=== PATIENT | female | born 1940 | race Caucasian/White ===

== ENCOUNTER → 2016-07-11 | Outpatient (CLI) | payer BC ==
[~2016-07-11] MED LIST: ALBUAER2 INH; ASPI81TA28 PO; CYCL0.052 OPB; EPIN0.3I14 INJ; IBUP-103 PO; MELO7.5T5 PO; METO-217 PO; PRAV20TA PO; PRAV40TA2 PO; RSTOPS OP; VLT50 PO; VNTHFA/IN INH; ZOLP10TA PO; ZPAK PO
--- NOTE | 2016-07-11 12:04 | DIAGNOSTIC IMAGING REPORT ---
BONE SCAN WHOLE BODY CLINICAL HISTORY: M54.12 Cervical ilhyrrqvmbgtmG42.5 Acute lumbar back painR76.8 COMPARISON STUDY: MRI the lumbar spine dated 04/29/2014, conventional radiographic views of the lumbar spine dated 02/23/2014 FINDINGS: Patient was injected with 24.9 mCi of technetium 99m MDP. Three-hour delayed whole body images were acquired. There is a photopenic defect within the right hip, consistent with a right hip arthroplasty. There are foci of increased activity within the wrists knees and feet, consistent with a degenerative/arthritic etiology. There is a subtle focus of increased activity at the level of the right sternoclavicular joint, likely arthritic. There is an unexplained focus of increased activity at the level of the left inferomedial SI joint. There are foci of increased activity involving the T11 vertebra, T12 vertebra, as well as at the L1-2 level, L3 level, and L4-5 level. Plain film correlation is recommended in follow-up. IMPRESSION: 1. Unexplained foci of increased activity within the lower thoracic spine and lumbar spine as well as at the level of the inferior left SI joint. Plain film correlation is advocated 2. Foci of increased activity within the wrist knees and feet, likely degenerative/arthritic Electronically signed by: Claude Parker M.D. 07/11/2016 12:02 PM
[2016-07-12 18:20] LABS: ALBUMIN 3.7 G/DL (3.8-4.8); GAMMA GLOBULIN 0.8 G/DL (0.8-1.7)
== END | disposition home or self-care (01) ==
LOC: C.NUCL 07:28
PROVIDERS: ATTEND Internal Medicine Rheumatology
DX: M54.12 Radiculopathy, cervical region (principal); M54.5 Low back pain; R76.8 Other specified abnormal immunological findings in serum

== ENCOUNTER → 2016-07-21 | Outpatient (CLI) | payer BC ==
[~2016-07-21] MED LIST changes: -EPIN0.3I14 INJ; +EPIN1INJ37 INJ
--- NOTE | 2016-07-21 09:32 | DIAGNOSTIC IMAGING REPORT ---
THORACIC SPINE 3 VIEWS HISTORY: R93.7 Abnormal bone scan of thoracic [id number] COMPARISON: Bone scan 07/11/2016. FINDINGS: There is no fracture. No subluxation. Mild dextroscoliosis of the lower thoracic spine. Moderate degenerative disease throughout the thoracic spine. There are severe degenerative disc disease at L1-L2. Some of this may account for the radiotracer uptake on the bone scan. No suspicious lytic or blastic osseous lesions identified within the thoracic spine. Paraspinal soft tissues are unremarkable. IMPRESSION: 1. Moderate degenerative disease throughout the thoracic spine and severe degenerative disc disease at L1-L2. Some of this may account for the radiotracer uptake on the bone scan. 2. No suspicious lytic or blastic osseous lesions within the thoracic spine by conventional radiographic technique. Electronically signed by: Cayetano Durham M.D. 07/21/2016 9:31 AM Dictated Date/Time: 07/21/2016 9:27 AM
--- NOTE | 2016-07-21 09:38 | DIAGNOSTIC IMAGING REPORT ---
PELVIS 1 OR 2 VIEW ROUTINE CLINICAL HISTORY: Abnormal bone scan. 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 No fractures are visualized. There are sclerotic changes involving the inferior margin left SI joint which may explain the focus of increased activity on the recent bone scan. No destructive lesions are identified. Degenerative changes are present within the visualized portions of the lower lumbar spine IMPRESSION: 1. No acute fractures 2. Degenerative changes with sclerosis involving the inferior margin of the left SI joint. This likely explains the corresponding focus of increased activity on the most recent bone scan Electronically signed by: Claude Parker M.D. 07/21/2016 9:36 AM Dictated Date/Time: 07/21/2016 9:34 AM
== END | disposition home or self-care (01) ==
LOC: C.RAD1850 08:54
PROVIDERS: ATTEND Internal Medicine Rheumatology
DX: R93.7 Abnormal findings on diagnostic imaging of other parts of musculoskeletal system (principal); M16.9 Osteoarthritis of hip, unspecified; M47.814 Spondylosis without myelopathy or radiculopathy, thoracic region; M51.36 Other intervertebral disc degeneration, lumbar region

== ENCOUNTER → 2016-08-15 | Outpatient (CLI) | payer BC ==
--- NOTE | 2016-08-15 11:47 | DIAGNOSTIC IMAGING REPORT ---
MRI LUMBAR SPINE W/O CONTRAST CLINICAL HISTORY: Low back pain with bilateral leg radiculopathy. Spinal stenosis. TECHNIQUE: Sagittal and axial T1, T2 and STIR images were obtained. COMPARISON STUDY: 04/29/2014 OBSERVATIONS: The vertebral bodies and posterior elements appear intact. There is no abnormal bony signal present to suggest a marrow replacement process. L1-2: There is marked degenerative change with degenerative endplate marrow edema. There is a circumferential disc bulge present. There is no significant spinal foraminal stenosis L2-3: There is a circumferential disc bulge present. There is no significant spinal foraminal stenosis L3-4: There is a circumferential disc bulge present with mild spinal stenosis. There is no significant foraminal narrowing. L4-5: There is a grade 1 spondylolisthesis of L4 and L5. There is advanced facet joint arthropathy. There is moderate to severe spinal stenosis. There is no significant foraminal narrowing. L5-S1: There is a grade 1 spondylolisthesis of L5 and S1. There is facet joint arthropathy. There is no significant spinal or foraminal stenosis. The conus medullaris and cauda equina appear normal. IMPRESSION: No significant change from the preceding study. Multilevel spondylitic changes. Mild spinal stenosis the L3-4 level, and moderate to severe spinal stenosis at the L4-5 level. Electronically signed by: Claude Parker M.D. 08/15/2016 11:46 AM Dictated Date/Time: 08/15/2016 11:40 AM
== END | disposition home or self-care (01) ==
LOC: C.MRIBC 10:32
PROVIDERS: ATTEND Orthopaedic Surgery Orthopaedic Surgery of the Spine
DX: M48.06 Spinal stenosis, lumbar region (principal)

== ENCOUNTER → 2016-09-18 | Outpatient (CLI) | payer BC ==
[~2016-09-18] MED LIST changes: -IBUP-103 PO
--- NOTE | 2016-09-18 14:00 | MAMMOGRAPHY REPORT ---
BILATERAL DIGITAL SCREENING MAMMOGRAM WITH CAD: 09/18/2016 CLINICAL HISTORY: Routine screening. Patient has no complaints. TECHNIQUE: Bilateral CC and MLO views were obtained. Current study was also evaluated with a Comput er Aided Detection (CAD) system. COMPARISON: Comparison is made to exams dated: 09/16/2015 mammogram, 08/19/2013 mammogram, 10/12/2015 u ltrasound, and 10/12/2015 mammogram - [facility]. BREAST COMPOSITION: The tissue of both breasts is heterogeneously dense, which may obscure small ma sses. FINDINGS: The parenchymal pattern is similar to prior exams. There are stable round microcalcificat ions in the right breast. No new suspicious mass, architectural distortion or cluster of microcalci fications is seen. IMPRESSION: ACR BI-RADS CATEGORY 1: NEGATIVE There is no mammographic evidence of malignancy. A 1 year screening mammogram is recommended. The p atient will receive written notification of the results. Approximately 10% of breast cancers are not detected with mammography. A negative mammographic repor t should not delay biopsy if a clinically suggestive mass is present. Marta Mcadams M.D. ay/:09/18/2016 12:20:06 Senior [employer] Under[employer]: Freda YAÑEZ(Syed)(M), [facility] letter sent: Normal 1/2 BI-RADS Code: ACR BI-RADS Category 1: Negative
== END ==
LOC: C.MAMM 09:17
PROVIDERS: ATTEND Obstetrics & Gynecology
DX: Z12.31 Encounter for screening mammogram for malignant neoplasm of breast (principal)

== ENCOUNTER → 2016-10-28 | Outpatient (CLI) | payer BC ==
[2016-10-28 12:56] LABS: BASO % 0.3 %; BASO ABS # 0.02 K/uL (0-0.2); COMPLETE YES; HEMATOCRIT 45.8 % (37-47); IG% 0.1 %; LYMPH % 28.8 %; LYMPH ABS # 2.07 K/uL (1.2-3.4); MEAN CELL VOLUME 93.7 fL (80-100); MEAN CORPUSCULAR HEMOGLOBIN 31.1 pg (25-34); MEAN CORPUSCULAR HGB CONC 33.2 g/dl (32-36); MEAN PLATELET VOLUME 9.6 fL (7.4-10.4); MONO % 8.2 %; NEUT % 61.6 %; PLATELET COUNT 266 K/uL (130-400); RED BLOOD COUNT 4.89 M/uL (4.2-5.4)
[2016-10-28 13:04] LABS: ALT/SGPT 32 U/L (12-78); AST/SGOT 23 U/L (15-37); BLOOD UREA NITROGEN 18 mg/dl (7-18); BUN/CREATININE RATIO 21.7 (10-20); CALCIUM 8.8 mg/dl (8.5-10.1); CARBON DIOXIDE 29 mmol/L (21-32); CHLORIDE 104 mmol/L (98-107); CREATININE 0.83 mg/dl (0.60-1.20); GLUCOSE 99 mg/dl (70-99); POTASSIUM 4.2 mmol/L (3.5-5.1); SODIUM 141 mmol/L (136-145)
[2016-10-28 13:15] LABS: ALB/GLOB RATIO 1.2 (0.9-2); ALKALINE PHOSPHATASE 48 U/L (45-117); CHOLESTEROL 187 mg/dl (0-200); CHOLESTEROL/HDL RATIO 2.1; HDL CHOLESTEROL 88 mg/dl; LDL CHOLESTEROL CALCULATED 80 mg/dl; TRIGLYCERIDES 96 mg/dl (0-150); VERY LOW DENSITY LIPOPROT CALC 19 mg/dl
[2016-10-28 13:22] LABS: ESTIMATED AVERAGE GLUCOSE 123 mg/dl; HA1C FLAG Normal (Normal)
== END | disposition home or self-care (01) ==
LOC: C.LABBC 10:36
PROVIDERS: ATTEND Internal Medicine Pulmonary Disease
DX: E78.5 Hyperlipidemia, unspecified (principal); M15.9 Polyosteoarthritis, unspecified; J30.9 Allergic rhinitis, unspecified; I47.1 Supraventricular tachycardia; E11.9 Type 2 diabetes mellitus without complications; G47.00 Insomnia, unspecified; M51.36 Other intervertebral disc degeneration, lumbar region

== ENCOUNTER 2017-01-04 20:19 | Emergency (ER) | payer BC ==
[~2017-01-04] VITALS: Ht 157.5 cm; Wt 62.6 kg
[~2017-01-04 20:19] MED LIST changes: -CYCL0.052 OPB; -EPIN1INJ37 INJ; -PRAV40TA2 PO; -VLT50 PO; -VNTHFA/IN INH; -ZPAK PO
[2017-01-04 20:24] VITALS: TEMP 36.4; Ht 157.5 cm; Wt 62.6 kg
[2017-01-04] MEDS ORDERED: PRAV40TA2 PO (20:41)
[2017-01-04] MEDS ORDERED: CYCL0.052 OPB (20:41)
[2017-01-04] MEDS ORDERED: VLT50 PO (20:41)
[2017-01-04] MEDS ORDERED: VNTHFA/IN INH (20:41)
[2017-01-04] MEDS ORDERED: ZPAK PO (20:41)
[2017-01-04] MEDS ORDERED: EPIN1INJ37 INJ (20:41)
[2017-01-04 21:18] LABS: BASO % 0.7 %; BASO ABS # 0.04 K/uL (0-0.2); COMPLETE YES; EOS % 3.5 %; HEMATOCRIT 43.3 % (37-47); IG% 0.2 %; LYMPH % 34.8 %; LYMPH ABS # 2.08 K/uL (1.2-3.4); MEAN CELL VOLUME 91.9 fL (80-100); MEAN CORPUSCULAR HEMOGLOBIN 31.4 pg (25-34); MEAN CORPUSCULAR HGB CONC 34.2 g/dl (32-36); MEAN PLATELET VOLUME 9.3 fL (7.4-10.4); MONO % 8.7 %; NEUT % 52.1 %; PLATELET COUNT 263 K/uL (130-400); RED BLOOD COUNT 4.71 M/uL (4.2-5.4); WHITE BLOOD COUNT 5.97 K/uL (4.8-10.8)
--- NOTE | 2017-01-04 21:38 | DIAGNOSTIC IMAGING REPORT ---
CHEST ONE VIEW PORTABLE CLINICAL HISTORY: Chest pain. Tachycardia. COMPARISON STUDY: Chest radiograph November 05, 2014. FINDINGS: There is no pneumothorax or pleural effusion. Linear bilateral opacities suggest atelectasis. There is no consolidation to suggest pneumonia. Cardiomediastinal silhouette is normal. The appearance of the chest is unchanged. IMPRESSION: No acute cardiopulmonary findings. Electronically signed by: Floyd Trejo M.D. 01/04/2017 9:37 PM Dictated Date/Time: 01/04/2017 9:34 PM
[2017-01-04 22:16] LABS: BLOOD UREA NITROGEN 18 mg/dl (7-18); BUN/CREATININE RATIO 19.4 (10-20); CALCIUM 9.3 mg/dl (8.5-10.1); CARBON DIOXIDE 30 mmol/L (21-32); CHLORIDE 105 mmol/L (98-107); GLUCOSE 168 mg/dl (70-99); POTASSIUM 3.8 mmol/L (3.5-5.1); SODIUM 139 mmol/L (136-145)
--- NOTE | 2017-01-05 00:05 | EMERGENCY ROOM VISIT NOTE ---
History Report prepared by Leonid: Emer[facility] Under the Supervision of: Dr. Ganesh Ford D.O. First contact with patient: 20:32 Chief Complaint: TACHYCARDIA Stated Complaint: RAPID HEARTRATE, STIFF NECK, THROAT ULCERS, DIZZY History of Present Illness The patient is a 76 year old female who presents to the Emergency Room with complaints of intermittent rapid heart rate/palpitations beginning 13 minutes ago. The patient states that last week she had a sore throat and mouth ulcer. She reports that she went to see her PCP and was told that it was viral. She notes that she was given Azithromycin and was told not to take it unless her symptoms persisted. She notes that she started it and has been on it for about 3 days. She reports that today she was feeling lightheaded with a stiff neck. She notes that she had a rapid heart rate this morning 13 hours ago and it resolved after about 5 minutes before coming back tonight 2 hours ago. The patient notes that her rapid heart rate lasted for about 20 minutes before she came in tonight. She notes her heart feels like it is beating regularly as opposed to a regular. She did not check her pulse. She complains of dizziness and 3 episodes of diarrhea. The patient denies any chest pain, shortness of breath, fever, leg swelling, coughing up blood, history of cancer, previous blood clots, recent trips, recent surgeries or smoking.. She reports that she has a history of high cholesterol and SVT 12 years ago and this feels slightly similar. Patient also denies a history of diabetes, hypertension, and CAD. She does take a statin. Source of History: patient Onset: 13 hours ago Position: other (global) Symptom Intensity: 2 episodes Quality: other (rapid heart rate) Timing: intermittent Associated Symptoms: + sorethroat, + neck pain, No fevers, No chest pain, No SOB Note: Pt complains of mouth sores. The patient denies any leg swelling, coughing up blood, swelling of the calves. Review of Systems See HPI for pertinent positives & negatives. A total of 10 systems reviewed and were otherwise negative. Past Medical & Surgical Medical Problems: (1) Hypertension Nos (2) Osteoarthros Nos-Unspec Family History No pertinent family history Social History Smoking Status: Never Smoker Smokeless Tobacco Use: No Marital Status: Occupation Status: retired Current/Historical Medications Scheduled Aspirin (Aspirin Ec), 81 MG PO QPM Azithromycin (Azithromycin), PO UD Cyclosporine (Ophth) (Restasis), 1 DROP OPB BID Epinephrine (Epinephrine), 1 DOSE INJ PRN Metoprolol Succinate (Toprol Xl), 50 MG PO QPM Pravastatin Sodium (Pravastatin Sodium), 40 MG PO DAILY Scheduled PRN Albuterol Hfa (Ventolin Hfa), 2 PUFFS INH Q4 PRN for SOB/Wheezing Diclofenac Sod (Diclofenac Sodium Dr), 50 MG PO BID PRN for Pain Zolpidem Tartrate (Ambien), 5-10 MG PO HS PRN for Insomnia Allergies Coded Allergies: Amoxicillin (Verified Allergy, Unknown, C. DIFF, 09/21/16) [place] Nut (Verified Allergy, Unknown, BREATHING ISSUES, 09/21/16) Solifenacin (Verified Allergy, Unknown, CONSTIPATION, 09/21/16) POLLEN (Verified Adverse Reaction, Unknown, SNEEZING;ITCHY EYES, 09/21/16) Ragweed (Verified Adverse Reaction, Unknown, SNEEZING, 09/21/16) Physical Exam Vital Signs Date Time Temp Pulse Resp B/P (MAP) Pulse Ox O2 Delivery O2 Flow Rate FiO2 01/04/17 23:49 63 18 172/89 96 Room Air 01/04/17 22:28 69 16 164/90 93 Room Air 01/04/17 21:07 77 16 171/88 96 Room Air 01/04/17 21:04 71 01/04/17 20:24 36.4 97 20 161/99 94 Room Air Physical Exam GENERAL: sitting up in bed, alert, well appearing, well nourished, no distress, non-toxic EYE EXAM: normal conjunctiva OROPHARYNX: no exudate, no erythema, lips, buccal mucosa, and tongue normal and mucous membranes are moist NECK: supple, no nuchal rigidity, no adenopathy, non-tender, no JVD LUNGS: Clear to auscultation. Normal chest wall mechanics HEART: no murmurs, S1 normal and S2 normal ABDOMEN: abdomen soft, non-tender, normo-active bowel sounds, no masses, no rebound or guarding. BACK: Back is symmetrical on inspection and there is no deformity, no midline tenderness, no CVA tenderness. SKIN: no rashes and no bruising UPPER EXTREMITIES: upper extremities are grossly normal. LOWER EXTREMITIES: No pitting edema. Calves are equal bilaterally NEURO EXAM: Normal sensorium, cranial nerves II-XII grossly intact, normal speech, no gross weakness of arms, no gross weakness of legs. Medical Decision & Procedures ER Provider Diagnostic Interpretation: Radiology results as stated below per my review and the radiologist's interpretation: CHEST ONE VIEW PORTABLE FINDINGS: There is no pneumothorax or pleural effusion. Linear bilateral opacities suggest atelectasis. There is no consolidation to suggest pneumonia. Cardiomediastinal silhouette is normal. The appearance of the chest is unchanged. IMPRESSION: No acute cardiopulmonary findings. Electronically signed by: Floyd Trejo M.D. 01/04/2017 9:37 PM Dictated Date/Time: 01/04/2017 9:34 PM Laboratory Results 01/04/17 21:05 Red Blood Count 4.71, Mean Corpuscular Volume 91.9, Mean Corpuscular Hemoglobin 31.4, Mean Corpuscular Hemoglobin Concent 34.2, Mean Platelet Volume 9.3, Neutrophils (%) (Auto) 52.1, Lymphocytes (%) (Auto) 34.8, Monocytes (%) (Auto) 8.7, Eosinophils (%) (Auto) 3.5, Basophils (%) (Auto) 0.7, Neutrophils # (Auto) 3.11, Lymphocytes # (Auto) 2.08, Monocytes # (Auto) 0.52, Eosinophils # (Auto) 0.21, Basophils # (Auto) 0.04 01/04/17 21:05 Test 01/04/17 21:05 01/04/17 23:19 White Blood Count 5.97 K/uL (4.8-10.8) Red Blood Count 4.71 M/uL (4.2-5.4) Hemoglobin 14.8 g/dL (12.0-16.0) Hematocrit 43.3 % (37-47) Mean Corpuscular Volume 91.9 fL (80-100) Mean Corpuscular Hemoglobin 31.4 pg (25-34) Mean Corpuscular Hemoglobin Concent 34.2 g/dl (32-36) Platelet Count 263 K/uL (130-400) Mean Platelet Volume 9.3 fL (7.4-10.4) Neutrophils (%) (Auto) 52.1 % Lymphocytes (%) (Auto) 34.8 % Monocytes (%) (Auto) 8.7 % Eosinophils (%) (Auto) 3.5 % Basophils (%) (Auto) 0.7 % Neutrophils # (Auto) 3.11 K/uL (1.4-6.5) Lymphocytes # (Auto) 2.08 K/uL (1.2-3.4) Monocytes # (Auto) 0.52 K/uL (0.11-0.59) Eosinophils # (Auto) 0.21 K/uL (0-0.5) Basophils # (Auto) 0.04 K/uL (0-0.2) RDW Standard Deviation 45.0 fL (36.4-46.3) RDW Coefficient of Variation 13.4 % (11.5-14.5) Immature Granulocyte % (Auto) 0.2 % Immature Granulocyte # (Auto) 0.01 K/uL (0.00-0.02) Anion Gap 4.0 mmol/L (3-11) Est Creatinine Clear Calc Drug Dose 45.5 ml/min Estimated GFR () 71.5 Estimated GFR (Non- 61.7 BUN/Creatinine Ratio 19.4 (10-20) Calcium Level 9.3 mg/dl (8.5-10.1) Laboratory results per my review. ECG Indication: tachycardia Rate (beats per minute): 69 Rhythm: sinus rhythm Findings: no ectopy, other (normal axis) ED Course ED COURSE: Vital signs were reviewed and showed hypertension The patients medical record was reviewed The above diagnostic studies were performed and reviewed. ED treatments and interventions as stated above. 2034: The patient was evaluated in room A2. A complete history and physical examination was performed. 2247: I reevaluated and updated the patient. The patient had palpitations when she was here that appeared to be PACs. 2324: I reevaluated and updated the patient. 0015: Upon reevaluation, the patient is doing well.I discussed my findings with the patient and she understands and agrees with the treatment plan. Based on the patients age, coexisting illnesses, exam and lab findings the decision to treat as an outpatient was made. The patient remained stable while under my care. The patient appeared well at the time of discharge. Medical Decision Differential diagnosis: Etiologies such as premature contractions, electrolyte abnormality, cardiac dysrhythmia, thyroid dysfunction, pulmonary embolism, infection, gastrointestinal, as well as others were entertained. Medication Reconciliation: I attest that I have personally reviewed the patient' s current medication list. Blood pressure screening: Patient was found to have an elevated blood pressure and was referred to their primary doctor for recheck and further treatment. Patient is a 76-year-old female who presents the ER for palpitations which occurred on 2 separate occasions today. She has a history of SVT. She notes that this does feel similar. Both events were short-lived. No risk factors for PEs. Denies any chest pain or shortness of breath. Chest x-ray unremarkable. EKG was nonischemic. Troponins were negative 2. She did complain of palpitations while here in the ER and the monitor showed that she was having PACs. I do believe this likely cause of her symptoms, consequently TSH was not obtained as she was symptomatic with monitor showing PACs. I do not believe that this is ischemic in nature. She may benefit from a Holter monitor. Patient believes that the symptoms are possibly related to azithromycin she was taking for a sore throat. Intervals are normal. I do not believe this is an allergic reaction. She is completely neurologically intact. No signs of meningitis or encephalitis on exam. Her neck stiffness is muscular in nature. Discussed with Pt concerning signs and symptoms to watch out for. Pt was instructed to follow up with their PCP and discussed with the patient their option to return to the ED at anytime for persistent or worsening symptoms. The appropriate anticipatory guidance and out-patient management, including indications for return to the emergency department, were explained at length to the patient and understood. Impression Primary Impression: Palpitations Scribe Attestation The scribe's documentation has been prepared under my direction and personally reviewed by me in its entirety. I confirm that the note above accurately reflects all work, treatment, procedures, and medical decision making performed by me. Departure Information Dispostion Home / Self-Care Referrals Pablo Dumont M.D. (PCP) Forms HOME CARE DOCUMENTATION FORM, IMPORTANT VISIT INFORMATION, WORK / SCHOOL INSTRUCTIONS Patient Instructions ED Palpitations, My [facility] Additional Instructions Please follow up with your primary care doctor with in the next 24 hours. Any worsening of your symptoms, please return to the ED immediately. This includes chest pain, shortness breath, passing out, weakness or numbness in arms or legs , swelling of her throat, difficult breathing, or any other concerning signs or symptoms from your standpoint.
[2017-01-05 00:14] VITALS: BP 162/92; PULSE 85; O2SAT 95
== END 2017-01-05 00:15 | disposition home or self-care (01) ==
LOC: C.EDB 20:21 → C.EDA 01-05 00:15
DX: R00.2 Palpitations (principal); R00.0 Tachycardia, unspecified; R42 Dizziness and giddiness; R19.7 Diarrhea, unspecified; M54.2 Cervicalgia; I10 Essential (primary) hypertension; M19.90 Unspecified osteoarthritis, unspecified site; Z79.82 Long term (current) use of aspirin; Z79.899 Other long term (current) drug therapy

== ENCOUNTER → 2017-02-20 | Outpatient (CLI) | payer BC ==
[~2017-02-20] MED LIST changes: -ALBUAER2 INH; +CYCL0.052 OPB; +EPIN1INJ37 INJ; -MELO7.5T5 PO; -PRAV20TA PO; +PRAV40TA2 PO; -RSTOPS OP; +VLT50 PO; +VNTHFA/IN INH; +ZPAK PO
[2017-02-20 14:36] LABS: BASO % 0.5 %; BASO ABS # 0.04 K/uL (0-0.2); COMPLETE YES; EOS % 2.3 %; HEMATOCRIT 42.8 % (37-47); IG% 0.1 %; LYMPH % 39.2 %; LYMPH ABS # 2.89 K/uL (1.2-3.4); MEAN CELL VOLUME 92.2 fL (80-100); MEAN CORPUSCULAR HEMOGLOBIN 31.5 pg (25-34); MEAN CORPUSCULAR HGB CONC 34.1 g/dl (32-36); MEAN PLATELET VOLUME 9.8 fL (7.4-10.4); MONO % 6.4 %; NEUT % 51.5 %; PLATELET COUNT 236 K/uL (130-400); RED BLOOD COUNT 4.64 M/uL (4.2-5.4); WHITE BLOOD COUNT 7.38 K/uL (4.8-10.8)
[2017-02-20 15:02] LABS: ALT/SGPT 26 U/L (12-78); AST/SGOT 17 U/L (15-37); CREATININE 0.84 mg/dl (0.60-1.20)
== END | disposition home or self-care (01) ==
LOC: C.LAB1850 14:03
PROVIDERS: ATTEND Internal Medicine Rheumatology
DX: M54.5 Low back pain (principal); Z79.1 Long term (current) use of non-steroidal anti-inflammatories (NSAID)

== ENCOUNTER → 2017-04-13 | Outpatient (CLI) | payer BC ==
[~2017-04-13] MED LIST changes: -ZPAK PO
== END | disposition home or self-care (01) ==
LOC: C.PAPS 11:31
PROVIDERS: ATTEND Obstetrics & Gynecology
DX: Z12.4 Encounter for screening for malignant neoplasm of cervix (principal); Z78.0 Asymptomatic menopausal state

== ENCOUNTER → 2017-04-20 | Outpatient (CLI) | payer BC ==
[2017-04-20 09:30] LABS: BASO % 0.1 %; BASO ABS # 0.01 K/uL (0-0.2); COMPLETE YES; EOS % 0.3 %; HEMATOCRIT 45.8 % (37-47); IG% 0.2 %; LYMPH ABS # 2.25 K/uL (1.2-3.4); MEAN CELL VOLUME 91.2 fL (80-100); MEAN CORPUSCULAR HEMOGLOBIN 31.5 pg (25-34); MEAN CORPUSCULAR HGB CONC 34.5 g/dl (32-36); MEAN PLATELET VOLUME 9.7 fL (7.4-10.4); MONO % 10.3 %; NEUT % 65.1 %; PLATELET COUNT 294 K/uL (130-400); RED BLOOD COUNT 5.02 M/uL (4.2-5.4); WHITE BLOOD COUNT 9.39 K/uL (4.8-10.8)
[2017-04-20 10:03] LABS: ALT/SGPT 29 U/L (12-78); AST/SGOT 13 U/L (15-37); BLOOD UREA NITROGEN 31 mg/dl (7-18); BUN/CREATININE RATIO 35.5 (10-20); CALCIUM 9.1 mg/dl (8.5-10.1); CARBON DIOXIDE 27 mmol/L (21-32); CHLORIDE 105 mmol/L (98-107); CREATININE 0.86 mg/dl (0.60-1.20); GLUCOSE 93 mg/dl (70-99); POTASSIUM 4.1 mmol/L (3.5-5.1); SODIUM 140 mmol/L (136-145)
[2017-04-20 10:06] LABS: ALB/GLOB RATIO 1.1 (0.9-2); ALKALINE PHOSPHATASE 59 U/L (45-117); CHOLESTEROL 211 mg/dl (0-200); CHOLESTEROL/HDL RATIO 2.5; HDL CHOLESTEROL 85 mg/dl; LDL CHOLESTEROL CALCULATED 108 mg/dl; TRIGLYCERIDES 90 mg/dl (0-150); VERY LOW DENSITY LIPOPROT CALC 18 mg/dl
[2017-04-20 10:32] LABS: ESTIMATED AVERAGE GLUCOSE 126 mg/dl; HA1C FLAG Normal (Normal)
== END | disposition home or self-care (01) ==
LOC: C.LAB1850 08:38
PROVIDERS: ATTEND Internal Medicine Pulmonary Disease
DX: M15.9 Polyosteoarthritis, unspecified (principal); J30.9 Allergic rhinitis, unspecified; I47.1 Supraventricular tachycardia; E78.5 Hyperlipidemia, unspecified; R73.9 Hyperglycemia, unspecified; M48.00 Spinal stenosis, site unspecified

== ENCOUNTER → 2017-05-28 | Outpatient (CLI) | payer BC ==
--- NOTE | 2017-05-28 13:01 | DIAGNOSTIC IMAGING REPORT ---
CHEST 2 VIEWS ROUTINE CLINICAL HISTORY: J45.909 [id number] Cough COMPARISON STUDY: 01/04/2017 FINDINGS: The heart is borderline enlarged. There is aortic tortuosity. There is no failure. There is no focal pulmonary consolidation. There are no pleural effusions. There is minor interstitial thickening/atelectatic change at the lung bases.[ IMPRESSION: No active disease in the chest. Electronically signed by: Claude Parker M.D. 05/28/2017 1:00 PM Dictated Date/Time: 05/28/2017 12:59 PM
== END | disposition home or self-care (01) ==
LOC: C.RAD1850 11:52
PROVIDERS: ATTEND Physician Assistant
DX: J45.909 Unspecified asthma, uncomplicated (principal)

== ENCOUNTER → 2017-08-13 | Outpatient (CLI) | payer BC ==
[~2017-08-13] MED LIST changes: +EPIN0.3I14 INJ; -EPIN1INJ37 INJ
== END | disposition home or self-care (01) ==
LOC: C.LAB1850 15:45
PROVIDERS: ATTEND Physician Assistant Medical
DX: R39.9 Unspecified symptoms and signs involving the genitourinary system (principal); J02.9 Acute pharyngitis, unspecified

== ENCOUNTER 2017-09-08 20:51 | Emergency (ER) | payer BC ==
[~2017-09-08] VITALS: Ht 157.5 cm; Wt 61.0 kg
[2017-09-08 20:53] VITALS: TEMP 36.5; Ht 157.5 cm; Wt 61.0 kg
--- NOTE | 2017-09-08 21:22 | EMERGENCY ROOM VISIT NOTE ---
History Report prepared by Leonid: Mat Lucas Under the Supervision of: Dr. Juan Prince M.D. First contact with patient: 21:01 Chief Complaint: FALL Stated Complaint: FELL, HIT HEAD, BRUISING ON FOREHEAD/LIP, NAUSEA History of Present Illness The patient is a 77 year old white female with a past medical history of SVT and HTN who presents to the ED with a cc of a constant headache beginning three days ago. The patient states that she had only eaten oatmeal three days ago until her dinner. She reports that she then had a five course meal that included five different glasses of wine. The patient states that she sat for three hours and did not feel different. She reports that she tried to get up and was not able to. The patient states that she was driven back home and her friend helped escort her to the bathroom. She is accompanied by her friend who states that the patient was sitting on the toilet. Her friend states that when she checked on the patient again, she found the patient with her back to the [facility]. The patient states that she fell but does not remember the episode well. She denies any LOC. The patient states that she developed a bruise to the left side of her face and anterior head pain the following day. The patient states that she developed nausea at breakfast this morning. She reports that throughout that day she developed a headache posteriorly. She reports that she used ice and Tylenol for her symptoms with some mild relief. Positive head pain , bruising, nausea. Negative LOC, jaw pain, face pain, chest pain, abdominal pain, pelvis pain, back pain, UE pain, and LE pain. Source of History: patient Onset: three days ago Position: head Quality: ache Timing: constant Modifying Factors (Relieving): tylenol Associated Symptoms: + nausea, No LOC, No chest pain, No abdominal pain, No back pain Review of Systems See HPI for pertinent positives and negatives. A total of ten systems were reviewed and were otherwise negative. Past Medical & Surgical Medical Problems: (1) Hypertension Nos (2) Osteoarthros Nos-Unspec Family History No pertinent family history Social History Smoking Status: Never Smoker Marital Status: Occupation Status: retired Current/Historical Medications Scheduled Aspirin (Aspirin Ec), 81 MG PO QPM Cyclosporine (Ophth) (Restasis), 1 DROP OPB BID Epinephrine (Epinephrine), 1 DOSE INJ PRN Metoprolol Succinate (Toprol Xl), 50 MG PO QPM Pravastatin Sodium (Pravastatin Sodium), 40 MG PO DAILY Scheduled PRN Albuterol Hfa (Ventolin Hfa), 2 PUFFS INH Q4 PRN for SOB/Wheezing Diclofenac Sod (Diclofenac Sodium Dr), 50 MG PO BID PRN for Pain Zolpidem Tartrate (Ambien), 5-10 MG PO HS PRN for Insomnia Allergies Coded Allergies: Amoxicillin (Verified Allergy, Unknown, C. DIFF, 04/27/17) [place] Nut (Verified Allergy, Unknown, BREATHING ISSUES, 04/27/17) Solifenacin (Verified Allergy, Unknown, CONSTIPATION, 04/27/17) POLLEN (Verified Adverse Reaction, Unknown, SNEEZING;ITCHY EYES, 04/27/17) Ragweed (Verified Adverse Reaction, Unknown, SNEEZING, 04/27/17) Physical Exam Vital Signs Date Time Temp Pulse Resp B/P (MAP) Pulse Ox O2 Delivery O2 Flow Rate FiO2 09/08/17 23:00 62 20 162/82 95 Room Air 09/08/17 20:53 36.5 66 16 186/100 95 Room Air Physical Exam GENERAL: Awake, alert, well-appearing, NAD, HENT: Mild pain to left frontal bahai area, ecchymosis present. EYES: Normal conjunctiva. Sclera non-icteric. NECK: Supple. No nuchal rigidity. FROM. RESPIRATORY: CTAB, no rhonchi, wheezing, crackles CARDIAC: RRR, no MRG ABDOMEN: Soft, NTND, BS+ MSK: No chest wall TTP, no LE edema, no tenderness to arms, legs, chest, abdomen , and pelvis. No midline C-spine TTP. NEURO: CN 2-12 intact, 5/5 upper and lower extremity strength, no dysmetria, no drift, good finger to nose, no sensory deficits. SKIN: No rash or jaundice noted. Medical Decision & Procedures ER Provider Diagnostic Interpretation: Radiology results as stated below per my review and radiologist interpretation: FACIAL BONES-MXILLOFAC WITHOUT CLINICAL HISTORY: 77 years-old Female presenting with s/p fall. TECHNIQUE: Multidetector CT of the face was performed without the use of intravenous contrast. IV contrast: None. A dose lowering technique was used consistent with the principles of ALARA (as low as reasonably achievable). COMPARISON: None. CT DOSE (mGy.cm): The estimated cumulative dose is 834.[address] scans. FINDINGS: Pump Service Supervisor topogram: Unremarkable. Trace mucosal thickening in the maxillary sinuses. Otherwise paranasal sinuses and mastoid air cells clear. Middle ears clear. Bony nasal septum and nasal bones intact. Skull base intact. No facial fracture. Temporal mandibular joints and mandible intact. Teeth intact. Degenerative changes of the cervical spine. IMPRESSION: No acute osseous injury of the face. Electronically signed by: Joe Buchanan M.D. 09/08/2017 10:38 PM Dictated Date/Time: 09/08/2017 10:35 PM HEAD WITHOUT CONTRAST (CT) CLINICAL HISTORY: 77 years-old Female presenting with Evaluate for hemorrhage or pathology, fall, headache. TECHNIQUE: Multidetector CT imaging of the head was performed without the use of intravenous contrast. IV contrast: None. A dose lowering technique was used consistent with the principles of ALARA (as low as reasonably achievable). COMPARISON: 02/21/2009 CT DOSE (mGy.cm): The estimated cumulative dose is 834.28 mGy.cm. FINDINGS: Pump Service Supervisor topogram: Unremarkable. Proportional ventricular and sulcal prominence, likely age-related parenchymal volume loss. Brain parenchyma normal in appearance with preserved andres-white differentiation. No mass effect or midline shift. No hemorrhage or acute territorial infarct. No extra-axial fluid collection. Paranasal sinuses and mastoid air cells clear. Calvarium intact. IMPRESSION: 1. No acute intracranial abnormality. Electronically signed by: Joe Buchanan M.D. 09/08/2017 10:31 PM Dictated Date/Time: 09/08/2017 10:28 PM CERVICAL SPINE W/O CLINICAL HISTORY: 77 years-old Female presenting with s/p fall. TECHNIQUE: Multidetector CT of the cervical spine was performed without the use of intravenous contrast. IV contrast: None. A dose lowering technique was used consistent with the principles of ALARA (as low as reasonably achievable). COMPARISON: Plain radiographs from 11/05/2014. CT DOSE (mGy.cm): The estimated cumulative dose is 834.[address] scans. FINDINGS: Pump Service Supervisor topogram: Unremarkable. Reversal of normal cervical lordosis with kyphotic deformity centered at C4-5. No acute fracture or subluxation. Multilevel degenerative changes. Mild vertebral body height loss of C5, likely degenerative in etiology. Intervertebral disc height loss at C5-6 and C6-7, where there is the greatest degree of degenerative change and disc osteophyte complexes. Smaller disc osteophyte complex noted at C4-5. Facet arthropathy results in osseous neural foraminal narrowing on the left at C3-4. Disc osteophyte complex/uncovertebral hypertrophy in combination with facet arthropathy results in osseous neural foraminal narrowing on the left at C4-5. Osseous neural foraminal narrowing secondary to disc osteophyte complex on the right at C5-6 and C6-7. No significant osseous spinal canal narrowing though posterior bony spurring is present at the levels affected by disc osteophyte complexes. IMPRESSION: 1. No acute osseous injury of the cervical spine. 2. Multilevel degenerative changes including kyphotic deformity. Osseous neural foraminal narrowing at several levels as detailed above. Electronically signed by: Joe Buchanan M.D. 09/08/2017 10:35 PM Dictated Date/Time: 09/08/2017 10:31 PM Laboratory Results 09/08/17 22:00 Red Blood Count 4.82, Mean Corpuscular Volume 90.7, Mean Corpuscular Hemoglobin 31.5, Mean Corpuscular Hemoglobin Concent 34.8, Mean Platelet Volume 10.0, Neutrophils (%) (Auto) 63.9, Lymphocytes (%) (Auto) 25.7, Monocytes (%) (Auto) 8.4, Eosinophils (%) (Auto) 1.4, Basophils (%) (Auto) 0.4, Neutrophils # (Auto) 6.02, Lymphocytes # (Auto) 2.42, Monocytes # (Auto) 0.79, Eosinophils # (Auto) 0.13, Basophils # (Auto) 0.04 09/08/17 22:00 Test 09/08/17 22:00 White Blood Count 9.42 K/uL (4.8-10.8) Red Blood Count 4.82 M/uL (4.2-5.4) Hemoglobin 15.2 g/dL (12.0-16.0) Hematocrit 43.7 % (37-47) Mean Corpuscular Volume 90.7 fL (80-100) Mean Corpuscular Hemoglobin 31.5 pg (25-34) Mean Corpuscular Hemoglobin Concent 34.8 g/dl (32-36) Platelet Count 227 K/uL (130-400) Mean Platelet Volume 10.0 fL (7.4-10.4) Neutrophils (%) (Auto) 63.9 % Lymphocytes (%) (Auto) 25.7 % Monocytes (%) (Auto) 8.4 % Eosinophils (%) (Auto) 1.4 % Basophils (%) (Auto) 0.4 % Neutrophils # (Auto) 6.02 K/uL (1.4-6.5) Lymphocytes # (Auto) 2.42 K/uL (1.2-3.4) Monocytes # (Auto) 0.79 K/uL (0.11-0.59) Eosinophils # (Auto) 0.13 K/uL (0-0.5) Basophils # (Auto) 0.04 K/uL (0-0.2) RDW Standard Deviation 45.0 fL (36.4-46.3) RDW Coefficient of Variation 13.6 % (11.5-14.5) Immature Granulocyte % (Auto) 0.2 % Immature Granulocyte # (Auto) 0.02 K/uL (0.00-0.02) Prothrombin Time 9.8 SECONDS (9.0-12.0) Prothromb Time International Ratio 0.9 (0.9-1.1) Activated Partial Thromboplast Time 23.6 SECONDS (21.0-31.0) Partial Thromboplastin Ratio 0.9 Anion Gap 7.0 mmol/L (3-11) Est Creatinine Clear Calc Drug Dose 39.9 ml/min Estimated GFR () 62.5 Estimated GFR (Non- 53.9 BUN/Creatinine Ratio 23.0 (10-20) Calcium Level 9.0 mg/dl (8.5-10.1) Laboratory results reviewed by me ECG Per My Interpretation Indication: weakness Rate (beats per minute): 76 Rhythm: normal sinus Findings: PVC (occasional), other (Normal intervals, Normal axis, ectopy noted) ED Course 2103: The patient was evaluated in room B03B. A complete history and physical exam was performed. 2242: I reevaluated the patient. Discussed results and discharge instructions: She verbalized understanding and agreement. The patient is ready for discharge. Medical Decision Triage Nursing notes reviewed. Prior records reviewed. The patient is a 77 year old white female with a past medical history of SVT and HTN who presents to the ED with a cc of constant headache beginning three days ago. The patient's presentation and history were concerning for etiologies such as migraine headache, meningitis, sinusitis, CO exposure, ICH, SAH, infection, tumor, headache, sinus thrombosis, arterial dissection, as well as others were entertained. Patient was seen and evaluated the bedside. Patient reportedly had a fall on Sunday. The patient had 5 glasses of wine and had been seated for fair amount of time during dinner. Patient did not have any LOC. Patient does take a baby aspirin but no other blood thinning medications. Patient has had some mild intermittent headache. Patient denies any numbness tingling or weakness. On exam the patient has a nonfocal neurologic exam. Patient does have ecchymosis over the left frontotemporal area. Patient does not have any vision changes and no midline C-spine tenderness. Patient denies any pain to palpation in any of her extremities, chest, back, or abdomen. Patient did have basic blood work completed along with coagulation studies, EKG and, CT of the head C-spine and face. Patient's blood work was fairly unremarkable. Patient' s EKG did show sinus with frequent PVCs. The patient denies any chest pains. Patient CTs were negative acute. Patient was told that she should follow-up with her primary care as she may have some concussion-like symptoms although she did not have any LOC. Less likely a bleed in the brain as the patient is several days out as a nonfocal neurologic exam only takes baby aspirin and has a negative CT. Patient was deemed suitable for outpatient follow-up treatment at this time. Patient was given strict follow-up, discharge, and return precautions. All questions were answered. Patient was deemed suitable for outpatient follow-up at this time. Patient agreed with the plan of care and was safely discharged home. Medication Reconcilliation Current Medication List: was personally reviewed by me Blood Pressure Screening Patient's blood pressure: Elevated blood pressure Blood pressure disposition: Referred to PCP Impression Primary Impression: Fall Additional Impression: Contusion of multiple sites Scribe Attestation The scribe's documentation has been prepared under my direction and personally reviewed by me in its entirety. I confirm that the note above accurately reflects all work, treatment, procedures, and medical decision making performed by me. Departure Information Dispostion Home / Self-Care Referrals Pablo Dumont M.D. (PCP) Patient Instructions ED Mechanical Fall, ED Prevention Fall, My [facility] Additional Instructions Please return to the emergency department if you have worsening or recurrent symptoms not amenable to at-home treatment. Please call for a follow-up appointment with her primary care physician. Please take your medications as prescribed. If you have other concerns and/or complaints please feel free to also call your primary care physician's office or return the ED for further evaluation, management, and treatment. You may take 400 mg Ibuprofen every 6 hours as needed for pain with food for no more than 2 consecutive days. You may take tylenol 650 mg every 6 hours as needed for pain. You may take motrin and tylenol separately or at the same time. Take your medications as prescribed. You have been examined and treated today on an emergency basis only. This is not a substitute for, or an effort to provide, complete comprehensive medical care. It is impossible to recognize and treat all injuries or illnesses in a single emergency department visit. It is therefore important that you follow up closely with [facility], your PCP, and/or your specialist(s). Call as soon as possible for an appointment. Thank you for your time and consideration. I look forward to speaking with you again soon. Please don't hesitate to call us if you have any questions. Problem Qualifiers Primary Impression: Fall Encounter type: initial encounter Qualified Codes: W19.XXXA - Unspecified fall, initial encounter
[2017-09-08 22:19] LABS: BASO % 0.4 %; BASO ABS # 0.04 K/uL (0-0.2); EOS % 1.4 %; EOS ABS # 0.13 K/uL (0-0.5); HEMATOCRIT 43.7 % (37-47); HEMOGLOBIN 15.2 g/dL (12.0-16.0); IG# 0.02 K/uL (0.00-0.02); LYMPH % 25.7 %; LYMPH ABS # 2.42 K/uL (1.2-3.4); MEAN CELL VOLUME 90.7 fL (80-100); MEAN CORPUSCULAR HEMOGLOBIN 31.5 pg (25-34); MEAN CORPUSCULAR HGB CONC 34.8 g/dl (32-36); MONO % 8.4 %; MONO ABS # 0.79 K/uL (0.11-0.59); NEUT % 63.9 %; NEUT ABS # 6.02 K/uL (1.4-6.5); PLATELET COUNT 227 K/uL (130-400); RED CELL DISTRIBUTION WIDTH CV 13.6 % (11.5-14.5); WHITE BLOOD COUNT 9.42 K/uL (4.8-10.8)
[2017-09-08 22:23] LABS: INR 0.9 (0.9-1.1); PTT PATIENT 23.6 SECONDS (21.0-31.0)
[2017-09-08 22:32] LABS: POTASSIUM 3.6 mmol/L (3.5-5.1)
--- NOTE | 2017-09-08 22:32 | DIAGNOSTIC IMAGING REPORT ---
HEAD WITHOUT CONTRAST (CT) CLINICAL HISTORY: 77 years-old Female presenting with Evaluate for hemorrhage or pathology, fall, headache. TECHNIQUE: Multidetector CT imaging of the head was performed without the use of intravenous contrast. IV contrast: None. A dose lowering technique was used consistent with the principles of ALARA (as low as reasonably achievable). COMPARISON: 02/21/2009 CT DOSE (mGy.cm): The estimated cumulative dose is 834.28 mGy.cm. FINDINGS: Application Support Consultant topogram: Unremarkable. Proportional ventricular and sulcal prominence, likely age-related parenchymal volume loss. Brain parenchyma normal in appearance with preserved andres-white differentiation. No mass effect or midline shift. No hemorrhage or acute territorial infarct. No extra-axial fluid collection. Paranasal sinuses and mastoid air cells clear. Calvarium intact. IMPRESSION: 1. No acute intracranial abnormality. Electronically signed by: Joe Buchanan M.D. 09/08/2017 10:31 PM Dictated Date/Time: 09/08/2017 10:28 PM
--- NOTE | 2017-09-08 22:36 | DIAGNOSTIC IMAGING REPORT ---
CERVICAL SPINE W/O CLINICAL HISTORY: 77 years-old Female presenting with s/p fall. TECHNIQUE: Multidetector CT of the cervical spine was performed without the use of intravenous contrast. IV contrast: None. A dose lowering technique was used consistent with the principles of ALARA (as low as reasonably achievable). COMPARISON: Plain radiographs from 11/05/2014. CT DOSE (mGy.cm): The estimated cumulative dose is 834.[address] scans. FINDINGS: Transmission Design Engineer topogram: Unremarkable. Reversal of normal cervical lordosis with kyphotic deformity centered at C4-5. No acute fracture or subluxation. Multilevel degenerative changes. Mild vertebral body height loss of C5, likely degenerative in etiology. Intervertebral disc height loss at C5-6 and C6-7, where there is the greatest degree of degenerative change and disc osteophyte complexes. Smaller disc osteophyte complex noted at C4-5. Facet arthropathy results in osseous neural foraminal narrowing on the left at C3-4. Disc osteophyte complex/uncovertebral hypertrophy in combination with facet arthropathy results in osseous neural foraminal narrowing on the left at C4-5. Osseous neural foraminal narrowing secondary to disc osteophyte complex on the right at C5-6 and C6-7. No significant osseous spinal canal narrowing though posterior bony spurring is present at the levels affected by disc osteophyte complexes. IMPRESSION: 1. No acute osseous injury of the cervical spine. 2. Multilevel degenerative changes including kyphotic deformity. Osseous neural foraminal narrowing at several levels as detailed above. Electronically signed by: Joe Buchanan M.D. 09/08/2017 10:35 PM Dictated Date/Time: 09/08/2017 10:31 PM
--- NOTE | 2017-09-08 22:39 | DIAGNOSTIC IMAGING REPORT ---
FACIAL BONES-MXILLOFAC WITHOUT CLINICAL HISTORY: 77 years-old Female presenting with s/p fall. TECHNIQUE: Multidetector CT of the face was performed without the use of intravenous contrast. IV contrast: None. A dose lowering technique was used consistent with the principles of ALARA (as low as reasonably achievable). COMPARISON: None. CT DOSE (mGy.cm): The estimated cumulative dose is 834.[address] scans. FINDINGS: Deputy Harbormaster topogram: Unremarkable. Trace mucosal thickening in the maxillary sinuses. Otherwise paranasal sinuses and mastoid air cells clear. Middle ears clear. Bony nasal septum and nasal bones intact. Skull base intact. No facial fracture. Temporal mandibular joints and mandible intact. Teeth intact. Degenerative changes of the cervical spine. IMPRESSION: No acute osseous injury of the face. Electronically signed by: Joe Buchanan M.D. 09/08/2017 10:38 PM Dictated Date/Time: 09/08/2017 10:35 PM
[2017-09-08 23:00] VITALS: BP 162/82; PULSE 62; O2SAT 95
== END 2017-09-08 23:08 | disposition home or self-care (01) ==
LOC: C.EDB 20:52
DX: T14.8XXA Other injury of unspecified body region, initial encounter (principal); S00.83XA Contusion of other part of head, initial encounter; W19.XXXA Unspecified fall, initial encounter; Y92.002 Bathroom of unspecified non-institutional (private) residence as the place of occurrence of the external cause; Y99.8 Other external cause status; I10 Essential (primary) hypertension; Z79.82 Long term (current) use of aspirin; Z88.1 Allergy status to other antibiotic agents; Z91.018 Allergy to other foods; Z88.8 Allergy status to other drugs, medicaments and biological substances; Z91.048 Other nonmedicinal substance allergy status

== ENCOUNTER → 2017-09-21 | Outpatient (CLI) | payer BC ==
--- NOTE | 2017-09-21 13:54 | MAMMOGRAPHY REPORT ---
BILATERAL DIGITAL SCREENING MAMMOGRAM TOMOSYNTHESIS WITH CAD: 09/21/2017 CLINICAL HISTORY: Routine screening. The patient reports occasional tenderness in the right upper ou ter quadrant. TECHNIQUE: Breast tomosynthesis in addition to standard 2D mammography was performed. Current study was also evaluated with a Computer Aided Detection (CAD) system. COMPARISON: Comparison is made to exams dated: 09/18/2016 mammogram, 10/12/2015 mammogram, 09/16/2015 ma mmogram, 09/15/2014 mammogram, 07/30/2012 mammogram, and 08/19/2013 mammogram - [facility]. BREAST COMPOSITION: The tissue of both breasts is heterogeneously dense, which may obscure small mas ses. FINDINGS: No suspicious masses, calcifications, or areas of architectural distortion are noted in ei ther breast. There has been no significant interval change compared to prior exams. IMPRESSION: ACR BI-RADS CATEGORY 1: NEGATIVE There is no mammographic evidence of malignancy. A 1 year screening mammogram is recommended. Also r ecommend clinical follow-up for occasional tenderness in the right upper outer quadrant. The patient will receive written notification of the results. Approximately 10% of breast cancers are not detected with mammography. A negative mammographic report should not delay biopsy if a clinically suggestive mass is present. Daja Weinberg M.D. /:09/21/2017 11:23:16 Line Maintenance Technician: Christian Prince RT(R)(M), [facility] letter sent: Normal 1/2 BI-RADS Code: ACR BI-RADS Category 1: Negative
== END | disposition home or self-care (01) ==
LOC: C.MAMM 09:42
PROVIDERS: ATTEND Obstetrics & Gynecology
DX: Z12.31 Encounter for screening mammogram for malignant neoplasm of breast (principal)

== ENCOUNTER → 2018-01-29 | Outpatient (CLI) | payer BC ==
[~2018-01-29] MED LIST changes: +SNG10 PO
--- NOTE | 2018-01-29 16:19 | MAMMOGRAPHY REPORT ---
UNILATERAL RIGHT DIGITAL DIAGNOSTIC MAMMOGRAM TOMOSYNTHESIS WITH CAD AND RIGHT ULTRASOUND: 01/29/2018 CLINICAL HISTORY: 77-year-old woman presents with a daily painful area of thickening in the superior right breast and occasional small pea-sized lump associated with the pain. The patient had a hard ted e discovering the small lump while position for the ultrasound today but was able to point out the ar ea of pain. Patient denies any skin changes or nipple discharge. No family history of breast cancer. TECHNIQUE: Right breast CC and MLO 2D and tomosynthesis images were obtained. Current study was also evaluated with a Computer Aided Detection (CAD) system. COMPARISON: Comparison is made to exams dated: 09/21/2017 mammogram, 09/18/2016 mammogram, 10/12/2015 ma mmogram, 09/16/2015 mammogram, 09/15/2014 mammogram, and 08/19/2013 mammogram - [facility] nter. BREAST COMPOSITION: The tissue of right breast is heterogeneously dense, which may obscure small mass es. FINDINGS: A triangular palpable marker overlies the upper outer middle one third of the right breast, denoting the area of pain and lump pointed out by the patient. The glandular tissue pattern is stab le comparing to prior mammograms. No obvious new masses, asymmetries, areas of architectural distort ion or suspicious calcifications are seen. There are a few scattered benign round calcifications in the right breast. No skin thickening or nipple retraction appreciated. Targeted ultrasound was performed in the area of concern pointed out by the patient, approximately 9: 00 axis, 3-4 cm from the nipple. I also scanned in the 10:00 and 11:00 axes in the area of pain desc ribed by the patient. Sonographically normal tissue is identified throughout the right upper outer q uadrant on ultrasound, without evidence of a suspicious solid or cystic mass. No focal skin thickeni ng or drainable fluid collection. IMPRESSION: ACR BI-RADS CATEGORY 1: NEGATIVE, ULTRASOUND ACR BI-RADS CATEGORY 1: NEGATIVE Stable mammographic appearance of the right breast. There is no mammographic or targeted sonographic evidence of malignancy or other suspicious abnormality to explain the focal pain and intermittent pe a-sized lump described by the patient. Therefore, continued clinical follow-up and clinical monitori ng is recommended, as biopsy of a clinically suspicious mass should not be precluded by negative imag ing. Otherwise return to annual screening mammography schedule, due in September 2018. These results and recommendations were discussed with the patient at the time of the exam. Some breast cancers are not detected with mammography. A negative mammographic report should not tiffany y biopsy if a clinically suggestive mass is present. Marta Mcadams M.D. ay/:01/29/2018 13:42:54 Electronics Processing Supervisor: RT Delbert(R)(M), [facility] letter sent: Normal 1/2 OVERALL STUDY BIRADS: 1 Negative
== END | disposition home or self-care (01) ==
LOC: C.MAMM 11:33
PROVIDERS: ATTEND Obstetrics & Gynecology
DX: N64.9 Disorder of breast, unspecified (principal)

== ENCOUNTER 2018-10-03 17:45 | Inpatient (IN) ==
[2018-10-03] MEDS ORDERED: ONDANSETRON INJ 2 MG/ML 2 ML VIAL IV STA (19:20)
[2018-10-03] MEDS ORDERED: SODIUM CHLORIDE 0.9% 1000ML 1,000 ML IV STA (19:20)
[2018-10-03] MEDS: HYDROmorphone INJ 0.5 MG/0.5 ML SYR IV PRN ×2 (19:47→21:45)
[2018-10-03 19:56] LABS: Basophils # (auto) 0.01 K/uL (0-0.2); Basophils % (auto) 0.1 %; Eosinophils # (auto) 0.07 K/uL (0-0.5); Eosinophils % (auto) 0.6 %; Hematocrit (blood only) 42.6 % (37-47); Hemoglobin 14.7 g/dL (12.0-16.0); Immature Granulocytes # (auto) 0.03 K/uL (0.00-0.02); Immature Granulocytes % (auto) 0.2 %; Lymphocytes % (auto) 7.3 %; Mean Corpuscular Hgb Conc 34.5 g/dL (32-36); Mean Corpuscular Volume 91.8 fL (80-100); Mean Platelet Volume 9.8 fL (7.4-10.4); Monocytes # (auto) 0.96 K/uL (0.11-0.59); Monocytes % (auto) 7.8 %; Neutrophils # (auto) 10.38 K/uL (1.4-6.5); Platelet Count 252 K/uL (130-400); RDW Standard Deviation 46.7 fL (36.4-46.3); Red Blood Count 4.64 M/uL (4.2-5.4); White Blood Count 12.35 K/uL (4.8-10.8)
[2018-10-03 20:01] LABS: Albumin Level 3.2 gm/dl (3.4-5.0); BUN Creatinine Ratio 14.6 (10-20); Creatinine Clr Calc Pharmacy 23.7 ml/min; Est GFR (African American) 37.4; Est GFR (Non-African American) 32.3; Potassium 3.8 mmol/L (3.5-5.1)
[2018-10-03 20:09] LABS: Albumin Globulin Ratio 0.9 (0.9-2); Bilirubin,Total 3.1 mg/dl (0.2-1); Globulin 3.4 gm/dl (2.5-4.0); Total Protein 6.6 gm/dl (6.4-8.2)
--- NOTE | 2018-10-03 20:18 | CT Scan Report ---
CT OF THE ABDOMEN AND PELVIS WITHOUT CONTRAST CLINICAL HISTORY: RLQ abd pain, recent bladder surgery COMPARISON STUDY: CT of the abdomen and pelvis June 13, 2010. Renal ultrasound September 09, 2018. TECHNIQUE: Axial images of the abdomen and pelvis were obtained without IV contrast. Images were revi ewed in the axial, sagittal, and coronal planes. Automated exposure control was utilized for the davon dy. A dose lowering technique was utilized adhering to the principles of ALARA. FINDINGS: A small hiatal hernia is noted. There is moderate biliary ductal dilatation. There is no pe ripancreatic infiltration. The gallbladder is surgically absent. Evaluation of the abdomen and pelvis is suboptimal on this unenhanced exam. The liver, spleen, adrenal glands and kidneys are unremarkabl e. There is no hydronephrosis. No renal, ureteral or bladder calculi are present. Images of the pelvi s are degraded by streak artifact from right hip arthroplasty. There is moderate fluid within the pel vis which is low attenuation and extraperitoneal in location. Fluid extends into the anterior abdomin al wall/subcutaneous tissues. A small amount of perihepatic fluid is also present. A few calcified fi broids are noted. There are no enlarged abdominal or pelvic lymph nodes. There are no suspicious osse ous lesions. Moderate plaque within the abdominal aorta is normal. There is no evidence for a bowel o bstruction. The appendix is normal. Bladder is partially contracted. There is bladder wall thickening . IMPRESSION: 1. Moderate amount of low-attenuation pelvic extraperitoneal fluid extending into the anterior abdomi nal wall and small amount of intraperitoneal fluid. This fluid is nonspecific in the postoperative se tting and correlation with procedural history is recommended however the findings raise the possibili ty of a bladder injury/perforation. Mild bladder wall thickening. 2. No bowel obstruction. Normal appendix. 3. No hydronephrosis. 4. Biliary ductal dilatation which is likely related to previous cholecystectomy however could be cor related with liver function tests. Electronically signed by: Floyd Trejo M.D. 10/03/2018 8:16 PM
[2018-10-03 21:07] LABS: Appearance Urine Clear (Clear); Color Urine Orange
[2018-10-03 21:08] LABS: Protein Urine Negative (Negative); Specific Gravity Urine 1.019 (1.000-1.060)
[2018-10-03 21:10] LABS: Bacteria Urine Negative (Negative); Epithelial Cell Urine 0-5 /lpf (0-5); RBC Urine 0-4 /hpf (0-4); WBC Urine 0-5 /hpf (0-5)
[2018-10-03 21:11] LABS: Calcium Oxalate Crystals Urine Present (None Prsent)
[2018-10-03] MEDS ORDERED: cefOXitin 2,000 MG/60 ML BAG IV STA (21:19)
--- NOTE | 2018-10-03 23:35 | History & Physical Report ---
Date of Service October 03, 2018 Assessment & Plan (1) Bladder cancer: 78yoF with hx of bladder cancer, SVT, HTN, HLD, seasonal allergies, arthritis, and asthma presented with RLQ abdominal pain to the ED. Pt is post-op day 2 s/p TURBT concerning for superficial bladder cancer. RLQ/Suprapublic Abdominal pain s/p TURBT day 2 -WBC 12.3, afebrile -CT abdomen/pelvis: Moderate amount of pelvic extraperitoneal fluid extending into the anterior abdominal wall and small amount of intraperitoneal fluid concerning for possibility of a bladder injury/perforation. Mild bladder wall thickening. Normal appendex -UA orange limiting study, no bacteria, 0-5 WBC, 0-4 RBC -Urology consulted: Dr. Mcadams - possible simple inflammation vs. true extraperitoneal perforation; no large urinary ascites to imply intraperitoneal bladder perforation - recommended hernandez placement and gram-neg antibiotic coverage -Started on cefoxitin in the ED - continued -Tramadol 50mg Q4H PRN for pain RUQ/epigastric abdominal pain with abnormal LFT -Concerning for acute hepatitis vs. shock liver in the setting of recent anesthesia during TURBT (however per anesthesia record 110-160/60-70s) vs. medication induced (pt taking appropriate dose of percocet) -TB: 3.1, AST 559, ALT 1063, Alk Phos 217; lipase wnl -CT abdomen: Biliary ductal dilatation likely related to cholecystectomy, small amount of lorin-hepatic fluid, unremarkable spleen, liver, kidney -MR abdomen w/ot contrast with special attention to liver ordered -Acute hepatitis panel ordered -Tylenol level - could not be completed due to icteric blood -IVF NS at 125mls/hr -Zofran PRN for nausea -Repeat LFT in 6 hrs Mild SHANNA -BUN/Cr 22/1.5 -NS IVFs 125mls/hr -Continue to monitor BMP Hyponatremia, NA 129 -Pt hypovolemic -On IVFs -Continue to monitor Cardiac: SVT/HLD -Continue home cardizem, pravastatin and aspirin Asthma/allergies -Albuterol PRN -Epi prn Constipation -Colace BID and miralax daily DVT prop: Lovenox 40mg SQ Code: Full Dispo: Med/Surg with tele (2) Abdominal pain: (3) SHANNA (acute kidney injury): (4) LFTs abnormal: (5) SVT (supraventricular tachycardia): (6) Asthma: (7) GERD (gastroesophageal reflux disease): (8) Dry eye: (9) Osteoarthritis: (10) HTN (hypertension): (11) HLD (hyperlipidemia): History of Present Illness Primary Care Provider: Pablo Dumont MD 78yoF with hx of bladder cancer, SVT, HTN, HLD, seasonal allergies, arthritis, and asthma presented with RLQ abdominal pain to the ED. Pt had TURBT on sunday as is post op day 2. She reports 8/10 pain. Per pt, she called Dr. Dong on sunday night when her pain started post op and she was instructed to take her prescribed percocet (7.5/325mg Q8H PRN). She took 0.5 pill which helped her pain and she was able to sleep. Yesterday her pain was across her lower abdomen and she took percocet only twice and her pain improved. 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 However this AM before breakfast she vomited twice and continued to have abdominal pain. She was concerned and was instructed to come to the ED. She vomited again upon arrival to the ED. A/w nausea and vomiting x 3 today, constipation (pt on percocet), chills, headache, mild burning sensation when she urinates. She has been taking AZO which has turned urine orange. Denies any fever, cp, sob, hematuria, melena. hematochezia. Drinks 2-3 glasses of wine per week. Does not smoke. Hx of cholecystectomy Allergies Allergy/AdvReac Type Severity Reaction Status Date / Time pine nut Allergy Intermediate ITCHING,THROAT Verified 10/01/18 09:58 CLOSES amoxicillin Allergy U C. DIFF Verified 10/01/18 09:58 solifenacin Allergy U CONSTIPATIO Verified 10/01/18 09:58 N pollen extracts AdvReac U SNEEZING;ITCHY Verified 10/01/18 09:58 EYES ragweed pollen AdvReac U SNEEZING Verified 10/01/18 09:58 Home Medications Home Medications Medication Instructions Recorded Confirmed Type diclofenac sodium 50 mg PO BID PRN 03/15/18 10/03/18 History pravastatin 40 mg PO HS 03/15/18 10/03/18 History zolpidem 5 - 10 mg PO HS PRN 03/15/18 10/03/18 History Restasis 1 drp OPB BID PRN 07/20/18 10/03/18 History albuterol sulfate 2 puff INHALATION QID PRN 07/20/18 10/03/18 History aspirin [Aspir-81] 81 mg PO QPM 07/20/18 10/03/18 History diltiazem HCl 120 mg PO QPM 09/13/18 10/03/18 History ciprofloxacin HCl [Cipro] 500 mg PO Q12H #7 tab 10/01/18 10/03/18 Rx oxycodone-acetaminophen [Percocet] 1 tab PO Q8H PRN #10 tab 10/01/18 10/03/18 Rx epinephrine 0.3 mg IM DIRECTED PRN 10/03/18 10/03/18 History Past Med/Surg History Medical History GERD (gastroesophageal reflux disease) (Chronic) Asthma (Chronic) Osteoporosis (Chronic) Lumbar radiculopathy (Chronic) Dry eye HTN (hypertension) HLD (hyperlipidemia) Osteoarthritis Asthma STABLE Bladder mass REASON FOR PROCEDURE Chronic back pain GERD (gastroesophageal reflux disease) CONTROLLED Neck pain Prediabetes "DIET CONTROLLED" SVT (supraventricular tachycardia) PAROXYSMAL Spinal stenosis Surgical History History of cataract surgery B/L History of cholecystectomy History of dilatation and curettage 05/25/16= LMA#4 at [facility] History of sinus surgery History of total hip arthroplasty RIGHT Previous back surgery LUMBAR Family History Other No significant family history Social History Preferred Language: [place] Communication Ability: Effective Estimate Clerk Required: No Beliefs That Will Affect Care: Shinto Current Living Situation: Alone Other Information That Helps Us Care for You: No Feels Safe at Home: Yes Safety Concerns: Feels Safe At This Time Smoking Status: Never smoker Hx Alcohol Use: Yes Hx Substance Use: No Review of Systems As per HPI Physical Exam Vital Signs (Past 24 Hours): Last Vital Signs Temp 37 C 10/03/18 18:12 Pulse 99 H 10/03/18 21:48 Resp 18 10/03/18 21:48 BP 151/87 H 10/03/18 21:48 Pulse Ox 92 10/03/18 21:48 Physical Exam: General: In NAD, cooperative and pleasant Neuro: A&O x 4 HEENT: dry mucous membranes CV: RRR, no m/r/g Pulm: CTAB, equal breath sounds bilaterally, on RA GI: +BS, non-distended, severe TTP in RLQ region, moderate TTP over suprapubic, epigastric and RUQ region, no rebound tenderness, no hepatosplenomegaly appreciated Back: Mild R sided CVA tenderness Extremities: no calf tenderness, no LE edema Results & Data Laboratory Results Abnormal lab results 10/03/18 10/03/18 10/03/18 Range/Units 18:50 18:50 18:50 WBC 12.35 H (4.8-10.8) K/uL RDW Std Deviation 46.7 H (36.4-46.3) fL Immature Gran # (Auto) 0.03 H (0.00-0.02) K/uL Neut # (Auto) 10.38 H (1.4-6.5) K/uL Lymph # (Auto) 0.90 L (1.2-3.4) K/uL Wright # (Auto) 0.96 H (0.11-0.59) K/uL Sodium 129 L (136-145) mmol/L Chloride 93 L (98-107) mmol/L BUN 22 H (7-18) mg/dl Creatinine 1.52 H (0.6-1.2) mg/dl Glucose 127 H (70-99) mg/dl Total Bilirubin 3.1 H (0.2-1) mg/dl AST 559 H (15-37) U/L ALT 1063 H (12-78) U/L Alkaline Phosphatase 217 H (45-117) U/L Albumin 3.2 L (3.4-5.0) gm/dl Calcium Oxalate Crystal Present H (None Prsent) Diagnostic Findings CT OF THE ABDOMEN AND PELVIS WITHOUT CONTRAST CLINICAL HISTORY: RLQ abd pain, recent bladder surgery COMPARISON STUDY: CT of the abdomen and pelvis June 13, 2010. Renal ultrasound September 09, 2018. TECHNIQUE: Axial images of the abdomen and pelvis were obtained without IV contrast. Images were reviewed in the axial, sagittal, and coronal planes. Automated exposure control was utilized for the study. A dose lowering technique was utilized adhering to the principles of ALARA. FINDINGS: A small hiatal hernia is noted. There is moderate biliary ductal dilatation. There is no peripancreatic infiltration. The gallbladder is surgically absent. Evaluation of the abdomen and pelvis is suboptimal on this unenhanced exam. The liver, spleen, adrenal glands and kidneys are unremarkable. There is no hydronephrosis. No renal, ureteral or bladder calculi are present. Images of the pelvis are degraded by streak artifact from right hip arthroplasty. There is moderate fluid within the pelvis which is low attenuation and extraperitoneal in location. Fluid extends into the anterior abdominal wall/subcutaneous tissues. A small amount of perihepatic fluid is also present. A few calcified fibroids are noted. There are no enlarged abdominal or pelvic lymph nodes. There are no suspicious osseous lesions. Moderate plaque within the abdominal aorta is normal. There is no evidence for a bowel obstruction. The appendix is normal. Bladder is partially contracted. There is bladder wall th ickening. IMPRESSION: 1. Moderate amount of low-attenuation pelvic extraperitoneal fluid extending into the anterior abdominal wall and small amount of intraperitoneal fluid. This fluid is nonspecific in the postoperative setting and correlation with procedural history is recommended however the findings raise the possibility of a bladder injury/perforation. Mild bladder wall thickening. 2. No bowel obstruction. Normal appendix. 3. No hydronephrosis. 4. Biliary ductal dilatation which is likely related to previous cholecystectomy however could be correlated with liver function tests. Code Status & VTE Plan Code Status Full VTE Prophylaxis Plan VTE Prophylaxis will be ordered: Yes Supervising Physician Co-Signing Physician Notes 78 y/o F Hx bladder CA in situ, SVT, HTN, HLD, presenting with RLQ abdominal pain. She had a TURBT 2 days prior and has c/o excessive post-op pain across her lower abdomen and also reports 2 episodes of vomiting earlier in the day. She vomited again on arrival to the ER. Initial labs are notable for marked LFT derangement. She denies a history of liver disease or excessive tylenol use. A CT showed ductal dilitation consistent with a prior cholecystectomy. OE AAO x 3 mildly icteric S1,2 R CTAB Did not palpate lower abdomen due to pain related to recent surgery No CCE P: 78 y/o F with acute liver injury post TURBT. No clear evidence of obstruction - she is scheduled for a dedicated MR, GI consult, hep panel, NPO, IVF I would say that if a diagnosis is not established and LFTs continue to climb, she should proceed to a tertiary center Regarding her recent surgery - there is expected bladder injury on the CT, however, there is also the possibility of perforation. This was addressed with urology. A urology consult/evaluation is pending. Cont Diltiazem for HTN as tolerated - or we can provide PRN Hydralazine IV Resident Activity Tracking Resident Involvement: Resident Care Provided Care Provided: Adult Hospital Medicine (1) Osteoarthritis Osteoarthritis location: unspecified site
[2018-10-04] MEDS ORDERED: EPINEPHRINE ADULT AUTO-INJECT 0.3 MG SYR IM PRN (00:29)
[2018-10-04] MEDS ORDERED: ALBUTEROL HFA 8 GM INHALER INH PRN (00:29)
[2018-10-04 00:43] LABS: Hepatitis B Surface Antigen Neg (Neg)
[2018-10-04 01:11] LABS: Hepatitis C IgG 13Yrs+Old_Rflx Neg (Neg)
[2018-10-04] MEDS: SODIUM CHLORIDE 0.9% 1000ML 1,000 ML IV SCH ×3 (01:15→18:32)
--- NOTE | 2018-10-04 01:23 | Emergency Department Note ---
Entered by Gema Son acting as a scribe for ED Provider Note CHIEF COMPLAINT: Abdominal pain HISTORY OF PRESENT ILLNESS: The patient is a 78 year old female who presents to the Emergency Room with com plaints of a worsening abdominal pain that began 2 days ago. The patient reports that she had a mass removed from her bladder 2 days ago at this hospital by Dr. Tapia. She states that it was an outpatient procedure and that later that day, she began to have severe abdominal pain which she rates a 10/10. She notes that the pain medication she was given was not alleviating her symptoms and neither was Tyleol. She reports that the pain persisted yesterday and today and that she has been vomiting as well. The patient denies hematuria, chest pain, hematochezia, melena, shortness of breath, headaches, vision issues, neck pain, fevers or other complaints. REVIEW OF SYSTEMS: See HPI for pertinent positives and negatives. A total of ten systems were reviewed and were otherwise negative. PMHx/PSHx: GERD Asthma Osteoporosis HTN HLD History of bladder surgery. SOCIAL HISTORY: Patient lives at home alone. Never smoker. PHYSICAL EXAM: GENERAL: Awake, alert, well-appearing, in no distress HENT: Normocephalic, atraumatic. Oropharynx unremarkable. EYES: Normal conjunctiva. Sclera non-icteric. NECK: Inspection normal. Non-tender. Supple. No nuchal rigidity. FROM. No masses. RESPIRATORY: Clear to auscultation. No wheezes. No rales. Normal respiratory effort. CARDIAC: Normal rate. Normal rhythm. No murmurs. No rubs. Extremities warm and well perfused. Pulses equal. No JVD. GI: Soft, non-distended. Minimal left lower quadrant tenderness and guarding and moderate right lower quadrant tenderness and rebound. No masses. RECTAL: Deferred. MUSCULOSKELETAL: Atraumatic. Chest examination reveals no tenderness. The back is symmetrical on inspection without obvious abnormality. There is no CVA tenderness to palpation. No joint edema. LOWER EXTREMITIES: Calves are equal size bilaterally and non-tender. No edema. No discoloration. NEURO: Normal sensorium. No sensory or motor deficits noted. SKIN: No rash or jaundice noted. EMERGENCY DEPARTMENT COURSE: 1904: Past medical records reviewed. The patient was evaluated in room C11B, and a complete history and physical examination were performed. 2130: I reviewed the patient's case with Dr. Mcadams - General Surgery. He requests we place a hernandez catheter and recommends admission. 2143: I reviewed the patient's case with Dr. Grayson - [facility] Hospitalist. He will evaluate the patient for further management. MEDICAL DECISION MAKING: Triage Nursing notes reviewed and agree them. Additional history obtained from family. The patient's history was concerning for abdominal pain. Differential diagnosis: Etiologies such as completion of recent surgery, appendicitis, diverticulitis, PUD, biliary pathology, UTI, pancreatitis, obstruction, mesenteric ischemia, aortic pathology, infections, inflammatory bowel disease, renal colic, as well as others were entertained. Physical examination findings: As above. Right lower quadrant tenderness. ER treatment provided: IV Dilaudid IV Zofran Normal saline hydration IV Mefoxin On reassessment the patient felt better. Diagnostics interpreted by me: The labs revealed a mild leukocytosis on CBC. Chemistry panel revealed hyponatremia. The patient also had mild acute kidney injury with a creatinine that bumped from less than 1 up to 1.5. Urinalysis unremarkable. LFTs markedly elevated. Imaging studies: CT scan performed. See below. Concerning for bladder perforation. Consultation: A consultation was placed with the urologist can call, Dr. Mcadams. The case was discussed. He recommended Hernandez catheter placement. He will follow the patient in consultation. A consultation was placed with hospitalist service. The case was discussed and diagnostics were reviewed. GI was contacted for the hospitalist service and they spoke to them directly. The patient was evaluated in the ER for further treatment. IMPRESSION: RLQ abdominal pain, perforated bladder, acute liver failure, SHANNA, hyponatremia PLAN: Being evaluated by hospitalist. The scribe's documentation has been prepared under my direction and personally reviewed by me in its entirety. I confirm that the note above accurately reflects all work, treatment, procedures, and medical decision making performed by me. Impression & Plan Abdominal pain, RLQ, Perforation of bladder, Acute liver failure, SHANNA (acute kidney injury), Acute hyponatremia Past Med/Surg History Medical History GERD (gastroesophageal reflux disease) (Chronic) Asthma (Chronic) Osteoporosis (Chronic) Lumbar radiculopathy (Chronic) Dry eye HTN (hypertension) HLD (hyperlipidemia) Osteoarthritis Asthma STABLE Bladder mass REASON FOR PROCEDURE Chronic back pain GERD (gastroesophageal reflux disease) CONTROLLED Neck pain Prediabetes "DIET CONTROLLED" SVT (supraventricular tachycardia) PAROXYSMAL Spinal stenosis Surgical History History of cataract surgery B/L History of cholecystectomy History of dilatation and curettage 05/25/16= LMA#4 at [facility] History of sinus surgery History of total hip arthroplasty RIGHT Previous back surgery LUMBAR Family History Other No significant family history Social History Preferred Language: [place] Communication Ability: Effective Visual And Stock Associate Required: No Beliefs That Will Affect Care: Sikh Current Living Situation: Alone Other Information That Helps Us Care for You: No Feels Safe at Home: Yes Safety Concerns: Feels Safe At This Time Smoking Status: Never smoker Hx Alcohol Use: Yes Hx Substance Use: No Results & Data Vital Signs Vital Signs - 24 hr 10/03/18 18:12 10/03/18 21:48 10/03/18 22:21 Temperature 37 C Temperature Source Oral Sepsis Recent Fever Within 48 Hours No Sepsis New/Unexplained Change in Mental Status No Sepsis Action Taken by Nursing No Action Required Pulse Rate 88 99 H Pulse Rate [Apical] 99 H Respiratory Rate 18 18 Blood Pressure 170/97 H Blood Pressure [Right Arm] 151/87 H Blood Pressure Mean 121 Blood Pressure Mean [Right Arm] 108 Pulse Oximetry 95 91 Oxygen Delivery Method Room Air Room Air Room Air 10/03/18 23:32 Temperature Temperature Source Sepsis Recent Fever Within 48 Hours Sepsis New/Unexplained Change in Mental Status Sepsis Action Taken by Nursing Pulse Rate Pulse Rate [Apical] 85 Respiratory Rate 18 Blood Pressure Blood Pressure [Right Arm] 151/87 H Blood Pressure Mean Blood Pressure Mean [Right Arm] 108 Pulse Oximetry 92 Oxygen Delivery Method Room Air Home Medications Current Medication List: was personally reviewed by me Laboratory Data Attestation: I reviewed the patient's lab results. Result diagrams: 10/03/18 18:50 10/03/18 18:50 Lab Results 10/03/18 10/03/18 10/03/18 Range/Units 18:50 18:50 18:50 WBC 12.35 H (4.8-10.8) K/uL RBC 4.64 (4.2-5.4) M/uL Hgb 14.7 (12.0-16.0) g/dL Hct 42.6 (37-47) % MCV 91.8 (80-100) fL MCH 31.7 (25-34) pg MCHC 34.5 (32-36) g/dL RDW Std Deviation 46.7 H (36.4-46.3) fL RDW Coeff of Monik 14.0 (11.5-14.5) % Plt Count 252 (130-400) K/uL MPV 9.8 (7.4-10.4) fL Immature Gran % (Auto) 0.2 % Neut % (Auto) 84.0 % Lymph % (Auto) 7.3 % [place] % (Auto) 7.8 % Eos % (Auto) 0.6 % Baso % (Auto) 0.1 % Immature Gran # (Auto) 0.03 H (0.00-0.02) K/uL Neut # (Auto) 10.38 H (1.4-6.5) K/uL Lymph # (Auto) 0.90 L (1.2-3.4) K/uL [place] # (Auto) 0.96 H (0.11-0.59) K/uL Eos # (Auto) 0.07 (0-0.5) K/uL Baso # (Auto) 0.01 (0-0.2) K/uL Sodium 129 L (136-145) mmol/L Potassium 3.8 (3.5-5.1) mmol/L Chloride 93 L (98-107) mmol/L Carbon Dioxide 31 (21-32) mmol/L Anion Gap 5.0 (3-11) BUN 22 H (7-18) mg/dl Creatinine 1.52 H (0.6-1.2) mg/dl Est Cr Clr Drug Dosing 23.7 ml/min Est GFR ( Amer) 37.4 Est GFR (Non-Af Amer) 32.3 BUN/Creatinine Ratio 14.6 (10-20) Glucose 127 H (70-99) mg/dl Calcium 9.0 (8.5-10.1) mg/dl Total Bilirubin 3.1 H (0.2-1) mg/dl AST 559 H (15-37) U/L ALT 1063 H (12-78) U/L Alkaline Phosphatase 217 H (45-117) U/L Total Protein 6.6 (6.4-8.2) gm/dl Albumin 3.2 L (3.4-5.0) gm/dl Globulin 3.4 (2.5-4.0) gm/dl Albumin/Globulin Ratio 0.9 (0.9-2) Lipase 229 (73-393) U/L Urine Color [place] Urine Appearance Clear (Clear) Urine pH (4.5-7.5) Ur Specific [place] 1.019 (1.000-1.060) Urine Protein Negative (Negative) Urine Glucose (UA) (Negative) Urine Ketones (Negative) Urine Blood (Negative) Urine Nitrite (Negative) Urine Bilirubin (Negative) Urine Urobilinogen (Negative) Ur Leukocyte Esterase (Negative) Urine RBC 0-4 (0-4) /hpf Urine WBC 0-5 (0-5) /hpf Ur Epithelial Cells 0-5 (0-5) /lpf Calcium Oxalate Crystal Present H (None Prsent) Urine Bacteria Negative (Negative) Acetaminophen (10-30) ug/ml Hep Bs Antigen (Neg) Hepatitis C Antibody (Neg) 10/03/18 10/03/18 Range/Units 18:50 21:24 WBC (4.8-10.8) K/uL RBC (4.2-5.4) M/uL Hgb (12.0-16.0) g/dL Hct (37-47) % MCV (80-100) fL MCH (25-34) pg MCHC (32-36) g/dL RDW Std Deviation (36.4-46.3) fL RDW Coeff of Monik (11.5-14.5) % Plt Count (130-400) K/uL MPV (7.4-10.4) fL Immature Gran % (Auto) % Neut % (Auto) % Lymph % (Auto) % [place] % (Auto) % Eos % (Auto) % Baso % (Auto) % Immature Gran # (Auto) (0.00-0.02) K/uL Neut # (Auto) (1.4-6.5) K/uL Lymph # (Auto) (1.2-3.4) K/uL [place] # (Auto) (0.11-0.59) K/uL Eos # (Auto) (0-0.5) K/uL Baso # (Auto) (0-0.2) K/uL Sodium (136-145) mmol/L Potassium (3.5-5.1) mmol/L Chloride (98-107) mmol/L Carbon Dioxide (21-32) mmol/L Anion Gap (3-11) BUN (7-18) mg/dl Creatinine (0.6-1.2) mg/dl Est Cr Clr Drug Dosing ml/min Est GFR ( Amer) Est GFR (Non-Af Amer) BUN/Creatinine Ratio (10-20) Glucose (70-99) mg/dl Calcium (8.5-10.1) mg/dl Total Bilirubin (0.2-1) mg/dl AST (15-37) U/L ALT (12-78) U/L Alkaline Phosphatase (45-117) U/L Total Protein (6.4-8.2) gm/dl Albumin (3.4-5.0) gm/dl Globulin (2.5-4.0) gm/dl Albumin/Globulin Ratio (0.9-2) Lipase (73-393) U/L Urine Color Urine Appearance (Clear) Urine pH (4.5-7.5) Ur Specific [place] (1.000-1.060) Urine Protein (Negative) Urine Glucose (UA) (Negative) Urine Ketones (Negative) Urine Blood (Negative) Urine Nitrite (Negative) Urine Bilirubin (Negative) Urine Urobilinogen (Negative) Ur Leukocyte Esterase (Negative) Urine RBC (0-4) /hpf Urine WBC (0-5) /hpf Ur Epithelial Cells (0-5) /lpf Calcium Oxalate Crystal (None Prsent) Urine Bacteria (Negative) Acetaminophen (10-30) ug/ml Hep Bs Antigen Neg (Neg) Hepatitis C Antibody Neg (Neg) Administered Medications Sodium Chloride (Nss 1000ml) 1,000 mls @ 125 mls/hr IV .Q8H LEN Stop: 11/03/18 00:28 Last Admin: 10/04/18 01:15 Dose: 125 mls/hr Documented by: [id number] Discontinued Medications Hydromorphone HCl (Dilaudid) 0.5 mg IV Q15M PRN PRN Reason: Pain Stop: 10/17/18 19:19 Last Admin: 10/03/18 21:45 Dose: 0.5 mg Documented by: [id number] Admin: 10/03/18 19:47 Dose: 0.5 mg Documented by: [id number] Sodium Chloride (Nss 1000ml) 1,000 mls @ 125 mls/hr IV .Q8H STA Stop: 10/04/18 03:19 Last Admin: 10/03/18 19:47 Dose: 125 mls/hr Documented by: [id number] Cefoxitin Sodium (Mefoxin) 2,000 mg in 60 mls @ 100 mls/hr IV NOW STA Stop: 10/03/18 21:54 Last Infusion: 10/03/18 23:22 Dose: 0 mls/hr Documented by: [id number] Admin: 10/03/18 21:45 Dose: 100 mls/hr Documented by: [id number] Ondansetron HCl (Zofran) 4 mg IV NOW STA Stop: 10/03/18 19:21 Last Admin: 10/03/18 19:47 Dose: 4 mg Documented by: [id number] Imaging Data Radiologist's Impression: Radiology results as stated below per my review and the radiologist's interpretation: CT OF THE ABDOMEN AND PELVIS WITHOUT CONTRAST CLINICAL HISTORY: RLQ abd pain, recent bladder surgery COMPARISON STUDY: CT of the abdomen and pelvis June 13, 2010. Renal ultrasound September 09, 2018. TECHNIQUE: Axial images of the abdomen and pelvis were obtained without IV contrast. Images were reviewed in the axial, sagittal, and coronal planes. Automated exposure control was utilized for the study. A dose lowering techn ique was utilized adhering to the principles of ALARA. FINDINGS: A small hiatal hernia is noted. There is moderate biliary ductal dilatation. There is no peripancreatic infiltration. The gallbladder is surgically absent. Evaluation of the abdomen and pelvis is suboptimal on this unenhanced exam. The liver, spleen, adrenal glands and kidneys are unremarkable. There is no hydronephrosis. No renal, ureteral or bladder calculi are present. Images of the pelvis are degraded by streak artifact from right hip arthroplasty. There is moderate fluid within the pelvis which is low attenuation and extraperitoneal in location. Fluid extends into the anterior abdominal wall/subcutaneous tissues. A small amount of perihepatic fluid is also present. A few calcified fibroids are noted. There are no enlarged abdominal or pelvic lymph nodes. There are no suspicious osseous lesions. Moderate plaque within the abdominal aorta is normal. There is no evidence for a bowel obstruction. The appendix is normal. Bladder is partially contracted. There is bladder wall thickening. IMPRESSION: 1. Moderate amount of low-attenuation pelvic extraperitoneal fluid extending into the anterior abdominal wall and small amount of intraperitoneal fluid. This fluid is nonspecific in the postoperative setting and correlation with procedural history is recommended however the findings raise the possibility of a bladder injury/perforation. Mild bladder wall thickening. 2. No bowel obstruction. Normal appendix. 3. No hydronephrosis. 4. Biliary ductal dilatation which is likely related to previous cholecystectomy however could be correlated with liver function tests. Electronically signed by: Floyd Trejo M.D. 10/03/2018 8:16 PM Blood Pressure Blood Pressure Findings: Elevated blood pressure Blood Pressure Disposition: further management by hospitalist Discharge Plan Visit Data *Final* Discharge Date/Time: 10/03/18 23:56 Chief Complaint: Vomiting Stated Complaint: TERRIBLE ABDOMINAL PAIN, VOMITING ED Provider: Pablo Marrero Discharge Problem: Abdominal pain, RLQ, Perforation of bladder, Acute liver failure, SHANNA (acute kidney injury), Acute hyponatremia Patient Disposition: Admitted As Inpatient Discharge Instructions Interventions: ED Discharge Assessment Last Done: 10/03/18 23:56 Discharge Problem: Acute liver failure Qualifiers: Hepatic coma status: without hepatic coma Qualified Code(s): K72.00 - Acute and subacute hepatic failure without coma The scribe's documentation has been prepared under my direction and personally reviewed by me in its entirety. I confirm that the note above accurately reflects all work, treatment, procedures, and medical decision making performed by me.
[2018-10-04] MEDS: dilTIAZem ER 120 MG CAPCR PO SCH ×2 (01:24→20:16)
[2018-10-04 01:25] LABS: Albumin Level 2.8 gm/dl (3.4-5.0); Bilirubin Direct 2.2 mg/dl (0-0.2); Bilirubin,Total 3.9 mg/dl (0.2-1)
[2018-10-04] MEDS: TRAMADOL HCL 50 MG TABLET PO PRN ×2 (02:24→15:22)
[2018-10-04] MEDS: DOCUSATE SODIUM 100 MG CAP PO SCH ×3 (06:22→20:17)
[2018-10-04] MEDS: POLYETHYLENE (MIRALAX) 17 GM PACK PO SCH ×2 (06:22→10:51)
[2018-10-04 07:11] LABS: Basophils # (auto) 0.01 K/uL (0-0.2); Basophils % (auto) 0.1 %; Eosinophils # (auto) 0.11 K/uL (0-0.5); Eosinophils % (auto) 1.2 %; Hematocrit (blood only) 38.7 % (37-47); Hemoglobin 13.1 g/dL (12.0-16.0); Immature Granulocytes # (auto) 0.02 K/uL (0.00-0.02); Immature Granulocytes % (auto) 0.2 %; Lymphocytes # (auto) 0.85 K/uL (1.2-3.4); Lymphocytes % (auto) 9.6 %; Mean Corpuscular Hgb Conc 33.9 g/dL (32-36); Mean Corpuscular Volume 92.1 fL (80-100); Mean Platelet Volume 9.1 fL (7.4-10.4); Monocytes # (auto) 0.85 K/uL (0.11-0.59); Monocytes % (auto) 9.6 %; Neutrophils # (auto) 7.03 K/uL (1.4-6.5); Neutrophils % (auto) 79.3 %; Platelet Count 200 K/uL (130-400); RDW Coefficient of Variation 14.1 % (11.5-14.5); RDW Standard Deviation 47.3 fL (36.4-46.3); White Blood Count 8.87 K/uL (4.8-10.8)
--- NOTE | 2018-10-04 07:24 | Magnetic Resonance Report ---
MR abdomen wo con CLINICAL HISTORY: Abnormal LFTs BLADDER CARCINOMA TECHNIQUE: Imaging was performed without IV contrast enhancement. COMPARISON STUDY: CT scan dated 10/03/2018 FINDINGS: There is trace perihepatic fluid. Common bile duct is dilated measuring 9 mm. No ductal filling defects are visualized. There is mild i ntrahepatic biliary ductal dilatation. No hepatic masses are visualized on this study which is performed without intravenous contrast. No splenic masses are visualized. No pancreatic masses are visualized in this noncontrast study. There is mild dilatation of the proxim al pancreatic duct with a transition zone at the level of the pancreatic head neck junction No adrenal masses are visualized. There is no evidence for abdominal aortic dilatation. No adrenal masses are visualized on this noncontrast study. IMPRESSION: 1. No hepatic, splenic, pancreatic, or adrenal masses identified on this study performed without the benefit of contrast 2. Intra and extrahepatic biliary ductal dilatation. No calculi identified. 3. Surgically absent gallbladder 4. Mild nonspecific dilatation of the proximal pancreatic duct 5. Minimal perihepatic fluid Electronically signed by: Claude Parker M.D. 10/04/2018 7:23 AM
[2018-10-04 07:51] LABS: Albumin Level 2.6 gm/dl (3.4-5.0); BUN Creatinine Ratio 14.5 (10-20); Bilirubin Direct 0.8 mg/dl (0-0.2); Creatinine Clr Calc Pharmacy 39.2 ml/min; Est GFR (African American) 68.6; Est GFR (Non-African American) 59.2; Potassium 3.8 mmol/L (3.5-5.1); Total Protein 5.6 gm/dl (6.4-8.2)
[2018-10-04] MEDS ORDERED: BISACODYL 10 MG SUPP PR STA (09:37)
[2018-10-04 12:34] LABS: Albumin Level 3.1 gm/dl (3.4-5.0); Bilirubin Direct 0.6 mg/dl (0-0.2); Total Protein 6.5 gm/dl (6.4-8.2)
--- NOTE | 2018-10-04 14:36 | Consultation Report ---
DATE OF CONSULTATION: 10/04/2018 GI CONSULT NOTE REASON FOR EVALUATION: Abnormal liver tests. HISTORY OF PRESENT ILLNESS: The patient is a 78-year-old who underwent a transurethral resection of a bladder tumor on 10/02/2018. This was an outpatient procedure, but after going home, the patient developed severe 10/10 lower abdominal pain and returned to the hospital. CT scan showed moderate amount of pelvic extraperitoneal fluid extending into the anterior abdominal wall and some intraperitoneal fluid as well suggesting possible bladder perforation or injury. The tumor returned as a grade 2 tumor. There was no hypotension during the operation. Her liver tests were noted to be bilirubin of 3.1, AST 559, ALT 1063, alkaline phosphatase 217, lipase was normal. CT and MRI of the abdomen showed some post-cholecystectomy biliary dilatation. Her gallbladder was removed in 2011 for diseased gallbladder without stones. There were no stones seen on any of her imaging studies and her liver appeared normal. There was some perihepatic fluid, however. The patient has had no previous intrinsic liver disease. PAST MEDICAL HISTORY: Bladder tumor. She has a history of SVT, hyperlipidemia, asthma, acute kidney injury, esophageal reflux, osteoarthritis, hypertension, hyperlipidemia. MEDICATIONS: As an outpatient, diclofenac, pravastatin, zolpidem, Restasis, albuterol, aspirin, diltiazem, ciprofloxacin, oxycodone with acetaminophen and epinephrine. ALLERGIES: PINE NUTS, AMOXICILLIN, SOLIFENACIN, POLLEN, RAGWEED. FAMILY HISTORY: Noncontributory. SOCIAL HISTORY: The patient lives alone, does not smoke, consume some alcohol. REVIEW OF SYSTEMS: Positive only for lower abdominal pain at this time. The remainder is negative. PHYSICAL EXAMINATION: GENERAL: The patient appears in no acute distress. VITAL SIGNS: Blood pressure is 150/85, pulse 90. She is afebrile. ABDOMEN: Tender in the lower abdomen. There is a little bit of crepitation in the right lower quadrant abdominal wall. There is no tenderness over the liver. IMPRESSION: The patient has mild liver test abnormalities. I think this is probably the result of a generalized peritonitis following her bladder surgery. Her hepatitis B and C serologies are negative and her imaging studies of her liver are normal. She has had a cholecystectomy in the past without stones. I suspect that this will all resolve as her peritoneal inflammation improves. I plan on checking ROSALIO and alpha-1 antitrypsin level to check for other potential causes of liver disease, but I think this is probably a generalized peritonitis, it is affecting the liver. Dr. William will be covering over the weekend.
[2018-10-04] MEDS: ENOXAPARIN INJ 30 MG/0.3 ML SYR SQ SCH (15:20)
--- NOTE | 2018-10-04 17:25 | Urology Progress Note ---
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 Findings reviewed with patient and family. She is clinically improved and feeling better. WBC and Cr wnl. She does not show signs of significant peritonitis on exam. While microscopic bladder perforations at the time of TURBT are not uncommon, her findings and imaging do not suggest a clinically significant intraperitoneal bladder perforation at this time. She is pending outpatient follow-up with Dr. Tapia in less than a week - would leave her hernandez in place on discharge and until her follow-up appointment. Ongoing coverage with antibiotics per hospitalist service, I suspect diet will be advanced soon seen her symptomatic improvement. The origin of her elevated LFTs are unclear, would monitor and manage conservatively. No acute surgical intervention at this time. Thank you for allowing us to participate in this patient's acute care. Will follow while admitted. 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 Consult yesterday evening by Dr. Mcadams and records reviewed, imaging personally reviewed. Patient currently with low grade temp, labs as noted below - improved Cr, normal WBC. Patient in good spirits, family in room. Care d/w patient and nursing - has been kept on sips due to concern over GI function, abdominal pain further improved after moving her bowels on current bowel regimen. Hernandez in place, well tolerated without complaints. Constitutional: no fever and no chills Ear, Nose, Mouth, Throat: no ear trauma Respiratory: no hemoptysis Cardiovascular: no chest pain Gastrointestinal: + abdominal pain (much improved); no nausea and no vomiting Genitourinary (Female): + pelvic pain Integumentary: no acne and no boil Neurologic: no paralysis and no numbness Psychiatric: no hopelessness Hematologic / Lymphatic: no easy bleeding Physical Exam Vital Signs (Past 24 Hours): Last Vital Signs Temp 37.8 C H 10/04/18 14:24 Pulse 73 10/04/18 14:24 Resp 16 10/04/18 14:24 BP 121/62 10/04/18 14:24 Pulse Ox 93 10/04/18 14:24 Constitutional: well developed and well nourished; no acute distress ENMT: Ears: no external ear abnormality Neck: trachea midline; no anterior neck swelling Respiratory: no respiratory distress and does not use accessory muscles Cardiovascular: Vessels: radial pulses present Gastrointestinal (Abdomen): Percussion/Palpation: + abdomen tender (minimal tenderness jaqui RLQ) and abdomen soft; no guarding, abdomen not rigid (no peritoneal signs), no hernia, no abdominal mass, no pulsatile mass and no ascites Skin: normal turgor Neurologic: CN's II-XI intact bilaterally and awake; not obtunded Psychiatric: Orientation: oriented x 3 Genitourinary: hernandez draining clear urine Lymphatic: no lymphadenopathy Results & Data Laboratory Results Laboratory Results - last 48 hr 10/03/18 10/03/18 10/03/18 18:50 18:50 18:50 WBC 12.35 H RBC 4.64 Hgb 14.7 Hct 42.6 MCV 91.8 MCH 31.7 MCHC 34.5 RDW Std Deviation 46.7 H RDW Coeff of Monik 14.0 Plt Count 252 MPV 9.8 Immature Gran % (Auto) 0.2 Neut % (Auto) 84.0 Lymph % (Auto) 7.3 [place] % (Auto) 7.8 Eos % (Auto) 0.6 Baso % (Auto) 0.1 Immature Gran # (Auto) 0.03 H Neut # (Auto) 10.38 H Lymph # (Auto) 0.90 L [place] # (Auto) 0.96 H Eos # (Auto) 0.07 Baso # (Auto) 0.01 PT INR Sodium 129 L Potassium 3.8 Chloride 93 L Carbon Dioxide 31 Anion Gap 5.0 BUN 22 H Creatinine 1.52 H Est Cr Clr Drug Dosing 23.7 Est GFR ( Amer) 37.4 Est GFR (Non-Af Amer) 32.3 BUN/Creatinine Ratio 14.6 Glucose 127 H Calcium 9.0 Total Bilirubin 3.1 H Direct Bilirubin AST 559 H ALT 1063 H Alkaline Phosphatase 217 H Total Protein 6.6 Albumin 3.2 L Globulin 3.4 Albumin/Globulin Ratio 0.9 Lipase 229 Urine Color [place] Urine Appearance Clear Urine pH Ur Specific [place] 1.019 Urine Protein Negative Urine Glucose (UA) Urine Ketones Urine Blood Urine Nitrite Urine Bilirubin Urine Urobilinogen Ur Leukocyte Esterase Urine RBC 0-4 Urine WBC 0-5 Ur Epithelial Cells 0-5 Calcium Oxalate Crystal Present H Urine Bacteria Negative Acetaminophen Hep Bs Antigen Hepatitis C Antibody 10/03/18 10/03/18 10/04/18 18:50 21:24 00:48 WBC RBC Hgb Hct MCV MCH MCHC RDW Std Deviation RDW Coeff of Monik Plt Count MPV Immature Gran % (Auto) Neut % (Auto) Lymph % (Auto) [place] % (Auto) Eos % (Auto) Baso % (Auto) Immature Gran # (Auto) Neut # (Auto) Lymph # (Auto) [place] # (Auto) Eos # (Auto) Baso # (Auto) PT INR Sodium Potassium Chloride Carbon Dioxide Anion Gap BUN Creatinine Est Cr Clr Drug Dosing Est GFR ( Amer) Est GFR (Non-Af Amer) BUN/Creatinine Ratio Glucose Calcium Total Bilirubin 3.9 H Direct Bilirubin 2.2 H AST 518 H ALT 965 H Alkaline Phosphatase 225 H Total Protein 6.0 L Albumin 2.8 L Globulin Albumin/Globulin Ratio Lipase Urine Color Urine Appearance Urine pH Ur Specific [place] Urine Protein Urine Glucose (UA) Urine Ketones Urine Blood Urine Nitrite Urine Bilirubin Urine Urobilinogen Ur Leukocyte Esterase Urine RBC Urine WBC Ur Epithelial Cells Calcium Oxalate Crystal Urine Bacteria Acetaminophen Hep Bs Antigen Neg Hepatitis C Antibody Neg 10/04/18 10/04/18 10/04/18 06:57 06:57 06:57 WBC 8.87 RBC 4.20 Hgb 13.1 Hct 38.7 MCV 92.1 MCH 31.2 MCHC 33.9 RDW Std Deviation 47.3 H RDW Coeff of Monik 14.1 Plt Count 200 MPV 9.1 Immature Gran % (Auto) 0.2 Neut % (Auto) 79.3 Lymph % (Auto) 9.6 [place] % (Auto) 9.6 Eos % (Auto) 1.2 Baso % (Auto) 0.1 Immature Gran # (Auto) 0.02 Neut # (Auto) 7.03 H Lymph # (Auto) 0.85 L [place] # (Auto) 0.85 H Eos # (Auto) 0.11 Baso # (Auto) 0.01 PT 10.0 INR 1.0 Sodium 136 D Potassium 3.8 Chloride 103 Carbon Dioxide 29 Anion Gap 4.0 BUN 13 Creatinine 0.92 D Est Cr Clr Drug Dosing 39.2 Est GFR ( Amer) 68.6 Est GFR (Non-Af Amer) 59.2 BUN/Creatinine Ratio 14.5 Glucose 99 Calcium 8.0 L Total Bilirubin 2.0 H Direct Bilirubin 0.8 H D AST 337 H ALT 797 H Alkaline Phosphatase 202 H Total Protein 5.6 L Albumin 2.6 L Globulin Albumin/Globulin Ratio Lipase Urine Color Urine Appearance Urine pH Ur Specific [place] Urine Protein Urine Glucose (UA) Urine Ketones Urine Blood Urine Nitrite Urine Bilirubin Urine Urobilinogen Ur Leukocyte Esterase Urine RBC Urine WBC Ur Epithelial Cells Calcium Oxalate Crystal Urine Bacteria Acetaminophen Hep Bs Antigen Hepatitis C Antibody 10/04/18 11:58 WBC RBC Hgb Hct MCV MCH MCHC RDW Std Deviation RDW Coeff of Monik Plt Count MPV Immature Gran % (Auto) Neut % (Auto) Lymph % (Auto) [place] % (Auto) Eos % (Auto) Baso % (Auto) Immature Gran # (Auto) Neut # (Auto) Lymph # (Auto) [place] # (Auto) Eos # (Auto) Baso # (Auto) PT INR Sodium Potassium Chloride Carbon Dioxide Anion Gap BUN Creatinine Est Cr Clr Drug Dosing Est GFR ( Amer) Est GFR (Non-Af Amer) BUN/Creatinine Ratio Glucose Calcium Total Bilirubin 2.0 H Direct Bilirubin 0.6 H AST 305 H ALT 829 H Alkaline Phosphatase 222 H Total Protein 6.5 Albumin 3.1 L Globulin Albumin/Globulin Ratio Lipase Urine Color Urine Appearance Urine pH Ur Specific [place] Urine Protein Urine Glucose (UA) Urine Ketones Urine Blood Urine Nitrite Urine Bilirubin Urine Urobilinogen Ur Leukocyte Esterase Urine RBC Urine WBC Ur Epithelial Cells Calcium Oxalate Crystal Urine Bacteria Acetaminophen Hep Bs Antigen Hepatitis C Antibody
--- NOTE | 2018-10-04 18:41 | Family Medicine Progress Note ---
Date of Service October 04, 2018 Assessment & Plan (1) Bladder cancer: 78 y/o F with PMG of bladder cancer s/p TURBT, SVT, HTN, HLD, arthritis, and asthma presents with RLQ/RUQ abdominal pain found to have elevated LFT's. 1) RLQ/Suprapubic Abdominal pain s/p TURBT day 2 -CT abdomen/pelvis: Moderate amount of pelvic extraperitoneal fluid extending into the anterior abdominal wall and small amount of intraperitoneal fluid concerning for possibility of a bladder injury/perforation. Mild bladder wall thickening. Normal appendix -UA orange limiting study, no bacteria, 0-5 WBC, 0-4 RBC -Urology: Findings and imaging do not suggest a clinically significant intraperitoneal bladder perforation. Pt pending outpatient follow-up with Dr. Tapia in less than a week - would leave her hernandez in place on d/c and until f/u appt -Cont on cefoxitin for gram neg coverage -Tramadol 50mg Q4H PRN for pain -GI: Elevated LFT's probably 2/2 generalized peritonitis following bladder surgery. Suspect will resolve as peritoneal inflammation improves. -ROSALIO and alpha-1 antitrypsin level pending -advanced diet to full liquids, advance as tolerated to solids 2) RUQ/epigastric abdominal pain with abnormal LFT -Concerning for acute hepatitis vs. shock liver in the setting of recent anesthesia during TURBT (however per anesthesia record 110-160/60-70s) vs. medication induced (pt taking appropriate dose of percocet) -T Bili: 2.0, AST 337, ALT 559, Alk Phos 217; lipase wnl. Downtrending labs. Cont trend. -CT abdomen: Biliary ductal dilatation likely related to cholecystectomy, small amount of lorin-hepatic fluid, unremarkable spleen, liver, kidney -MR abdomen: No hepatic, splenic, pancreatic, or adrenal masses. Intra and extrahepatic biliary ductal dilatation. No calculi identified. Minimal perihepatic fluid -Acute hepatitis panel Hep B antigen neg, C antibody neg. B core IgM pending, A IgM pending. -Tylenol level - could not be completed due to icteric blood -Cont IVF NS at 125mls/hr -Zofran PRN for nausea 3) SVT/HLD -Cont home cardizem, pravastatin and aspirin 4) Asthma -Albuterol PRN 5) Constipation -Pt had 3-4 BM after rectal suppository this AM. Cont Colace BID and miralax daily as needed FULL DVT prop: Lovenox 40mg SQ Dispo: Med/Surg with tele Supervising Physician Co-Signing Physician Notes ATTENDING NOTE I saw the patient with the resident and confirmed torres portions of the history and exam. I agree with the impression and plan as noted above. Patient notes that she feels better this AM, but still with some epigastric pain with water this morning. She also describes a separate, lower abdominal - almost suprapubic - camping sensation. She has not had a bowel movement since Sunday; she doesn't really recall flatus either. In revieing the history, she tells me about a rather forceful emesis in the ED waiting room. EXAM Afebrile. A/O. Very pleasant. ABD: no tenderness in the epigastric area. The RUQ is rather benign. She is mildly tender in the lower quadrants and suprapubic area - but no rebound or guarding. IMPRESSION Urothelial CA S/P resection Postop abdominal pain Constipation Elevated LFTs Hyponatremia, mild PLAN Clinically, she could have had a illeus or even mild post operative SBO that resolved itself (with forceful emesis). The LFTs are at the level that could be secondary to mild peritonitis. Continue IV ABX Continue IVF Diet will depend on how she is feeling later today and GI input Check Hep A studies Urology saw patient in ED and will review consult from today Subjective 78 y/o F found in bed this AM in NAD. Pt reports no acute overnight events. Notes some ongoing mild abd tenderness. Has not had a BM in 5 days. Pt NPO. No other issues voiding. Pt able to ambulate. Pt has no other acute concerns or complaints. Review of Systems All systems reviewed & are unremarkable except as noted in HPI & below Physical Exam Vital Signs (Past 24 Hours): Last Vital Signs Temp 37.8 C H 10/04/18 14:24 Pulse 73 10/04/18 14:24 Resp 16 10/04/18 14:24 BP 121/62 10/04/18 14:24 Pulse Ox 93 10/04/18 14:24 Constitutional: WD/WN, vitals as above Eyes: PERRL, conjunctivae normal, anicteric sclerae ENMT: external ear and nose normal, oropharynx normal Respiratory: normal respiratory effort, lungs clear to auscultation Cardiovascular: RRR, no murmur, no edema Gastrointestinal (Abdomen): RLQ tender. Mild tenderness RUQ. Skin: no rashes, warm and dry Psychiatric: A+Ox3, euthymic affect Results & Data Laboratory Results Laboratory Results - last 24 hr 10/03/18 10/03/18 10/03/18 18:50 18:50 18:50 WBC 12.35 H RBC 4.64 Hgb 14.7 Hct 42.6 MCV 91.8 MCH 31.7 MCHC 34.5 RDW Std Deviation 46.7 H RDW Coeff of Monik 14.0 Plt Count 252 MPV 9.8 Immature Gran % (Auto) 0.2 Neut % (Auto) 84.0 Lymph % (Auto) 7.3 [place] % (Auto) 7.8 Eos % (Auto) 0.6 Baso % (Auto) 0.1 Immature Gran # (Auto) 0.03 H Neut # (Auto) 10.38 H Lymph # (Auto) 0.90 L [place] # (Auto) 0.96 H Eos # (Auto) 0.07 Baso # (Auto) 0.01 PT INR Sodium 129 L Potassium 3.8 Chloride 93 L Carbon Dioxide 31 Anion Gap 5.0 BUN 22 H Creatinine 1.52 H Est Cr Clr Drug Dosing 23.7 Est GFR ( Amer) 37.4 Est GFR (Non-Af Amer) 32.3 BUN/Creatinine Ratio 14.6 Glucose 127 H Calcium 9.0 Total Bilirubin 3.1 H Direct Bilirubin AST 559 H ALT 1063 H Alkaline Phosphatase 217 H Total Protein 6.6 Albumin 3.2 L Globulin 3.4 Albumin/Globulin Ratio 0.9 Lipase 229 Urine Color [place] Urine Appearance Clear Urine pH Ur Specific [place] 1.019 Urine Protein Negative Urine Glucose (UA) Urine Ketones Urine Blood Urine Nitrite Urine Bilirubin Urine Urobilinogen Ur Leukocyte Esterase Urine RBC 0-4 Urine WBC 0-5 Ur Epithelial Cells 0-5 Calcium Oxalate Crystal Present H Urine Bacteria Negative Acetaminophen Hep Bs Antigen Hepatitis C Antibody 10/03/18 10/03/18 10/04/18 18:50 21:24 00:48 WBC RBC Hgb Hct MCV MCH MCHC RDW Std Deviation RDW Coeff of Monik Plt Count MPV Immature Gran % (Auto) Neut % (Auto) Lymph % (Auto) [place] % (Auto) Eos % (Auto) Baso % (Auto) Immature Gran # (Auto) Neut # (Auto) Lymph # (Auto) [place] # (Auto) Eos # (Auto) Baso # (Auto) PT INR Sodium Potassium Chloride Carbon Dioxide Anion Gap BUN Creatinine Est Cr Clr Drug Dosing Est GFR ( Amer) Est GFR (Non-Af Amer) BUN/Creatinine Ratio Glucose Calcium Total Bilirubin 3.9 H Direct Bilirubin 2.2 H AST 518 H ALT 965 H Alkaline Phosphatase 225 H Total Protein 6.0 L Albumin 2.8 L Globulin Albumin/Globulin Ratio Lipase Urine Color Urine Appearance Urine pH Ur Specific [place] Urine Protein Urine Glucose (UA) Urine Ketones Urine Blood Urine Nitrite Urine Bilirubin Urine Urobilinogen Ur Leukocyte Esterase Urine RBC Urine WBC Ur Epithelial Cells Calcium Oxalate Crystal Urine Bacteria Acetaminophen Hep Bs Antigen Neg Hepatitis C Antibody Neg 10/04/18 10/04/18 10/04/18 06:57 06:57 06:57 WBC 8.87 RBC 4.20 Hgb 13.1 Hct 38.7 MCV 92.1 MCH 31.2 MCHC 33.9 RDW Std Deviation 47.3 H RDW Coeff of Monik 14.1 Plt Count 200 MPV 9.1 Immature Gran % (Auto) 0.2 Neut % (Auto) 79.3 Lymph % (Auto) 9.6 [place] % (Auto) 9.6 Eos % (Auto) 1.2 Baso % (Auto) 0.1 Immature Gran # (Auto) 0.02 Neut # (Auto) 7.03 H Lymph # (Auto) 0.85 L [place] # (Auto) 0.85 H Eos # (Auto) 0.11 Baso # (Auto) 0.01 PT 10.0 INR 1.0 Sodium 136 D Potassium 3.8 Chloride 103 Carbon Dioxide 29 Anion Gap 4.0 BUN 13 Creatinine 0.92 D Est Cr Clr Drug Dosing 39.2 Est GFR ( Amer) 68.6 Est GFR (Non-Af Amer) 59.2 BUN/Creatinine Ratio 14.5 Glucose 99 Calcium 8.0 L Total Bilirubin 2.0 H Direct Bilirubin 0.8 H D AST 337 H ALT 797 H Alkaline Phosphatase 202 H Total Protein 5.6 L Albumin 2.6 L Globulin Albumin/Globulin Ratio Lipase Urine Color Urine Appearance Urine pH Ur Specific [place] Urine Protein Urine Glucose (UA) Urine Ketones Urine Blood Urine Nitrite Urine Bilirubin Urine Urobilinogen Ur Leukocyte Esterase Urine RBC Urine WBC Ur Epithelial Cells Calcium Oxalate Crystal Urine Bacteria Acetaminophen Hep Bs Antigen Hepatitis C Antibody 10/04/18 11:58 WBC RBC Hgb Hct MCV MCH MCHC RDW Std Deviation RDW Coeff of Monik Plt Count MPV Immature Gran % (Auto) Neut % (Auto) Lymph % (Auto) [place] % (Auto) Eos % (Auto) Baso % (Auto) Immature Gran # (Auto) Neut # (Auto) Lymph # (Auto) [place] # (Auto) Eos # (Auto) Baso # (Auto) PT INR Sodium Potassium Chloride Carbon Dioxide Anion Gap BUN Creatinine Est Cr Clr Drug Dosing Est GFR ( Amer) Est GFR (Non-Af Amer) BUN/Creatinine Ratio Glucose Calcium Total Bilirubin 2.0 H Direct Bilirubin 0.6 H AST 305 H ALT 829 H Alkaline Phosphatase 222 H Total Protein 6.5 Albumin 3.1 L Globulin Albumin/Globulin Ratio Lipase Urine Color Urine Appearance Urine pH Ur Specific [place] Urine Protein Urine Glucose (UA) Urine Ketones Urine Blood Urine Nitrite Urine Bilirubin Urine Urobilinogen Ur Leukocyte Esterase Urine RBC Urine WBC Ur Epithelial Cells Calcium Oxalate Crystal Urine Bacteria Acetaminophen Hep Bs Antigen Hepatitis C Antibody Medications Administered Current Inpatient Medications Albuterol (Ventolin Hfa) 2 puffs INH QID PRN PRN Reason: Shortness Of Breath Or Wheezin Stop: 11/03/18 00:28 Aspirin (Ecotrin Ectab) 81 mg PO QPM [facility] Stop: 11/03/18 20:59 Diltiazem HCl (Tiazac) 120 mg PO QPM [facility] Stop: 11/03/18 00:28 Last Admin: 10/04/18 01:24 Dose: 120 mg Documented by: Docusate Sodium (Colace) 100 mg PO BID [facility] Stop: 11/03/18 00:28 Last Admin: 10/04/18 10:51 Dose: Not Given Documented by: Enoxaparin Sodium (Lovenox) 30 mg SQ Q24H [facility] Stop: 11/03/18 08:59 Last Admin: 10/04/18 15:20 Dose: 30 mg Documented by: Epinephrine HCl (Epipen) 0.3 mg IM UD PRN PRN Reason: Allergic Reaction Stop: 11/03/18 00:28 Sodium Chloride (Nss 1000ml) 1,000 mls @ 125 mls/hr IV .Q8H LEN Stop: 11/03/18 00:28 Last Admin: 10/04/18 18:32 Dose: 125 mls/hr Documented by: Cefoxitin Sodium 1,000 mg/ (Dextrose) 60 mls @ 100 mls/hr IV Q6H LEN Stop: 10/14/18 03:59 Last Infusion: 10/04/18 15:53 Dose: Infused Documented by: Miscellaneous (Order Awaiting Action) 1 ea N/A DAILY LEN Stop: 11/03/18 08:59 Last Admin: 10/04/18 09:27 Dose: Not Given Documented by: Polyethylene Glycol (Miralax Powder Packet) 17 gm PO DAILY LEN Stop: 11/03/18 00:28 Last Admin: 10/04/18 10:51 Dose: Not Given Documented by: Pravastatin Sodium (Pravachol) 40 mg PO HS LEN Stop: 11/03/18 20:59 Tramadol HCl (Ultram) 50 mg PO Q4H PRN PRN Reason: Pain Stop: 11/03/18 00:28 Last Admin: 10/04/18 15:22 Dose: 50 mg Documented by: Resident Activity Tracking Resident Involvement: Resident Care Provided Care Provided: Adult Hospital Medicine
[2018-10-04] MEDS: PRAVASTATIN SOD 40 MG TAB PO SCH (20:16)
[2018-10-04] MEDS: ASPIRIN 81 MG ECTAB PO SCH (20:16)
[2018-10-05] MEDS: SODIUM CHLORIDE 0.9% 1000ML 1,000 ML IV SCH ×3 (02:24→19:31)
[2018-10-05 06:08] LABS: Basophils # (auto) 0.02 K/uL (0-0.2); Basophils % (auto) 0.3 %; Eosinophils % (auto) 2.8 %; Hematocrit (blood only) 37.1 % (37-47); Hemoglobin 12.4 g/dL (12.0-16.0); Immature Granulocytes # (auto) 0.01 K/uL (0.00-0.02); Immature Granulocytes % (auto) 0.1 %; Lymphocytes # (auto) 1.37 K/uL (1.2-3.4); Lymphocytes % (auto) 19.1 %; Mean Corpuscular Hgb Conc 33.4 g/dL (32-36); Mean Platelet Volume 9.2 fL (7.4-10.4); Monocytes % (auto) 11.1 %; Neutrophils # (auto) 4.79 K/uL (1.4-6.5); Neutrophils % (auto) 66.6 %; Platelet Count 203 K/uL (130-400); RDW Coefficient of Variation 14.1 % (11.5-14.5); RDW Standard Deviation 48.2 fL (36.4-46.3); Red Blood Count 3.99 M/uL (4.2-5.4); White Blood Count 7.19 K/uL (4.8-10.8)
[2018-10-05 06:47] LABS: Albumin Globulin Ratio 0.8 (0.9-2); Albumin Level 2.3 gm/dl (3.4-5.0); BUN Creatinine Ratio 5.1 (10-20); Bilirubin Direct 0.4 mg/dl (0-0.2); Bilirubin,Total 1.2 mg/dl (0.2-1); Calcium 8.1 mg/dl (8.5-10.1); Globulin 2.9 gm/dl (2.5-4.0); Potassium 3.4 mmol/L (3.5-5.1); Total Protein 5.2 gm/dl (6.4-8.2)
--- NOTE | 2018-10-05 07:09 | Family Medicine Progress Note ---
Date of Service October 05, 2018 Assessment & Plan (1) Bladder cancer: 78 y/o F with PMG of bladder cancer s/p TURBT, SVT, HTN, HLD, arthritis, and asthma presents with RLQ/RUQ abdominal pain found to have elevated LFT's. 1) RLQ/Suprapubic Abdominal pain s/p TURBT day day 2 now POD day 4 Pt continues to improve clinically and is no longer experiencing abd pain -CT abdomen/pelvis: Moderate amount of pelvic extraperitoneal fluid extending into the anterior abdominal wall and small amount of intraperitoneal fluid concerning for possibility of a bladder injury/perforation. Mild bladder wall thickening. Normal appendix -UA orange limiting study, no bacteria, 0-5 WBC, 0-4 RBC -Urology: leave hernandez in place until outpatient f/u as planned. DC on a short course of Keflex 250 mg TID x 5 days. -Tramadol 50mg Q4H PRN for pain -GI: Elevated LFT's probably 2/2 generalized peritonitis following bladder surgery. Suspect will resolve as peritoneal inflammation improves. -ROSALIO and alpha-1 antitrypsin level pending -advanced diet to full liquids, advance as tolerated to solids -Started on keflex 250 mg tid, first dose this evening 2) RUQ/epigastric abdominal pain with abnormal LFT -Concerning for acute hepatitis vs. shock liver in the setting of recent anesthesia during TURBT (however per anesthesia record 110-160/60-70s) vs. medication induced (pt taking appropriate dose of percocet) -T Bili: 1.2, AST 117, ALT 500, Alk Phos 154; lipase wnl. Labs continue to improve. Trend daily -CT abdomen: Biliary ductal dilatation likely related to cholecystectomy, small amount of lorin-hepatic fluid, unremarkable spleen, liver, kidney -MR abdomen: No hepatic, splenic, pancreatic, or adrenal masses. Intra and extrahepatic biliary ductal dilatation. No calculi identified. Minimal perihepatic fluid -Acute hepatitis panel Hep B antigen neg, C antibody neg. B core IgM pending, A IgM Negative. -Tylenol level - could not be completed due to icteric blood -Cont IVF NS at 125mls/hr -Zofran PRN for nausea -f/u am labs if they are continuing to downtrend likely for dc tomorrow 3) SVT/HLD -Cont home cardizem, pravastatin and aspirin 4) Asthma -Albuterol PRN 5) Constipation -Pt had 3-4 BM after rectal suppository this AM. Cont Colace BID and miralax daily as needed FULL Diet: Heart Healthy DVT prop: Lovenox 40mg SQ Dispo: Home tomorrow pending am labs Supervising Physician Co-Signing Physician Notes ATTENDING NOTE I saw the patient with the resident and confirmed torres portions of the history and exam. I agree with the impression and plan as noted above. I also dis cussed the case with urology. Patient notes that she does not feel quite back to her baseline although her abdominal pain, nausea, and vomiting are generally improved compared to previous. She had several bowel movements yesterday. EXAM Afebrile. A/O. Very pleasant. She is afebrile. Her blood pressures have been variable but reasonable. ABD: no tenderness in the epigastric area. The RUQ is rather benign. She is tender in the lower quadrants and suprapubic area - but no rebound or guarding. DATA White blood cell count is normal. Potassium 3.4. Renal function is normal. Transaminases, bilirubin, and alkaline phosphatase are all trending down IMPRESSION Urothelial CA S/P resection Postop abdominal pain Constipation, resolved Elevated LFTs, improving. Hyponatremia, corrected. PLAN Clinically, she could have had a illeus or even mild post operative SBO that resolved itself (with forceful emesis). The LFTs are at the level that could be secondary to mild peritonitis. In any event, she is in improving both clinically and in terms of her lab values. Continue IV ABX; transition to PO. Keflex tomorrow Continue IVF If she is tolerating p.o. discharge tomorrow as a possibility. As discussed with urology, will discharge with Hernandez catheter in place with outpatient neurology scheduled. Subjective PT laying in bed this morning. In no acute distress and no events overnight. Pt reports she is feeling significantly better although not quite ready for discharge. Pt is tolerating her diet, stooling and sleeping, hernandez is in place. Abd pain aand back pain has resolved no further concerns at this time. Physical Exam Vital Signs (Past 24 Hours): Last Vital Signs Temp 37.7 C H 10/04/18 23:13 Pulse 74 10/05/18 03:18 Resp 17 10/05/18 03:18 BP 111/67 10/05/18 03:18 Pulse Ox 96 10/05/18 03:18 Constitutional: WD/WN, vitals as above Eyes: PERRL, conjunctivae normal, anicteric sclerae normal visual arellano by confrontation Neck: trachea midline, no thyromegaly normal visual inspection Respiratory: normal respiratory effort, lungs clear to auscultation Cardiovascular: RRR, no murmur, no edema (maybe very soft murmur ) Gastrointestinal (Abdomen): normal bowel sounds, soft, nontender, no hepatosplenomegaly Skin: no rashes, warm and dry Results & Data Laboratory Results 10/05/18 10/05/18 10/04/18 Range/Units 05:34 05:34 14:59 WBC 7.19 (4.8-10.8) K/uL RBC 3.99 L (4.2-5.4) M/uL Hgb 12.4 (12.0-16.0) g/dL Hct 37.1 (37-47) % MCV 93.0 (80-100) fL MCH 31.1 (25-34) pg MCHC 33.4 (32-36) g/dL RDW Std Deviation 48.2 H (36.4-46.3) fL RDW Coeff of Monik 14.1 (11.5-14.5) % Plt Count 203 (130-400) K/uL MPV 9.2 (7.4-10.4) fL Immature Gran % (Auto) 0.1 % Neut % (Auto) 66.6 % Lymph % (Auto) 19.1 % [place] % (Auto) 11.1 % Eos % (Auto) 2.8 % Baso % (Auto) 0.3 % Immature Gran # (Auto) 0.01 (0.00-0.02) K/uL Neut # (Auto) 4.79 (1.4-6.5) K/uL Lymph # (Auto) 1.37 (1.2-3.4) K/uL [place] # (Auto) 0.80 H (0.11-0.59) K/uL Eos # (Auto) 0.20 (0-0.5) K/uL Baso # (Auto) 0.02 (0-0.2) K/uL Sodium 139 (136-145) mmol/L Potassium 3.4 L (3.5-5.1) mmol/L Chloride 108 H (98-107) mmol/L Carbon Dioxide 26 (21-32) mmol/L Anion Gap 6.0 (3-11) BUN 5 L D (7-18) mg/dl Creatinine 0.95 (0.6-1.2) mg/dl Est Cr Clr Drug Dosing 38.0 ml/min Est GFR ( Amer) 66.0 Est GFR (Non-Af Amer) 57.0 BUN/Creatinine Ratio 5.1 L (10-20) Glucose 90 (70-99) mg/dl Calcium 8.1 L (8.5-10.1) mg/dl Total Bilirubin 1.2 H (0.2-1) mg/dl Direct Bilirubin 0.4 H (0-0.2) mg/dl AST 117 H (15-37) U/L ALT 500 H (12-78) U/L Alkaline Phosphatase 154 H (45-117) U/L Total Protein 5.2 L (6.4-8.2) gm/dl Albumin 2.3 L (3.4-5.0) gm/dl Globulin 2.9 (2.5-4.0) gm/dl Albumin/Globulin Ratio 0.8 L (0.9-2) [id number] Pending ROSALIO Screen Pending Hepatitis A IgM Ab (NON-REACTIVE) Hep B Core IgM Ab (NON-REACTIVE) Miscellaneous Test 10/03/18 10/03/18 Range/Units 21:24 18:50 WBC (4.8-10.8) K/uL RBC (4.2-5.4) M/uL Hgb (12.0-16.0) g/dL Hct (37-47) % MCV (80-100) fL MCH (25-34) pg MCHC (32-36) g/dL RDW Std Deviation (36.4-46.3) fL RDW Coeff of Monik (11.5-14.5) % Plt Count (130-400) K/uL MPV (7.4-10.4) fL Immature Gran % (Auto) % Neut % (Auto) % Lymph % (Auto) % [place] % (Auto) % Eos % (Auto) % Baso % (Auto) % Immature Gran # (Auto) (0.00-0.02) K/uL Neut # (Auto) (1.4-6.5) K/uL Lymph # (Auto) (1.2-3.4) K/uL [place] # (Auto) (0.11-0.59) K/uL Eos # (Auto) (0-0.5) K/uL Baso # (Auto) (0-0.2) K/uL Sodium (136-145) mmol/L Potassium (3.5-5.1) mmol/L Chloride (98-107) mmol/L Carbon Dioxide (21-32) mmol/L Anion Gap (3-11) BUN (7-18) mg/dl Creatinine (0.6-1.2) mg/dl Est Cr Clr Drug Dosing ml/min Est GFR ( Amer) Est GFR (Non-Af Amer) BUN/Creatinine Ratio (10-20) Glucose (70-99) mg/dl Calcium (8.5-10.1) mg/dl Total Bilirubin (0.2-1) mg/dl Direct Bilirubin (0-0.2) mg/dl AST (15-37) U/L ALT (12-78) U/L Alkaline Phosphatase (45-117) U/L Total Protein (6.4-8.2) gm/dl Albumin (3.4-5.0) gm/dl Globulin (2.5-4.0) gm/dl Albumin/Globulin Ratio (0.9-2) [id number] ROSALIO Screen Hepatitis A IgM Ab NON-REACTIVE (NON-REACTIVE) Hep B Core IgM Ab NON-REACTIVE (NON-REACTIVE) Miscellaneous Test REPORT Medications Administered Current Inpatient Medications Albuterol (Ventolin Hfa) 2 puffs INH QID PRN PRN Reason: Shortness Of Breath Or Wheezin Stop: 11/03/18 00:28 Aspirin (Ecotrin Ectab) 81 mg PO QPM [facility] Stop: 11/03/18 20:59 Last Admin: 10/04/18 20:16 Dose: 81 mg Documented by: Cephalexin HCl (Keflex) 250 mg PO TID [facility] Stop: 10/15/18 20:59 Diltiazem HCl (Tiazac) 120 mg PO QPM [facility] Stop: 11/03/18 00:28 Last Admin: 10/04/18 20:16 Dose: 120 mg Documented by: Docusate Sodium (Colace) 100 mg PO BID LEN Stop: 11/03/18 00:28 Last Admin: 10/05/18 08:55 Dose: 100 mg Documented by: Enoxaparin Sodium (Lovenox) 30 mg SQ Q24H LEN Stop: 11/03/18 08:59 Last Admin: 10/05/18 08:55 Dose: 30 mg Documented by: Epinephrine HCl (Epipen) 0.3 mg IM UD PRN PRN Reason: Allergic Reaction Stop: 11/03/18 00:28 Sodium Chloride (Nss 1000ml) 1,000 mls @ 125 mls/hr IV .Q8H LEN Stop: 11/03/18 00:28 Last Admin: 10/05/18 12:41 Dose: 125 mls/hr Documented by: Miscellaneous (Order Awaiting Action) 1 ea N/A DAILY LEN Stop: 11/03/18 08:59 Last Admin: 10/04/18 09:27 Dose: Not Given Documented by: Polyethylene Glycol (Miralax Powder Packet) 17 gm PO DAILY LEN Stop: 11/03/18 00:28 Last Admin: 10/05/18 08:56 Dose: Not Given Documented by: Pravastatin Sodium (Pravachol) 40 mg PO HS LEN Stop: 11/03/18 20:59 Last Admin: 10/04/18 20:16 Dose: 40 mg Documented by: Tramadol HCl (Ultram) 50 mg PO Q4H PRN PRN Reason: Pain Stop: 11/03/18 00:28 Last Admin: 10/04/18 15:22 Dose: 50 mg Documented by: Resident Activity Tracking Resident Involvement: Resident Care Provided Care Provided: Adult Hospital Medicine
[2018-10-05] MEDS: DOCUSATE SODIUM 100 MG CAP PO SCH ×2 (08:55→19:27)
[2018-10-05] MEDS: ENOXAPARIN INJ 30 MG/0.3 ML SYR SQ SCH (08:55)
[2018-10-05] MEDS: POLYETHYLENE (MIRALAX) 17 GM PACK PO SCH (08:56)
--- NOTE | 2018-10-05 09:44 | Urology Progress Note ---
Date of Service October 05, 2018 Assessment & Plan (1) Bladder cancer: A/P 78 yo female POD#4 s/p TURBT readmitted with abdominal pain and abnormal LFTs. Patient improving clinically. Taking regular diet, bowels normalized, pain improved. Her LFTs seem to be normalizing as well. The exact etiology of her acute issues is unclear, but clinically she is doing better. Will leave hernandez in place until outpatient f/u as planned. Patient complains she did not tolerate Cipro on DC due to GI distress, would avoid nitrofurantoin or Bactrim due to abnormal LFTs - consider DC on a short course of Keflex 250 mg TID x 5 days. Seen her improvement, if she continues to tolerate regular PO intake I would anticipate DC home tomorrow. Stable for DC from a perspective. Thank you for allowing us to participate in this patient's inpatient care. Will continue to follow. 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 She is in good spirits, reports her current complaints are headache and sweating overnight with poor rest. She is taking a regular diet without issues, multiple BMs yesterday with improvement of her abdominal pain. Her ambulation has been limited by arthritic pain. She is tolerating the hernandez well, urine remains clear, low grade temp. No other complaints, feels improved over admission. Constitutional: + sweats Ear, Nose, Mouth, Throat: no nasal discharge Respiratory: no hemoptysis Cardiovascular: no chest pain Gastrointestinal: no abdominal pain (much improved), no nausea and no vomiting Genitourinary (Female): + pelvic pain; no hematuria Integumentary: no acne and no boil Neurologic: no paralysis and no numbness Psychiatric: no hopelessness Physical Exam Vital Signs (Past 24 Hours): Last Vital Signs Temp 37.1 C 10/05/18 07:41 Pulse 75 10/05/18 07:41 Resp 16 10/05/18 07:41 BP 134/62 10/05/18 07:41 Pulse Ox 95 10/05/18 07:41 Constitutional: well developed and well nourished; no acute distress ENMT: Ears: no external ear abnormality Neck: trachea midline; no anterior neck swelling Respiratory: no respiratory distress and does not use accessory muscles Cardiovascular: Vessels: radial pulses present Gastrointestinal (Abdomen): Inspection/Auscultation: abdomen not distended Percussion/Palpation: abdomen soft; abdomen nontender, no guarding, abdomen not rigid (no peritoneal signs), no hernia, no abdominal mass and no ascites Skin: normal turgor Neurologic: CN's II-XI intact bilaterally and awake; not obtunded Psychiatric: Orientation: oriented x 3 Lymphatic: no lymphadenopathy Results & Data Laboratory Results Laboratory Results - last 48 hr 10/03/18 10/03/18 10/03/18 18:50 18:50 18:50 WBC 12.35 H RBC 4.64 Hgb 14.7 Hct 42.6 MCV 91.8 MCH 31.7 MCHC 34.5 RDW Std Deviation 46.7 H RDW Coeff of Monik 14.0 Plt Count 252 MPV 9.8 Immature Gran % (Auto) 0.2 Neut % (Auto) 84.0 Lymph % (Auto) 7.3 [place] % (Auto) 7.8 Eos % (Auto) 0.6 Baso % (Auto) 0.1 Immature Gran # (Auto) 0.03 H Neut # (Auto) 10.38 H Lymph # (Auto) 0.90 L [place] # (Auto) 0.96 H Eos # (Auto) 0.07 Baso # (Auto) 0.01 PT INR Sodium 129 L Potassium 3.8 Chloride 93 L Carbon Dioxide 31 Anion Gap 5.0 BUN 22 H Creatinine 1.52 H Est Cr Clr Drug Dosing 23.7 Est GFR ( Amer) 37.4 Est GFR (Non-Af Amer) 32.3 BUN/Creatinine Ratio 14.6 Glucose 127 H Calcium 9.0 Total Bilirubin 3.1 H Direct Bilirubin AST 559 H ALT 1063 H Alkaline Phosphatase 217 H Total Protein 6.6 Albumin 3.2 L Globulin 3.4 Albumin/Globulin Ratio 0.9 Lipase 229 Urine Color [place] Urine Appearance Clear Urine pH Ur Specific [place] 1.019 Urine Protein Negative Urine Glucose (UA) Urine Ketones Urine Blood Urine Nitrite Urine Bilirubin Urine Urobilinogen Ur Leukocyte Esterase Urine RBC 0-4 Urine WBC 0-5 Ur Epithelial Cells 0-5 Calcium Oxalate Crystal Present H Urine Bacteria Negative Acetaminophen Hepatitis A IgM Ab Hep Bs Antigen Hep B Core IgM Ab Hepatitis C Antibody 10/03/18 10/03/18 10/03/18 18:50 18:50 21:24 WBC RBC Hgb Hct MCV MCH MCHC RDW Std Deviation RDW Coeff of Monik Plt Count MPV Immature Gran % (Auto) Neut % (Auto) Lymph % (Auto) [place] % (Auto) Eos % (Auto) Baso % (Auto) Immature Gran # (Auto) Neut # (Auto) Lymph # (Auto) [place] # (Auto) Eos # (Auto) Baso # (Auto) PT INR Sodium Potassium Chloride Carbon Dioxide Anion Gap BUN Creatinine Est Cr Clr Drug Dosing Est GFR ( Amer) Est GFR (Non-Af Amer) BUN/Creatinine Ratio Glucose Calcium Total Bilirubin Direct Bilirubin AST ALT Alkaline Phosphatase Total Protein Albumin Globulin Albumin/Globulin Ratio Lipase Urine Color Urine Appearance Urine pH Ur Specific [place] Urine Protein Urine Glucose (UA) Urine Ketones Urine Blood Urine Nitrite Urine Bilirubin Urine Urobilinogen Ur Leukocyte Esterase Urine RBC Urine WBC Ur Epithelial Cells Calcium Oxalate Crystal Urine Bacteria Acetaminophen Hepatitis A IgM Ab NON-REACTIVE Hep Bs Antigen Neg Hep B Core IgM Ab NON-REACTIVE Hepatitis C Antibody Neg 10/04/18 10/04/18 10/04/18 00:48 06:57 06:57 WBC 8.87 RBC 4.20 Hgb 13.1 Hct 38.7 MCV 92.1 MCH 31.2 MCHC 33.9 RDW Std Deviation 47.3 H RDW Coeff of Monik 14.1 Plt Count 200 MPV 9.1 Immature Gran % (Auto) 0.2 Neut % (Auto) 79.3 Lymph % (Auto) 9.6 [place] % (Auto) 9.6 Eos % (Auto) 1.2 Baso % (Auto) 0.1 Immature Gran # (Auto) 0.02 Neut # (Auto) 7.03 H Lymph # (Auto) 0.85 L [place] # (Auto) 0.85 H Eos # (Auto) 0.11 Baso # (Auto) 0.01 PT INR Sodium 136 D Potassium 3.8 Chloride 103 Carbon Dioxide 29 Anion Gap 4.0 BUN 13 Creatinine 0.92 D Est Cr Clr Drug Dosing 39.2 Est GFR ( Amer) 68.6 Est GFR (Non-Af Amer) 59.2 BUN/Creatinine Ratio 14.5 Glucose 99 Calcium 8.0 L Total Bilirubin 3.9 H 2.0 H Direct Bilirubin 2.2 H 0.8 H D AST 518 H 337 H ALT 965 H 797 H Alkaline Phosphatase 225 H 202 H Total Protein 6.0 L 5.6 L Albumin 2.8 L 2.6 L Globulin Albumin/Globulin Ratio Lipase Urine Color Urine Appearance Urine pH Ur Specific [place] Urine Protein Urine Glucose (UA) Urine Ketones Urine Blood Urine Nitrite Urine Bilirubin Urine Urobilinogen Ur Leukocyte Esterase Urine RBC Urine WBC Ur Epithelial Cells Calcium Oxalate Crystal Urine Bacteria Acetaminophen Hepatitis A IgM Ab Hep Bs Antigen Hep B Core IgM Ab Hepatitis C Antibody 10/04/18 10/04/18 10/05/18 06:57 11:58 05:34 WBC 7.19 RBC 3.99 L Hgb 12.4 Hct 37.1 MCV 93.0 MCH 31.1 MCHC 33.4 RDW Std Deviation 48.2 H RDW Coeff of Monik 14.1 Plt Count 203 MPV 9.2 Immature Gran % (Auto) 0.1 Neut % (Auto) 66.6 Lymph % (Auto) 19.1 [place] % (Auto) 11.1 Eos % (Auto) 2.8 Baso % (Auto) 0.3 Immature Gran # (Auto) 0.01 Neut # (Auto) 4.79 Lymph # (Auto) 1.37 [place] # (Auto) 0.80 H Eos # (Auto) 0.20 Baso # (Auto) 0.02 PT 10.0 INR 1.0 Sodium Potassium Chloride Carbon Dioxide Anion Gap BUN Creatinine Est Cr Clr Drug Dosing Est GFR ( Amer) Est GFR (Non-Af Amer) BUN/Creatinine Ratio Glucose Calcium Total Bilirubin 2.0 H Direct Bilirubin 0.6 H AST 305 H ALT 829 H Alkaline Phosphatase 222 H Total Protein 6.5 Albumin 3.1 L Globulin Albumin/Globulin Ratio Lipase Urine Color Urine Appearance Urine pH Ur Specific [place] Urine Protein Urine Glucose (UA) Urine Ketones Urine Blood Urine Nitrite Urine Bilirubin Urine Urobilinogen Ur Leukocyte Esterase Urine RBC Urine WBC Ur Epithelial Cells Calcium Oxalate Crystal Urine Bacteria Acetaminophen Hepatitis A IgM Ab Hep Bs Antigen Hep B Core IgM Ab Hepatitis C Antibody 10/05/18 05:34 WBC RBC Hgb Hct MCV MCH MCHC RDW Std Deviation RDW Coeff of Monik Plt Count MPV Immature Gran % (Auto) Neut % (Auto) Lymph % (Auto) [place] % (Auto) Eos % (Auto) Baso % (Auto) Immature Gran # (Auto) Neut # (Auto) Lymph # (Auto) [place] # (Auto) Eos # (Auto) Baso # (Auto) PT INR Sodium 139 Potassium 3.4 L Chloride 108 H Carbon Dioxide 26 Anion Gap 6.0 BUN 5 L D Creatinine 0.95 Est Cr Clr Drug Dosing 38.0 Est GFR ( Amer) 66.0 Est GFR (Non-Af Amer) 57.0 BUN/Creatinine Ratio 5.1 L Glucose 90 Calcium 8.1 L Total Bilirubin 1.2 H Direct Bilirubin 0.4 H AST 117 H ALT 500 H Alkaline Phosphatase 154 H Total Protein 5.2 L Albumin 2.3 L Globulin 2.9 Albumin/Globulin Ratio 0.8 L Lipase Urine Color Urine Appearance Urine pH Ur Specific [place] Urine Protein Urine Glucose (UA) Urine Ketones Urine Blood Urine Nitrite Urine Bilirubin Urine Urobilinogen Ur Leukocyte Esterase Urine RBC Urine WBC Ur Epithelial Cells Calcium Oxalate Crystal Urine Bacteria Acetaminophen Hepatitis A IgM Ab Hep Bs Antigen Hep B Core IgM Ab Hepatitis C Antibody
--- NOTE | 2018-10-05 15:43 | Gastroenterology Progress Note ---
Date of Service October 05, 2018 Assessment & Plan (1) LFTs abnormal: Improved. Acute hep neg. Likely from peritonitis which has improved. Acute hep neg. ROSALIO, alpha 1 AT pending. If stable to improved tomorrow can be DCed from GI standpoint with outpt f/u with DR Montesinos dilated PD on MRI--no mass noted but recommend outpt EUS-- Discussed all above with patient. Subjective cc f/u elev lfts HPI. Abd pain improved. tolerating diet. Respiratory: no dyspnea Cardiovascular: no chest pain Physical Exam Vital Signs (Past 24 Hours): Last Vital Signs Temp 36.9 C 10/05/18 15:01 Pulse 79 10/05/18 15:01 Resp 19 10/05/18 15:01 BP 161/80 H 10/05/18 15:01 Pulse Ox 93 10/05/18 15:01 Constitutional: WD/WN, vitals as above Respiratory: normal respiratory effort, lungs clear to auscultation Cardiovascular: RRR, no murmur, no edema Gastrointestinal (Abdomen): normal bowel sounds, soft, nontender, no hepatosplenomegaly Psychiatric: A+Ox3, euthymic affect
[2018-10-05] MEDS: TRAMADOL HCL 50 MG TABLET PO PRN (18:11)
[2018-10-05] MEDS: dilTIAZem ER 120 MG CAPCR PO SCH (19:27)
[2018-10-05] MEDS: ASPIRIN 81 MG ECTAB PO SCH (19:28)
[2018-10-05] MEDS: PRAVASTATIN SOD 40 MG TAB PO SCH (19:28)
[2018-10-05] MEDS ORDERED: IBUPROFEN 600 MG TAB PO STA (19:47)
[2018-10-05] MEDS ORDERED: IBUPROFEN 600 MG TAB PO ONE (19:50)
[2018-10-05] MEDS: cephALEXin 250 MG CAP PO SCH (20:21)
[2018-10-06] MEDS: SODIUM CHLORIDE 0.9% 1000ML 1,000 ML IV SCH ×4 (02:59→23:08)
[2018-10-06 06:44] LABS: Basophils # (auto) 0.02 K/uL (0-0.2); Basophils % (auto) 0.2 %; Eosinophils # (auto) 0.19 K/uL (0-0.5); Eosinophils % (auto) 2.2 %; Hematocrit (blood only) 39.3 % (37-47); Hemoglobin 13.4 g/dL (12.0-16.0); Immature Granulocytes # (auto) 0.03 K/uL (0.00-0.02); Immature Granulocytes % (auto) 0.3 %; Lymphocytes % (auto) 18.3 %; Mean Corpuscular Hgb Conc 34.1 g/dL (32-36); Mean Corpuscular Volume 92.5 fL (80-100); Mean Platelet Volume 9.3 fL (7.4-10.4); Monocytes # (auto) 1.19 K/uL (0.11-0.59); Monocytes % (auto) 13.6 %; Neutrophils # (auto) 5.73 K/uL (1.4-6.5); Neutrophils % (auto) 65.4 %; Platelet Count 207 K/uL (130-400); RDW Standard Deviation 47.5 fL (36.4-46.3); Red Blood Count 4.25 M/uL (4.2-5.4); White Blood Count 8.76 K/uL (4.8-10.8)
[2018-10-06 07:15] LABS: Albumin Level 2.3 gm/dl (3.4-5.0); BUN Creatinine Ratio 10.4 (10-20); Calcium 8.2 mg/dl (8.5-10.1); Creatinine Clr Calc Pharmacy 61.2 ml/min; Est GFR (Non-African American) 87.2; Potassium 3.6 mmol/L (3.5-5.1)
[2018-10-06 07:17] LABS: Albumin Globulin Ratio 0.7 (0.9-2); Bilirubin,Total 0.9 mg/dl (0.2-1); Globulin 3.4 gm/dl (2.5-4.0); Total Protein 5.7 gm/dl (6.4-8.2)
[2018-10-06] MEDS: TRAMADOL HCL 50 MG TABLET PO PRN ×3 (07:46→23:08)
[2018-10-06] MEDS: ENOXAPARIN INJ 30 MG/0.3 ML SYR SQ SCH (09:09)
[2018-10-06] MEDS: DOCUSATE SODIUM 100 MG CAP PO SCH ×2 (09:09→19:57)
[2018-10-06] MEDS: POLYETHYLENE (MIRALAX) 17 GM PACK PO SCH (09:09)
[2018-10-06] MEDS: cephALEXin 250 MG CAP PO SCH ×3 (09:10→19:56)
--- NOTE | 2018-10-06 11:37 | Family Medicine Progress Note ---
Date of Service October 06, 2018 Assessment & Plan (1) Bladder cancer: 78 y/o F with PMG of bladder cancer s/p TURBT, SVT, HTN, HLD, arthritis, and asthma presents with RLQ/RUQ abdominal pain found to have elevated LFT's. #)Constipation with associated ABD Pain Pt reports she has not had a bm for 2 days. Given she made significant improvement s/p her most recent BM, and has become worse after 2 days without a bm, I am suspicious this is the source of her initial presentation and symptoms. Given her recent surgery, current symptoms of dry mouth, frequent belching, not passing gas, abdominal fullness, pain, and constipation, I am concerned that she has redevloped hypo motility or obstruction -Advised the pt to only eat jello and similar foods for lunch -obtain abd flat plat, consider CT with contrast or small bowel series pending results #) RLQ/Suprapubic Abdominal pain s/p TURBT day day 2 now P[address] day [address] CT abdomen/pelvis: Moderate amount of pelvic extraperitoneal fluid extending into the anterior abdominal wall and small amount of intraperitoneal fluid concerning for possibility of a bladder injury/perforation. Mild bladder wall thickening. Normal appendix;UA orange limiting study, no bacteria, 0-5 WBC, 0-4 RBC -Urology: leave hernandez in place until outpatient f/u as planned. DC on a short course of Keflex 250 mg TID x 5 days. -GI: Elevated LFT's probably 2/2 generalized peritonitis following bladder surgery. Suspect will resolve as peritoneal inflammation improves. dilated PD on MRI--no mass noted but recommend outpt EUS -Tramadol 50mg Q4H PRN for pain -ROSALIO and alpha-1 antitrypsin level pending -advanced diet to full liquids, advance as tolerated to solids -Started on keflex 250 mg tid, first dose this evening #) RUQ/epigastric abdominal pain with abnormal LFT -Concerning for acute hepatitis vs. shock liver in the setting of recent anesthesia during TURBT (however per anesthesia record 110-160/60-70s) vs. medication induced (pt taking appropriate dose of percocet);CT abdomen: Biliary ductal dilatation likely related to cholecystectomy, small amount of lorin- hepatic fluid, unremarkable spleen, liver, kidney; MR abdomen: No hepatic, splenic, pancreatic, or adrenal masses. Intra and extrahepatic biliary ductal dilatation. No calculi identified. Minimal perihepatic fluid; Acute hepatitis panel Hep B antigen neg, C antibody neg. B core IgM pending, A IgM Negative. -T Bili: 0.9, AST 57, ALT 362, Alk Phos 137; lipase wnl. Significant decrease in transaminases demonstrating improvemet -Cont IVF NS at 125mls/hr -Zofran PRN for nausea #) Low Back Pain -Voltaran prn -Kpad #) SVT/HLD -Cont home cardizem, pravastatin and aspirin #) Asthma -Albuterol PRN #) Constipation -Pt had 3-4 BM after rectal suppository this AM. Cont Colace BID and miralax daily as needed FULL Diet: Heart Healthy DVT prop: Lovenox 40mg SQ Dispo: Home tomorrow pending am labs Supervising Physician Co-Signing Physician Notes ATTENDING NOTE I saw the patient with the resident and confirmed torres portions of the history and exam. I agree with the impression and plan as noted above. I also discussed the case with urology and gastroenterology. Patient had a fever overnight of 38.2 C. The patient also tells me that she had significant chills and rigors last night at the time of the fever and again this morning (although no fever noted this morning). She denies abdominal pain but occasionally notes some "rumbling" -she does complain of low back pain - actually her biggest complaint this morning. EXAM Afebrile. A/O. Very pleasant. Blood pressure 157/73, pulse 82, respiratory rate 19. She is afebrile at the time of our exam this morning. Abdomen: Soft and nontender in all arellano; no rebound or guarding. ABD: no tenderness in the epigastric area. The RUQ is rather benign. She is tender in the lower quadrants and suprapubic area - but no rebound or guarding. No CVA tenderness is appreciated. When I try to localize her back pain it seems to be bilaterally at the level of the PSIS. DATA White blood cell count is normal. Renal function is normal. Transaminases, bilirubin, and alkaline phosphatase continues to trend downward. IMPRESSION Urothelial CA S/P resection Postop abdominal pain Fever Constipation, resolved Elevated LFTs, improving. PLAN Clinically, the patient does not appear acutely ill. Her abdomen is soft nontender and she lacks any peritoneal signs. She does have low back pain, although this does not seem to represent CVA tenderness/retroperitoneal involvement. Her fever is concerning however given her recent surgical history and initial clinical presentation a couple of days ago. Check UA and culture today Check flat plate of the abdomen Chest x-ray Consider CT scan of the abdomen and pelvis with contrast Subjective Pt laying in bed this morning in no acute distress. Report having a rough night. She spiked a fever overnight with shaking chills. Fever resolved s/p ibuprofen. Pt also reports she has not had a bowel movement in 2 days. she states pain is starting to develop in her abdomen again and she feels thirsty. She also endorses low back pain. Positive: Fever, Chills, Constipation, Belching Negative: N/V/D muscular pain, chest pain, palpitations, congestion, other constitutional syx Physical Exam Vital Signs (Past 24 Hours): Last Vital Signs Temp 36.8 C 10/06/18 03:11 Pulse 59 L 10/06/18 03:11 Resp 17 10/06/18 03:11 BP 123/62 10/06/18 03:11 Pulse Ox 96 10/06/18 03:11 Constitutional: WD/WN, vitals as above Eyes: PERRL, conjunctivae normal, anicteric sclerae normal visual arellano by confrontation Neck: trachea midline, no thyromegaly normal visual inspection Respiratory: normal respiratory effort, lungs clear to auscultation Cardiovascular: RRR, no murmur, no edema (maybe very soft murmur ) Gastrointestinal (Abdomen): Hyper active bowel sounds with some distention. Negative for CVA tenderness, although she describes flank/LBP Skin: no rashes, warm and dry Results & Data Laboratory Results 10/06/18 10/06/18 Range/Units 05:46 05:46 WBC 8.76 (4.8-10.8) K/uL RBC 4.25 (4.2-5.4) M/uL Hgb 13.4 (12.0-16.0) g/dL Hct 39.3 (37-47) % MCV 92.5 (80-100) fL MCH 31.5 (25-34) pg MCHC 34.1 (32-36) g/dL RDW Std Deviation 47.5 H (36.4-46.3) fL RDW Coeff of Monik 14.0 (11.5-14.5) % Plt Count 207 (130-400) K/uL MPV 9.3 (7.4-10.4) fL Immature Gran % (Auto) 0.3 % Neut % (Auto) 65.4 % Lymph % (Auto) 18.3 % [place] % (Auto) 13.6 % Eos % (Auto) 2.2 % Baso % (Auto) 0.2 % Immature Gran # (Auto) 0.03 H (0.00-0.02) K/uL Neut # (Auto) 5.73 (1.4-6.5) K/uL Lymph # (Auto) 1.60 (1.2-3.4) K/uL [place] # (Auto) 1.19 H (0.11-0.59) K/uL Eos # (Auto) 0.19 (0-0.5) K/uL Baso # (Auto) 0.02 (0-0.2) K/uL Sodium 143 (136-145) mmol/L Potassium 3.6 (3.5-5.1) mmol/L Chloride 110 H (98-107) mmol/L Carbon Dioxide 29 (21-32) mmol/L Anion Gap 4.0 (3-11) BUN 6 L (7-18) mg/dl Creatinine 0.59 L D (0.6-1.2) mg/dl Est Cr Clr Drug Dosing 61.2 ml/min Est GFR ( Amer) 101.0 Est GFR (Non-Af Amer) 87.2 BUN/Creatinine Ratio 10.4 (10-20) Glucose 108 H (70-99) mg/dl Calcium 8.2 L (8.5-10.1) mg/dl Total Bilirubin 0.9 (0.2-1) mg/dl AST 57 H (15-37) U/L ALT 362 H (12-78) U/L Alkaline Phosphatase 137 H (45-117) U/L Total Protein 5.7 L (6.4-8.2) gm/dl Albumin 2.3 L (3.4-5.0) gm/dl Globulin 3.4 (2.5-4.0) gm/dl Albumin/Globulin Ratio 0.7 L (0.9-2) Medications Administered Current Inpatient Medications Albuterol (Ventolin Hfa) 2 puffs INH QID PRN PRN Reason: Shortness Of Breath Or Wheezin Stop: 11/03/18 00:28 Aspirin (Ecotrin Ectab) 81 mg PO QPM LEN Stop: 11/03/18 20:59 Last Admin: 10/05/18 19:28 Dose: 81 mg Documented by: Cephalexin HCl (Keflex) 250 mg PO TID LEN; Protocol Stop: 10/15/18 20:59 Last Admin: 10/06/18 09:10 Dose: 250 mg Documented by: Diclofenac Sodium (Voltaren 1% Top) 1 appln EXT QID PRN PRN Reason: Pain Stop: 11/05/18 12:59 Diltiazem HCl (Tiazac) 120 mg PO QPM LEN Stop: 11/03/18 00:28 Last Admin: 10/05/18 19:27 Dose: 120 mg Documented by: Docusate Sodium (Colace) 100 mg PO BID LEN Stop: 11/03/18 00:28 Last Admin: 10/06/18 09:09 Dose: 100 mg Documented by: Enoxaparin Sodium (Lovenox) 30 mg SQ Q24H LEN Stop: 11/03/18 08:59 Last Admin: 10/06/18 09:09 Dose: 30 mg Documented by: Epinephrine HCl (Epipen) 0.3 mg IM UD PRN PRN Reason: Allergic Reaction Stop: 11/03/18 00:28 Sodium Chloride (Nss 1000ml) 1,000 mls @ 125 mls/hr IV .Q8H [facility] Stop: 11/03/18 00:28 Last Admin: 10/06/18 02:59 Dose: 125 mls/hr Documented by: Miscellaneous (Order Awaiting Action) 1 ea N/A DAILY LEN Stop: 11/03/18 08:59 Last Admin: 10/05/18 19:24 Dose: Not Given Documented by: Polyethylene Glycol (Miralax Powder Packet) 17 gm PO DAILY LEN Stop: 11/03/18 00:28 Last Admin: 10/06/18 09:09 Dose: 17 gm Documented by: Pravastatin Sodium (Pravachol) 40 mg PO HS LEN Stop: 11/03/18 20:59 Last Admin: 10/05/18 19:28 Dose: 40 mg Documented by: Tramadol HCl (Ultram) 50 mg PO Q4H PRN PRN Reason: Pain Stop: 11/03/18 00:28 Last Admin: 10/06/18 07:46 Dose: 50 mg Documented by: Resident Activity Tracking Resident Involvement: Resident Care Provided Care Provided: Adult Hospital Medicine
--- NOTE | 2018-10-06 12:35 | Urology Progress Note ---
Date of Service October 06, 2018 Assessment & Plan (1) Bladder cancer: A/P 78 yo female POD#5 s/p TURBT readmitted with abdominal pain and abnormal LFTs. LFTs continue to improve, normal WBC and Cr. Low grade temp persists, etiology unclear. Possibility of repeat CT for flank pain noted by hospitalists service, consider CXR as well if undergoing imaging. Severe infection seems relatively unlikely. Has been switched to PO Keflex. Patient wishes to consider repeat suppository - was helpful previously, not unreasonable. Hernandez until seen in our office as planned. No acute intervention at this time. 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 She is in good spirits, reports her current complaints are bilateral flank pain worse with movement and nausea, no emesis with overnight chills and a temp of 37.8. She is back on low volume clears, no BM since Sunday with some recurrence of her abdominal pain. She reports several rounds of ambulation yesterday. She is tolerating the hernandez well, urine remains clear, low grade temp. Constitutional: + fever, + chills and + malaise Eyes: no discharge Ear, Nose, Mouth, Throat: no ear trauma Respiratory: no hemoptysis Cardiovascular: no chest pain and no radiating jaw, neck or arm pain Gastrointestinal: + nausea; no vomiting Genitourinary (Female): no hematuria Musculoskeletal: + back pain Integumentary: no acne and no boil Neurologic: no paralysis and no numbness Psychiatric: no hopelessness Physical Exam Vital Signs (Past 24 Hours): Last Vital Signs Temp 37.8 C H 10/06/18 12:08 Pulse 82 10/06/18 12:08 Resp 18 10/06/18 12:08 BP 167/81 H 10/06/18 12:08 Pulse Ox 96 10/06/18 12:08 Constitutional: well developed and well nourished; no acute distress ENMT: Ears: no external ear abnormality Neck: trachea midline; no anterior neck swelling Respiratory: no respiratory distress and does not use accessory muscles Cardiovascular: Vessels: radial pulses present Gastrointestinal (Abdomen): Inspection/Auscultation: abdomen not distended Percussion/Palpation: + abdomen tender (minimal lower abdominal tenderness and CVAT) and abdomen soft; no guarding, abdomen not rigid (no peritoneal signs), no hernia, no abdominal mass and no ascites Musculoskeletal: Head/Neck/Chest: normocephalic Skin: normal turgor Neurologic: CN's II-XI intact bilaterally and awake; not obtunded Psychiatric: Orientation: oriented x 3 Lymphatic: no lymphadenopathy Results & Data Laboratory Results Laboratory Results - last 48 hr 10/03/18 10/03/18 10/04/18 18:50 21:24 11:58 WBC RBC Hgb Hct MCV MCH MCHC RDW Std Deviation RDW Coeff of Monik Plt Count MPV Immature Gran % (Auto) Neut % (Auto) Lymph % (Auto) [place] % (Auto) Eos % (Auto) Baso % (Auto) Immature Gran # (Auto) Neut # (Auto) Lymph # (Auto) [place] # (Auto) Eos # (Auto) Baso # (Auto) Sodium Potassium Chloride Carbon Dioxide Anion Gap BUN Creatinine Est Cr Clr Drug Dosing Est GFR ( Amer) Est GFR (Non-Af Amer) BUN/Creatinine Ratio Glucose Calcium Total Bilirubin 2.0 H Direct Bilirubin 0.6 H AST 305 H ALT 829 H Alkaline Phosphatase 222 H Total Protein 6.5 Albumin 3.1 L Globulin Albumin/Globulin Ratio Hepatitis A IgM Ab NON-REACTIVE Hep B Core IgM Ab NON-REACTIVE Miscellaneous Test REPORT 10/05/18 10/05/18 10/06/18 05:34 05:34 05:46 WBC 7.19 8.76 RBC 3.99 L 4.25 Hgb 12.4 13.4 Hct 37.1 39.3 MCV 93.0 92.5 MCH 31.1 31.5 MCHC 33.4 34.1 RDW Std Deviation 48.2 H 47.5 H RDW Coeff of Monik 14.1 14.0 Plt Count 203 207 MPV 9.2 9.3 Immature Gran % (Auto) 0.1 0.3 Neut % (Auto) 66.6 65.4 Lymph % (Auto) 19.1 18.3 [place] % (Auto) 11.1 13.6 Eos % (Auto) 2.8 2.2 Baso % (Auto) 0.3 0.2 Immature Gran # (Auto) 0.01 0.03 H Neut # (Auto) 4.79 5.73 Lymph # (Auto) 1.37 1.60 [place] # (Auto) 0.80 H 1.19 H Eos # (Auto) 0.20 0.19 Baso # (Auto) 0.02 0.02 Sodium 139 Potassium 3.4 L Chloride 108 H Carbon Dioxide 26 Anion Gap 6.0 BUN 5 L D Creatinine 0.95 Est Cr Clr Drug Dosing 38.0 Est GFR ( Amer) 66.0 Est GFR (Non-Af Amer) 57.0 BUN/Creatinine Ratio 5.1 L Glucose 90 Calcium 8.1 L Total Bilirubin 1.2 H Direct Bilirubin 0.4 H AST 117 H ALT 500 H Alkaline Phosphatase 154 H Total Protein 5.2 L Albumin 2.3 L Globulin 2.9 Albumin/Globulin Ratio 0.8 L Hepatitis A IgM Ab Hep B Core IgM Ab Miscellaneous Test 10/06/18 05:46 WBC RBC Hgb Hct MCV MCH MCHC RDW Std Deviation RDW Coeff of Monik Plt Count MPV Immature Gran % (Auto) Neut % (Auto) Lymph % (Auto) [place] % (Auto) Eos % (Auto) Baso % (Auto) Immature Gran # (Auto) Neut # (Auto) Lymph # (Auto) [place] # (Auto) Eos # (Auto) Baso # (Auto) Sodium 143 Potassium 3.6 Chloride 110 H Carbon Dioxide 29 Anion Gap 4.0 BUN 6 L Creatinine 0.59 L D Est Cr Clr Drug Dosing 61.2 Est GFR ( Amer) 101.0 Est GFR (Non-Af Amer) 87.2 BUN/Creatinine Ratio 10.4 Glucose 108 H Calcium 8.2 L Total Bilirubin 0.9 Direct Bilirubin AST 57 H ALT 362 H Alkaline Phosphatase 137 H Total Protein 5.7 L Albumin 2.3 L Globulin 3.4 Albumin/Globulin Ratio 0.7 L Hepatitis A IgM Ab Hep B Core IgM Ab Miscellaneous Test
--- NOTE | 2018-10-06 14:51 | XRay Report ---
XR abdomen 2V w PA chest HISTORY: 78 years-old Female Abd pain acute generalized abdominal pain COMPARISON: MRI of the abdomen 10/04/2018, CT abdomen and pelvis 10/03/2018, chest radiograph 8 TECHNIQUE: PA view of the chest with erect and supine views of the abdomen FINDINGS: Cardiomediastinal and hilar silhouettes appears unchanged. Calcification about the thoracic aortic ar ch. Chronic blunting of the left costophrenic angle with left basilar atelectasis/scarring. No pneumo thorax, large pleural effusion or overt pulmonary edema. Degenerative changes of the shoulders and sp ine. Prior cholecystectomy. Bowel gas pattern is nonobstructive. No definite urolith. Region changes of th e spine and left hip. Right hip total joint arthroplasty. IMPRESSION: 1. Nonobstructive bowel gas pattern. 2. No acute process of the chest. 3. Cholecystectomy. The above report was generated using voice recognition software. It may contain grammatical, syntax o r spelling errors. Electronically signed by: Joe Amado M.D. 10/06/2018 2:49 PM
[2018-10-06] MEDS: DICLOFENAC SOD 1% GEL 100 GM TUBE EXT PRN ×2 (15:11→19:58)
--- NOTE | 2018-10-06 15:57 | Gastroenterology Progress Note ---
Date of Service October 06, 2018 Assessment & Plan (1) LFTs abnormal: COntinues to improve.. Acute hep neg. Likely from peritonitis which has improved. Acute hep neg. ROSALIO, alpha 1 AT pending. dilated PD on MRI--no mass noted but recommend outpt EUS-- back pain--? retroperitoneal process--Discussed with DR Veronica---FP team has ordered ct a/p to inverstigate--do not feel GI related as would expect worsening abd pain fever--? urologic--further per FP team, WBC nl, ? drug fever Subjective cc f/u elev lfts HPI. Pt yesterday had some back pain she thought from bed but today pain worse and spiked temp overnight. Minor epi pain. Less appetite today. Physical Exam Vital Signs (Past 24 Hours): Last Vital Signs Temp 37.8 C H 10/06/18 15:20 Pulse 82 10/06/18 15:20 Resp 19 10/06/18 15:20 BP 157/73 H 10/06/18 15:20 Pulse Ox 96 10/06/18 15:20 Constitutional: WD/WN, vitals as above Respiratory: normal respiratory effort, lungs clear to auscultation Cardiovascular: RRR, no murmur, no edema Gastrointestinal (Abdomen): normal bowel sounds, soft, nontender, no hepatosplenomegaly Psychiatric: A+Ox3, euthymic affect
[2018-10-06] MEDS ORDERED: MoRPHine SULFATE 2 MG/ML CARP IV PRN (16:32)
[2018-10-06 17:39] LABS: Appearance Urine Clear (Clear); Bilirubin Urine Negative (Negative); Blood Urine 2+ (Negative); Color Urine Colorless; Glucose Urine UA Negative (Negative); Ketones Urine Negative (Negative); Leukocyte Esterase Urine Negative (Negative); Nitrite Urine Negative (Negative); Protein Urine Negative (Negative); Specific Gravity Urine <= 1.005 (1.000-1.030); Urobilinogen Urine Negative (Negative); pH Urine 6.5 (4.5-7.5)
[2018-10-06 17:50] LABS: Epithelial Cell Urine 0-5 /lpf (0-5)
[2018-10-06 17:51] LABS: Bacteria Urine Negative (Negative); RBC Urine 0-4 /hpf (0-4); WBC Urine 0-5 /hpf (0-5)
[2018-10-06] MEDS ORDERED: ONDANSETRON INJ 2 MG/ML 2 ML VIAL ONE (17:55)
[2018-10-06] MEDS ORDERED: IOVERSOL 100ml IV PRN (18:16)
--- NOTE | 2018-10-06 18:42 | CT Scan Report ---
CT OF THE ABDOMEN AND PELVIS WITH CONTRAST CLINICAL HISTORY: Abdominal pain. Concern for peritonitis/bladder leak. COMPARISON STUDY: CT of the abdomen and pelvis October 03, 2018. MRI of the abdomen October 04, 2018. TECHNIQUE: Following IV administration of 94 mL of Optiray-320, axial images of the abdomen and pelvi s were obtained from the lung bases to the proximal femurs. Images were reviewed in the axial, sagitt al, and coronal planes. IV contrast was administered without complication. Automated exposure contro l was utilized for the study. A dose lowering technique was utilized adhering to the principles of A DORYS. CT DOSE: 334.28 mGy.cm FINDINGS: Imaged portions of the lower chest demonstrate trace bilateral pleural effusions with bibas ilar opacities favor atelectasis. No pneumatosis, free air or portal venous gas is present. Mild bili dayne ductal dilatation is unchanged status post cholecystectomy. There is no peripancreatic infiltrati on. No hepatic lesions are identified. The spleen, adrenal glands and kidneys are normal. There is no hydronephrosis. There is no evidence for a bowel obstruction. The appendix is normal. Images of the pelvis are compromised by streak artifact from right hip arthroplasty. Ibarra balloon is present withi n the bladder which is partially collapsed. Bladder wall thickening is accentuated by underdistention . Extraperitoneal fluid shown on CT of October 03, 2018 has resolved. There are calcified fibroids with in the uterus. There is no lymphadenopathy. There are no suspicious osseous lesions. IMPRESSION: 1. Interval resolution of the extraperitoneal pelvic fluid shown on CT of October 03, 2018. 2. Ibarra balloon within the bladder. Bladder wall thickening which is nonspecific and accentuated by underdistention. 3. No bowel obstruction. Normal appendix. 4. Stable biliary ductal dilatation status post cholecystectomy. 5. Trace bilateral pleural effusions with associated airspace opacities favor atelectasis. 6. Moderate amount of stool within the colon. Electronically signed by: Floyd Trejo M.D. 10/06/2018 6:41 PM
[2018-10-06] MEDS ORDERED: BISACODYL 10 MG SUPP PR STA (19:06)
[2018-10-06] MEDS: MoRPHine SULFATE 2 MG/ML CARP IV PRN ×2 (19:56→23:07)
[2018-10-06] MEDS: dilTIAZem ER 120 MG CAPCR PO SCH (19:57)
[2018-10-06] MEDS: ASPIRIN 81 MG ECTAB PO SCH (19:57)
[2018-10-06] MEDS: PRAVASTATIN SOD 40 MG TAB PO SCH (19:57)
[2018-10-07] MEDS ORDERED: KETOROLAC 30 MG/ML VIAL IV ONE (00:46)
[2018-10-07] MEDS ORDERED: KETOROLAC 30 MG/ML VIAL ONE (00:49)
[2018-10-07 05:45] LABS: Basophils # (auto) 0.01 K/uL (0-0.2); Basophils % (auto) 0.1 %; Eosinophils # (auto) 0.11 K/uL (0-0.5); Eosinophils % (auto) 1.3 %; Hematocrit (blood only) 33.6 % (37-47); Hemoglobin 11.4 g/dL (12.0-16.0); Immature Granulocytes # (auto) 0.02 K/uL (0.00-0.02); Immature Granulocytes % (auto) 0.2 %; Lymphocytes % (auto) 17.8 %; Mean Corpuscular Hgb Conc 33.9 g/dL (32-36); Mean Corpuscular Volume 90.6 fL (80-100); Mean Platelet Volume 9.2 fL (7.4-10.4); Monocytes # (auto) 1.17 K/uL (0.11-0.59); Monocytes % (auto) 13.9 %; Neutrophils # (auto) 5.61 K/uL (1.4-6.5); Neutrophils % (auto) 66.7 %; Platelet Count 187 K/uL (130-400); RDW Coefficient of Variation 13.5 % (11.5-14.5); RDW Standard Deviation 44.8 fL (36.4-46.3); Red Blood Count 3.71 M/uL (4.2-5.4); White Blood Count 8.42 K/uL (4.8-10.8)
[2018-10-07 06:10] LABS: Potassium 3.1 mmol/L (3.5-5.1)
[2018-10-07 06:11] LABS: Calcium 7.9 mg/dl (8.5-10.1); Creatinine Clr Calc Pharmacy 70.7 ml/min; Est GFR (Non-African American) 91.5
[2018-10-07 06:13] LABS: Albumin Globulin Ratio 0.6 (0.9-2); Bilirubin,Total 1.4 mg/dl (0.2-1); Globulin 3.1 gm/dl (2.5-4.0); Total Protein 5.1 gm/dl (6.4-8.2)
[2018-10-07] MEDS ORDERED: POTASSIUM CHLORIDE 20 MEQ TABCR PO STA (07:37)
[2018-10-07] MEDS: POLYETHYLENE (MIRALAX) 17 GM PACK PO SCH (07:48)
[2018-10-07] MEDS: ENOXAPARIN INJ 30 MG/0.3 ML SYR SQ SCH (07:49)
[2018-10-07] MEDS: DOCUSATE SODIUM 100 MG CAP PO SCH ×2 (07:49→21:13)
[2018-10-07] MEDS: cephALEXin 250 MG CAP PO SCH ×3 (07:49→21:14)
--- NOTE | 2018-10-07 08:46 | Urology Progress Note ---
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 Clinically improving. Continue hernandez catheter and keflex TID. Encourage ambulation and bowel regimen per GI. Ct imaging reviewed - no source for continued backpain. WBC and Cr remain stable. Dr. Hawkins aware of patient progress. Will continue to monitor with primary service ie inpatient. Outpatient f/u with Dr. Tapia this . 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 Fever overnight at 38.2T No wbc, Cr stable. Has not had BM today, still working on bowel regimen with miralax. Pt taking sponge bath independently at time of evaluation. Feeling better today, denies suprapubic pain or discomfort with hernandez catheter. Denies hematuria or dysuria. Tolerating clears without nausea/emesis. Does acknowledge generalized backpain, improved with toradol and heating pad. Pain is provoked by position changes. Physical Exam Vital Signs (Past 24 Hours): Last Vital Signs Temp 36.5 C 10/07/18 07:45 Pulse 64 10/07/18 07:45 Resp 16 10/07/18 07:45 BP 117/53 L 10/07/18 07:45 Pulse Ox 96 10/07/18 07:45 Constitutional: no acute distress Eyes: no eyelid abnormality ENMT: Ears: no hearing impairment Neck: trachea midline Respiratory: no respiratory distress, no labored breathing, does not use a ccessory muscles and no cough Cardiovascular: Vessels: no JVD Extremities: no calf tenderness Chest (Breasts): normal inspection/palpation of breasts Gastrointestinal (Abdomen): Inspection/Auscultation: abdomen not distended and no abdominal edema Percussion/Palpation: abdomen soft Musculoskeletal: Head/Neck/Chest: normocephalic and head atraumatic Skin: no rashes, warm and dry no rashes and no ulcers Neurologic: awake; not confused and not obtunded Psychiatric: Orientation: alert and oriented x 3 Apperance: appropriately dressed Eye Contact: good eye contact Genitourinary: hernandez catheter intact draining hazy yellow, no hematuria. no clots. Results & Data Laboratory Results Laboratory Results - last 48 hr 10/06/18 10/06/18 10/06/18 05:46 05:46 17:30 WBC 8.76 RBC 4.25 Hgb 13.4 Hct 39.3 MCV 92.5 MCH 31.5 MCHC 34.1 RDW Std Deviation 47.5 H RDW Coeff of Monik 14.0 Plt Count 207 MPV 9.3 Immature Gran % (Auto) 0.3 Neut % (Auto) 65.4 Lymph % (Auto) 18.3 [place] % (Auto) 13.6 Eos % (Auto) 2.2 Baso % (Auto) 0.2 Immature Gran # (Auto) 0.03 H Neut # (Auto) 5.73 Lymph # (Auto) 1.60 [place] # (Auto) 1.19 H Eos # (Auto) 0.19 Baso # (Auto) 0.02 Sodium 143 Potassium 3.6 Chloride 110 H Carbon Dioxide 29 Anion Gap 4.0 BUN 6 L Creatinine 0.59 L D Est Cr Clr Drug Dosing 61.2 Est GFR ( Amer) 101.0 Est GFR (Non-Af Amer) 87.2 BUN/Creatinine Ratio 10.4 Glucose 108 H Calcium 8.2 L Total Bilirubin 0.9 AST 57 H ALT 362 H Alkaline Phosphatase 137 H Total Protein 5.7 L Albumin 2.3 L Globulin 3.4 Albumin/Globulin Ratio 0.7 L Urine Color Colorless Urine Appearance Clear Urine pH 6.5 Ur Specific Hollis <= 1.005 Urine Protein Negative Urine Glucose (UA) Negative Urine Ketones Negative Urine Blood 2+ H Urine Nitrite Negative Urine Bilirubin Negative Urine Urobilinogen Negative Ur Leukocyte Esterase Negative Urine RBC 0-4 Urine WBC 0-5 Ur Epithelial Cells 0-5 Urine Bacteria Negative 10/07/18 10/07/18 05:18 05:18 WBC 8.42 RBC 3.71 L Hgb 11.4 L Hct 33.6 L MCV 90.6 MCH 30.7 MCHC 33.9 RDW Std Deviation 44.8 RDW Coeff of Monik 13.5 Plt Count 187 MPV 9.2 Immature Gran % (Auto) 0.2 Neut % (Auto) 66.7 Lymph % (Auto) 17.8 [place] % (Auto) 13.9 Eos % (Auto) 1.3 Baso % (Auto) 0.1 Immature Gran # (Auto) 0.02 Neut # (Auto) 5.61 Lymph # (Auto) 1.50 [place] # (Auto) 1.17 H Eos # (Auto) 0.11 Baso # (Auto) 0.01 Sodium 139 Potassium 3.1 L Chloride 105 Carbon Dioxide 28 Anion Gap 6.0 BUN 4 L Creatinine 0.51 L Est Cr Clr Drug Dosing 70.7 Est GFR ( Amer) 106.0 Est GFR (Non-Af Amer) 91.5 BUN/Creatinine Ratio 8.0 L Glucose 93 Calcium 7.9 L Total Bilirubin 1.4 H D AST 54 H ALT 236 H Alkaline Phosphatase 139 H Total Protein 5.1 L Albumin 2.0 L Globulin 3.1 Albumin/Globulin Ratio 0.6 L Urine Color Urine Appearance Urine pH Ur Specific [place] Urine Protein Urine Glucose (UA) Urine Ketones Urine Blood Urine Nitrite Urine Bilirubin Urine Urobilinogen Ur Leukocyte Esterase Urine RBC Urine WBC Ur Epithelial Cells Urine Bacteria
[2018-10-07] MEDS: TRAMADOL HCL 50 MG TABLET PO PRN ×3 (11:19→21:41)
[2018-10-07] MEDS ORDERED: diazePAM 5 MG TABLET PO PRN (16:50)
[2018-10-07] MEDS ORDERED: KETOROLAC TROMETHAMINE 15 MG/ML VIAL IV PRN (16:52)
--- NOTE | 2018-10-07 17:36 | Family Medicine Progress Note ---
Date of Service October 07, 2018 Assessment & Plan (1) SVT (supraventricular tachycardia): 1) Abdominal Pain Much improved Patient now complaining of no abdominal pain, nausea and vomiting have also resolved. She feels she has some appetite today. Patient had a bowel motion late this afternoon 2) Back Pain Acute episode of MSK back pain coupled with likely chronic OA with history of lumbar spinal surgery many years ago. Will treat with valium 5 mg BID for muscle relaxation and toradol 30 mg for pain Continuing to encourage activity and ambulation 3) Elevated LFT's Unknown cause for marked LFT jump, Hepatitis, acetaminophen toxicity, and shocked liver all ruled out. GI offers possibly due to mild peritonitis post op. IMproving 4) SHANNA Likely ATN, resolving will continue to monitor Making appropriate urine volume, hernandez catheter in place 5) Fever Afebrile today but spiked a fever overnight and had one episode of chills this afternoon. Will recheck urine culture Possibly due to atelectasis from being bed bound for last week. On Keflex 250 mg BID (2) LFTs abnormal: (3) Abdominal pain: (4) Bladder cancer: (5) Abdominal pain, RLQ: (6) SHANNA (acute kidney injury): (7) HTN (hypertension): (8) HLD (hyperlipidemia): Supervising Physician Co-Signing Physician Notes I personally examined the patient and verified all torres points of history and exam, discussed case, and agree with decision making with Dr Navarro. Ongoing back pain, she notes that it feels a little bit better she wonders if muscle spasm. Still quite intense and does not go away. It seems to be entirely localized to her lower back bilaterally. No radiation. She did have a fever last night some sweats, no chills. She has a Hernandez in, therefore has no urinary symptoms. She had a bowel movement today with no change in her pain. Vitals noted, in general she is awake and alert pleasant, but appears to be moving around quite a bit and appears to be a bit uncomfortable. Her speech is a little bit pressured fitting with a degree of anxiety brought on by the pain. Breathing is unlabored no accessory muscle use good effort. Skin shows no rashes no pallor or icterus. Osteopathic/musculoskeletal shows right greater than left lumbar musculature in the region of quadratus lumborum to be high in tone, tender, decreased range of motion. Direct myofascial as well as post isometric relaxation were done with a degree of improvement. Patient tolerated well. Back painappears to be muscular, she notes having chronic back issues for which she receives injections, it is quite likely that her time on the operating table led to a degree of spasm worsened by her current immobility being in a hospital bed. OMT as above, Voltaren gel, trial of muscle relaxants, ongoing Toradol, moist heat, encouraged mobility and being out of bed. After discharge likely will need ongoing OMT. Feverbiggest concern would be urinary tract infection. She is currently on Keflex, culture is pending. Continue surveillance and current care Somatic dysfunction lumbar regionOMT as above DVT prophylaxisLovenox Subjective Minnie Pike is doing much better today, she is complaining of lumbar back/flank pain bilaterally. Febrile overnight, but did not complain of any symptoms. She is wondering what she can get for her back pain. She has been able to ambulate around the unit without too much difficulty, back pain seems to be worsened Constitutional: + chills; no fever, no sweats, no body aches, no fatigue and no weakness Respiratory: no cough and no dyspnea Gastrointestinal: no abdominal pain, no nausea and no vomiting Physical Exam Vital Signs (Past 24 Hours): Last Vital Signs Temp 37.3 C 10/07/18 15:38 Pulse 67 10/07/18 16:00 Resp 24 10/07/18 15:38 BP 167/64 H 10/07/18 15:38 Pulse Ox 96 10/07/18 15:38 Constitutional: WD/WN, vitals as above healthy appearing, cooperative and comfortable Respiratory: normal respiratory effort, lungs clear to auscultation Cardiovascular: RRR, no murmur, no edema Gastrointestinal (Abdomen): Inspection/Auscultation: abdomen normal to inspection and normal bowel sounds; abdomen not distended Percussion/Palpation: abdomen soft; abdomen nontender, no guarding and no hepatosplenomegaly Musculoskeletal: Reproducible back pain to palpation over quadratus lumborum muscles bilaterally. Resident Activity Tracking Resident Involvement: Resident Care Provided Care Provided: Adult Hospital Medicine
[2018-10-07] MEDS ORDERED: IBUPROFEN 600 MG TAB PO STA (19:32)
[2018-10-07] MEDS: ASPIRIN 81 MG ECTAB PO SCH (21:14)
[2018-10-07] MEDS: dilTIAZem ER 120 MG CAPCR PO SCH (21:15)
[2018-10-07] MEDS: PRAVASTATIN SOD 40 MG TAB PO SCH (21:15)
[2018-10-08] MEDS: TRAMADOL HCL 50 MG TABLET PO PRN ×2 (03:33→09:17)
[2018-10-08 06:27] LABS: Basophils # (auto) 0.03 K/uL (0-0.2); Basophils % (auto) 0.4 %; Eosinophils # (auto) 0.16 K/uL (0-0.5); Eosinophils % (auto) 2.1 %; Hemoglobin 12.1 g/dL (12.0-16.0); Immature Granulocytes # (auto) 0.02 K/uL (0.00-0.02); Immature Granulocytes % (auto) 0.3 %; Lymphocytes # (auto) 1.45 K/uL (1.2-3.4); Lymphocytes % (auto) 18.6 %; Mean Corpuscular Hgb Conc 34.6 g/dL (32-36); Mean Corpuscular Volume 90.7 fL (80-100); Mean Platelet Volume 8.9 fL (7.4-10.4); Monocytes # (auto) 0.92 K/uL (0.11-0.59); Monocytes % (auto) 11.8 %; Neutrophils # (auto) 5.22 K/uL (1.4-6.5); Neutrophils % (auto) 66.8 %; Platelet Count 210 K/uL (130-400); RDW Coefficient of Variation 13.6 % (11.5-14.5); RDW Standard Deviation 44.9 fL (36.4-46.3); Red Blood Count 3.86 M/uL (4.2-5.4)
[2018-10-08 07:04] LABS: Albumin Globulin Ratio 0.6 (0.9-2); Albumin Level 2.1 gm/dl (3.4-5.0); BUN Creatinine Ratio 12.4 (10-20); Bilirubin,Total 0.6 mg/dl (0.2-1); Calcium 8.5 mg/dl (8.5-10.1); Creatinine Clr Calc Pharmacy 75.2 ml/min; Est GFR (African American) 108.1; Est GFR (Non-African American) 93.3; Globulin 3.5 gm/dl (2.5-4.0); Potassium 3.6 mmol/L (3.5-5.1); Total Protein 5.6 gm/dl (6.4-8.2)
[2018-10-08] MEDS: DOCUSATE SODIUM 100 MG CAP PO SCH (09:09)
[2018-10-08] MEDS: cephALEXin 250 MG CAP PO SCH (09:19)
[2018-10-08] MEDS: ENOXAPARIN INJ 30 MG/0.3 ML SYR SQ SCH (09:20)
[2018-10-08] MEDS: POLYETHYLENE (MIRALAX) 17 GM PACK PO SCH (09:20)
[2018-10-08 15:57] LABS: Alpha 1 Antitrypsin 166 MG/DL (83-199); Anti Nuclear Antibody Screen POSITIVE (NEGATIVE)
--- NOTE | 2018-10-08 22:06 | Discharge Summary ---
Date of Service October 08, 2018 Admission HPI Per Admitting Provider 78yoF with hx of bladder cancer, SVT, HTN, HLD, seasonal allergies, arthritis, and asthma presented with RLQ abdominal pain to the ED. Pt had TURBT on sunday as is post op day 2. She reports 8/10 pain. Per pt, she called Dr. Dong on sunday night when her pain started post op and she was instructed to take her prescribed percocet (7.5/325mg Q8H PRN). She took 0.5 pill which helped her pain and she was able to sleep. Yesterday her pain was across her lower abdomen and she took percocet only twice and her pain improved. 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 However this AM before breakfast she vomited twice and continued to have abdominal pain. She was concerned and was instructed to come to the ED. She vomited again upon arrival to the ED. A/w nausea and vomiting x 3 today, constipation (pt on percocet), chills, headache, mild burning sensation when she urinates. She has been taking AZO which has turned urine orange. Denies any fever, cp, sob, hematuria, melena. hematochezia. Drinks 2-3 glasses of wine per week. Does not smoke. Hx of cholecystectomy Admission Exam Per Admitting Provider Temp 37 C 10/03/18 18:12 Pulse 99 H 10/03/18 21:48 Resp 18 10/03/18 21:48 BP 151/87 H 10/03/18 21:48 Pulse Ox 92 10/03/18 21:48 Physical Exam: General: In NAD, cooperative and pleasant Neuro: A&O x 4 HEENT: dry mucous membranes CV: RRR, no m/r/g Pulm: CTAB, equal breath sounds bilaterally, on RA GI: +BS, non-distended, severe TTP in RLQ region, moderate TTP over suprapubic, epigastric and RUQ region, no rebound tenderness, no hepatosplenomegaly appreciated Back: Mild R sided CVA tenderness Extremities: no calf tenderness, no LE edema Principal Diagnosis Abdominal Infection, quadratus lumborum Muscle spasm Discharge Exam Constitutional WD/WN, vitals as above healthy appearing, cooperative and comfortable Respiratory normal respiratory effort, lungs clear to auscultation Cardiovascular RRR, no murmur, no edema Gastrointestinal (Abdomen) Inspection/Auscultation: abdomen normal to inspection and normal bowel sounds; abdomen not distended Percussion/Palpation: abdomen soft; abdomen nontender, no guarding and no hepatosplenomegaly Musculoskeletal quadratus lumborum spasm much improved from yesterday. Discharge Data Allergies Allergy/AdvReac Type Severity Reaction Status Date / Time pine nut Allergy Intermediate ITCHING,THROAT Verified 10/01/18 09:58 CLOSES amoxicillin Allergy U C. DIFF Verified 10/01/18 09:58 solifenacin Allergy U CONSTIPATIO Verified 10/01/18 09:58 N pollen extracts AdvReac U SNEEZING;ITCHY Verified 10/01/18 09:58 EYES ragweed pollen AdvReac U SNEEZING Verified 10/01/18 09:58 Consultations 10/03/18 21:22 ED Decision to Admit Stat 10/04/18 00:29 Consult Gastroenterology Routine 10/04/18 10:38 Consult Urology Routine Ordered Studies 10/03/18 19:20 CT abd pelvis wo con Stat 10/04/18 00:29 MR abdomen wo con Urgent 10/06/18 15:06 CT abd pelvis oral and IV con Routine Hospital Course (1) SVT (supraventricular tachycardia): 1) Abdominal Pain Initially presented with lower anterior abdominal pain RLQ/Suprapubic Abdominal pain s/p TURBT day 2 CT abdomen/pelvis: Moderate amount of pelvic extraperitoneal fluid extending into the anterior abdominal wall and small amount of intraperitoneal fluid concerning for possibility of a bladder injury/perforation. Mild bladder wall thickening. Normal appendix;UA orange limiting study, no bacteria, 0-5 WBC, 0-4 RBC -Urology: leave hernandez in place until outpatient f/u as planned. DC on a short course of Keflex 250 mg TID x 5 days. -GI: Elevated LFT's probably 2/2 generalized peritonitis following bladder surgery. Suspect will resolve as peritoneal inflammation improves. dilated PD on MRI--no mass noted but recommend outpt EUS -Tramadol 50mg Q4H PRN for pain -ROSALIO and alpha-1 antitrypsin level pending Patient now complaining of no abdominal pain, nausea and vomiting have also resolved. She feels she has some appetite today. Was concern for constipation being cause of her abdominal pain but Patient had a bowel motion late in the afternoon on 10/07 which did not seem to improve her pain. Patient also with fevers, initially on keflex per ID, broadened gram negative coverage and switched her to cipro and metronidazole on discharge 2) Back Pain Acute episode of MSK back pain coupled with likely chronic OA with history of lumbar spinal surgery many years ago. Pain improved with OMT to quadratus lumborum muscle, patient interested in further OMT with Dr. Hawkins if pain does not resolve 3) Elevated LFT's Unknown cause for marked LFT jump AST 559 on admission ALT 1063, Hepatitis, acetaminophen toxicity, and shocked liver all ruled out. GI offers possibly due to mild peritonitis post op. Improving AST 50 ALT 193 on d/c - follow LFTs periodically until normalized. (2) LFTs abnormal: (3) Abdominal pain: (4) Bladder cancer: Total Time Total Time Spent Total Time Spent (In Minutes): >30 Discharge Plan Discharge Items Patient Disposition: Home - Self-Care Reason For Visit: ABDOMINAL PAIN Discharge Diagnosis: Abdominal infection 2/2 bladder surgery Condition: Good Discharge Goals: Decrease discomfort and Improve function Activity: Resume your previous activity Non-emergency contact: Primary Care Provider and Urologist Call non-emergency contact if: you have any medication questions, your symptoms worsen, your pain is worsening and your temperature is above 100.5 Follow-up/Referrals: Pablo Dumont MD [Primary Care Provider] - 10/11/18 11:00 am (You have a followup appointment with Dr. Julia Cordero's PA, on Wednesday 10/11 at 11:00am. If you have any questions or need to reschedule, call the office at [phone]. ) Diet: Regular Addtl Provider Instructions: Mrs. Pike, it was our absolute pleasure to meet you and treat you for your abdominal pain following bladder surgery. We believe you have turned a corner and are safe to return home at this point in your treatment. We are going to leave your hernandez catheter in place until your appointment with urology on . We will be sending you home with two antibiotics, ciprofloxacin and flagyl. If you continue to experience fevers (>100.5) or chills, or other symptoms of feeling ill please call your primary care doctor. For back pain that does not improve over the next week or so with ambulation and stretching at home. Please contact Dr. Ross Morales office at for an appointment. Please go to your already scheduled appointment with urology on and make an appointment with your primary care doctor within the next week. Prescriptions: New ciprofloxacin HCl 500 mg tablet 500 mg PO BID 5 Days Qty: 10 RF: 0 metronidazole [Flagyl] 500 mg tablet 500 mg PO Q8H 5 Days Qty: 15 RF: 0 diazepam 5 mg Tablet 5 mg PO DIRECTED PRN (Reason: muscle spasm) 3 Days Qty: 3 RF: 0 Continued pravastatin 40 mg tablet 40 mg PO HS RF: 0 diclofenac sodium 50 mg tablet,delayed release (DR/EC) 50 mg PO BID PRN (Reason: Arthritis - Pain) RF: 0 zolpidem 10 mg tablet 5 - 10 mg PO HS PRN (Reason: Sleep) RF: 0 diltiazem HCl 120 mg capsule,extended release 12 hr 120 mg PO QPM RF: 0 oxycodone-acetaminophen [Percocet] 7.5-325 mg tablet 1 tab PO Q8H PRN (Reason: pain) Qty: 10 RF: 0 epinephrine 0.3 mg/0.3 mL auto-injector 0.3 mg IM DIRECTED PRN (Reason: Allergic Reaction) RF: 0 Restasis 0.05 % Dropperette 1 drp OPB BID PRN (Reason: Dry Eye(S)) RF: 0 aspirin [Aspir-81] 81 mg Tablet,Delayed Release (Dr/Ec) 81 mg PO QPM RF: 0 albuterol sulfate 90 mcg/actuation HFA aerosol inhaler 2 puff Inhalation QID PRN (Reason: Shortness Of Breath Or Wheezing) RF: 0 Discontinued ciprofloxacin HCl [Cipro] 500 mg tablet 500 mg PO Q12H Qty: 7 RF: 0 Stand-Alone Forms: [facility] Discharge Orders: Discharge Order (Routine); Ordered 10/08/18 Ordered By: Pk Navarro Admission Data Admit Date/Time: 10/03/18 23:10 Attending Provider: Ganesh Bowens Admit Provider: Sherman Grayson Primary Care Provider: Pablo Dumont Other Providers: Darrin Veronica ; Sherman Grayson ; Roc William ; Leonard Mcadams Service: Medical Other Interventions: Discharge Summary Assessment (RN) Last Done: 10/08/18 11:27 Pending Studies at Discharge: No DC Date/Time DO NOT enter until pt leaves facility: 10/08/18 12:15 Supervising Physician Co-Signing Physician Notes I personally examined the patient and verified all torres points of history and exam, discussed case, and agree with decision making with Dr Navarro. Generally feeling better and very much would like to go home. She understands that still having low-grade temperatures could require ongoing titration of treatment, but given that she is feeling good and is otherwise entirely stable she trouble with going home and then returning should she have any worsening abdominal pain/symptoms or if she has ongoing or worsening fever pattern. Her back pain is improving but still present. Vitals noted, in general she is awake and alert pleasant, more comfortable than yesterday. Breathing is unlabored no accessory muscle use good effort. Skin shows no rashes no pallor or icterus. Osteopathic/musculoskeletal shows right greater than left lumbar musculature in the region of quadratus lumborum to be high in tone, tender, decreased range of motion. Better than yesterday but still present. Direct myofascial as well as post isometric relaxation were done with a degree of improvement. Patient tolerated well. Back painappears to be muscular, she notes having chronic back issues for which she receives injections, it is quite likely that her time on the operating table led to a degree of spasm worsened by her current immobility being in a hospital bed. OMT as above, Voltaren gel, Valium at bedtime only for a few more days total, ongoing symptomatic care, moist heat, encouraged mobility and being out of bed. After discharge likely will need ongoing OMT. Feverseems to fit with a mild degree of peritonitis that is now resolving, urology has her with a Hernandez in still likely to allow for bladder healing, she will be on Cipro and Flagyl, she is instructed to return with any worsening abdominal pain or a worsening fever pattern. She already has neurology follow- up in a couple of days. Transaminitisafter an extensive workup GI seemed to have the most possible explanation which was related to her degree of peritonitis which is resolving. Certainly we would ask that she have repeat LFTs approximately weekly until they have normalized. Somatic dysfunction lumbar regionOMT as above, if outpatient OMT is needed, would recommend she follow-up with Dr. Chris Hawkins DO DVT prophylaxisLovenox utilized during her stay Resident Activity Tracking Resident Involvement: Resident Care Provided Care Provided: Adult Hospital Medicine
[2018-10-10 15:56] LABS: ANA Pattern SPECKLED
== END 2018-10-08 12:15 | disposition home health service (06) | DRG 668 ==
LOC: ED 17:45 → SUATTDRO 23:10 → 2E 23:10 → 4E 10-07 16:52

== ENCOUNTER 2019-03-19 10:52 | Inpatient (IN) ==
[2019-03-19] MEDS ORDERED: MECLIZINE HCL 25 MG TAB PO STA (11:12)
[2019-03-19] MEDS ORDERED: PROCHLORPERAZINE 5 MG/ML 2 ML VIAL IV STA (11:12)
[2019-03-19] MEDS ORDERED: SODIUM CHLORIDE 0.9% 1000ML 1,000 ML IV SCH (11:15)
[2019-03-19 11:40] LABS: Basophils # (auto) 0.05 K/uL (0-0.2); Basophils % (auto) 0.5 %; Eosinophils # (auto) 0.19 K/uL (0-0.5); Eosinophils % (auto) 1.8 %; Hematocrit (blood only) 43.5 % (37-47); Hemoglobin 15.2 g/dL (12.0-16.0); Immature Granulocytes # (auto) 0.04 K/uL (0.00-0.02); Immature Granulocytes % (auto) 0.4 %; Lymphocytes # (auto) 2.35 K/uL (1.2-3.4); Lymphocytes % (auto) 22.7 %; Mean Corpuscular Hemoglobin 31.5 pg (25-34); Mean Corpuscular Hgb Conc 34.9 g/dL (32-36); Mean Corpuscular Volume 90.1 fL (80-100); Mean Platelet Volume 9.6 fL (7.4-10.4); Monocytes # (auto) 0.71 K/uL (0.11-0.59); Monocytes % (auto) 6.9 %; Neutrophils # (auto) 6.99 K/uL (1.4-6.5); Neutrophils % (auto) 67.7 %; Platelet Count 226 K/uL (130-400); RDW Coefficient of Variation 14.4 % (11.5-14.5); RDW Standard Deviation 47.5 fL (36.4-46.3); Red Blood Count 4.83 M/uL (4.2-5.4); White Blood Count 10.33 K/uL (4.8-10.8)
[2019-03-19] MEDS ORDERED: ACETAMINOPHEN 500 MG TAB PO STA (11:42)
[2019-03-19 11:51] LABS: Partial Thromboplastin Ratio 0.8; Partial Thromboplastin Time 22.2 Seconds (21.0-31.0); Prothrombin Time 10.1 Seconds (9.0-12.0)
[2019-03-19 11:56] LABS: Albumin Level 3.6 gm/dl (3.4-5.0); BUN Creatinine Ratio 32.2 (10-20); Calcium 9.3 mg/dl (8.5-10.1); Creatinine Clr Calc Pharmacy 43.7 ml/min; Est GFR (African American) 77.2; Est GFR (Non-African American) 66.6; Potassium 3.3 mmol/L (3.5-5.1)
[2019-03-19 11:59] LABS: Albumin Globulin Ratio 1.1 (0.9-2); Bilirubin,Total 1.3 mg/dl (0.2-1); Globulin 3.4 gm/dl (2.5-4.0)
[2019-03-19] MEDS ORDERED: OPTIRAY 320 125ml IV PRN (12:40)
--- NOTE | 2019-03-19 13:13 | CT Scan Report ---
CT angio neck with con HISTORY: Mental status change headache, dizziness, rt neck pain TECHNIQUE: Multiaxial CT angiography of the neck was performed IV contrast: Lung bases All measureme nts were calculated based on NASCET criteria. Maximum intensity projection images were also obtained . A dose lowering technique was utilized adhering to the principles of ALARA. COMPARISON STUDY: None. FINDINGS: The aortic arch and proximal great vessels are widely patent. There is no significant sten osis, occlusion, or dissection identified within the bilateral common carotid, internal carotid, or v ertebral arteries. Minimal scattered plaque formation IMPRESSION: No significant stenosis, occlusion, or dissection identified within the carotid or vertebral arteries . Minimal scattered plaque formation The above report was generated using voice recognition software. It may contain grammatical, syntax or spelling errors. Electronically signed by: Duran Jones M.D. 03/19/2019 1:12 PM
--- NOTE | 2019-03-19 13:17 | CT Scan Report ---
CT OF THE HEAD WITHOUT CONTRAST AND CT ANGIOGRAPHY OF THE HEAD CLINICAL HISTORY: Headache. Dizziness. COMPARISON STUDY: MRI of the brain March 16, 2018. Head CT March 16, 2018. TECHNIQUE: Unenhanced and arterial phase imaging of the head was performed. Intravenous injection of 119 cc Optiray 320 IV was uneventful. Sagittal and coronal reconstructions were viewed as well as max imal intensity projections on an independent 3-D workstation. Automated exposure control was utilized for the study. A dose lowering technique was utilized adhering to the principles of ALARA. FINDINGS: No acute intracranial hemorrhage, midline shift or mass affect is present. Brain findings n ormal. Ventricular system is normal. The basilar cisterns are patent. There are no extra-axial collec tions. Jimenez-white differentiation is maintained. There are no findings to suggest acute dural sinus t hrombosis or acute territorial infarct. Visualized portions of the sinuses and mastoid air cells are clear. The bilateral M1, M2, A1 and A2 segments are patent. There is moderate plaque within the bilat eral cavernous carotids without stenosis. There is no abrupt vessel cut off or dissection within the intracranial vessels. No aneurysm is identified. Posterior circulation is intact. IMPRESSION: 1. No acute intracranial findings. 2. Unremarkable CTA of the head for age. Electronically signed by: Floyd Trejo M.D. 03/19/2019 1:16 PM
--- NOTE | 2019-03-19 14:09 | History & Physical Report ---
Date of Service March 19, 2019 Assessment & Plan (1) Dizziness: (2) Vertigo: (3) Vomiting: (4) Ambulatory dysfunction: - Admit to tele - Stroke order set completed - Likely vertigo, but will rule out concern for possible infarct not seen on CT or CTA, checking MRI of the brain now with acute onset of dizziness, nausea, vomiting, diaphoresis and persistent dizziness after administration of meclizine and compazine in the ER. - Continue supportive care with meclizine, IV compazine - Continue pravastatin, start on asa 81 mg - PT/OT consults - Neuro consults - BP well controlled (5) SVT (supraventricular tachycardia): - Well controlled on diltiazem - Follows with Dr. Marshall as outpatient, no current cardiac complaints. 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 -Finished round of BCG 2 weeks ago, this was the third treatment since Spring 2018. Follows with Dr. Tapia as outpatient (7) GERD (gastroesophageal reflux disease): - Continue pantoprazole (8) HLD (hyperlipidemia): - Continue pravastatin 40 mg HS (9) Vitamin D deficiency: (10) Osteoporosis: - Do not see Vit D supplementation on home med rec, discuss prior to dc (11) Insomnia: - Holding sleep agents unless the pt requests these. Melatonin not available in the house. (12) Asthma: - recently completed course of doxycycline and prednisone for acute bronchitis and URI about a week ago. No residual sx. - O2 sats = 95% on RA, no supplemental O2 used at baseline (13) DVT prophylaxis: -teds, scds Dispo: From home, lives alone, PT/OT consults, CM to assist with dc planning. History of Present Illness Primary Care Provider: Pablo Dumont MD This is an 79 yo F with PMHx of SVT, HTN, HLD, Bladder cancer, prediabetes, GERD, asthma, insomnia, Vit D deficiency, osteopenia, degenerative arthritis of the spine, who presents with the acute onset of dizziness, nausea, vomiting, and diaphoresis which started around 10am. Pt was in her normal state of health this morning where she went to the gym for about 1.5 hrs like she typically does, and then proceeded to run errands. She felt slightly ill upon getting pictures developed at [facility] and then decided it would be best for her to go home. She became severely nauseous and vomited several times, while also became dizzy. Since being in the ER she was given IV zofran and compazine and dizziness is slightly better. She had significant difficulty getting up to walk to the bathroom with nursing assistance because of how unsteady her gait is due to dizziness. Of note, the pt completed a course of doxycycline and prednisone for acute bronchitis last week. Here in the ER her lab findings are essentially normal. CT of the head and CTA are negative for acute findings. She took her normally scheduled medications last evening. Pt denies any other complaints. Her son is with her at bedside during the exam. Allergies Allergy/AdvReac Type Severity Reaction Status Date / Time pine nut Allergy Intermediate ITCHING,THROAT Verified 03/19/19 11:42 CLOSES amoxicillin Allergy U C. DIFF Verified 03/19/19 11:42 pollen extracts AdvReac U SNEEZING;ITCHY Verified 03/19/19 11:42 EYES ragweed pollen AdvReac U SNEEZING Verified 03/19/19 11:42 solifenacin AdvReac U CONSTIPATIO Verified 03/19/19 11:42 N Home Medications Home Medications Medication Instructions Recorded Confirmed Type diclofenac sodium 50 mg PO BID PRN 03/15/18 03/19/19 History pravastatin 40 mg PO HS 03/15/18 03/19/19 History zolpidem 5 mg PO HS PRN 03/15/18 03/19/19 History Restasis 1 drp OPB BID PRN 07/20/18 03/19/19 History albuterol sulfate 2 puff INHALATION QID PRN 07/20/18 03/19/19 History diltiazem HCl 120 mg PO QPM 09/13/18 03/19/19 History epinephrine 0.3 mg IM DIRECTED PRN 10/03/18 03/19/19 History melatonin 10 mg PO HS PRN 03/19/19 03/19/19 History Past Med/Surg History Medical History Prediabetes (Chronic) "DIET CONTROLLED" SHANNA (acute kidney injury) (Resolved) Acute liver failure (Resolved) Bladder perforation, intraoperative (Resolved) Dry eye (Resolved) Surgical History History of cataract surgery (Resolved) B/L History of cholecystectomy (Resolved) History of dilatation and curettage (Resolved) 05/25/16= LMA#4 at [facility] History of sinus surgery (Resolved) History of total hip arthroplasty (Resolved) RIGHT Previous back surgery (Resolved) LUMBAR Family History Other No significant family history Social History Preferred Language: Occitan Communication Ability: Effective Aircraft Communicator Required: No Beliefs That Will Affect Care: None Current Living Situation: Alone Other Information That Helps Us Care for You: No Feels Safe at Home: Yes Safety Concerns: Feels Safe At This Time Smoking Status: Never smoker Second Hand Exposure: No ; Hx Alcohol Use: Yes Alcohol type: wine Hx Substance Use: No Review of Systems Review of Systems: Constitutional: No fever, sweats or chills Eyes: No diplopia, + blurred vision and spinning room whenever she sits up from lying position ENT: normal hearing, no trouble swallowing Respiratory: No cough, sputum, dyspnea at rest or on exertion Cardiovascular: No chest pain, tightness or palpitations Abdomen: As per HPI. No pain diarrhea or constipation Musculoskeletal: No joint pain, calf pain, swelling Neurologic: No weakness, numbness/tingling, or balance problems Psychiatric: No anxiety or depression Skin: No rash or itch Physical Exam Physical Exam: General: awake, alert, no apparent distress Head: Normocephalic, atraumatic ENT: PERRL, EOMI, no pharyngeal exudate, mucous membranes moist Chest: Clear to auscultation, on room air, no adventitious breath sounds Cardiac: Regular rate and rhythm, no murmur, no JVD, normal peripheral pulses, good capillary refill Abdominal: NABS x 4 quadrants, soft, nontender to palpation, no rebound, guarding or tenderness Extremities: Normal inspection, no peripheral edema or erythema, calfs nontender to palpation Psych: Normal mood and affect Neuro: AAO x 3, strength intact bilaterally and related 5/5, no pronator drift, CN II- XII intact, + nystagmus horizontally to the right in bilateral eyes, no motor deficits, speech is clear, no peripheral sensory deficits Results & Data Vital Signs (Past 12 Hours) Vital Signs Temp Pulse Pulse Resp BP BP Pulse Ox 03/19/19 13:00 78 17 149/77 H 95 03/19/19 10:52 36.5 C 78 78 18 167/73 H 167/73 H [address] angio neck with con HISTORY: Mental status change headache, dizziness, rt neck pain TECHNIQUE: Multiaxial CT angiography of the neck was performed IV contrast: Lung bases All measurements were calculated based on NASCET criteria. Maximum intensity projection images were also obtained. A dose lowering technique was utilized adhering to the principles of ALARA. COMPARISON STUDY: None. FINDINGS: The aortic arch and proximal great vessels are widely patent. There is no significant stenosis, occlusion, or dissection identified within the bilateral common carotid, internal carotid, or vertebral arteries. Minimal scattered plaque formation IMPRESSION: No significant stenosis, occlusion, or dissection identified within the carotid or vertebral arteries. Minimal scattered plaque formation CT OF THE HEAD WITHOUT CONTRAST AND CT ANGIOGRAPHY OF THE HEAD CLINICAL HISTORY: Headache. Dizziness. COMPARISON STUDY: MRI of the brain March 16, 2018. Head CT March 16, 2018. TECHNIQUE: Unenhanced and arterial phase imaging of the head was performed. Intravenous injection of 119 cc Optiray 320 IV was uneventful. Sagittal and coronal reconstructions were viewed as well as maximal intensity projections on an independent 3-D workstation. Automated exposure control was utilized for the study. A dose lowering technique was utilized adhering to the principles of ALARA. FINDINGS: No acute intracranial hemorrhage, midline shift or mass affect is present. Brain findings normal. Ventricular system is normal. The basilar ci sterns are patent. There are no extra-axial collections. Jimenez-white differentiation is maintained. There are no findings to suggest acute dural sinus thrombosis or acute territorial infarct. Visualized portions of the sinuses and mastoid air cells are clear. The bilateral M1, M2, A1 and A2 segments are patent. There is moderate plaque within the bilateral cavernous carotids without stenosis. There is no abrupt vessel cut off or dissection within the intracranial vessels. No aneurysm is identified. Posterior circulation is intact. IMPRESSION: 1. No acute intracranial findings. 2. Unremarkable CTA of the head for age. ECG Additional Comments: 19-MAR-2019 11:00:08 [facility]-EDSTAT ROUTINE RETRIEVAL Sinus rhythm with Premature supraventricular complexes Otherwise normal ECG When compared with ECG of 15-MAR-2018 20:18, Premature ventricular complexes are no longer Present Premature supraventricular complexes are now Present Non-specific change in ST segment in Inferior leads QT has lengthened 25mm/s 10mm/mV 150Hz 9.0.9 12SL 241 MCIHELLE: 3 Referred by: REFERRED SELF Unconfirmed Vent. rate 89 BPM MI interval 182 ms QRS duration 72 ms QT/QTc 402/489 ms P-R-T axes 61 5 37 Code Status & VTE Plan Code Status DNR- discussed with the pt and son at bedside Supervising Physician Co-Signing Physician Notes Patient seen and examined, chart reviewed, case discussed with IRVING Stone and I agree with her assessment and plan as documented above. Briefly, patient is a spry 79yo C female presenting with dizziness, ambulatory dysfunction, nausea/vomiting and diaphoresis. On exam she is afebrile, hypertensive otherwise stable. NAD Skin - no rash HEENT - NC/AT, PERRL, EOMI, MMM, neck supple Heart - +S1/S2, regular with ectopy Lungs - CTA Abd - +BS, soft, NT/ND Ext - No edema Neuro - +lateral nystagmus, +vertigo with head turning, +ambulatory dysfunction/imbalance Labs and images reviewed. Assessment/Plan: Suspect BPPV, concern for cerebellar CVA given ambulatory dysfunction MRI brain Meclizine Remainder of plan as above PG Care Time/CCT Total # of Minutes Spent Total Time Spent with Patient: Total time spent is greater than 50% in coordination of care (as documented) at patient's floor/unit and/or counseling patient: (1) Vomiting Nausea presence: with nausea Vomiting Intractability: non-intractable Vomiting type: unspecified Qualified Code(s): R11.2 - Nausea with vomiting, unspecified
--- NOTE | 2019-03-19 14:17 | Emergency Department Note ---
Entered by Chhaya Pinto acting as a scribe for Terence Pillai DO History of Present Illness General Chief complaint: Dizziness Source: patient and RN notes reviewed History of Present Illness Onset (ago): hour(s) 1 Location: head Pain Consistency: + other (episode) Quality: + other (dizziness ) Associated symptoms: + diaphoresis, + headaches and + nausea/vomiting Treatments prior to arrival: other (4 mg Zofran via EMS) The patient is an 79 year old female who presents to the Emergency Room with complaints of an episode of dizziness that occurred approximately one hour ago. The patient reports she was at the gym this morning exercising. The patient reports she stopped at [facility] on her way home following the gym, and the patient reports symptoms began suddenly when she arrived home. The patient notes, along with being dizzy, she felt nauseous, diaphoretic, and started experiencing a headache to the left side of her head. The patient is vomiting in the ED. The RN notes the patient was given 4 mg of Zofran en route via EMS. Home Medications Home Medications Medication Instructions Recorded Confirmed Type diclofenac sodium 50 mg PO BID PRN 03/15/18 03/19/19 History pravastatin 40 mg PO HS 03/15/18 03/19/19 History zolpidem 5 mg PO HS PRN 03/15/18 03/19/19 History Restasis 1 drp OPB BID PRN 07/20/18 03/19/19 History albuterol sulfate 2 puff INHALATION QID PRN 07/20/18 03/19/19 History diltiazem HCl 120 mg PO QPM 09/13/18 03/19/19 History epinephrine 0.3 mg IM DIRECTED PRN 10/03/18 03/19/19 History melatonin 10 mg PO HS PRN 03/19/19 03/19/19 History Allergies Allergy/AdvReac Type Severity Reaction Status Date / Time pine nut Allergy Intermediate ITCHING,THROAT Verified 03/19/19 11:42 CLOSES amoxicillin Allergy U C. DIFF Verified 03/19/19 11:42 pollen extracts AdvReac U SNEEZING;ITCHY Verified 03/19/19 11:42 EYES ragweed pollen AdvReac U SNEEZING Verified 03/19/19 11:42 solifenacin AdvReac U CONSTIPATIO Verified 03/19/19 11:42 N Past Med/Surg History Medical History Prediabetes (Chronic) "DIET CONTROLLED" SHANNA (acute kidney injury) (Resolved) Acute liver failure (Resolved) Bladder perforation, intraoperative (Resolved) Dry eye (Resolved) Surgical History History of cataract surgery (Resolved) B/L History of cholecystectomy (Resolved) History of dilatation and curettage (Resolved) 05/25/16= LMA#4 at [facility] History of sinus surgery (Resolved) History of total hip arthroplasty (Resolved) RIGHT Previous back surgery (Resolved) LUMBAR Family History Other No significant family history Social History Preferred Language: Beninese Communication Ability: Effective Rug Frame Mounter Required: No Beliefs That Will Affect Care: Church Church Beliefs: Buddhism Current Living Situation: Alone Feels Safe at Home: Yes Smoking Status: Never smoker Second Hand Exposure: No ; Hx Alcohol Use: Yes Alcohol type: wine Hx Substance Use: No Review of Systems See HPI for pertinent positives & negatives. and A total of 10 systems reviewed and were otherwise negative Physical Exam Vital Signs Vital Signs - 24 hr 03/19/19 10:52 03/19/19 13:00 Temperature 36.5 C Temperature Source Oral Sepsis Recent Fever Within 48 Hours No Sepsis New/Unexplained Change in Mental Status No Sepsis Action Taken by Nursing No Action Required Pulse Rate 78 Pulse Rate [Apical] 78 78 Respiratory Rate 18 17 Respiratory Effort / Characteristics Non-Labored Spontaneous Non-Labored Spontaneous Respiratory Depth Normal Normal Respiratory Pattern Regular Regular Blood Pressure 167/73 H Blood Pressure [Right Arm] 167/73 H 149/77 H Blood Pressure Mean 104 Blood Pressure Mean [Right Arm] 104 101 Blood Pressure Position Lying Blood Pressure Position [Right Arm] Lying Lying Pulse Oximetry 98 95 Oxygen Delivery Method Room Air Room Air VITAL SIGNS: were reviewed as above. GENERAL:Non-toxic in appearance. SKIN: Warm dry and pink. HEAD: Normocephalic and atraumatic. EYES: Horizontal nystagmus of both eyes when looking to right. OROPHARYNX: Is clear and moist NECK: Supple without lymphadenopathy or meningismus. LUNGS: clear. HEART: Regular rate and rhythm. ABDOMEN: Soft and nontender. EXTREMITIES: Warm and well perfused. NEUROLOGICALLY: Awake alert and oriented without focal deficit. Cranial nerves 2-12 are intact. There is no pronator drift. Cerebellar testing is within normal limits. There is no nystagmus. There is no facial droop. Speech is clear. Vision is grossly normal. MUSCULOSKELETAL: Good muscle tone. No evidence of trauma. Course 1057: Past medical records reviewed. The patient was evaluated in room C5. A complete history and physical exam was performed. 1350: I reevaluated the patient. The patient was still symptomatic and was not able to walk to the bathroom. 1355: I reviewed the patient's case with Nini Colon. Dr. Huizar-Souleymane Meeks will evaluate the patient for further management. Consultations Consultation #1: I reviewed the patient's case with Nini Colon. Dr. Johnna Meeks will evaluate the patient for further management. Time: 13:55 Administered Medications Ioversol (Optiray 320 125ml) 119 ml IV ONCE PRN PRN Reason: Interaction Checking Stop: 03/23/19 12:39 Last Admin: 03/19/19 12:40 Dose: 119 ml Documented by: [id number] Discontinued Medications Acetaminophen (Tylenol) 500 mg PO NOW STA Stop: 03/19/19 11:43 Last Admin: 03/19/19 12:07 Dose: 500 mg Documented by: [id number] Sodium Chloride (Nss 1000ml) 1,000 mls @ 999 mls/hr IV .Q1H1M LEN Stop: 03/19/19 12:15 Last Infusion: 03/19/19 13:04 Dose: 0 mls/hr Documented by: [id number] Admin: 03/19/19 11:37 Dose: 999 mls/hr Documented by: [id number] Meclizine HCl (Antivert) 25 mg PO NOW STA Stop: 03/19/19 11:13 Last Admin: 03/19/19 11:38 Dose: 25 mg Documented by: [id number] Prochlorperazine (Compazine) 5 mg IV NOW STA Stop: 03/19/19 11:13 Last Admin: 03/19/19 11:38 Dose: 5 mg Documented by: [id number] Medical Decision Making Differential Diagnosis Differential diagnosis: Etiologies such as migraine headache, meningitis, sinusitis, CO exposure, ICH, SAH, infection, tumor, headache, sinus thrombosis, arterial dissection, as well as others were entertained. Medical Records Attestation: I reviewed the patient's medical records. Home Medications Current Medication List: was personally reviewed by me Laboratory Data Attestation: I reviewed the patient's lab results. Result diagrams: 03/19/19 11:25 03/19/19 11:25 Lab Results 03/19/19 03/19/19 03/19/19 Range/Units 11:25 11:25 11:25 WBC 10.33 (4.8-10.8) K/uL RBC 4.83 (4.2-5.4) M/uL Hgb 15.2 (12.0-16.0) g/dL Hct 43.5 (37-47) % MCV 90.1 (80-100) fL MCH 31.5 (25-34) pg MCHC 34.9 (32-36) g/dL RDW Std Deviation 47.5 H (36.4-46.3) fL RDW Coeff of Monik 14.4 (11.5-14.5) % Plt Count 226 (130-400) K/uL MPV 9.6 (7.4-10.4) fL Immature Gran % (Auto) 0.4 % Neut % (Auto) 67.7 % Lymph % (Auto) 22.7 % [place] % (Auto) 6.9 % Eos % (Auto) 1.8 % Baso % (Auto) 0.5 % Immature Gran # (Auto) 0.04 H (0.00-0.02) K/uL Neut # (Auto) 6.99 H (1.4-6.5) K/uL Lymph # (Auto) 2.35 (1.2-3.4) K/uL [place] # (Auto) 0.71 H (0.11-0.59) K/uL Eos # (Auto) 0.19 (0-0.5) K/uL Baso # (Auto) 0.05 (0-0.2) K/uL PT 10.1 (9.0-12.0) Seconds INR 1.0 (0.9-1.1) APTT 22.2 (21.0-31.0) Seconds PTT Ratio 0.8 Sodium 141 (136-145) mmol/L Potassium 3.3 L (3.5-5.1) mmol/L Chloride 107 (98-107) mmol/L Carbon Dioxide 24 (21-32) mmol/L Anion Gap 10.0 (3-11) BUN 27 H (7-18) mg/dl Creatinine 0.83 (0.6-1.2) mg/dl Est Cr Clr Drug Dosing 43.7 ml/min Est GFR ( Amer) 77.2 Est GFR (Non-Af Amer) 66.6 BUN/Creatinine Ratio 32.2 H (10-20) Glucose 129 H (70-99) mg/dl Calcium 9.3 (8.5-10.1) mg/dl Total Bilirubin 1.3 H (0.2-1) mg/dl AST 22 (15-37) U/L ALT 26 (12-78) U/L Alkaline Phosphatase 68 (45-117) U/L Total Protein 7.0 (6.4-8.2) gm/dl Albumin 3.6 (3.4-5.0) gm/dl Globulin 3.4 (2.5-4.0) gm/dl Albumin/Globulin Ratio 1.1 (0.9-2) Imaging Data Radiologist's Impression: Radiology results as stated below per my review and the radiologist's interpretation: CT OF THE HEAD WITHOUT CONTRAST AND CT ANGIOGRAPHY OF THE HEAD CLINICAL HISTORY: Headache. Dizziness. COMPARISON STUDY: MRI of the brain March 16, 2018. Head CT March 16, 2018. TECHNIQUE: Unenhanced and arterial phase imaging of the head was performed. Intravenous injection of 119 cc Optiray 320 IV was uneventful. Sagittal and coronal reconstructions were viewed as well as maximal intensity projections on an independent 3-D workstation. Automated exposure control was utilized for the study. A dose lowering technique was utilized adhering to the principles of ALARA. FINDINGS: No acute intracranial hemorrhage, midline shift or mass affect is present. Brain findings normal. Ventricular system is normal. The basilar ci sterns are patent. There are no extra-axial collections. Jimenez-white differentiation is maintained. There are no findings to suggest acute dural sinus thrombosis or acute territorial infarct. Visualized portions of the sinuses and mastoid air cells are clear. The bilateral M1, M2, A1 and A2 segments are patent. There is moderate plaque within the bilateral cavernous carotids without stenosis. There is no abrupt vessel cut off or dissection within the intracranial vessels. No aneurysm is identified. Posterior circulation is intact. IMPRESSION: 1. No acute intracranial findings. 2. Unremarkable CTA of the head for age. Electronically signed by: Floyd Trejo M.D. 03/19/2019 1:[address] angio neck with con HISTORY: Mental status change headache, dizziness, rt neck pain TECHNIQUE: Multiaxial CT angiography of the neck was performed IV contrast: Lung bases All measurements were calculated based on NASCET criteria. Maximum intensity projection images were also obtained. A dose lowering technique was utilized adhering to the principles of ALARA. COMPARISON STUDY: None. FINDINGS: The aortic arch and proximal great vessels are widely patent. There is no significant stenosis, occlusion, or dissection identified within the bilateral common carotid, internal carotid, or vertebral arteries. Minimal scattered plaque formation IMPRESSION: No significant stenosis, occlusion, or dissection identified within the carotid or vertebral arteries. Minimal scattered plaque formation The above report was generated using voice recognition software. It may contain grammatical, syntax or spelling errors. Electronically signed by: Duran Jones M.D. 03/19/2019 1:12 PM ECG Data Attestation: I personally reviewed and interpreted this ECG as follows: Indication: vomiting Rate (beats per minute): 89 Rhythm: sinus rhythm Findings: no PAC, no PVC, no ST elevation and no ectopy Blood Pressure Blood Pressure Findings: Elevated blood pressure Blood Pressure Disposition: further management by hospitalist REY Griffin This is an 79-year-old female who presents to the ED with a chief complaint of dizziness. The patient states that she worked up this morning and was feeling fine. She went to [facility] and got some pictures develop. When she went home, she had a sudden onset of dizziness, nausea, headache and diaphoresis. The patient states that her head was hurting on the left side of the head. She also reported some right posterior neck pain. Her symptoms started around 10 AM. She denies any trauma or recent illness. Her physical neurologic exam was unremarkable to exception that she was vomiting when she first arrived and horizontal nystagmus when looking to the right. She came in by EMS and was given Zofran for this. This did not seem to help much. She denies any previous history of dizziness. Her symptoms do not seem to be significantly changed with movement. The patient's blood work including a CBC and chemistry panel was relatively unremarkable. The BUN is 27, potassium was 3.3. A CT scan of the brain without contrast did not show acute process. A CT scan angiogram of the head and neck did not show any acute stenosis, dissection or aneurysm. The patient was treated with IV Compazine, IV fluids as well as p.o. meclizine. On reassessment, the patient continues feeling quite dizzy and is unable to stand. She was assisted to the bathroom but he really did not make it. The patient lives alone. She will be further evaluated by the hospitalist for observation as an inpatient. I did do the Cathy-Hallpike maneuver on her this did not seem to aggravate her symptoms. She was noted to have horizontal nystagmus in both eyes when looking to the right. Impression & Plan Dizziness, Vertigo, Vomiting, Ambulatory dysfunction Discharge Plan Visit Data Chief Complaint: Dizziness ED Provider: Terence Pillai Discharge Problem: Dizziness, Vertigo, Vomiting, Ambulatory dysfunction Patient Disposition: Being Evaluated by Hospitalist Forms Stand Alone Forms: My [facility] Prescriptions Prescriptions: No Action pravastatin 40 mg tablet 40 mg PO HS RF: 0 diclofenac sodium 50 mg tablet,delayed release (DR/EC) 50 mg PO BID PRN (Reason: Arthritis - Pain) RF: 0 zolpidem 10 mg tablet 5 mg PO HS PRN (Reason: Sleep) RF: 0 diltiazem HCl 120 mg capsule,extended release 12 hr 120 mg PO QPM RF: 0 epinephrine 0.3 mg/0.3 mL auto-injector 0.3 mg IM DIRECTED PRN (Reason: Allergic Reaction) RF: 0 melatonin 10 mg Tablet 10 mg PO HS PRN (Reason: Sleep) RF: 0 Restasis 0.05 % Dropperette 1 drp OPB BID PRN (Reason: Dry Eye(S)) RF: 0 albuterol sulfate 90 mcg/actuation HFA aerosol inhaler 2 puff Inhalation QID PRN (Reason: Shortness Of Breath Or Wheezing) RF: 0 Referrals Referrals: Pablo Dumont MD [Primary Care Provider] - The scribe's documentation has been prepared under my direction and personally reviewed by me in its entirety. I confirm that the note above accurately reflects all work, treatment, procedures, and medical decision making performed by me.
[2019-03-19] MEDS ORDERED: PHARMACIST DISCHARGE MED REC CONSULT PRN (16:17)
[2019-03-19] MEDS ORDERED: PROCHLORPERAZINE 10 MG in SYRINGE 8 ML IV PRN (16:17)
[2019-03-19] MEDS: PRAVASTATIN SOD 40 MG TAB PO SCH (20:11)
[2019-03-19] MEDS: dilTIAZem ER 120 MG CAPCR PO SCH (20:11)
[2019-03-19] MEDS: MECLIZINE HCL 25 MG TAB PO PRN (20:12)
[2019-03-19] MEDS ORDERED: GADOBUTROL 30ML VIAL IV PRN (23:54)
[2019-03-20 06:02] LABS: Estimated Average Glucose 128 mg/dl; Hemoglobin A1C 6.1 % (4.5-5.6)
[2019-03-20 07:44] LABS: Basophils # (auto) 0.03 K/uL (0-0.2); Basophils % (auto) 0.5 %; Eosinophils # (auto) 0.12 K/uL (0-0.5); Eosinophils % (auto) 2.2 %; Hematocrit (blood only) 44.3 % (37-47); Immature Granulocytes # (auto) 0.01 K/uL (0.00-0.02); Immature Granulocytes % (auto) 0.2 %; Lymphocytes # (auto) 1.24 K/uL (1.2-3.4); Lymphocytes % (auto) 22.3 %; Mean Corpuscular Hemoglobin 30.5 pg (25-34); Mean Corpuscular Hgb Conc 33.9 g/dL (32-36); Mean Corpuscular Volume 90.2 fL (80-100); Mean Platelet Volume 9.3 fL (7.4-10.4); Monocytes # (auto) 0.56 K/uL (0.11-0.59); Monocytes % (auto) 10.1 %; Neutrophils # (auto) 3.61 K/uL (1.4-6.5); Neutrophils % (auto) 64.7 %; Platelet Count 228 K/uL (130-400); RDW Coefficient of Variation 14.3 % (11.5-14.5); RDW Standard Deviation 47.3 fL (36.4-46.3); Red Blood Count 4.91 M/uL (4.2-5.4); White Blood Count 5.57 K/uL (4.8-10.8)
[2019-03-20 08:22] LABS: Calcium 8.9 mg/dl (8.5-10.1); Creatinine Clr Calc Pharmacy 52.6 ml/min; Est GFR (African American) 95.3; Est GFR (Non-African American) 82.2; Potassium 3.9 mmol/L (3.5-5.1)
[2019-03-20] MEDS: ASPIRIN 81 MG ECTAB PO SCH (08:22)
--- NOTE | 2019-03-20 08:34 | Magnetic Resonance Report ---
MRI OF THE BRAIN WITHOUT AND WITH IV CONTRAST CLINICAL HISTORY: R/o stroke, dizziness, n/v, bilateral R nystagmus COMPARISON STUDY: MRI of the brain March 16, 2018. Head CT and CTA of the head March 19, 2018 TECHNIQUE: Utilizing a 1.5 Cayla magnet and dedicated coil, multiplanar, multiecho imaging of the br ain was performed pre and postcontrast administration. IV administration of 5.5 mL of Gadavist contr ast was uneventful. FINDINGS: There are no foci of predicted diffusion to suggest acute infarct. No acute intracranial he morrhage, midline shift or mass affect is present. Ventricular system is stable. Basilar cisterns are patent. There are no extra-axial collections. Flow-voids for the major intracranial vessels are pres ent. There is no intracranial mass or pathologic enhancement. Mild white matter T2 hyperintense foci are similar to MRI of March 16, 2018. The appearance of the brain is unchanged. Calvarial signal i s normal. Flow-voids for the major intracranial vessels are present. IMPRESSION: 1. No acute intracranial findings. 2. No intracranial mass or pathologic enhancement. 3. No change since MRI of March 16, 2018. Mild small vessel disease and atrophy. Electronically signed by: Floyd Trejo M.D. 03/20/2019 8:32 AM
--- NOTE | 2019-03-20 11:00 | Neurology Consultation ---
Date of Consultation March 20, 2019 Assessment & Plan (1) BPPV (benign paroxysmal positional vertigo): I suspect this patient has benign positional paroxysmal vertigo, potentially localizing to the right ear. She does not have any other symptoms or exam findings suggestive of stroke and has an unremarkable appearing brain MRI as well as normal-appearing CT angiography of the head and neck. Would continue with meclizine as needed to address her vertigo. If her symptoms persist she may be referred to physical therapy for habituation exercises and/or Eri maneuvers. There does not appear to be a clear role for antiplatelet therapy at this time. No further immediate recommendations. Please contact me if I may be of further assistance. History of Present Illness Reason for Consultation: Stroke? Requesting Physician: Mariela Stone Attending Physician: Damion Knight History of Present Illness The patient is an 79-year-old female with a chief complaint of dizziness which he describes as a spinning sensation that began about 1 hour prior to arrival in the emergency department yesterday afternoon. She had previously been exercising at the gym and running some errands. Her symptoms began abruptly when she returned home. She recalls a profound sense of dizziness/spinning that was worse with movement. The dizziness is associated with nausea and diaphoresis. She also complains of a persistent low-grade head and neck discomfort which has been present for the past 3 to 4 weeks. No ear pain, hearing loss, or tinnitus. No recent infection or illness reported. Past medical history notable for a presyncopal episode that occurred last March with an unremarkable brain MRI at that time. The patient reports that her symptoms are modestly improved this morning although she continues to perceive a vague sense of dizziness that is triggered by sitting up as well as lying back and turning her head to either side. She also complains of some subtle difficulty focusing her vision for more than a few minutes. She denies diplopia, changes in speech or swallowing, or focal numbness or sensory loss of the limbs. Allergies Allergy/AdvReac Type Severity Reaction Status Date / Time pine nut Allergy Intermediate ITCHING,THROAT Verified 03/19/19 11:42 CLOSES amoxicillin Allergy U C. DIFF Verified 03/19/19 11:42 pollen extracts AdvReac U SNEEZING;ITCHY Verified 03/19/19 11:42 EYES ragweed pollen AdvReac U SNEEZING Verified 03/19/19 11:42 solifenacin AdvReac U CONSTIPATIO Verified 03/19/19 11:42 N Home Medications Home Medications Medication Instructions Recorded Confirmed Type diclofenac sodium 50 mg PO BID PRN 03/15/18 03/19/19 History pravastatin 40 mg PO HS 03/15/18 03/19/19 History zolpidem 5 mg PO HS PRN 03/15/18 03/19/19 History Restasis 1 drp OPB BID PRN 07/20/18 03/19/19 History albuterol sulfate 2 puff INHALATION QID PRN 07/20/18 03/19/19 History diltiazem HCl 120 mg PO QPM 09/13/18 03/19/19 History epinephrine 0.3 mg IM DIRECTED PRN 10/03/18 03/19/19 History melatonin 10 mg PO HS PRN 03/19/19 03/19/19 History Patient History Medical History Prediabetes (Chronic) "DIET CONTROLLED" SHANNA (acute kidney injury) (Resolved) Acute liver failure (Resolved) Bladder perforation, intraoperative (Resolved) Dry eye (Resolved) Surgical History History of cataract surgery (Resolved) B/L History of cholecystectomy (Resolved) History of dilatation and curettage (Resolved) 05/25/16= LMA#4 at [facility] History of sinus surgery (Resolved) History of total hip arthroplasty (Resolved) RIGHT Previous back surgery (Resolved) LUMBAR Family History Other No significant family history Social History Preferred Language: Citizen Of [place] Communication Ability: Effective 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 Respiratory: no cough and no dyspnea Cardiovascular: no chest pain and no palpitations Gastrointestinal: as per Subjective / HPI and + nausea Genitourinary: no dysuria and no urinary incontinence Musculoskeletal: as per Subjective / HPI and + neck pain; no myalgia Integumentary: no rash and no lesions Neurologic: as per Subjective / HPI and + dizziness; no localized weakness, no loss of sensation and no abnormal speech Psychiatric: no depression and no anxiety Hematologic / Lymphatic: no easy bleeding and no easy bruising Physical Exam Physical Exam: The patient is a well-developed, well-nourished elderly female. She is pleasant and cooperative and in no acute distress. She is alert and fully oriented. Recent and remote memory intact. Attention and concentration normal. Patient exhibits a normal spontaneous speech pattern as well as an age- appropriate fund of knowledge and normal comprehension of vocabulary. Visual arellano full to confrontation. Visual acuity normal. Pupils equal round reactive to light and accommodation. Eye movements normal. There is gaze evoked nystagmus with rightward gaze. Facial sensation intact. There is no facial droop or weakness. Hearing intact bilaterally. Palate elevates to midline. Shoulder shrug intact. Tongue protrudes to midline. Sensation intact to all modalities in all 4 limbs. Deep tendon reflexes intact and symmetrical for the arms and legs bilaterally. Plantar responses downgoing bilaterally. There is no dysdiadochokinesia or dysmetria [id number] or [id number] bilaterally. Ophthalmoscopic examination reveals normal-appearing optic disks and posterior segments. No papilledema or hemorrhages. Carotid pulses normal bilaterally, no bruits to auscultation. Gait and station not tested due to safety concerns. Patient exhibits normal muscle strength and tone for all 4 limbs. No atrophy. No abnormal movements observed. Cathy-Hallpike positive with head turn to the right. Results & Data Vital Signs (Past 12 Hours) Vital Signs Temp Pulse Resp BP Pulse Ox 03/20/19 07:07 36.7 C 56 L 19 120/57 L 96 03/20/19 04:21 37.2 C 57 L 17 105/55 L 94 03/19/19 23:04 36.4 C L 101 H 18 136/73 95 Laboratory Results WBC 5.57, hemoglobin 15.0, hematocrit 44.3, platelet count 228, sodium 142, potassium 3.9, BUN 15, creatinine 0.69, glucose 86, hemoglobin A1c 6.1, calcium 8.9, transaminases normal, triglycerides 78, cholesterol 181, LDL 89, VLDL 16, HDL [address] of the head negative for hemorrhage or acute process. I reviewed the images as well as the radiologist interpretation of this test. CT angiogram of the head unremarkable. I reviewed the images as well as the radiologist interpretation of this test. CT angiogram of the neck negative for significant stenosis, occlusion, or dissection of either the carotid or vertebral arteries. Brain MRI completed last night negative for acute or subacute stroke. There is minimal increased T2/flair foci within the brain parenchyma consistent with chronic small vessel ischemic change. No significant change compared with the previous MRI done in March 2018. Electrocardiogram reveals a sinus rhythm with PVCs, 89 bpm.
--- NOTE | 2019-03-20 12:37 | Medical Student Progress Note ---
Date of Service March 20, 2019 Assessment & Plan (1) Dizziness: (2) Vertigo: (3) Vomiting: Nausea presence: with nausea Vomiting Intractability: non- intractable Vomiting type: unspecified Qualified Code(s): R11.2 - Nausea with vomiting, unspecified (4) SVT (supraventricular tachycardia): continue diltiazem (5) DVT prophylaxis: compression devices or stockings (6) BPPV (benign paroxysmal positional vertigo): self-treatment at home have been developed: the Gore-Daroff exercises, a modified Eri maneuver, and the modified Semont maneuver betahistine (24 mg twice daily for one week) along with the Eri maneuver Present on Admission?: Yes Subjective Pt is a 79y/o female with a history of HTN, HLD, SVT who presented yesterday with dizziness, sweating, nausea, vomiting. Pt states she had gone to the gym, running errands, and came home when she didn't feel well. Pt states she felt like the room was spinning, she felt unsteady, and dizziness was made worse with bright lights, particular head positions. Pt states she did not have any chest pain, dyspnea, numbness or tingling in her extremities, changes in hearing or vision with this episode of dizziness. Pt states she had felt slightly dizzy a few weeks ago, and she noticed that it had been uncomfortable to sleep on her left side, and she had been experiencing a dull pain on the left side of her head. Pt states she had been continuing to take her medications according to regimen without issue, with no other health issues leading up to this episode. Today pt continues to have some discomfort on the left side of head, but does not endorse any dizziness, nausea, vomiting. Review of Systems Constitutional: no sweats Eyes: no diplopia and no loss of peripheral vision Ear, Nose, Mouth, Throat: no hearing loss Respiratory: no dyspnea Cardiovascular: no chest pain, no dyspnea and no palpitations Musculoskeletal: no muscle weakness Neurologic: no localized weakness and no headache(s) Physical Exam Constitutional: comfortable; no acute distress Eyes: PERRL, conjunctivae normal, anicteric sclerae Respiratory: normal respiratory effort, lungs clear to auscultation Neurologic: Speech / Cognition: normal speech and normal cognition horizontal nystagmus on right gaze Results & Data Vital Signs (Past 12 Hours) Vital Signs Temp Pulse Resp BP Pulse Ox 03/20/19 11:52 37.3 C 70 18 168/82 H 94 03/20/19 07:07 36.7 C 56 L 19 120/57 L 96 03/20/19 04:21 37.2 C 57 L 17 105/55 L 94 No acute intracranial findings on head CT and brain MRI
[2019-03-20] MEDS ORDERED: predniSONE 20 MG TAB PO STA (16:23)
[2019-03-20] MEDS ORDERED: ENOXAPARIN INJ 40 MG/0.4 ML SYR SQ STA (16:23)
[2019-03-20] MEDS: PRAVASTATIN SOD 40 MG TAB PO SCH (20:28)
[2019-03-20] MEDS: dilTIAZem ER 120 MG CAPCR PO SCH (20:28)
--- NOTE | 2019-03-20 22:22 | Hospitalist Progress Note ---
Date of Service March 20, 2019 Assessment & Plan (1) BPPV (benign paroxysmal positional vertigo): as NOTED BELOW. (2) Dizziness: (3) Vertigo: (4) Vomiting: (5) Ambulatory dysfunction: Patient appears to have BPPV; doubt complex migraine. Patient was seen by PT, her symptoms did mildly improve with maneuvers. Will continue to monitor for now. imaging for stroke workup is negative. will continue supportive care with meclizine, IV compazine Also placed on prednisone steroids in case there is a migraine component. - Continue pravastatin, start on asa 81 mg - PT/OT consults - Neuro consults - BP well controlled (6) SVT (supraventricular tachycardia): - Well controlled on diltiazem - Follows with Dr. Marshall as outpatient, no current cardiac complaints. 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 -Finished round of BCG 2 weeks ago, this was the third treatment since Spring 2018. Follows with Dr. Tapia as outpatient (8) GERD (gastroesophageal reflux disease): - Continue pantoprazole (9) HLD (hyperlipidemia): - Continue pravastatin 40 mg HS (10) Vitamin D deficiency: (11) Osteoporosis: - Do not see Vit D supplementation on home med rec, discuss prior to dc (12) Insomnia: - Holding sleep agents unless the pt requests these. Melatonin not available in the house. (13) Asthma: - recently completed course of doxycycline and prednisone for acute bronchitis and URI about a week ago. No residual sx. - O2 sats = 95% on RA, no supplemental O2 used at baseline (14) DVT prophylaxis: -teds, scds, LOVENOX Dispo: From home, lives alone, PT/OT consults, CM to assist with dc planning. Subjective Pt is a 79y/o female with a history of HTN, HLD, SVT who presented yesterday with dizziness, sweating, nausea, vomiting. Pt states she had gone to the gym, running errands, and came home when she didn't feel well. Pt states she felt like the room was spinning, she felt unsteady, and dizziness was made worse with bright lights, particular head positions. Pt states she did not have any chest pain, dyspnea, numbness or tingling in her extremities, changes in hearing or vision with this episode of dizziness. Pt states she had felt slightly dizzy a few weeks ago, and she noticed that it had been uncomfortable to sleep on her left side, and she had been experiencing a dull pain on the left side of her head. Pt states she had been continuing to take her medications according to regimen without issue, with no other health issues leading up to this episode. Today pt continues to have some discomfort on the left side of head, but does not endorse any dizziness, nausea, vomiting. Sh reports her headache only began once she was in the hospital. Her dizziness was much earlier and does not appear to be correleated. She does complain of some photophobia. Review of Systems Review of Systems: Constitutional: No fever, sweats or chills Eyes: No diplopia, + blurred vision and spinning room whenever she sits up from lying position ENT: normal hearing, no trouble swallowing Respiratory: No cough, sputum, dyspnea at rest or on exertion Cardiovascular: No chest pain, tightness or palpitations Abdomen: As per HPI. No pain diarrhea or constipation Musculoskeletal: No joint pain, calf pain, swelling Neurologic: No weakness, numbness/tingling, or balance problems Psychiatric: No anxiety or depression Skin: No rash or itch Physical Exam Physical Exam: General: awake, alert, no apparent distress Head: Normocephalic, atraumatic ENT: PERRL, EOMI, no pharyngeal exudate, mucous membranes moist Chest: Clear to auscultation, on room air, no adventitious breath sounds Cardiac: Regular rate and rhythm, no murmur, no JVD, normal peripheral pulses, good capillary refill Abdominal: NABS x 4 quadrants, soft, nontender to palpation, no rebound, guarding or tenderness Extremities: Normal inspection, no peripheral edema or erythema, calfs nontender to palpation Psych: Normal mood and affect Neuro: AAO x 3, strength intact bilaterally and related 5/5, no pronator drift, CN II- XII intact, + nystagmus horizontally to the right in bilateral eyes, no motor deficits, speech is clear, no peripheral sensory deficits Results & Data Vital Signs (Past 12 Hours) Vital Signs Temp Pulse Pulse Resp BP Pulse Ox 03/20/19 19:15 36.6 C 82 18 147/78 H 92 03/20/19 15:53 37.2 C 84 18 163/77 H 92 03/20/19 11:52 37.3 C 70 18 168/82 H 94 PG Care Time/CCT Total # of Minutes Spent Total Time Spent with Patient: Total time spent is greater than 50% in coordination of care (as documented) at patient's floor/unit and/or counseling patient: (1) Vomiting Nausea presence: with nausea Vomiting Intractability: non-intractable Vomiting type: unspecified Qualified Code(s): R11.2 - Nausea with vomiting, unspecified
[2019-03-20] MEDS: ACETAMINOPHEN 325 MG TAB PO PRN (23:32)
[2019-03-20] MEDS: MECLIZINE HCL 25 MG TAB PO PRN (23:33)
[2019-03-21] MEDS: MECLIZINE HCL 25 MG TAB PO PRN (07:06)
[2019-03-21 07:18] LABS: Basophils # (auto) 0.01 K/uL (0-0.2); Basophils % (auto) 0.1 %; Hematocrit (blood only) 47.4 % (37-47); Hemoglobin 16.2 g/dL (12.0-16.0); Immature Granulocytes # (auto) 0.03 K/uL (0.00-0.02); Immature Granulocytes % (auto) 0.3 %; Lymphocytes % (auto) 13.6 %; Mean Corpuscular Hemoglobin 30.7 pg (25-34); Mean Corpuscular Hgb Conc 34.2 g/dL (32-36); Mean Corpuscular Volume 89.8 fL (80-100); Mean Platelet Volume 9.5 fL (7.4-10.4); Monocytes % (auto) 3.9 %; Neutrophils # (auto) 8.49 K/uL (1.4-6.5); Neutrophils % (auto) 82.1 %; Platelet Count 243 K/uL (130-400); RDW Coefficient of Variation 14.1 % (11.5-14.5); RDW Standard Deviation 46.5 fL (36.4-46.3); Red Blood Count 5.28 M/uL (4.2-5.4); White Blood Count 10.33 K/uL (4.8-10.8)
[2019-03-21 07:48] LABS: BUN Creatinine Ratio 26.8 (10-20); Calcium 9.4 mg/dl (8.5-10.1); Creatinine Clr Calc Pharmacy 47.8 ml/min; Est GFR (African American) 85.9; Est GFR (Non-African American) 74.1
[2019-03-21] MEDS: ASPIRIN 81 MG ECTAB PO SCH (08:01)
[2019-03-21] MEDS: ACETAMINOPHEN 325 MG TAB PO PRN ×2 (10:26→16:28)
[2019-03-21] MEDS ORDERED: predniSONE 20 MG TAB PO STA (14:15)
[2019-03-21] MEDS ORDERED: GADOBUTROL 65ML VIAL IV PRN (18:41)
--- NOTE | 2019-03-21 19:04 | Magnetic Resonance Report ---
MRI OF THE BRAIN INTERNAL AUDITORY CANAL PROTOCOL CLINICAL HISTORY: Refractory vertigo, right beating nystagmus, possible vascular loop at the right in ternal auditory canal. COMPARISON STUDY: MRI of the brain March 19, 2019. Head CT and CTA of the head March 19 9.. TECHNIQUE: Utilizing a 1.5 Cayla magnet and dedicated coil, multiplanar, multiecho imaging of the br ain was performed pre and postcontrast administration with thin cut imaging through the internal antonio tory canals. IV administration of 5.5 mL of Gadavist contrast was uneventful. FINDINGS: There are no foci of restricted diffusion to suggest acute infarct. No acute intracranial h emorrhage, midline shift or mass effect is present. Ventricular system is stable. Basilar cisterns ar e patent. No extra-axial collections are present. Flow-voids for the major intracranial vessels are p resent. A few vessels adjacent to the right 7th and 8th cranial nerves are noted without significant nerve displacement. There is no intracranial mass or pathologic enhancement. There is no mass or abno rmal enhancement within the internal auditory canals. No mastoid fluid is present. White matter T2 hy perintense foci are similar to MRI March 16, 2018. These suggest small vessel disease. IMPRESSION: 1. No acute intracranial finding. 2. No abnormalities within the internal auditory canals. 3. No intracranial mass or pathologic enhancement. Electronically signed by: Floyd Trejo M.D. 03/21/2019 7:02 PM
[2019-03-21] MEDS: PRAVASTATIN SOD 40 MG TAB PO SCH (20:38)
[2019-03-21] MEDS: MECLIZINE HCL 25 MG TAB PO SCH (20:38)
[2019-03-21] MEDS: dilTIAZem ER 120 MG CAPCR PO SCH (20:38)
--- NOTE | 2019-03-21 22:52 | Hospitalist Progress Note ---
Date of Service March 21, 2019 Assessment & Plan (1) BPPV (benign paroxysmal positional vertigo): as NOTED BELOW. (2) Dizziness: (3) Vertigo: (4) Vomiting: (5) Ambulatory dysfunction: Patient appears to have BPPV; doubt complex migraine. Patient was seen by PT, her symptoms did mildly improve with maneuvers. Will continue to monitor for now. imaging for stroke workup is negative. will continue supportive care with meclizine, IV compazine MRI will be repeated focusing on the inner canal. Also placed on prednisone steroids in case there is a migraine component, this will also help if patient has labrythitits.. - Continue pravastatin, start on asa 81 mg - PT/OT consults - Neuro consults - BP well controlled (6) SVT (supraventricular tachycardia): - Well controlled on diltiazem - Follows with Dr. Marshall as outpatient, no current cardiac complaints. 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 -Finished round of BCG 2 weeks ago, this was the third treatment since Spring 2018. Follows with Dr. Tapia as outpatient (8) GERD (gastroesophageal reflux disease): - Continue pantoprazole (9) HLD (hyperlipidemia): - Continue pravastatin 40 mg HS (10) Vitamin D deficiency: (11) Osteoporosis: - Do not see Vit D supplementation on home med rec, discuss prior to dc (12) Insomnia: - Holding sleep agents unless the pt requests these. Melatonin not available in the house. (13) Asthma: - recently completed course of doxycycline and prednisone for acute bronchitis and URI about a week ago. No residual sx. - O2 sats = 95% on RA, no supplemental O2 used at baseline (14) DVT prophylaxis: -teds, scds, LOVENOX Dispo: From home, lives alone, PT/OT consults, CM to assist with dc planning. Subjective Patient still having dizziness. Patient also continues to be having a headache as well. Patient also continues to have photophobia. Review of Systems Review of Systems: Constitutional: No fever, sweats or chills Eyes: No diplopia, + blurred vision and spinning room whenever she sits up from lying position ENT: normal hearing, no trouble swallowing Respiratory: No cough, sputum, dyspnea at rest or on exertion Cardiovascular: No chest pain, tightness or palpitations Abdomen: As per HPI. No pain diarrhea or constipation Musculoskeletal: No joint pain, calf pain, swelling Neurologic: No weakness, numbness/tingling, or balance problems Psychiatric: No anxiety or depression Skin: No rash or itch Physical Exam Physical Exam: General: awake, alert, no apparent distress Head: Normocephalic, atraumatic ENT: PERRL, EOMI, no pharyngeal exudate, mucous membranes moist Chest: Clear to auscultation, on room air, no adventitious breath sounds Cardiac: Regular rate and rhythm, no murmur, no JVD, normal peripheral pulses, good capillary refill Abdominal: NABS x 4 quadrants, soft, nontender to palpation, no rebound, guarding or tenderness Extremities: Normal inspection, no peripheral edema or erythema, calfs nontender to palpation Psych: Normal mood and affect Neuro: AAO x 3, strength intact bilaterally and related 5/5, no pronator drift, CN II- XII intact, + nystagmus horizontally to the right in bilateral eyes, no motor deficits, speech is clear, no peripheral sensory deficits Results & Data Vital Signs (Past 12 Hours) Vital Signs Temp Pulse Pulse Resp BP BP Pulse Ox 03/21/19 20:35 81 144/76 H 93 03/21/19 19:20 36.7 C 84 18 149/74 H 93 03/21/19 16:00 72 03/21/19 15:51 36.6 C 87 20 157/73 H 163/73 H 90 PG Care Time/CCT Total # of Minutes Spent Total Time Spent with Patient: Total time spent is greater than 50% in coordination of care (as documented) at patient's floor/unit and/or counseling patient: (1) Vomiting Nausea presence: with nausea Vomiting Intractability: non-intractable Vomiting type: unspecified Qualified Code(s): R11.2 - Nausea with vomiting, un specified
[2019-03-22] MEDS: MECLIZINE HCL 25 MG TAB PO SCH ×3 (02:29→18:50)
[2019-03-22] MEDS ORDERED: SODIUM CHLORIDE 0.65% NA SOLN 45 ML (OCEAN) PRN (03:39)
[2019-03-22] MEDS ORDERED: SODIUM CHLORIDE 0.65% NA SOLN 45 ML (OCEAN) ONE (03:42)
[2019-03-22 07:23] LABS: Basophils # (auto) 0.01 K/uL (0-0.2); Basophils % (auto) 0.1 %; Eosinophils # (auto) 0.01 K/uL (0-0.5); Eosinophils % (auto) 0.1 %; Immature Granulocytes # (auto) 0.01 K/uL (0.00-0.02); Immature Granulocytes % (auto) 0.1 %; Lymphocytes # (auto) 1.68 K/uL (1.2-3.4); Lymphocytes % (auto) 19.5 %; Mean Corpuscular Hemoglobin 30.6 pg (25-34); Mean Corpuscular Hgb Conc 34.1 g/dL (32-36); Mean Corpuscular Volume 89.8 fL (80-100); Mean Platelet Volume 9.9 fL (7.4-10.4); Monocytes # (auto) 0.67 K/uL (0.11-0.59); Monocytes % (auto) 7.8 %; Neutrophils # (auto) 6.23 K/uL (1.4-6.5); Neutrophils % (auto) 72.4 %; Platelet Count 252 K/uL (130-400); RDW Coefficient of Variation 14.1 % (11.5-14.5); RDW Standard Deviation 46.4 fL (36.4-46.3); White Blood Count 8.61 K/uL (4.8-10.8)
[2019-03-22 07:31] LABS: BUN Creatinine Ratio 26.1 (10-20); Calcium 8.8 mg/dl (8.5-10.1); Creatinine Clr Calc Pharmacy 52.6 ml/min; Est GFR (African American) 95.3; Est GFR (Non-African American) 82.2; Potassium 3.7 mmol/L (3.5-5.1)
[2019-03-22] MEDS: ASPIRIN 81 MG ECTAB PO SCH (08:27)
[2019-03-22] MEDS: ACETAMINOPHEN 325 MG TAB PO PRN (08:37)
--- NOTE | 2019-03-22 13:11 | Neurology Progress Note ---
Date of Service March 22, 2019 Assessment & Plan (1) Vertigo: Fairly persistent vertigo which tends to be triggered by turning her head or changing body position. She has had a few episodes of very brief associated vertical diplopia. She continues to have some gaze evoked nystagmus to the right although I also detect some subtle upbeat/rotary nystagmus as well. She does not have obvious focal ataxia on examination although there may be subtle impairment of fine finger movements for the right hand. Nonetheless, however, her repeat brain MRI continues to be fairly unremarkable and without evidence of acute or subacute stroke. Specifically no evidence of a cerebellar, brainstem, or internal auditory canal abnormality with additional thin sections. I continue to suspect a peripheral cause of her vertigo. The subtle impairment of fine finger movements for the right hand is of uncertain chronicity and is probably not related to her acute vertigo. She may have either viral labyrinthitis or benign positional paroxysmal vertigo. Mnire's disease is probably unlikely given her acute presentation, lack of tinnitus, and apparent lack of hearing loss. A very small, posterior circulation stroke is possible although I think unlikely given her to unremarkable brain MRIs, both of which included diffusion-weighted imaging sequences. There was also no evidence of vertebrobasilar disease on CT angiography of the head and neck. Most cases of vertigo do resolve on their own, whether if they are caused by viral labyrinthitis, BPPV, and even small posterior infarcts. This patient does indicate that she feels modestly improved since symptom onset this past Sunday. I would recommend that she continue with meclizine, and daily low- dose aspirin. She should continue with physical therapy as well. An outpatient referral to a vestibular center could be considered if she remains symptomatic. Please contact me if I may be of further assistance. Subjective Follow-up for vertigo The patient is an 79-year-old female who complains of persistent vertigo that began acutely on March 19, 3 days ago. Her symptoms are triggered by turning her head to either side as well as with sitting up and sometimes lying back in bed. As symptom onset she had intense nausea as well but this issue has not recurred. She complains of a spinning sensation as well as a tendency to list to the right hand side with attempts at standing and walking. Her gait remains unsteady. She also reports experiencing a few brief episodes of associated vertical diplopia lasting a few seconds only. She continues to deny any associated dysarthria, dysphagia, focal weakness or sensory loss. Yet, she reports that occupational therapy recently has identified some very subtle coordination difficulty with her right hand. The patient is not really aware of any specific weakness or issue. Overall, the patient feels as if her symptoms are modestly improved since onset. However, her easy symptom recurrence with associated gait instability has precluded her discharge. I discussed her case further with Dr. Wilburn yesterday afternoon and had recommended a follow-up MRI of the brain with attention to the internal auditory canals. I reviewed the images and radiologist interpretation of this test. No significant abnormalities were identified, however. Her brain MRI completed on the day of admission was unremarkable as well and without evidence of stroke or other obvious process that would otherwise explain her symptomatology. In addition to position provoked vertigo, the patient also complains of a vague sense of ear fullness on the left. She denies tinnitus or hearing loss. Review of Systems Constitutional: no fever and no chills Eyes: as per Subjective / HPI; no blind spots and no eye pain Ear, Nose, Mouth, Throat: as per Subjective / HPI and + sinus pain/pressure; no tinnitus and no hearing loss Neurologic: as per Subjective / HPI and + lack of coordination; no localized weakness, no loss of sensation and no abnormal speech Physical Exam Physical Exam: The patient is a well-developed, well-nourished elderly female. She is alert and fully oriented. Recent and remote memory intact. Attention and concentration normal. Patient exhibits a normal spontaneous speech pattern. Speech non-dysarthric. She is able to name objects and repeat phrases. Patient exhibits an age-appropriate fund of knowledge and normal comprehension of vocabulary. Visual arellano full to confrontation. Visual acuity normal. Pupils equal round react to light and accommodation. Eye movements normal. There are a few beats of gaze evoked nystagmus to the right. There appears to be an element of mild rotary nystagmus with upgaze as well. Facial sensation intact. There is no facial droop or weakness. Hearing intact bilaterally. Palate elevates to midline. Shoulder shrug intact. Tongue protrudes to m idline. Sensation intact to all modalities in all 4 limbs. Deep tendon reflexes are intact and symmetrical for the arms and legs bilaterally. There is no dysdiadochokinesia or dysmetria [id number] or [id number] bilaterally. There is perhaps very slight reduced finger facility for the right hand only. However, no associated dysdiadochokinesia or other obvious focal ataxic signs. Patient exhibits normal muscle strength and tone for all 4 limbs. No atrophy. No abnormal movements observed. Results & Data Vital Signs (Past 12 Hours) Vital Signs Temp Pulse Pulse Resp BP Pulse Ox 03/22/19 12:19 156/61 H 03/22/19 12:00 36.3 C L 65 16 165/86 H 94 03/22/19 11:40 58 L 03/22/19 07:00 36.3 C L 60 16 135/69 96 03/22/19 04:13 36.7 C 70 20 144/68 H 94 03/22/19 01:34 70 Laboratory Results WBC 8.61, hemoglobin 15.0, hematocrit 44.0, platelet count 252, sodium 141, potassium 3.7, BUN 18, creatinine 0.69, glucose 112, calcium 8.8 Diagnostic Findings Follow-up brain MRI with attention to the internal auditory canals completed yesterday. Again, no evidence for acute or subacute stroke. No abnormalities within the internal auditory canals. No intracranial mass or pathologic enhancement. I reviewed the images as well as the radiologist interpretation of this test. CT angiography completed on March 19, 2019 was unremarkable. No evidence for vascular occlusion, dissection, or other vascular lesion.
[2019-03-22] MEDS ORDERED: predniSONE 20 MG TAB PO STA (16:07)
[2019-03-22] MEDS: dilTIAZem ER 120 MG CAPCR PO SCH (21:36)
[2019-03-22] MEDS: PRAVASTATIN SOD 40 MG TAB PO SCH (21:36)
--- NOTE | 2019-03-22 22:52 | Hospitalist Progress Note ---
Date of Service March 22, 2019 Assessment & Plan (1) BPPV (benign paroxysmal positional vertigo): The differential includes the above diagnosis versus vestibular neuritis or labrynthitis. Patient does not appear to have hearing loss. Given her right sided nystagmus, her h/o nausea, vomiting, and vertigo. 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 Patient has been receiving steroids, and meclizine. She does appear to be feeling better today as compared to earlier in her h ospital stay. She does not feel safe to go home as she lives by herself. May consider benzo in AM. as NOTED BELOW. (2) Dizziness: as noted above. (3) Vertigo: as noted above. (4) Vomiting: As noted above. (5) Ambulatory dysfunction: doubt complex migraine. Patient was seen by PT, her symptoms did mildly improve with maneuvers. Will continue to monitor for now. imaging for stroke workup is negative. will continue supportive care with meclizine, IV compazine MRI will be repeated focusing on the inner canal. Also placed on prednisone steroids in case there is a migraine component, this will also help if patient has labrythitits.. - Continue pravastatin, start on asa 81 mg - PT/OT consults - Neuro consults - BP well controlled (6) SVT (supraventricular tachycardia): - Well controlled on diltiazem - Follows with Dr. Marshall as outpatient, no current cardiac complaints. 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 -Finished round of BCG 2 weeks ago, this was the third treatment since Spring 2018. Follows with Dr. Tapia as outpatient (8) GERD (gastroesophageal reflux disease): - Continue pantoprazole (9) HLD (hyperlipidemia): - Continue pravastatin 40 mg HS (10) Vitamin D deficiency: (11) Osteoporosis: - Do not see Vit D supplementation on home med rec, discuss prior to dc (12) Insomnia: - Holding sleep agents unless the pt requests these. Melatonin not available in the house. (13) Asthma: - recently completed course of doxycycline and prednisone for acute bronchitis and URI about a week ago. No residual sx. - O2 sats = 95% on RA, no supplemental O2 used at baseline (14) DVT prophylaxis: -teds, scds, LOVENOX Dispo: From home, lives alone, PT/OT consults, CM to assist with dc planning. Subjective This patient continues to have headaches, accompanied by vertigo, seeing double, room swaying. She does feel that the intensity though has decreased as compared to earlier. She no longer requires a bedside commode and is able to ambulate to the bathroom (with help). She denies any nausea and vomiting today. Review of Systems Review of Systems: All systems reviewed & are unremarkable except as noted in HPI & below Physical Exam Physical Exam: General: awake, alert, no apparent distress Head: Normocephalic, atraumatic ENT: PERRL, EOMI, no pharyngeal exudate, mucous membranes moist Chest: Clear to auscultation, on room air, no adventitious breath sounds Cardiac: Regular rate and rhythm, no murmur, no JVD, normal peripheral pulses, good capillary refill Abdominal: NABS x 4 quadrants, soft, nontender to palpation, no rebound, guarding or tenderness Extremities: Normal inspection, no peripheral edema or erythema, calfs nontender to palpation Psych: Normal mood and affect Neuro: AAO x 3, strength intact bilaterally and related 5/5, no pronator drift, CN II- XII intact, + nystagmus horizontally to the right in bilateral eyes, no motor deficits, speech is clear, no peripheral sensory deficits Results & Data Vital Signs (Past 12 Hours) Vital Signs Temp Pulse Pulse Resp BP Pulse Ox 03/22/19 19:48 36.7 C 73 20 144/90 H 92 03/22/19 15:15 36.6 C 74 18 128/69 95 03/22/19 15:11 87 03/22/19 12:19 156/61 H 03/22/19 12:00 36.3 C L 65 16 165/86 H 94 03/22/19 11:40 58 L PG Care Time/CCT Total # of Minutes Spent Total Time Spent with Patient: Total time spent is greater than 50% in coordination of care (as documented) at patient's floor/unit and/or counseling patient: (1) Vomiting Nausea presence: with nausea Vomiting Intractability: non-intractable Vomiting type: unspecified Qualified Code(s): R11.2 - Nausea with vomiting, unspecified
[2019-03-23] MEDS: MECLIZINE HCL 25 MG TAB PO SCH ×3 (03:23→18:27)
[2019-03-23] MEDS: ASPIRIN 81 MG ECTAB PO SCH (07:59)
[2019-03-23] MEDS: ACETAMINOPHEN 325 MG TAB PO PRN (08:18)
[2019-03-23] MEDS ORDERED: LORazepam 0.5 MG TAB PO STA (08:21)
[2019-03-23] MEDS ORDERED: PSEUDOEPHEDRINE HCL 30 MG TAB PO STA (08:27)
[2019-03-23] MEDS ORDERED: predniSONE 20 MG TAB PO STA (08:33)
--- NOTE | 2019-03-23 09:41 | Hospitalist Progress Note ---
Date of Service March 23, 2019 Assessment & Plan (1) BPPV (benign paroxysmal positional vertigo): Likely vestibular neuritis. Given her ear pain, and lack of improvement. Could she have a component of acute otitis media. Will start her on doxycycline today as patient has been in the hospital for 5 days. The differential includes the above diagnosis versus vestibular neuritis or labrynthitis. Patient does not appear to have hearing loss. Given her right sided nystagmus, her h/o nausea, vomiting, and vertigo. 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 Patient has been receiving steroids, and meclizine. She does appear to be feeling better today as compared to earlier in her hospital stay. She does not feel safe to go home as she lives by herself. started benzo and antibiotic on 03.23 as NOTED BELOW. (2) Dizziness: as noted above. (3) Vertigo: as noted above. (4) Vomiting: As noted above. (5) Ambulatory dysfunction: doubt complex migraine. Patient was seen by PT, her symptoms did mildly improve with maneuvers. Will continue to monitor for now. imaging for stroke workup is negative. will continue supportive care with meclizine, IV compazine MRI will be repeated focusing on the inner canal. Also placed on prednisone steroids in case there is a migraine component, this will also help if patient has labrythitits.. - Continue pravastatin, start on asa 81 mg - PT/OT consults - Neuro consults - BP well controlled (6) SVT (supraventricular tachycardia): - Well controlled on diltiazem - Follows with Dr. Marshall as outpatient, no current cardiac complaints. 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 -Finished round of BCG 2 weeks ago, this was the third treatment since Spring 2018. Follows with Dr. Tapia as outpatient (8) GERD (gastroesophageal reflux disease): - Continue pantoprazole (9) HLD (hyperlipidemia): - Continue pravastatin 40 mg HS (10) Vitamin D deficiency: (11) Osteoporosis: - Do not see Vit D supplementation on home med rec, discuss prior to dc (12) Insomnia: - Holding sleep agents unless the pt requests these. Melatonin not available in the house. (13) Asthma: - recently completed course of doxycycline and prednisone for acute bronchitis and URI about a week ago. No residual sx. - O2 sats = 95% on RA, no supplemental O2 used at baseline (14) DVT prophylaxis: -teds, scds, LOVENOX Dispo: From home, lives alone, PT/OT consults, CM to assist with dc planning. Subjective Patient is having more left ear pain, and left eye pain. Patient continues to have dizziness. Review of Systems Review of Systems: All systems reviewed & are unremarkable except as noted in HPI & below Physical Exam Physical Exam: General: awake, alert, no apparent distress Head: Normocephalic, atraumatic ENT: PERRL, EOMI, no pharyngeal exudate, mucous membranes moist Chest: Clear to auscultation, on room air, no adventitious breath sounds Cardiac: Regular rate and rhythm, no murmur, no JVD, normal peripheral pulses, good capillary refill Abdominal: NABS x 4 quadrants, soft, nontender to palpation, no rebound, guarding or tenderness Extremities: Normal inspection, no peripheral edema or erythema, calfs nontender to palpation Psych: Normal mood and affect Neuro: AAO x 3, strength intact bilaterally and related 5/5, no pronator drift, CN II- XII intact, + nystagmus horizontally to the right in bilateral eyes, no motor deficits, speech is clear, no peripheral sensory deficits Results & Data Vital Signs (Past 12 Hours) Vital Signs Temp Pulse Pulse Resp BP Pulse Ox 03/23/19 08:49 58 L 03/23/19 08:00 36.3 C L 60 18 149/80 H 92 03/23/19 03:50 36.3 C L 71 16 129/83 93 03/23/19 00:00 67 03/22/19 23:45 36.9 C 75 20 136/77 93 PG Care Time/CCT Total # of Minutes Spent Total Time Spent with Patient: Total time spent is greater than 50% in coordination of care (as documented) at patient's floor/unit and/or counseling patient: (1) Vomiting Nausea presence: with nausea Vomiting Intractability: non-intractable Vomiting type: unspecified Qualified Code(s): R11.2 - Nausea with vomiting, unspecified
[2019-03-23] MEDS: DOXYCYCLINE HYCLATE 100 MG CAP PO SCH ×2 (10:23→21:00)
[2019-03-23] MEDS: PRAVASTATIN SOD 40 MG TAB PO SCH (21:00)
[2019-03-23] MEDS: dilTIAZem ER 120 MG CAPCR PO SCH (21:00)
[2019-03-24] MEDS: MECLIZINE HCL 25 MG TAB PO SCH ×3 (04:07→18:36)
[2019-03-24] MEDS: DOXYCYCLINE HYCLATE 100 MG CAP PO SCH ×2 (08:08→20:40)
[2019-03-24] MEDS: ASPIRIN 81 MG ECTAB PO SCH (08:08)
--- NOTE | 2019-03-24 17:22 | Hospitalist Progress Note ---
Date of Service March 24, 2019 Assessment & Plan (1) BPPV (benign paroxysmal positional vertigo): Likely vestibular neuritis, not BPPV Given her ear pain, and lack of improvement. some improvement with Doxycycline, will continue The differential includes the above diagnosis versus vestibular neuritis or labrynthitis. no hearing loss on exam Given her right sided nystagmus, her h/o nausea, vomiting, and vertigo. 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 continue steroids, and meclizine. use Benzodiazepines PRN continue therapy (2) Dizziness: as noted above. less likely BPPV, more likely labrynthitis (3) Vertigo: as noted above. (4) Vomiting: As noted above. (5) Ambulatory dysfunction: doubt complex migraine. Patient was seen by PT, her symptoms did mildly improve with maneuvers. Will continue to monitor for now. imaging for stroke workup is negative. will continue supportive care with meclizine, IV compazine MRI will be repeated focusing on the inner canal -- NO ABNORMALITIES Also placed on prednisone steroids in case there is a migraine component, this will also help if patient has labrythitits.. - Continue pravastatin, start on asa 81 mg - PT/OT consults - Neuro consults - BP well controlled (6) SVT (supraventricular tachycardia): - Well controlled on diltiazem - Follows with Dr. Marshall as outpatient, no current cardiac complaints. 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 -Finished round of BCG 2 weeks ago, this was the third treatment since Spring 2018. Follows with Dr. Tapia as outpatient (8) GERD (gastroesophageal reflux disease): - Continue pantoprazole (9) HLD (hyperlipidemia): - Continue pravastatin 40 mg HS (10) Vitamin D deficiency: (11) Osteoporosis: - Do not see Vit D supplementation on home med rec, discuss prior to dc (12) Insomnia: - Holding sleep agents unless the pt requests these. Melatonin not available in the house. (13) Asthma: - recently completed course of doxycycline and prednisone for acute br onchitis and URI about a week ago. No residual sx. - O2 sats = 95% on RA, no supplemental O2 used at baseline (14) DVT prophylaxis: -teds, scds, LOVENOX Dispo: From home, lives alone, PT/OT consults, CM to assist with dc planning. Subjective patient admits that she is better but still dealing will vertigo double vision intermittently, vertical and horizontal, but mostly in morning and then resolves ambulating with rolling walker but unsteady she was able to walk all the way around RN station she does not feel ready to go yet no labs today Review of Systems Review of Systems: All systems reviewed & are unremarkable except as noted in HPI & below Neurologic: + unsteadiness and + dizziness Physical Exam Constitutional: WD/WN, vitals as above Eyes: PERRL, conjunctivae normal, anicteric sclerae (mild horizontal nystagmus) ENMT: external ear and nose normal, oropharynx normal Neck: trachea midline, no thyromegaly Respiratory: normal respiratory effort, lungs clear to auscultation Cardiovascular: RRR, no murmur, no edema Gastrointestinal (Abdomen): normal bowel sounds, soft, nontender, no hepatosplenomegaly Musculoskeletal: no cyanosis or clubbing, extremities motor strength 5/5 Skin: no rashes, warm and dry Neurologic: patellar DTR's 2+ bilat, sensation intact and PERRL, EOMI, accommodation nl, no face palsy, no dysarthria Psychiatric: A+Ox3, euthymic affect Lymphatic: no cervical or axillary lymphadenopathy Results & Data Vital Signs (Past 12 Hours) Vital Signs Temp Pulse Pulse Resp BP BP Pulse Ox 03/24/19 16:12 72 03/24/19 15:30 36.8 C 78 18 130/81 95 03/24/19 11:22 36.5 C 67 18 129/72 96 03/24/19 07:22 58 L 03/24/19 07:16 36.7 C 59 L 18 169/72 H 97 Medications Administered Current Inpatient Medications Acetaminophen (Tylenol) 650 mg PO Q4H PRN PRN Reason: Pain or Fever Stop: 04/19/19 21:33 Last Admin: 03/24/19 18:22 Dose: 650 mg Documented by: Aspirin (Ecotrin Ectab) 81 mg PO QAM [facility] Stop: 04/19/19 08:59 Last Admin: 03/24/19 08:08 Dose: 81 mg Documented by: Diltiazem HCl (Tiazac) 120 mg PO QPM [facility] Stop: 04/18/19 20:59 Last Admin: 03/24/19 20:40 Dose: 120 mg Documented by: Doxycycline Hyclate (Vibramycin) 100 mg PO BID LEN Stop: 04/02/19 09:59 Last Admin: 03/24/19 20:40 Dose: 100 mg Documented by: Gadobutrol (Gadavist 65ml) 5.5 ml IV ONCE PRN PRN Reason: Interaction Checking Stop: 03/25/19 18:40 Prochlorperazine 10 mg/ (Syringe) 10 mls @ 5 mls/min IV Q8H PRN PRN Reason: Nausea And Vomiting Stop: 04/18/19 16:16 Meclizine HCl (Antivert) 25 mg PO Q8H LEN Stop: 04/20/19 18:59 Last Admin: 03/24/19 18:36 Dose: 25 mg Documented by: Pravastatin Sodium (Pravachol) 40 mg PO HS LEN Stop: 04/18/19 20:59 Last Admin: 03/24/19 20:40 Dose: 40 mg Documented by: Sodium Chloride ([place] Nasal) 1 sprays NA PRN PRN PRN Reason: Congestion Stop: 04/21/19 03:38 Last Admin: 03/22/19 06:18 Dose: 1 sprays Documented by: PG Care Time/CCT Total # of Minutes Spent Total Time Spent with Patient: Total time spent is greater than 50% in coordination of care (as documented) at patient's floor/unit and/or counseling patient: (1) Vomiting Nausea presence: with nausea Vomiting Intractability: non-intractable Vomiting type: unspecified Qualified Code(s): R11.2 - Nausea with vomiting, unspecified
[2019-03-24] MEDS: ACETAMINOPHEN 325 MG TAB PO PRN (18:22)
[2019-03-24] MEDS: dilTIAZem ER 120 MG CAPCR PO SCH (20:40)
[2019-03-24] MEDS: PRAVASTATIN SOD 40 MG TAB PO SCH (20:40)
[2019-03-25] MEDS: MECLIZINE HCL 25 MG TAB PO SCH ×3 (03:17→18:41)
[2019-03-25] MEDS: ASPIRIN 81 MG ECTAB PO SCH (07:39)
[2019-03-25] MEDS: DOXYCYCLINE HYCLATE 100 MG CAP PO SCH ×2 (07:39→20:33)
[2019-03-25] MEDS: ACETAMINOPHEN 325 MG TAB PO PRN ×2 (08:16→16:04)
[2019-03-25] MEDS ORDERED: LORazepam 0.5 MG TAB PO PRN (08:49)
--- NOTE | 2019-03-25 15:59 | Hospitalist Progress Note ---
Date of Service March 25, 2019 Assessment & Plan (1) BPPV (benign paroxysmal positional vertigo): Likely vestibular neuritis, not BPPV some improvement with Doxycycline, will continue for 7 days total no hearing loss on exam continue scheduled Meclizine q 8m Ativan 0.5mg PO q8 PRN, helping more no further steroids provided gentle OMT to neck and shoulders, alleviated some symptoms continue therapy not safe to return home, she agrees to [facility] (2) Dizziness: as noted above. less likely BPPV, more likely labrynthitis (3) Vertigo: as noted above. (4) Vomiting: completely resolved (5) Ambulatory dysfunction: doubt complex migraine. imaging for stroke workup is negative. will continue supportive care with meclizine, IV compazine MRI will be repeated focusing on the inner canal -- NO ABNORMALITIES - Continue pravastatin, start on asa 81 mg - PT/OT consults - Neuro consults - BP well controlled (6) SVT (supraventricular tachycardia): - Well controlled on diltiazem - Follows with Dr. Marshall as outpatient, no current cardiac complaints. 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 -Finished round of BCG 2 weeks ago, this was the third treatment since Spring 2018. Follows with Dr. Tapia as outpatient (8) GERD (gastroesophageal reflux disease): - Continue pantoprazole (9) HLD (hyperlipidemia): - Continue pravastatin 40 mg HS (10) Vitamin D deficiency: (11) Osteoporosis: - Do not see Vit D supplementation on home med rec, discuss prior to dc (12) Insomnia: - Holding sleep agents unless the pt requests these. Melatonin not available in the house. (13) Asthma: - recently completed course of doxycycline and prednisone for acute bronchitis and URI about a week ago. No residual sx. - O2 sats = 95% on RA, no supplemental O2 used at baseline (14) DVT prophylaxis: -teds, scds, LOVENOX Dispo: From home, lives alone, PT/OT consults, plan for [facility] for short term rehab while she recovers Subjective patient still with dizziness today but getting better no double vision which is an improvement, no nausea, eating well walking to the bathroom with her walker, able to stand at the sink still with intermittent dizziness, able to steady herself with walker she agrees to going to [facility] for rehab, likely tomorrow admits that her neck is sore, no pain in inner ear like before Review of Systems Review of Systems: All systems reviewed & are unremarkable except as noted in HPI & below Ear, Nose, Mouth, Throat: + dizziness; no ear pain, no hearing loss and no hyperacusis Neurologic: + unsteadiness and + dizziness Physical Exam Constitutional: WD/WN, vitals as above Eyes: PERRL, conjunctivae normal, anicteric sclerae (mild horizontal nystagm us) ENMT: external ear and nose normal, oropharynx normal Neck: trachea midline, no thyromegaly Respiratory: normal respiratory effort, lungs clear to auscultation Cardiovascular: RRR, no murmur, no edema Gastrointestinal (Abdomen): normal bowel sounds, soft, nontender, no hepatosplenomegaly Musculoskeletal: no cyanosis or clubbing, extremities motor strength 5/5 Skin: no rashes, warm and dry Neurologic: patellar DTR's 2+ bilat, sensation intact and PERRL, EOMI, accommodation nl, no face palsy, no dysarthria Psychiatric: A+Ox3, euthymic affect Lymphatic: no cervical or axillary lymphadenopathy Results & Data Vital Signs (Past 12 Hours) Vital Signs Temp Pulse Resp BP Pulse Ox 03/25/19 15:45 36.6 C 68 20 146/84 H 95 03/25/19 11:25 36.9 C 57 L 20 138/75 96 03/25/19 07:26 36.7 C 53 L 20 126/72 95 Laboratory Results Laboratory Results - last 24 hr 03/25/19 07:41 POC Glucose 81 Medications Administered Current Inpatient Medications Acetaminophen (Tylenol) 650 mg PO Q4H PRN PRN Reason: Pain or Fever Stop: 04/19/19 21:33 Last Admin: 03/25/19 08:16 Dose: 650 mg Documented by: Aspirin (Ecotrin Ectab) 81 mg PO QAM [facility] Stop: 04/19/19 08:59 Last Admin: 03/25/19 07:39 Dose: 81 mg Documented by: Diltiazem HCl (Tiazac) 120 mg PO QPM [facility] Stop: 04/18/19 20:59 Last Admin: 03/24/19 20:40 Dose: 120 mg Documented by: Doxycycline Hyclate (Vibramycin) 100 mg PO BID [facility] Stop: 04/02/19 09:59 Last Admin: 03/25/19 07:39 Dose: 100 mg Documented by: Gadobutrol (Gadavist 65ml) 5.5 ml IV ONCE PRN PRN Reason: Interaction Checking Stop: 03/25/19 18:40 Prochlorperazine 10 mg/ (Syringe) 10 mls @ 5 mls/min IV Q8H PRN PRN Reason: Nausea And Vomiting Stop: 04/18/19 16:16 Lorazepam (Ativan) 0.5 mg PO Q8H PRN PRN Reason: Dizziness or Vertigo Stop: 04/24/19 08:48 Last Admin: 03/25/19 09:43 Dose: 0.5 mg Documented by: Meclizine HCl (Antivert) 25 mg PO Q8H [facility] Stop: 04/20/19 18:59 Last Admin: 03/25/19 11:12 Dose: 25 mg Documented by: Pravastatin Sodium (Pravachol) 40 mg PO HS [facility] Stop: 04/18/19 20:59 Last Admin: 03/24/19 20:40 Dose: 40 mg Documented by: Sodium Chloride (Bertie Nasal) 1 sprays NA PRN PRN PRN Reason: Congestion Stop: 04/21/19 03:38 Last Admin: 03/22/19 06:18 Dose: 1 sprays Documented by: PG Care Time/CCT Total # of Minutes Spent Total Time Spent with Patient: Total time spent is greater than 50% in coordination of care (as documented) at patient's floor/unit and/or counseling patient: (1) Vomiting Nausea presence: with nausea Vomiting Intractability: non-intractable Vomiting type: unspecified Qualified Code(s): R11.2 - Nausea with vomiting, unspecified
[2019-03-25] MEDS: PRAVASTATIN SOD 40 MG TAB PO SCH (20:33)
[2019-03-25] MEDS: dilTIAZem ER 120 MG CAPCR PO SCH (20:35)
[2019-03-26] MEDS: MECLIZINE HCL 25 MG TAB PO SCH ×3 (02:45→18:14)
[2019-03-26] MEDS: DOXYCYCLINE HYCLATE 100 MG CAP PO SCH ×2 (07:43→20:23)
[2019-03-26] MEDS: ASPIRIN 81 MG ECTAB PO SCH (07:43)
[2019-03-26] MEDS: ACETAMINOPHEN 325 MG TAB PO PRN ×2 (09:49→18:14)
--- NOTE | 2019-03-26 16:54 | Hospitalist Progress Note ---
Date of Service March 26, 2019 Assessment & Plan (1) BPPV (benign paroxysmal positional vertigo): Likely vestibular neuritis, not BPPV some improvement with Doxycycline, will continue for 7 days total no hearing loss on exam continue scheduled Meclizine q 8m Ativan 0.5mg PO q8 PRN, helping more no further steroids provided gentle OMT to neck and shoulders on 03/25, will repeat tomorrow, alleviated some symptoms continue therapy not safe to return home, she agrees to [facility] try for discharge tomorrow (2) Dizziness: as noted above. less likely BPPV, more likely labrynthitis or vestibular neuritis (3) Vertigo: as noted above. (4) Vomiting: completely resolved (5) Ambulatory dysfunction: doubt complex migraine. imaging for stroke workup is negative. will continue supportive care with meclizine, Ativan MRI repeated focusing on the inner canal -- NO ABNORMALITIES - Continue pravastatin, start on asa 81 mg - PT/OT consults - Neuro consults - BP well controlled unsafe to return home according to PT and OT, too unsteady will try for [facility] tomorrow (6) SVT (supraventricular tachycardia): - Well controlled on diltiazem - Follows with Dr. Marshall as outpatient, no current cardiac complaints. 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 -Finished round of BCG 3 weeks ago, this was the third treatment since Spring 2018. Follows with Dr. Tapia as outpatient (8) GERD (gastroesophageal reflux disease): - Continue pantoprazole (9) HLD (hyperlipidemia): - Continue pravastatin 40 mg HS (10) Vitamin D deficiency: (11) Osteoporosis: - Do not see Vit D supplementation on home med rec, discuss prior to dc (12) Insomnia: - Holding sleep agents unless the pt requests these. Melatonin not available in the house. (13) Asthma: - recently completed course of doxycycline and prednisone for acute bronchitis and URI about a week ago. No residual sx. - O2 sats = 95% on RA, no supplemental O2 used at baseline (14) DVT prophylaxis: -teds, scds, LOVENOX Dispo: From home, lives alone, PT/OT consults, plan for [facility] for short term rehab while she recovers Subjective patient slowly improving says her neck hurts again today after feeling better with some OMT yesterday no double vision but she gets some blurred vision intermittently no sinus pain, no ear pain, no loss of hearing she would like to follow up with Dr. Mora with ENT, told her we could try to get her in earlier answered her questions about the diagnosis, about prognosis and how to treat after discharge denied rehab at [facility], called insurance and did not receive a call back, will call them in the morning Review of Systems Review of Systems: All systems reviewed & are unremarkable except as noted in HPI & below Ear, Nose, Mouth, Throat: + dizziness; no ear pain, no hearing loss and no hyperacusis Neurologic: + unsteadiness and + dizziness Physical Exam Constitutional: WD/WN, vitals as above Eyes: PERRL, conjunctivae normal, anicteric sclerae (mild horizontal nystagmus) ENMT: external ear and nose normal, oropharynx normal Neck: trachea midline, no thyromegaly Respiratory: normal respiratory effort, lungs clear to auscultation Cardiovascular: RRR, no murmur, no edema Gastrointestinal (Abdomen): normal bowel sounds, soft, nontender, no hepatosplenomegaly Musculoskeletal: no cyanosis or clubbing, extremities motor strength 5/5 Skin: no rashes, warm and dry Neurologic: patellar DTR's 2+ bilat, sensation intact and PERRL, EOMI, ac commodation nl, no face palsy, no dysarthria Psychiatric: A+Ox3, euthymic affect Lymphatic: no cervical or axillary lymphadenopathy Results & Data Vital Signs (Past 12 Hours) Vital Signs Temp Pulse Pulse Resp BP Pulse Ox 03/26/19 14:58 36.7 C 69 18 135/78 95 03/26/19 11:37 36.6 C 67 18 125/70 98 03/26/19 07:18 36.9 C 61 20 118/62 92 03/26/19 07:15 69 Laboratory Results Laboratory Results - last 24 hr 03/26/19 16:10 POC Glucose 124 H Medications Administered Current Inpatient Medications Acetaminophen (Tylenol) 650 mg PO Q4H PRN PRN Reason: Pain or Fever Stop: 04/19/19 21:33 Last Admin: 03/26/19 09:49 Dose: 650 mg Documented by: Aspirin (Ecotrin Ectab) 81 mg PO QAM [facility] Stop: 04/19/19 08:59 Last Admin: 03/26/19 07:43 Dose: 81 mg Documented by: Diltiazem HCl (Tiazac) 120 mg PO QPM [facility] Stop: 04/18/19 20:59 Last Admin: 03/25/19 20:35 Dose: 120 mg Documented by: Doxycycline Hyclate (Vibramycin) 100 mg PO BID [facility] Stop: 04/02/19 09:59 Last Admin: 03/26/19 07:43 Dose: 100 mg Documented by: Prochlorperazine 10 mg/ (Syringe) 10 mls @ 5 mls/min IV Q8H PRN PRN Reason: Nausea And Vomiting Stop: 04/18/19 16:16 Lorazepam (Ativan) 0.5 mg PO Q8H PRN PRN Reason: Dizziness or Vertigo Stop: 04/24/19 08:48 Last Admin: 03/25/19 09:43 Dose: 0.5 mg Documented by: Meclizine HCl (Antivert) 25 mg PO Q8H [facility] Stop: 04/20/19 18:59 Last Admin: 03/26/19 10:57 Dose: 25 mg Documented by: Pravastatin Sodium (Pravachol) 40 mg PO HS [facility] Stop: 04/18/19 20:59 Last Admin: 03/25/19 20:33 Dose: 40 mg Documented by: Sodium Chloride ([place] Nasal) 1 sprays NA PRN PRN PRN Reason: Congestion Stop: 04/21/19 03:38 Last Admin: 03/22/19 06:18 Dose: 1 sprays Documented by: PG Care Time/CCT Total # of Minutes Spent Total Time Spent with Patient: Total time spent is greater than 50% in coordination of care (as documented) at patient's floor/unit and/or counseling patient: (1) Vomiting Nausea presence: with nausea Vomiting Intractability: non-intractable Vomiting type: unspecified Qualified Code(s): R11.2 - Nausea with vomiting, unspecified
[2019-03-26] MEDS: PRAVASTATIN SOD 40 MG TAB PO SCH (20:23)
[2019-03-26] MEDS: dilTIAZem ER 120 MG CAPCR PO SCH (20:24)
[2019-03-27] MEDS: MECLIZINE HCL 25 MG TAB PO SCH ×2 (05:05→10:46)
[2019-03-27] MEDS: DOXYCYCLINE HYCLATE 100 MG CAP PO SCH (07:58)
[2019-03-27] MEDS: ASPIRIN 81 MG ECTAB PO SCH (07:58)
--- NOTE | 2019-03-27 14:28 | Discharge Summary ---
Date of Service March 27, 2019 Admission HPI Per Admitting Provider This is an 79 yo F with PMHx of SVT, HTN, HLD, Bladder cancer, prediabetes, GERD, asthma, insomnia, Vit D deficiency, osteopenia, degenerative arthritis of the spine, who presents with the acute onset of dizziness, nausea, vomiting, and diaphoresis which started around 10am. Pt was in her normal state of health this morning where she went to the gym for about 1.5 hrs like she typically does, and then proceeded to run errands. She felt slightly ill upon getting pictures developed at [facility] and then decided it would be best for her to go home. She became severely nauseous and vomited several times, while also became dizzy. Since being in the ER she was given IV zofran and compazine and dizziness is slightly better. She had significant difficulty getting up to walk to the bathroom with nursing assistance because of how unsteady her gait is due to dizziness. Of note, the pt completed a course of doxycycline and prednisone for acute bronchitis last week. Here in the ER her lab findings are essentially normal. CT of the head and CTA are negative for acute findings. She took her normally scheduled medications last evening. Pt denies any other complaints. Her son is with her at bedside during the exam. Principal Diagnosis Acute vertigo due to vestibular neuritis Discharge Exam Constitutional WD/WN, vitals as above Eyes PERRL, conjunctivae normal, anicteric sclerae ENMT external ear and nose normal, oropharynx normal Neck trachea midline, no thyromegaly Respiratory normal respiratory effort, lungs clear to auscultation Cardiovascular RRR, no murmur, no edema Gastrointestinal (Abdomen) normal bowel sounds, soft, nontender, no hepatosplenomegaly Musculoskeletal no cyanosis or clubbing, extremities motor strength 5/5 Skin no rashes, warm and dry Neurologic patellar DTR's 2+ bilat, sensation intact and PERRL, EOMI, accommodation nl, no face palsy, no dysarthria Psychiatric A+Ox3, euthymic affect Lymphatic no cervical or axillary lymphadenopathy Discharge Data Allergies Allergy/AdvReac Type Severity Reaction Status Date / Time pine nut Allergy Intermediate ITCHING,THROAT Verified 03/19/19 11:42 CLOSES amoxicillin Allergy U C. DIFF Verified 03/19/19 11:42 pollen extracts AdvReac U SNEEZING;ITCHY Verified 03/19/19 11:42 EYES ragweed pollen AdvReac U SNEEZING Verified 03/19/19 11:42 solifenacin AdvReac U CONSTIPATIO Verified 03/19/19 11:42 N Consultations 03/19/19 14:02 ED Decision to Admit Stat 03/19/19 14:15 Consult Case Management - Discharge Planning Routine 03/19/19 16:17 Consult Case Management - Discharge Planning Routine Consult Neurology Routine Ordered Studies 03/19/19 11:12 CT angio head wo/w Stat CT angio neck with con Stat 03/19/19 16:17 MR brain wo/w con Routine 03/21/19 14:13 MR brain IAC wo/w con Routine Hospital Course (1) Vestibular neuritis: Likely vestibular neuritis, not BPPV some improvement with Doxycycline, will continue for 7 days total no hearing loss on exam continue scheduled Meclizine q 8H Ativan 0.5mg PO q8 PRN, helping more no further steroids provided gentle OMT to neck and shoulders on 03/25, alleviated some symptoms continue therapy she will go home with home health and home therapy her son will live with her for several days to make sure she is safe follow up with Dr. Dumont next week her symptoms have improved a little each day feel that she will completely recover in a week to 10 days (2) Dizziness: as noted above. less likely BPPV, more likely vestibular neuritis differential - symptoms did not improve with vestibular therapy making BPPV unlikely - MRI brain negative for stroke, tumor, acoustic neuroma - no tinnitus or hearing loss making Meniere's less likely - doubt migraine with vertigo as symptoms have persisted for over a week thus most likely diagnosis is vestibular neuritis, will resolve slowly, treat symptoms (3) Vertigo: as noted above. (4) Vomiting: completely resolved (5) Ambulatory dysfunction: see above under vertigo ambulation has improved dramatically using rolling walker to steady herself if needed will go home with home therapy, family will be with her for several days (6) SVT (supraventricular tachycardia): - Well controlled on diltiazem - Follows with Dr. Marshall as outpatient, no current cardiac complaints. 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 -Finished round of BCG 3 weeks ago, this was the third treatment since Spring 2018. Follows with Dr. Tapia as outpatient (8) GERD (gastroesophageal reflux disease): - Continue pantoprazole (9) HLD (hyperlipidemia): - Continue pravastatin 40 mg HS (10) Vitamin D deficiency: (11) Osteoporosis: - Do not see Vit D supplementation on home med rec, discuss prior to dc (12) Insomnia: - Holding sleep agents unless the pt requests these. Melatonin not available in the house. (13) Asthma: - recently completed course of doxycycline and prednisone for acute bronchitis and URI about a week ago. No residual sx. - O2 sats = 95% on RA, no supplemental O2 used at baseline (14) DVT prophylaxis: -teds, scds, LOVENOX Total Time Total Time Spent Total Time Spent (In Minutes): 40 minutes Total Time Includes: Examination of the Patient, Discharge Planning, Medication Reconciliation and Other (discussion with family) Discharge Plan Discharge Items Patient Disposition: Home - Home Health Services Reason For Visit: ACUTE ONSET DIZZINESS, NAUSEA, VOMITING, ATAXIA Discharge Diagnosis: Acute vertigo due to vestibular neuritis Mild sinusitis Condition on Discharge: Good Health Concerns: continue to treat mild sinusitis please be safe at home, go slowly, use rolling walker Goals: improve symptoms with therapy, Meclizine and Ativan as needed follow up with Dr. Dumont on 04/01 Activity: Per Instructions section Lifting: Gradually increase as tolerated Bathing: No limitations Exercise/Sports: Gradually increase as tolerated Driving/Machine Use: no driving until after follow up with Dr. Dumont Non-emergency contact: Primary Care Provider Call non-emergency contact if: you have any medication questions, your symptoms worsen and you have a fever Follow-up/Referrals: Pablo Dumont MD [Primary Care Provider] - 04/01/19 8:50 am (Please, follow up at Dr. Dumont's office with Jeanne Brary PA-C on SundayApril 01 at 8:50 am. *If you need to change this appointment, call the office at [phone].) Tevin Main MD, [facility] [Physician] - (Please, follow up at [facility] ENT Office with Dr. Main. *A nurse will call you with the appointment details. The office is located at [address] [place] [address] in [place]. If you have any questions, call the office at [phone].) Diet: Regular Addtl Attending Provider Instructions: Medications: - MECLIZINE: take one tablet every [address] see [address] Dumont, see below - ATIVAN: 0.5mg, take one tablet every 8 hours only as needed for dizziness that is not controlled by Meclizine - DOXYCYCLINE: 100mg twice a day for 5 more days to complete 10 days total Acute vertigo: due to vestibular neuritis thorough work up while hospitalized, no evidence of stroke, no evidence of acoustic neuroma your symptoms did not markedly improve with vestibular therapy techniques which makes benign positional vertigo unlikely no ringing in the ears or hearing loss so Meneire's disease unlikely thus the most logical diagnosis is vestibular neuritis this is self limiting, treat the symptoms until they resolve use the meclizine every 8 hours you can also use Ativan only as needed if you still have dizziness despite t he meclizine use walker, no driving, have family stay with you you will have home PT/OT if you are still having symptoms when you follow up with Dr. Dumont then he can prescribe outpatient therapy Mild sinusitis: complete course of Doxycycline my nurse navigator will be in contact if she is able to get you appointment with ENT Blurred vision: recommend that you make an appt with Dr. Pearson in next 2-4 weeks for evaluation Pending Studies at Discharge: No Stand-Alone Forms: My [facility] Medications and DC Order Prescriptions: New doxycycline hyclate 100 mg Capsule 100 mg PO BID 5 Days Qty: 10 RF: 0 lorazepam 0.5 mg Tablet 0.5 mg PO Q8H PRN (Reason: dizziness or vertigo) 7 Days Qty: 20 RF: 0 meclizine 25 mg Tablet 25 mg PO Q8H 14 Days Qty: 42 RF: 1 Continued pravastatin 40 mg tablet 40 mg PO HS RF: 0 diclofenac sodium 50 mg tablet,delayed release (DR/EC) 50 mg PO BID PRN (Reason: Arthritis - Pain) RF: 0 zolpidem 10 mg tablet 5 mg PO HS PRN (Reason: Sleep) RF: 0 diltiazem HCl 120 mg capsule,extended release 12 hr 120 mg PO QPM RF: 0 epinephrine 0.3 mg/0.3 mL auto-injector 0.3 mg IM DIRECTED PRN (Reason: Allergic Reaction) RF: 0 melatonin 10 mg Tablet 10 mg PO HS PRN (Reason: Sleep) RF: 0 Restasis 0.05 % Dropperette 1 drp OPB BID PRN (Reason: Dry Eye(S)) RF: 0 albuterol sulfate 90 mcg/actuation HFA aerosol inhaler 2 puff Inhalation QID PRN (Reason: Shortness Of Breath Or Wheezing) RF: 0 Discharge Orders: Discharge Order (Routine); Ordered 03/27/19 Ordered By: Steven Gonzalez Admission Data Admit Date/Time: 03/20/19 16:20 Attending Provider: Steven Gonzalez Admit Provider: Flores Huizar Primary Care Provider: Pablo Dumont Other Providers: Flores Huizar ; Roc Rosenberg Other Interventions: Discharge Summary Assessment (RN) Last Done: 03/27/19 15:38 DC Date/Time DO NOT enter until pt leaves facility: 03/27/19 18:30
== END 2019-03-27 18:30 | disposition home health service (06) | DRG 149 ==
LOC: 2S 10:52 → ED 10:52 → SUATTDRO 14:12 → 2S 15:45 → SUATTDRO 03-20 16:20 → 2N 03-20 17:56

== ENCOUNTER 2020-12-13 16:03 | Observation (INO) ==
[2020-12-13] MEDS ORDERED: SODIUM CHLORIDE 0.9% 500 ML IV SCH (16:30)
--- NOTE | 2020-12-13 16:47 | Emergency Department Note ---
History of Present Illness General Chief complaint: Cardiac Assessment Stated complaint: HIGH HEART RATE, DIZZY Time Seen by Provider: 12/13/20 16:17 Source: patient Mode of arrival: ambulatory Limitations: no limitations History of Present Illness Maximum Pain Intensity: 0 This patient is a 80-year-old female comes in after feeling lightheaded and dizzy today. She said that she has had this in the past. 2 weeks ago she was seen after having vertigo. She has a follow-up appoint with Dr. Moreno later this week. When she was seen here on the or she said her heart rate was elevated and her blood pressure was elevated thought she was dehydrated. She also fell about a week or so ago and had a CAT scan of her head which was negative. She was started on prednisone last week. She has had a mild headache off and on. She saw Dr. Montesinos today in his office she felt like she might pass out and her heart was irregular and fast according to her. They sent her over here. She said no chest pain or shortness of breath. She has a history of SVT but no history of A. fib she is on any blood thinners. No blood or melena stool. No focal numbness or weakness no chest pain or shortness of breath no h istory of Covid. Home Medications Medication Instructions Recorded Confirmed Type meclizine 25 mg tablet 12.5 mg PO DAILY PRN 05/23/19 12/13/20 History fluticasone furoate 27.5 2 sprays INTNAS DAILY PRN ml 07/30/19 12/13/20 History mcg/actuation nasal spray,suspension cyclosporine 0.05 % eye drops in a 1 drp OPB BID 01/15/20 12/13/20 History dropperette epinephrine 0.3 mg/0.3 mL 0.3 mg IM DIRECTED PRN #2 ea 07/16/20 12/13/20 Rx injection, auto-injector diltiazem HCl 60 mg 60 mg PO DAILY@1700 #30 cap 07/22/20 12/13/20 Rx capsule,extended release 12 hr albuterol sulfate 90 mcg/actuation 2 puff INHALATION QID PRN #18 g 08/18/20 12/13/20 Rx aerosol inhaler diclofenac sodium 50 mg 50 mg PO DAILY PRN 09/16/20 12/13/20 History tablet,delayed release famotidine [Pepcid] 20 mg PO DAILY PRN 10/05/20 12/13/20 History pravastatin 40 mg tablet 40 mg PO HS #90 tab 10/27/20 12/13/20 Rx zolpidem 10 mg tablet 5 mg PO HS PRN #30 tab 10/27/20 12/13/20 Rx azelastine 2 spray INTRANASAL DAILY 12/02/20 12/13/20 History methylprednisolone 4 mg tablets in 4 mg PO .COMPLEX #21 ea 12/09/20 12/13/20 Rx a dose pack Allergies Allergy/AdvReac Type Severity Reaction Status Date / Time pine nut Allergy Intermediate ITCHING,THROAT Verified 12/13/20 17:18 CLOSES amoxicillin [From Augmentin] AdvReac Unknown c.diff Verified 12/13/20 17:18 clavulanic acid AdvReac Unknown c.diff Verified 12/13/20 17:18 [From Augmentin] pollen extracts AdvReac Unknown SNEEZING;ITCHY Verified 12/13/20 17:18 EYES ragweed pollen AdvReac Unknown SNEEZING Verified 12/13/20 17:18 solifenacin AdvReac Unknown CONSTIPATIO Verified 12/13/20 17:18 N trospium AdvReac Unknown increased Verified 12/13/20 17:18 urination baclofen AdvReac FOGGY Uncoded 12/13/20 17:18 SENSATION Past Med/Surg History Medical History Angioma Asthma Bladder cancer Cervical radiculopathy Right Cervical spondylosis GERD (gastroesophageal reflux disease) HLD (hyperlipidemia) HTN (hypertension) Insomnia Osteopenia after menopause Paroxysmal supraventricular tachycardia F/U DR KRISTI MORENO- WELL CONTROLLED WITH DILTIAZEM Prediabetes "DIET CONTROLLED" Pseudogout Right ear pain 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, lumbar region with neurogenic claudication Thoracic back pain Surgical History H/O eye surgery (~2012) repair of ptosis H/O lumbosacral spine surgery 1994 History of anesthesia reaction SLOW TO WAKE UP History of cataract surgery (~2014) B/L History of cholecystectomy (~2011) History of dilatation and curettage (~2015) 05/25/16= LMA#4 at [facility] History of esophagogastroduodenoscopy (EGD) History of foot surgery History of laparoscopy History of oral surgery History of sinus surgery History of tonsillectomy and adenoidectomy History of total hip arthroplasty (~12/2014) RIGHT History of transurethral destruction of bladder lesion (~09/2018) Hx of colonoscopy Family History Father Colorectal cancer Lung cancer Son Environmental allergies Sinusitis Mother Hypertension Heart disease Stroke Aunt Breast cancer maternal aunt Denies family history of Ovarian cancer Bleeding disorder Social History Smoking Status: Never smoker Second Hand Exposure: Yes (SPOUSE SMOKED/PARENTS SMOKED); Hx Alcohol Use: Yes Alcohol type: wine Hx Substance Use: No Preferred Language: Zimbabwean Communication Ability: Effective Visual Impairment: No Limitations Hearing Ability: Normal [employer]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 Beliefs That Will Affect Care: None marital status: / Current Living Situation: Alone current occupational status: retired Feels Safe at Home: Yes Assistive Devices: Glasses Review of Systems A total of 10 systems reviewed and were otherwise negative Physical Exam Vital Signs Vital Signs - 24 hr 12/13/20 16:06 12/13/20 16:30 12/13/20 16:33 Temperature 36.6 C Temperature Source Temporal Artery Scan Pulse Rate 99 H 79 71 Pulse Rate from SpO2 Sensor 77 73 Respiratory Rate 17 19 15 Respiratory Effort / Characteristics Non-Labored Spontaneous Respiratory Depth Normal Respiratory Pattern Regular Blood Pressure 186/101 H 154/93 H Blood Pressure Mean 129 113 Pulse Oximetry 96 98 98 Oxygen Delivery Method Room Air Sepsis Recent Fever Within 48 Hours No Sepsis New/Unexplained Change in Mental Status No Sepsis Action Taken by Nursing No Action Required 12/13/20 16:40 12/13/20 16:50 12/13/20 17:05 Temperature Temperature Source Pulse Rate 85 71 Pulse Rate from SpO2 Sensor 81 Respiratory Rate 19 18 Respiratory Effort / Characteristics Respiratory Depth Respiratory Pattern Blood Pressure Blood Pressure Mean Pulse Oximetry 97 Oxygen Delivery Method Sepsis Recent Fever Within 48 Hours Sepsis New/Unexplained Change in Mental Status Sepsis Action Taken by Nursing 12/13/20 17:10 12/13/20 17:20 12/13/20 17:26 Temperature Temperature Source Pulse Rate 71 73 66 Pulse Rate from SpO2 Sensor 61 Respiratory Rate 16 21 17 Respiratory Effort / Characteristics Respiratory Depth Respiratory Pattern Blood Pressure 186/90 H Blood Pressure Mean 122 Pulse Oximetry 97 Oxygen Delivery Method Sepsis Recent Fever Within 48 Hours Sepsis New/Unexplained Change in Mental Status Sepsis Action Taken by Nursing 12/13/20 17:30 12/13/20 17:31 12/13/20 17:40 Temperature Temperature Source Pulse Rate 72 66 67 Pulse Rate from SpO2 Sensor 64 66 66 Respiratory Rate 18 16 19 Respiratory Effort / Characteristics Respiratory Depth Respiratory Pattern Blood Pressure 171/88 H Blood Pressure Mean 115 Pulse Oximetry 95 95 95 Oxygen Delivery Method Sepsis Recent Fever Within 48 Hours Sepsis New/Unexplained Change in Mental Status Sepsis Action Taken by Nursing 12/13/20 17:50 12/13/20 18:00 12/13/20 18:01 Temperature Temperature Source Pulse Rate 63 65 66 Pulse Rate from SpO2 Sensor 64 65 66 Respiratory Rate 15 17 16 Respiratory Effort / Characteristics Respiratory Depth Respiratory Pattern Blood Pressure 168/85 H Blood Pressure Mean 112 Pulse Oximetry 95 95 94 Oxygen Delivery Method Sepsis Recent Fever Within 48 Hours Sepsis New/Unexplained Change in Mental Status Sepsis Action Taken by Nursing 12/13/20 18:10 12/13/20 18:20 12/13/20 18:30 Temperature Temperature Source Pulse Rate 72 63 72 Pulse Rate from SpO2 Sensor 71 61 70 Respiratory Rate 23 22 20 Respiratory Effort / Characteristics Respiratory Depth Respiratory Pattern Blood Pressure 179/94 H Blood Pressure Mean 122 Pulse Oximetry 96 96 96 Oxygen Delivery Method Sepsis Recent Fever Within 48 Hours Sepsis New/Unexplained Change in Mental Status Sepsis Action Taken by Nursing 12/13/20 18:31 12/13/20 18:40 12/13/20 18:50 Temperature Temperature Source Pulse Rate 66 65 68 Pulse Rate from SpO2 Sensor 66 65 66 Respiratory Rate 17 18 24 Respiratory Effort / Characteristics Respiratory Depth Respiratory Pattern Blood Pressure Blood Pressure Mean Pulse Oximetry 96 95 97 Oxygen Delivery Method Sepsis Recent Fever Within 48 Hours Sepsis New/Unexplained Change in Mental Status Sepsis Action Taken by Nursing 12/13/20 18:59 12/13/20 19:00 12/13/20 19:01 Temperature Temperature Source Pulse Rate 63 69 67 Pulse Rate from SpO2 Sensor 63 66 67 Respiratory Rate 19 19 27 H Respiratory Effort / Characteristics Respiratory Depth Respiratory Pattern Blood Pressure 179/89 H 185/93 H Blood Pressure Mean 119 123 Pulse Oximetry 96 95 97 Oxygen Delivery Method Sepsis Recent Fever Within 48 Hours Sepsis New/Unexplained Change in Mental Status Sepsis Action Taken by Nursing General: Well developed well nourished older female who appears in no acute distress, breathing comfortably on room air. Normal speech HEENT: Normal cephalic atraumatic. Pupils are equal round and reactive to light. Extraocular movements are intact. Oropharynx is pink with moist mucous membranes. No swelling of the mouth lips or tongue. Neck: Supple with a midline trachea. No meningeal signs or stiffness, no JVD or bruits. No Stridor. Chest: Clear to auscultation bilaterally. No wheezes or rhonchi. No increased work of breathing. Heart: Regular rate and rhythm without murmurs or gallops. Abdomen: Soft nontender, nondistended without rebound guarding or rigidity. Extremities: No cyanosis clubbing or edema. No calf tenderness or assymetry Spine/Back. Non tender to palpation. No CVA tenderness Skin: Good turgor without rashes. Neurologic exam: Cranial nerves two through 12 are intact. Motor and sensation are intact and symmetrical throughout. Finger-nose intact no tremor. Course Administered Medications Discontinued Medications Hydralazine HCl (Hydralazine Hcl 20 Mg/Ml Vial) 5 mg IV NOW ONE Stop: 12/13/20 19:13 Last Admin: 12/13/20 19:20 Dose: 5 mg Documented by: [id number] Sodium Chloride (Nss) 500 mls @ 999 mls/hr IV .Q31M LEN Stop: 12/13/20 17:00 Last Infusion: 12/13/20 17:27 Dose: 99 mls/hr Documented by: [id number] Admin: 12/13/20 16:41 Dose: 999 mls/hr Documented by: [id number] Medical Decision Making Differential Diagnosis Vertigo, arrhythmia, acute coronary syndrome, electrolyte or metabolic abnormality, anemia Medical Records Attestation: I reviewed the patient's medical records. Home Medications Current Medication List: was personally reviewed by me Laboratory Data Attestation: I reviewed the patient's lab results. Result diagrams: 12/13/20 16:29 12/13/20 16:29 Lab Results 12/13/20 12/13/20 12/13/20 Range/Units 16:29 16:29 16:29 WBC 10.20 (4.8-10.8) K/uL RBC 5.29 (4.2-5.4) M/uL Hgb 16.7 H (12.0-16.0) g/dL Hct 48.3 H (37-47) % MCV 91.3 (80-100) fL MCH 31.6 (25-34) pg MCHC 34.6 (32-36) g/dL RDW Std Deviation 46.1 (36.4-46.3) fL RDW Coeff of Monik 13.8 (11.5-14.5) % Plt Count 324 (130-400) K/uL MPV 9.4 (7.4-10.4) fL Immature Gran % (Auto) 0.3 % Neut % (Auto) 69.6 % Lymph % (Auto) 19.2 % [place] % (Auto) 10.9 % Eos % (Auto) 0.0 % Baso % (Auto) 0.0 % Neut # (Auto) 7.10 H (1.4-6.5) K/uL Lymph # (Auto) 1.96 (1.2-3.4) K/uL [place] # (Auto) 1.11 H (0.11-0.59) K/uL Eos # (Auto) 0.00 (0-0.5) K/uL Baso # (Auto) 0.00 (0-0.2) K/uL Immature Gran # (Auto) 0.03 H (0.00-0.02) K/uL PT Cancelled INR Cancelled APTT Cancelled PTT Ratio Cancelled Sodium 140 (136-145) mmol/L Potassium 4.0 (3.5-5.1) mmol/L Chloride 107 (98-107) mmol/L Carbon Dioxide 24 (21-32) mmol/L Anion Gap 9.0 (3-11) BUN 22 H (7-18) mg/dl Creatinine 0.86 (0.6-1.2) mg/dl Est Cr Clr Drug Dosing Not Reportable Est GFR ( Amer) 73.4 ml/min Est GFR (Non-Af Amer) 63.4 ml/min BUN/Creatinine Ratio 26.0 H (10-20) Glucose 121 H (70-99) mg/dl Calcium 9.5 (8.5-10.1) mg/dl Magnesium 2.5 H (1.8-2.4) mg/dl Total Bilirubin 0.6 (0.2-1) mg/dl AST 23 (15-37) U/L ALT 60 (12-78) U/L Alkaline Phosphatase 75 (45-117) U/L Troponin I < 0.015 (0-0.045) ng/ml Total Protein 6.9 (6.4-8.2) gm/dl Albumin 3.8 (3.4-5.0) gm/dl Globulin 3.1 (2.5-4.0) gm/dl Albumin/Globulin Ratio 1.2 (0.9-2) TSH 1.830 (0.300-4.500) uIu/ml COVID-19 Eval Order SARS-CoV-2 (PCR) (Negative) 12/13/20 12/13/20 Range/Units 19:28 19:28 WBC (4.8-10.8) K/uL RBC (4.2-5.4) M/uL Hgb (12.0-16.0) g/dL Hct (37-47) % MCV (80-100) fL MCH (25-34) pg MCHC (32-36) g/dL RDW Std Deviation (36.4-46.3) fL RDW Coeff of Monik (11.5-14.5) % Plt Count (130-400) K/uL MPV (7.4-10.4) fL Immature Gran % (Auto) % Neut % (Auto) % Lymph % (Auto) % [place] % (Auto) % Eos % (Auto) % Baso % (Auto) % Neut # (Auto) (1.4-6.5) K/uL Lymph # (Auto) (1.2-3.4) K/uL [place] # (Auto) (0.11-0.59) K/uL Eos # (Auto) (0-0.5) K/uL Baso # (Auto) (0-0.2) K/uL Immature Gran # (Auto) (0.00-0.02) K/uL PT INR APTT PTT Ratio Sodium (136-145) mmol/L Potassium (3.5-5.1) mmol/L Chloride (98-107) mmol/L Carbon Dioxide (21-32) mmol/L Anion Gap (3-11) BUN (7-18) mg/dl Creatinine (0.6-1.2) mg/dl Est Cr Clr Drug Dosing Est GFR ( Amer) ml/min Est GFR (Non-Af Amer) ml/min BUN/Creatinine Ratio (10-20) Glucose (70-99) mg/dl Calcium (8.5-10.1) mg/dl Magnesium (1.8-2.4) mg/dl Total Bilirubin (0.2-1) mg/dl AST (15-37) U/L ALT (12-78) U/L Alkaline Phosphatase (45-117) U/L Troponin I (0-0.045) ng/ml Total Protein (6.4-8.2) gm/dl Albumin (3.4-5.0) gm/dl Globulin (2.5-4.0) gm/dl Albumin/Globulin Ratio (0.9-2) TSH (0.300-4.500) uIu/ml COVID-19 Eval Order Covid19 at [facility] SARS-CoV-2 (PCR) NEGATIVE (Negative) Imaging Data Radiologist's Impression: Chest X-Ray 12/13/20 16:10 XR chest 1V portable CLINICAL HISTORY: Chest Pain COMPARISON STUDY: Chest radiograph December 02, 2020. FINDINGS: Lung volumes are normal. Lungs are clear. There is no pneumothorax or pleural effusion. Cardiac size is normal. Mediastinal contours are normal. There is no evidence for pulmonary edema. IMPRESSION: No acute cardiopulmonary findings. ACT 112: Negative or not required by law. Electronically signed by: Floyd Trejo M.D. 12/13/2020 4:[address] 12/13/20 16:28 CT OF THE HEAD WITHOUT CONTRAST CLINICAL HISTORY: syncope COMPARISON STUDY: Head CT and CTA of the head December 02, 2020. CT DOSE: 537.48 mGy.cm TECHNIQUE: Helical axial images of the head were obtained without IV contrast. Automated exposure control was utilized for the study. A dose lowering technique was utilized adhering to the principles of ALARA. FINDINGS: No acute intracranial hemorrhage, midline shift or mass effect is present. The ventricular system is stable. The basal cisterns are patent. White matter hypodensity suggests small vessel disease. No extra-axial collections are present. There are no findings to suggest acute dural sinus thrombosis or acute territorial infarct. No significant calvarial abnormalities are present. Visualized portions of the sinuses and mastoid air cells are clear. IMPRESSION: No acute intracranial findings. No change in appearance of the brain. ACT 112: Negative or not required by law. Electronically signed by: Floyd Trejo M.D. 12/13/2020 5:11 PM ECG Data Attestation: I personally reviewed and interpreted this ECG as follows: Indication: + syncope (Near syncope), + tachycardia and + weakness Rate (beats per minute): 69 Rhythm: + normal sinus ECG Intervals/blocks: + Normal QRS, + Normal QT and + Normal [place] ECG [place]: + Normal ECG ST segments: + Normal ST segments Comparison ECG Date: from (12/02/20) Change: the following changes noted (Normal sinus rhythm has replaced accelerated junctional rhythm) MDM Narrative This patient comes in after having episode of dizziness. She has history of vertigo and said this felt different. She looks well at present has stable vital signs. IV asked established and she was hydrated with IV normal saline. EKG was obtained and multiple blood testing was obtained I did order CAT scan of her head as well. She was reassessed frequently. She remained stable. EKG does not suggest acute coronary syndrome or arrhythmia. Troponin is negative. CAT scan of her head is unremarkable. She has no acute electrolyte or metabolic abnormalities. She is not anemic. Does not suggest infection. Talking to the patient and her son at length, I am concerned that she is had some episodes recently where she has rapid heart rate and near syncope she also fell and hit her head. There has been concern in the past that she could have A. fib however they have yet to be able to prove it and have never caught anything on her monitor. Apparently, she had a regular fast heart rate in the GI doctors office today. We did keep on a monitor in the ED and she remained in normal sinus rhythm with some PVCs which she says is normal. I do think she needs to be admitted as she had near syncopal episode to rule out a significant arrhythmia or acute cardiac event. I have consulted the hospitalist to see her in the ER f or these measures. Seems cardiac monitoring. Due to the patient's chief complaint she was placed o n a continuous conveyor monitor. She was noted to be in normal sinus rhythm with a pulse of 65. Impression & Plan Near syncope, Heart palpitations, Frequent unifocal PVCs, Hx of supraventricular tachycardia, Lab test negative for COVID-19 virus Discharge Plan Visit Data Chief Complaint: Cardiac Assessment Stated Complaint: HIGH HEART RATE, DIZZY ED Provider: Roc Aguirre Discharge Problem: Near syncope, Heart palpitations, Frequent unifocal PVCs, Hx of supraventricular tachycardia, Lab test negative for COVID-19 virus Forms Stand Alone Forms: [facility] Prescriptions Prescriptions: No Action meclizine 25 mg tablet 12.5 mg PO DAILY PRN (Reason: Dizziness) RF: 0 epinephrine 0.3 mg/0.3 mL auto-injector 0.3 mg IM DIRECTED PRN (Reason: Allergic Reaction) Qty: 2 RF: 3 albuterol sulfate 90 mcg/actuation HFA aerosol inhaler 2 puff Inhalation QID PRN (Reason: Shortness Of Breath Or Wheezing) Qty: 18 RF: 5 diltiazem HCl 60 mg capsule,extended release 12 hr 60 mg PO DAILY@1700 Qty: 30 RF: 6 pravastatin 40 mg tablet 40 mg PO HS Qty: 90 RF: 3 zolpidem 10 mg tablet 5 mg PO HS PRN (Reason: Sleep) Qty: 30 RF: 5 diclofenac sodium 50 mg tablet,delayed release (DR/EC) 50 mg PO DAILY PRN (Reason: Pain) RF: 0 methylprednisolone [Medrol ([place])] 4 mg tablets,dose pack 4 mg PO .COMPLEX Qty: 21 RF: 0 fluticasone furoate 27.5 mcg/actuation spray,suspension 2 sprays INTNAS DAILY PRN (Reason: Congestion) RF: 0 Restasis 0.05 % dropperette 1 drp OPB BID RF: 0 famotidine [Pepcid] 20 mg Tablet 20 mg PO DAILY PRN (Reason: Acid Reflux) RF: 0 azelastine 137 mcg (0.1 %) aerosol,spray 2 spray INTRANASAL DAILY RF: 0
[2020-12-13 16:49] LABS: Hematocrit (blood only) 48.3 % (37-47); Hemoglobin 16.7 g/dL (12.0-16.0); Immature Granulocytes # (auto) 0.03 K/uL (0.00-0.02); Immature Granulocytes % (auto) 0.3 %; Lymphocytes # (auto) 1.96 K/uL (1.2-3.4); Lymphocytes % (auto) 19.2 %; Mean Corpuscular Hemoglobin 31.6 pg (25-34); Mean Corpuscular Hgb Conc 34.6 g/dL (32-36); Mean Corpuscular Volume 91.3 fL (80-100); Mean Platelet Volume 9.4 fL (7.4-10.4); Monocytes # (auto) 1.11 K/uL (0.11-0.59); Monocytes % (auto) 10.9 %; Neutrophils % (auto) 69.6 %; Platelet Count 324 K/uL (130-400); RDW Coefficient of Variation 13.8 % (11.5-14.5); RDW Standard Deviation 46.1 fL (36.4-46.3); Red Blood Count 5.29 M/uL (4.2-5.4)
--- NOTE | 2020-12-13 17:12 | CT Scan Report ---
CT OF THE HEAD WITHOUT CONTRAST CLINICAL HISTORY: syncope COMPARISON STUDY: Head CT and CTA of the head December 02, 2020. CT DOSE: 537.48 mGy.cm TECHNIQUE: Helical axial images of the head were obtained without IV contrast. Automated exposure con trol was utilized for the study. A dose lowering technique was utilized adhering to the principles o f ALARA. FINDINGS: No acute intracranial hemorrhage, midline shift or mass effect is present. The ventricular system is stable. The basal cisterns are patent. White matter hypodensity suggests small vessel disea se. No extra-axial collections are present. There are no findings to suggest acute dural sinus thromb osis or acute territorial infarct. No significant calvarial abnormalities are present. Visualized por tions of the sinuses and mastoid air cells are clear. IMPRESSION: No acute intracranial findings. No change in appearance of the brain. ACT 112: Negative or not required by law. Electronically signed by: Floyd Trejo M.D. 12/13/2020 5:11 PM
[2020-12-13 17:23] LABS: Albumin Level 3.8 gm/dl (3.4-5.0); Blood Urea Nitrogen 22 mg/dl (7-18); Calcium 9.5 mg/dl (8.5-10.1); Carbon Dioxide 24 mmol/L (21-32); Chloride 107 mmol/L (98-107); Est GFR (African American) 73.4 ml/min; Est GFR (Non-African American) 63.4 ml/min; Glucose 121 mg/dl (70-99); Magnesium 2.5 mg/dl (1.8-2.4); Sodium 140 mmol/L (136-145)
[2020-12-13 17:34] LABS: Alanine Aminotransferase 60 U/L (12-78); Albumin Globulin Ratio 1.2 (0.9-2); Alkaline Phosphatase 75 U/L (45-117); Aspartate Aminotransferase 23 U/L (15-37); Bilirubin,Total 0.6 mg/dl (0.2-1); Globulin 3.1 gm/dl (2.5-4.0); Total Protein 6.9 gm/dl (6.4-8.2); Troponin I < 0.015 ng/ml (0-0.045)
--- NOTE | 2020-12-13 18:54 | History & Physical Report ---
Date of Service December 13, 2020 Assessment & Plan (1) Dizziness: Patient is a previous history of PSVT, was to see cardiology as an outpatient but concerned that this is now becoming more recurrent, patient with recent fall that may have been related Also concerned for possible accelerated hypertension as a cause We will place in monitored observation Patient is on diltiazem which we will continue for now PT/OT evaluation Patient's last echo was 09/25, will repeat Event monitor from shows multiple episodes of pSVT I will give a single dose of hydralazine 10 mg x 1 now, monitor blood pressure We will ask cardiology to evaluate for further recommendations. Patient tells me that there may have been a discussion of ablation in the past but she has been reluctant as her symptoms have been previously controlled. (2) HLD (hyperlipidemia): Patient is on pravastatin which we will continue History of Present Illness Chief Complaint: Near syncope Primary Care Provider: Pablo Dumont MD This is an 80-year-old female with past medical history of PSVT, hypertension, hyperlipidemia the presents today with near syncope. Patient is pleasant a very good historian. Patient tells me that she has had PSVT for the past 14 years. She follows with Dr. Moreno from cardiology. She is on diltiazem which typically controls her heart rate. However, patient has been having more episodes of vertigo. These are typically not accompanied with palpitations but she is suspicious that her SVT is the culprit behind it. She did fall about 10 days ago, she did not suffer any significant injury and did not seek medical attention at the time. Today she was at Dr. Montesinos's office for routine follow-up. At that time, she started having the feelings of vertigo and near syncope again. She tells me that he did an EKG and took her vitals. Her blood pressure was elevated but her heart rate was not. She was told that the EKG was normal but that she should seek medical attention present to the emergency room. Patient had her son drive her here for further evaluation. At this time my evaluation, patient's blood pressure was elevated at 171/88, I did have the automatic cuff rechecked this and so this was unchanged. Her pulse was in the 60s and was normal sinus rhythm without evidence of SVT. She did tell me she was having some chills and some residual symptoms after ambulating to the bathroom. Plan will be to place in observation for accelerated hypertension and possible PSVT. Allergies Allergy/AdvReac Type Severity Reaction Status Date / Time pine nut Allergy Intermediate ITCHING,THROAT Verified 12/13/20 17:18 CLOSES amoxicillin [From Augmentin] AdvReac Unknown c.diff Verified 12/13/20 17:18 clavulanic acid AdvReac Unknown c.diff Verified 12/13/20 17:18 [From Augmentin] pollen extracts AdvReac Unknown SNEEZING;ITCHY Verified 12/13/20 17:18 EYES ragweed pollen AdvReac Unknown SNEEZING Verified 12/13/20 17:18 solifenacin AdvReac Unknown CONSTIPATIO Verified 12/13/20 17:18 N trospium AdvReac Unknown increased Verified 12/13/20 17:18 urination baclofen AdvReac FOGGY Uncoded 12/13/20 17:18 SENSATION Home Medications Medication Instructions Recorded Confirmed Type meclizine 25 mg tablet 12.5 mg PO DAILY PRN 05/23/19 12/13/20 History fluticasone furoate 27.5 2 sprays INTNAS DAILY PRN ml 07/30/19 12/13/20 History mcg/actuation nasal spray,suspension cyclosporine 0.05 % eye drops in a 1 drp OPB BID 01/15/20 12/13/20 History dropperette epinephrine 0.3 mg/0.3 mL 0.3 mg IM DIRECTED PRN #2 ea 07/16/20 12/13/20 Rx injection, auto-injector diltiazem HCl 60 mg 60 mg PO DAILY@1700 #30 cap 07/22/20 12/13/20 Rx capsule,extended release 12 hr albuterol sulfate 90 mcg/actuation 2 puff INHALATION QID PRN #18 g 08/18/20 12/13/20 Rx aerosol inhaler diclofenac sodium 50 mg 50 mg PO DAILY PRN 09/16/20 12/13/20 History tablet,delayed release famotidine [Pepcid] 20 mg PO DAILY PRN 10/05/20 12/13/20 History pravastatin 40 mg tablet 40 mg PO HS #90 tab 10/27/20 12/13/20 Rx zolpidem 10 mg tablet 5 mg PO HS PRN #30 tab 10/27/20 12/13/20 Rx azelastine 2 spray INTRANASAL DAILY 12/02/20 12/13/20 History methylprednisolone 4 mg tablets in 4 mg PO .COMPLEX #21 ea 12/09/20 12/13/20 Rx a dose pack Past Med/Surg History Medical History Angioma Asthma Bladder cancer Cervical radiculopathy Right Cervical spondylosis GERD (gastroesophageal reflux disease) HLD (hyperlipidemia) HTN (hypertension) Insomnia Osteopenia after menopause Paroxysmal supraventricular tachycardia F/U DR KRISTI MORENO- WELL CONTROLLED WITH DILTIAZEM Prediabetes "DIET CONTROLLED" Pseudogout Right ear pain 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, lumbar region with neurogenic claudication Thoracic back pain Surgical History H/O eye surgery (~2012) repair of ptosis H/O lumbosacral spine surgery 1994 History of anesthesia reaction SLOW TO WAKE UP History of cataract surgery (~2014) B/L History of cholecystectomy (~2011) History of dilatation and curettage (~2015) 05/25/16= LMA#4 at [facility] History of esophagogastroduodenoscopy (EGD) History of foot surgery History of laparoscopy History of oral surgery History of sinus surgery History of tonsillectomy and adenoidectomy History of total hip arthroplasty (~12/2014) RIGHT History of transurethral destruction of bladder lesion (~09/2018) Hx of colonoscopy Family History Father Colorectal cancer Lung cancer Son Environmental allergies Sinusitis Mother Hypertension Heart disease Stroke Aunt Breast cancer maternal aunt Denies family history of Ovarian cancer Bleeding disorder Social History Smoking Status: Never smoker Second Hand Exposure: Yes (SPOUSE SMOKED/PARENTS SMOKED); Hx Alcohol Use: Yes Alcohol type: wine Hx Substance Use: No Preferred Language: Vincentian Communication Ability: Effective Visual Impairment: No Limitations Hearing Ability: Normal Terrapin Fisher Required: No Beliefs That Will Affect Care: None marital status: / Current Living Situation: Alone current occupational status: retired Feels Safe at Home: Yes Assistive Devices: Glasses Review of Systems Constitutional: no fever, no chills, no weakness, no weight loss and no weight gain Eyes: as per Subjective / HPI Respiratory: no cough, no chest congestion, no dyspnea and no dyspnea on exertion Cardiovascular: + palpitations; no chest pain, no orthopnea, no lightheadedness and no edema Additional Comments: vertigo/near syncope Gastrointestinal: no abdominal pain, no nausea, no vomiting, no constipation and no diarrhea/loose stools Genitourinary: no dysuria, no difficulty urinating, no urinary frequency, no urinary hesitancy, no urinary urgency and no flank pain Musculoskeletal: no back pain, no neck pain, no joint pain, no stiffness and no myalgia Integumentary: no rash Neurologic: no gait abnormality, no unsteadiness, no falls and no generalized weakness Physical Exam Constitutional: cooperative; no acute distress Neck: trachea midline, no thyromegaly Respiratory: normal respiratory effort Auscultation: lungs clear to auscultation bilaterally; no crackles, no rales, no rhonchi and no wheezes Cardiovascular: Rate/Rhythm: regular rate and regular rhythm Heart Sounds: normal S1 and normal S2; no murmur Gastrointestinal (Abdomen): Inspection/Auscultation: abdomen normal to in spection Percussion/Palpation: abdomen soft; abdomen nontender, no guarding, abdomen not rigid and no hepatosplenomegaly Skin: no rashes, warm and dry Results & Data Results & Data ([facility]) Vital Signs (Past 12 Hours) Vital Signs Temp Pulse Resp BP Pulse Ox 12/13/20 17:40 67 19 95 12/13/20 17:31 66 16 95 12/13/20 17:30 72 18 171/88 H 95 12/13/20 17:26 66 17 186/90 H 97 12/13/20 17:20 73 21 12/13/20 17:10 71 16 12/13/20 17:05 71 12/13/20 16:50 85 18 12/13/20 16:40 19 97 12/13/20 16:33 71 15 98 12/13/20 16:30 79 19 154/93 H 98 12/13/20 16:06 36.6 C 99 H 17 186/[address] OF THE HEAD WITHOUT CONTRAST CLINICAL HISTORY: syncope COMPARISON STUDY: Head CT and CTA of the head December 02, 2020. CT DOSE: 537.48 mGy.cm TECHNIQUE: Helical axial images of the head were obtained without IV contrast. Automated exposure control was utilized for the study. A dose lowering technique was utilized adhering to the principles of ALARA. FINDINGS: No acute intracranial hemorrhage, midline shift or mass effect is present. The ventricular system is stable. The basal cisterns are patent. White matter hypodensity suggests small vessel disease. No extra-axial collections are present. There are no findings to suggest acute dural sinus thrombosis or acute territorial infarct. No significant calvarial abnormalities are present. Visualized portions of the sinuses and mastoid air cells are clear. IMPRESSION: No acute intracranial findings. No change in appearance of the brain. PG Care Time/CCT Total # of Minutes Spent Total Time Spent with Patient: Total time spent is greater than 50% in coordination of care (as documented) at patient's floor/unit and/or counseling patient: Coding Level of Care Code 26850 OBS Care - Level 3 Diagnoses Dizziness R42 HLD (hyperlipidemia) E78.5
[2020-12-13] MEDS ORDERED: hydrALAZINE HCL 20 MG/ML VIAL IV ONE (19:12)
[2020-12-13 21:45] LABS: Appearance Urine Clear (Clear); Bilirubin Urine Negative (Negative); Blood Urine Negative (Negative); Color Urine Yellow; Glucose Urine UA Negative (Negative); Ketones Urine Negative (Negative); Leukocyte Esterase Urine Negative (Negative); Nitrite Urine Negative (Negative); Protein Urine Negative (Negative); Specific Gravity Urine 1.011 (1.000-1.030); Urobilinogen Urine Negative (Negative); pH Urine 7.5 (4.5-7.5)
[2020-12-13] MEDS ORDERED: ACETAMINOPHEN 325 MG TAB PO PRN (21:45)
[2020-12-13] MEDS ORDERED: ONDANSETRON INJ 2 MG/ML 2 ML VIAL IV PRN (21:45)
[2020-12-13] MEDS ORDERED: FAMOTIDINE 20 MG TAB PO PRN (21:45)
[2020-12-13] MEDS ORDERED: ALBUTEROL HFA 8 GM INHALER INH PRN (21:45)
[2020-12-13] MEDS ORDERED: FLUTICASONE PROPIONATE NA SPR 16 GM BTL PRN (21:45)
[2020-12-13] MEDS ORDERED: DICLOFENAC SODIUM 25 MG TABDR PO PRN (22:51)
[2020-12-13] MEDS ORDERED: MECLIZINE 12.5 MG TAB PO PRN (22:54)
--- NOTE | 2020-12-13 23:09 | Electrocardiogram Report ---
Test Reason : Blood Pressure : / mmHG Vent. Rate : 069 BPM Atrial Rate : 069 BPM P-R Int : 184 ms QRS Dur : 076 ms QT Int : 398 ms P-R-T Axes : 061 023 044 degrees QTc Int : 426 ms Normal sinus rhythm Normal ECG When compared with ECG of 02-DEC-2020 22:32, No significant change Confirmed by Neil Mays ([id number]) on 12/13/2020 11:08:45 PM Referred By: Confirmed By:Neil Mays
[2020-12-13] MEDS: PRAVASTATIN SOD 40 MG TAB PO SCH (23:19)
[2020-12-13] MEDS ORDERED: traMADol HCL 50 MG TABLET PO STA (23:24)
[2020-12-13] MEDS: *AZELASTINE*ORDER AWAITING ACTION SCH (23:33)
[2020-12-13] MEDS: *RESTASIS*ORDER AWAITING ACTION SCH (23:33)
[2020-12-14] MEDS: ZOLPIDEM TARTRATE 5 MG TAB PO PRN ×2 (01:29→22:38)
[2020-12-14 04:46] LABS: Basophils # (auto) 0.01 K/uL (0-0.2); Basophils % (auto) 0.1 %; Eosinophils # (auto) 0.04 K/uL (0-0.5); Eosinophils % (auto) 0.5 %; Hemoglobin 14.5 g/dL (12.0-16.0); Immature Granulocytes # (auto) 0.02 K/uL (0.00-0.02); Immature Granulocytes % (auto) 0.3 %; Lymphocytes # (auto) 3.08 K/uL (1.2-3.4); Lymphocytes % (auto) 39.8 %; Mean Corpuscular Hemoglobin 30.9 pg (25-34); Mean Corpuscular Hgb Conc 33.7 g/dL (32-36); Mean Corpuscular Volume 91.5 fL (80-100); Mean Platelet Volume 9.1 fL (7.4-10.4); Monocytes # (auto) 1.01 K/uL (0.11-0.59); Monocytes % (auto) 13.1 %; Neutrophils # (auto) 3.57 K/uL (1.4-6.5); Neutrophils % (auto) 46.2 %; Platelet Count 283 K/uL (130-400); RDW Coefficient of Variation 13.8 % (11.5-14.5); RDW Standard Deviation 46.2 fL (36.4-46.3); White Blood Count 7.73 K/uL (4.8-10.8)
[2020-12-14 05:18] LABS: BUN Creatinine Ratio 24.9 (10-20); Blood Urea Nitrogen 16 mg/dl (7-18); Carbon Dioxide 27 mmol/L (21-32); Chloride 111 mmol/L (98-107); Creatinine Clr Calc Pharmacy 55.4 ml/min; Est GFR (African American) 97.5 ml/min; Est GFR (Non-African American) 84.1 ml/min; Glucose 98 mg/dl (70-99); Magnesium 2.3 mg/dl (1.8-2.4); Potassium 3.7 mmol/L (3.5-5.1); Sodium 145 mmol/L (136-145); Troponin I < 0.015 ng/ml (0-0.045)
[2020-12-14] MEDS: *RESTASIS*ORDER AWAITING ACTION SCH ×2 (07:56→15:32)
[2020-12-14] MEDS: *AZELASTINE*ORDER AWAITING ACTION SCH ×2 (07:56→15:31)
--- NOTE | 2020-12-14 11:00 | XCELERA ---
[id number]
--- NOTE | 2020-12-14 11:25 | Cardiology Consultation ---
Date of Consultation December 14, 2020 Assessment & Plan (1) Heart palpitations: -- Frequent PACs, PVCs 2. 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 Hypertension 4. Bladder cancer 5. Vertigo Patient admitted with a number of of symptoms including headache/dizziness and palpitations. Initial cardiac work-up including ECG, troponin and echocardiogram unremarkable. Telemetry reviewed and no recurrence of SVT. Only rare PACs, PVCs. Has remained hypertensive. She has known longstanding paroxysmal SVT, likely AVNRT which was again seen on ECG at ED visit in November. Possible SVT ablation has been discussed and we discussed procedure again today. Has had no recurrence this admission but her symptoms have continued. At this point difficult to attribute all current symptoms to worsened SVT burden. As such we will hold off on pursuing procedure this admission but plan to have her see Dr. Mak in the near future to discuss possible ablation. Has never had an ischemic evaluation and will attempt to obtain an exercise stress echocardiogram. Assuming study unremarkable okay for discharge today. Would increase diltiazem to 60 mg twice daily. Would also add losartan 25 mg daily. Follow-up with me in 1 to 2 weeks and will arrange EP follow-up as well. ADDENDUM: Patient was taken for exercise stress echo. When she was stood up for procedure developed narrow complex tachycardia to the 150s reproducing symptoms. SVT broke spontaneously. With recurrence have discussed with Dr. Mak about potentially pursuing SVT ablation this admission or in the near future as an outpatient. History of Present Illness Attending Physician: Steven Gonzalez, History of Present Illness Mrs. Pike is a very pleasant 80-year-old woman with a longstanding history of palpitations secondary to SVT, frequent PACs/PVCs seen today after admitted yesterday with headache, presyncope, hypertension. Other medical issues include hypertension, dyslipidemia, osteoarthritis, degenerative disc disease, intermittent vertigo and bladder cancer. States she is been feeling unwell basically ever since she had a benign bladder lesion removed back in October. Since that time she reports intermittent fatigue, episodes of dizziness, headache. Had an ED visit 11/04 in the setting of nausea, dehydration. Seen by GI in interim. Another ED visit 12/02/2020 was admitted with dizziness, heart palpitations/racing. This was preceded by a mechanical fall. Initial ECG at that time showed SVT (likely AVNRT) at a ventricular rate of 120. Yesterday primary concerns were headache, dizziness. Was seen by her GI doctor where was noted to be hypertensive to the 160s with questionable irregular heartbeats and sent to ED. Initial ECG showed normal sinus rhythm. Telemetry has been unremarkable. Troponin negative. Echocardiogram this morning showed preserved LV function with no new wall motion abnormalities, mild to moderate AI. Prior cardiac history Longstanding paroxysmal SVT. Prior hospitalization 2013 in [place] after prolonged episode. 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 She was managed with metoprolol until 03/2018 when she presented with worsening palpitations and repeat Holter monitor again showed frequent PACs, PVCs, occasional paroxysmal SVT (longest 14 seconds). Had one ED visit and was admitted and seen by Dr. Mak who transitioned her beta-maurizio to Cardizem 120 mg daily. With change initially had improvement in symptoms. In June 2019 had an EKG with questionable atrial fibrillation although on further review appears to be sinus with frequent atrial ectopy. Initially prescribed Eliquis which is since been discontinued. Underwent repeat echocardiogram which showed preserved LV function. Last event monitor 09/2019 showed sinus rhythm with apparent symptomatic PVCs and episodes of SVT up to 150s. Allergies Allergy/AdvReac Type Severity Reaction Status Date / Time pine nut Allergy Intermediate ITCHING,THROAT Verified 12/13/20 17:18 CLOSES amoxicillin [From Augmentin] AdvReac Unknown c.diff Verified 12/13/20 17:18 clavulanic acid AdvReac Unknown c.diff Verified 12/13/20 17:18 [From Augmentin] pollen extracts AdvReac Unknown SNEEZING;ITCHY Verified 12/13/20 17:18 EYES ragweed pollen AdvReac Unknown SNEEZING Verified 12/13/20 17:18 solifenacin AdvReac Unknown CONSTIPATIO Verified 12/13/20 17:18 N trospium AdvReac Unknown increased Verified 12/13/20 17:18 urination baclofen AdvReac FOGGY Uncoded 12/13/20 17:18 SENSATION Home Medications Medication Instructions Recorded Confirmed Type meclizine 25 mg tablet 12.5 mg PO DAILY PRN 05/23/19 12/13/20 History fluticasone furoate 27.5 2 sprays INTNAS DAILY PRN ml 07/30/19 12/13/20 History mcg/actuation nasal spray,suspension cyclosporine 0.05 % eye drops in a 1 drp OPB BID 01/15/20 12/13/20 History dropperette epinephrine 0.3 mg/0.3 mL 0.3 mg IM DIRECTED PRN #2 ea 07/16/20 12/13/20 Rx injection, auto-injector diltiazem HCl 60 mg 60 mg PO DAILY@1700 #30 cap 07/22/20 12/13/20 Rx capsule,extended release 12 hr albuterol sulfate 90 mcg/actuation 2 puff INHALATION QID PRN #18 g 08/18/20 12/13/20 Rx aerosol inhaler diclofenac sodium 50 mg 50 mg PO DAILY PRN 09/16/20 12/13/20 History tablet,delayed release famotidine [Pepcid] 20 mg PO DAILY PRN 10/05/20 12/13/20 History pravastatin 40 mg tablet 40 mg PO HS #90 tab 10/27/20 12/13/20 Rx zolpidem 10 mg tablet 5 mg PO HS PRN #30 tab 10/27/20 12/13/20 Rx azelastine 2 spray INTRANASAL DAILY 12/02/20 12/13/20 History methylprednisolone 4 mg tablets in 4 mg PO .COMPLEX #21 ea 12/09/20 12/13/20 Rx a dose pack Patient History Medical History Angioma Asthma Bladder cancer Cervical radiculopathy Right Cervical spondylosis GERD (gastroesophageal reflux disease) HLD (hyperlipidemia) HTN (hypertension) Insomnia Osteopenia after menopause Paroxysmal supraventricular tachycardia F/U DR KRISTI MORENO- WELL CONTROLLED WITH DILTIAZEM Prediabetes "DIET CONTROLLED" Pseudogout Right ear pain 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, lumbar region with neurogenic claudication Thoracic back pain Surgical History H/O eye surgery (~2012) repair of ptosis H/O lumbosacral spine surgery 1994 History of anesthesia reaction SLOW TO WAKE UP History of cataract surgery (~2014) B/L History of cholecystectomy (~2011) History of dilatation and curettage (~2015) 05/25/16= LMA#4 at [facility] History of esophagogastroduodenoscopy (EGD) History of foot surgery History of laparoscopy History of oral surgery History of sinus surgery History of tonsillectomy and adenoidectomy History of total hip arthroplasty (~12/2014) RIGHT History of transurethral destruction of bladder lesion (~09/2018) Hx of colonoscopy Family History Father Colorectal cancer Lung cancer Son Environmental allergies Sinusitis Mother Hypertension Heart disease Stroke Aunt Breast cancer maternal aunt Denies family history of Ovarian cancer Bleeding disorder Social History Smoking Status: Never smoker Second Hand Exposure: Yes (during childhood); Do You Dip or Chew Tobacco: No; Tobacco Cessation Education Requested by Patient: No Hx Alcohol Use: Yes Alcohol type: wine Hx Substance Use: No Preferred Language: Tuvaluan Communication Ability: Effective Visual Impairment: No Limitations Hearing Ability: Normal First Responder Required: No Beliefs That Will Affect Care: None marital status: / Current Living Situation: Alone current occupational status: retired Other Information That Helps Us Care for You: No Feels Safe at Home: Yes Safety Concerns: Feels Safe At This Time Assistive Devices: None Review of Systems Review of Systems: All systems reviewed & are unremarkable except as noted in HPI & below Physical Exam Physical Exam: General: Comfortable, no acute distress HEENT: Sclerae anicteric, mucous membranes moist Lungs: Clear to auscultation bilaterally, no rhonchi or wheezes Cardiac: Regular rate and rhythm, no murmurs. No JVD. Abdomen: Soft, nontender, nondistended, positive bowel sounds. Extremities: Warm, well perfused, no edema. 2+ radial pulses Skin: No rashes or lesions. Neuro: Nonfocal Psych: Alert orient x3, normal affect and mood Results & Data ([facility]) Vital Signs (Past 12 Hours) Vital Signs Temp Pulse Pulse Resp BP BP Pulse Ox 12/14/20 10:44 98.4 F 71 20 160/82 H 96 12/14/20 08:56 64 12/14/20 07:25 96.8 F L 64 19 145/73 H 93 12/14/20 04:26 98.1 F 59 L 18 118/63 95 12/13/20 23:43 66 PG Care Time/CCT Total # of Minutes Spent Total Time Spent with Patient: Total time spent is greater than 50% in coordination of care (as documented) at patient's floor/unit and/or counseling patient: Coding Level of Care Code 62857 OBS Care - Level 3 Diagnoses Heart palpitations R00.2
[2020-12-14] MEDS: LOSARTAN POTASSIUM 25 MG TAB PO SCH (13:20)
[2020-12-14] MEDS ORDERED: dilTIAZem HCl 5 MG/ML 5 ML VIAL IV STA (13:34)
--- NOTE | 2020-12-14 13:54 | Hospitalist Progress Note ---
Date of Service December 14, 2020 Assessment & Plan (1) Paroxysmal SVT (supraventricular tachycardia): h/o such, wore a Holter monitor last fall has been controlled with Diltiazem SR 60mg daily prior to these new episodes was scheduled for stress echo today but HR jumped to 150's when she sat up so it was cancelled will increase Diltiazem to 60mg BID consult Dr. Mak, consider ablation, timing will be up to EP (2) Dizziness: Patient is a previous history of PSVT, was to see cardiology as an outpatient but concerned that this is now becoming more recurrent, patient with recent fall that may have been related Also concerned for possible accelerated hypertension as a cause symptoms correlate with SVT, gets palpitations will try to definitively treat the SVT with Diltiazem and possible ablation PT/OT evaluation Event monitor from shows multiple episodes of pSVT (3) Near syncope: due to SVT she can feel palpitations when this happens (4) Heart palpitations: (5) HLD (hyperlipidemia): Patient is on pravastatin which we will continue (6) Frequent unifocal PVCs: (7) HTN (hypertension): elevated readings increase Diltiazem to 60mg BID Admission and Anticipated Discharge Date Admission Date: December 13, 2020 Subjective patient still has a headache today, she wishes it would go away feeling light headed, not dizzy no chest pain or pressure but she can feel palpitations when she is tachycardic appreciate note from Dr. Marshall, planned for exercise stress echo, when she went to cardiac lab she went into SVT with rates 150's just with sitting will increase Diltiazem to 60mg BID likely going to meet with Dr. Mak today or tomorrow, discuss possible ablation procedure Review of Systems Review of Systems: All systems reviewed & are unremarkable except as noted in Subjective Physical Exam Constitutional: WD/WN, vitals as above Neck: trachea midline, no thyromegaly Respiratory: normal respiratory effort, lungs clear to auscultation Cardiovascular: RRR, no murmur, no edema Gastrointestinal (Abdomen): normal bowel sounds, soft, nontender, no hepatosplenomegaly Musculoskeletal: no cyanosis or clubbing, extremities motor strength 5/5 Skin: no rashes, warm and dry Neurologic: patellar DTR's 2+ bilat, sensation intact and PERRL, EOMI, accommodation nl, no face palsy, no dysarthria Psychiatric: A+Ox3, euthymic affect Lymphatic: no cervical or axillary lymphadenopathy Results & Data Results & Data ([place]) Vital Signs (Past 12 Hours) Vital Signs Temp Pulse Pulse Resp BP BP Pulse Ox 12/14/20 10:44 36.9 C 71 20 160/82 H 96 12/14/20 08:56 64 12/14/20 07:25 36 C L 64 19 145/73 H 93 12/14/20 04:26 36.7 C 59 L 18 118/63 95 Laboratory Results Laboratory Results - last 24 hr 12/13/20 12/13/20 12/13/20 16:29 16:29 16:29 WBC 10.20 RBC 5.29 Hgb 16.7 H Hct 48.3 H MCV 91.3 MCH 31.6 MCHC 34.6 RDW Std Deviation 46.1 RDW Coeff of Monik 13.8 Plt Count 324 MPV 9.4 Immature Gran % (Auto) 0.3 Neut % (Auto) 69.6 Lymph % (Auto) 19.2 [place] % (Auto) 10.9 Eos % (Auto) 0.0 Baso % (Auto) 0.0 Neut # (Auto) 7.10 H Lymph # (Auto) 1.96 [place] # (Auto) 1.11 H Eos # (Auto) 0.00 Baso # (Auto) 0.00 Immature Gran # (Auto) 0.03 H PT Cancelled INR Cancelled APTT Cancelled PTT Ratio Cancelled Sodium 140 Potassium 4.0 Chloride 107 Carbon Dioxide 24 Anion Gap 9.0 BUN 22 H Creatinine 0.86 Est Cr Clr Drug Dosing Not Reportable Est GFR ( Amer) 73.4 Est GFR (Non-Af Amer) 63.4 BUN/Creatinine Ratio 26.0 H Glucose 121 H Calcium 9.5 Magnesium 2.5 H Total Bilirubin 0.6 AST 23 ALT 60 Alkaline Phosphatase 75 Troponin I < 0.015 Total Protein 6.9 Albumin 3.8 Globulin 3.1 Albumin/Globulin Ratio 1.2 TSH 1.830 Urine Color Urine Appearance Urine pH Ur Specific [place] Urine Protein Urine Glucose (UA) Urine Ketones Urine Blood Urine Nitrite Urine Bilirubin Urine Urobilinogen Ur Leukocyte Esterase COVID-19 Eval Order SARS-CoV-2 (PCR) 12/13/20 12/13/20 12/13/20 19:28 19:28 20:48 WBC RBC Hgb Hct MCV MCH MCHC RDW Std Deviation RDW Coeff of Monik Plt Count MPV Immature Gran % (Auto) Neut % (Auto) Lymph % (Auto) [place] % (Auto) Eos % (Auto) Baso % (Auto) Neut # (Auto) Lymph # (Auto) [place] # (Auto) Eos # (Auto) Baso # (Auto) Immature Gran # (Auto) PT INR APTT PTT Ratio Sodium Potassium Chloride Carbon Dioxide Anion Gap BUN Creatinine Est Cr Clr Drug Dosing Est GFR ( Amer) Est GFR (Non-Af Amer) BUN/Creatinine Ratio Glucose Calcium Magnesium Total Bilirubin AST ALT Alkaline Phosphatase Troponin I Total Protein Albumin Globulin Albumin/Globulin Ratio TSH Urine Color Yellow Urine Appearance Clear Urine pH 7.5 Ur Specific [place] 1.011 Urine Protein Negative Urine Glucose (UA) Negative Urine Ketones Negative Urine Blood Negative Urine Nitrite Negative Urine Bilirubin Negative Urine Urobilinogen Negative Ur Leukocyte Esterase Negative COVID-19 Eval Order Covid19 at [facility] SARS-CoV-2 (PCR) NEGATIVE 12/13/20 12/14/20 12/14/20 22:30 04:31 04:31 WBC 7.73 RBC 4.70 Hgb 14.5 Hct 43.0 MCV 91.5 MCH 30.9 MCHC 33.7 RDW Std Deviation 46.2 RDW Coeff of Monik 13.8 Plt Count 283 MPV 9.1 Immature Gran % (Auto) 0.3 Neut % (Auto) 46.2 Lymph % (Auto) 39.8 [place] % (Auto) 13.1 Eos % (Auto) 0.5 Baso % (Auto) 0.1 Neut # (Auto) 3.57 Lymph # (Auto) 3.08 [place] # (Auto) 1.01 H Eos # (Auto) 0.04 Baso # (Auto) 0.01 Immature Gran # (Auto) 0.02 PT INR APTT PTT Ratio Sodium 145 Potassium 3.7 Chloride 111 H Carbon Dioxide 27 Anion Gap 7.0 BUN 16 Creatinine 0.63 Est Cr Clr Drug Dosing 55.4 Est GFR ( Amer) 97.5 Est GFR (Non-Af Amer) 84.1 BUN/Creatinine Ratio 24.9 H Glucose 98 Calcium 8.0 L D Magnesium 2.3 Total Bilirubin AST ALT Alkaline Phosphatase Troponin I < 0.015 < 0.015 Total Protein Albumin Globulin Albumin/Globulin Ratio TSH Urine Color Urine Appearance Urine pH Ur Specific [place] Urine Protein Urine Glucose (UA) Urine Ketones Urine Blood Urine Nitrite Urine Bilirubin Urine Urobilinogen Ur Leukocyte Esterase COVID-19 Eval Order SARS-CoV-2 (PCR) 12/14/20 10:01 WBC RBC Hgb Hct MCV MCH MCHC RDW Std Deviation RDW Coeff of Monik Plt Count MPV Immature Gran % (Auto) Neut % (Auto) Lymph % (Auto) [place] % (Auto) Eos % (Auto) Baso % (Auto) Neut # (Auto) Lymph # (Auto) [place] # (Auto) Eos # (Auto) Baso # (Auto) Immature Gran # (Auto) PT INR APTT PTT Ratio Sodium Potassium Chloride Carbon Dioxide Anion Gap BUN Creatinine Est Cr Clr Drug Dosing Est GFR ( Amer) Est GFR (Non-Af Amer) BUN/Creatinine Ratio Glucose Calcium Magnesium Total Bilirubin AST ALT Alkaline Phosphatase Troponin I < 0.015 Total Protein Albumin Globulin Albumin/Globulin Ratio TSH Urine Color Urine Appearance Urine pH Ur Specific [place] Urine Protein Urine Glucose (UA) Urine Ketones Urine Blood Urine Nitrite Urine Bilirubin Urine Urobilinogen Ur Leukocyte Esterase COVID-19 Eval Order SARS-CoV-2 (PCR) Medications Administered Current Inpatient Medications Acetaminophen (Acetaminophen 325 Mg Tab) 650 mg PO Q4H PRN PRN Reason: Pain or Fever Stop: 01/12/21 21:44 Albuterol (Albuterol Hfa 8 Gm Inhaler) 2 puffs INH QIDR PRN PRN Reason: Shortness Of Breath Or Wheezin Stop: 01/12/21 21:44 Diclofenac Sodium (Diclofenac Sodium 25 Mg Tabdr) 50 mg PO DAILY PRN PRN Reason: Pain Stop: 01/12/21 22:50 Diltiazem HCl (Diltiazem Sr 60 Mg Cap) 60 mg PO BID LEN Stop: 01/13/21 20:59 Famotidine (Famotidine 20 Mg Tab) 20 mg PO DAILY PRN PRN Reason: Acid Reflux Stop: 01/12/21 21:44 Fluticasone Propionate (Fluticasone Propionate Na Spr 16 Gm Btl) 2 sprays NA DAILY PRN PRN Reason: Congestion Stop: 01/12/21 21:44 Losartan Potassium (Losartan Potassium 25 Mg Tab) 25 mg PO QAM LEN Stop: 01/13/21 11:14 Last Admin: 12/14/20 13:20 Dose: 25 mg Documented by: Meclizine HCl (Meclizine 12.5 Mg Tab) 12.5 mg PO DAILY PRN PRN Reason: Dizziness Stop: 01/12/21 22:53 Miscellaneous (*Azelastine*Order Awaiting Action) 1 ea N/A QS LEN Stop: 01/13/21 00:00 Last Admin: 12/14/20 07:56 Dose: Not Given Documented by: Miscellaneous (*Restasis*Order Awaiting Action) 1 ea N/A QS LEN Stop: 01/13/21 00:00 Last Admin: 12/14/20 07:56 Dose: Not Given Documented by: Ondansetron HCl (Ondansetron Inj 2 Mg/Ml 2 Ml Vial) 4 mg IV Q6H PRN PRN Reason: Nausea Stop: 01/12/21 21:44 Pravastatin Sodium (Pravastatin Sod 40 Mg Tab) 40 mg PO HS LEN Stop: 01/12/21 22:59 Last Admin: 12/13/20 23:19 Dose: 40 mg Documented by: Zolpidem Tartrate (Zolpidem Tartrate 5 Mg Tab) 5 mg PO HS PRN PRN Reason: Sleep Stop: 01/12/21 22:59 Last Admin: 12/14/20 01:29 Dose: 5 mg Documented by: PG Care Time/CCT Total # of Minutes Spent Total Time Spent with Patient: Total time spent is greater than 50% in coordination of care (as documented) at patient's floor/unit and/or counseling patient: Coding Level of Care Code 55045 Subseq Hosp Care Lvl 3 Diagnoses Paroxysmal SVT (supraventricular tachycardia) I47.1 Dizziness R42 Near syncope R55 Heart palpitations R00.2 HLD (hyperlipidemia) E78.5 Frequent unifocal PVCs I49.3 HTN (hypertension) I10
[2020-12-14] MEDS ORDERED: SODIUM CHLORIDE 0.65% NA SOLN 45 ML (OCEAN) PRN (16:51)
[2020-12-14] MEDS ORDERED: LORazepam 0.5 MG TAB PO PRN (16:51)
[2020-12-14] MEDS: PRAVASTATIN SOD 40 MG TAB PO SCH (20:34)
[2020-12-14] MEDS ORDERED: traMADol HCL 50 MG TABLET PO STA (22:20)
[2020-12-15] MEDS ORDERED: traMADol HCL 50 MG TABLET PO PRN (00:44)
[2020-12-15] MEDS: *AZELASTINE*ORDER AWAITING ACTION SCH ×2 (01:33→07:12)
[2020-12-15] MEDS: *RESTASIS*ORDER AWAITING ACTION SCH ×2 (01:33→07:12)
[2020-12-15] MEDS: LOSARTAN POTASSIUM 25 MG TAB PO SCH (07:39)
--- NOTE | 2020-12-15 10:56 | Discharge Summary ---
Date of Service December 15, 2020 Admission HPI Per Admitting Provider This is an 80-year-old female with past medical history of PSVT, hypertension, hyperlipidemia the presents today with near syncope. Patient is pleasant a very good historian. Patient tells me that she has had PSVT for the past 14 years. She follows with Dr. Marshall from cardiology. She is on diltiazem which typically controls her heart rate. However, patient has been having more episodes of vertigo. These are typically not accompanied with palpitations but she is suspicious that her SVT is the culprit behind it. She did fall about 10 days ago, she did not suffer any significant injury and did not seek medical attention at the time. Today she was at Dr. Montesinos's office for routine follow-up. At that time, she started having the feelings of vertigo and near syncope again. She tells me that he did an EKG and took her vitals. Her blood pressure was elevated but her heart rate was not. She was told that the EKG was normal but that she should seek medical attention present to the emergency room. Patient had her son drive her here for further evaluation. At this time my evaluation, patient's blood pressure was elevated at 171/88, I did have the automatic cuff rechecked this and so this was unchanged. Her pulse was in the 60s and was normal sinus rhythm without evidence of SVT. She did tell me she was having some chills and some residual symptoms after ambulating to the bathroom. Plan will be to place in observation for accelerated hypertension and possible PSVT. Principal Diagnosis Near syncope due to paroxysmal SVT Discharge Exam Constitutional WD/WN, vitals as above Neck trachea midline, no thyromegaly Respiratory normal respiratory effort, lungs clear to auscultation Cardiovascular RRR, no murmur, no edema Gastrointestinal (Abdomen) normal bowel sounds, soft, nontender, no hepatosplenomegaly Musculoskeletal no cyanosis or clubbing, extremities motor strength 5/5 Skin no rashes, warm and dry Neurologic patellar DTR's 2+ bilat, sensation intact and PERRL, EOMI, accommodation nl, no face palsy, no dysarthria Psychiatric A+Ox3, euthymic affect Lymphatic no cervical or axillary lymphadenopathy Discharge Data Allergies Allergy/AdvReac Type Severity Reaction Status Date / Time pine nut Allergy Intermediate ITCHING,THROAT Verified 12/13/20 17:18 CLOSES amoxicillin [From Augmentin] AdvReac Unknown c.diff Verified 12/13/20 17:18 clavulanic acid AdvReac Unknown c.diff Verified 12/13/20 17:18 [From Augmentin] pollen extracts AdvReac Unknown SNEEZING;ITCHY Verified 12/13/20 17:18 EYES ragweed pollen AdvReac Unknown SNEEZING Verified 12/13/20 17:18 solifenacin AdvReac Unknown CONSTIPATIO Verified 12/13/20 17:18 N trospium AdvReac Unknown increased Verified 12/13/20 17:18 urination baclofen AdvReac FOGGY Uncoded 12/13/20 17:18 SENSATION Consultations 12/13/20 19:00 ED Decision to Admit Stat 12/13/20 21:45 Consult Cardiology Routine Ordered Studies 12/13/20 16:28 CT head/brain wo con Stat Hospital Course (1) Paroxysmal SVT (supraventricular tachycardia): h/o such, wore a Holter monitor last fall has been controlled with Diltiazem SR 60mg daily prior to these new episodes was scheduled for stress echo on 12/14 but HR jumped to 150's when she sat up so it was cancelled increased Diltiazem to 60mg BID, rhythm has been stable for 24 hours ambulated in the hallway, HR stayed in 70s sinus rhythm, no presyncope symptoms see Dr. Mak in clinic to consider ablation (2) Dizziness: Patient is a previous history of PSVT, was to see cardiology as an outpatient but concerned that this is now becoming more recurrent, patient with recent fall that may have been related Also concerned for possible accelerated hypertension as a cause symptoms correlate with SVT, gets palpitations will try to definitively treat the SVT with Diltiazem and possible ablation PT/OT evaluation Event monitor from shows multiple episodes of pSVT (3) Near syncope: due to SVT she can feel palpitations when this happens (4) Heart palpitations: (5) HLD (hyperlipidemia): Patient is on pravastatin which we will continue (6) Frequent unifocal PVCs: (7) HTN (hypertension): elevated readings, this is new for her Dr. Marshall added Losartan 25mg daily increased Diltiazem to 60mg BID BP is normal today Total Time Total Time Spent Total Time Spent (In Minutes): 31 Total Time Includes: Examination of the Patient, Discharge Planning, Medication Reconciliation and Communication With Other Providers (Dr. Mak) Discharge Plan Discharge Items Patient Disposition: Home - Self-Care Reason For Visit: NEAR SYNCOPE Discharge Diagnosis: Paroxysmal supraventricular tachycardia Near syncope Hypertension Condition on Discharge: Good Goals: follow up with Dr. Mak to discuss ablation Activity: Resume your previous activity Non-emergency contact: Primary Care Provider and [employer] Call non-emergency contact if: you have any medication questions and your symptoms worsen Follow-up/Referrals: Pablo Dumont MD [Primary Care Provider] - Leonard Mak MD [Physician] - (first available for SVT, discuss ab lation therapy) Diet: Regular Addtl Attending Provider Instructions: Medications - DILTIAZEM: increased to 60mg twice a day, take in morning and evening - LOSARTAN: new blood pressure medication added by Dr. Marshall, continue 25mg daily Paroxysmal supraventricular tachycardia rates and rhythm better controlled on inreased dose of Diltiazem please follow up closely with Dr. Mak to discuss ablation procedure as outpatient High blood pressure: better controlled on increased dose of Diltiazem and added Losartan Pending Studies at Discharge: No Stand-Alone Forms: [employer], Smoking Cessation Medications and DC Order Prescriptions: New losartan 25 mg Tablet 25 mg PO QAM 30 Days Qty: 30 RF: 3 diltiazem HCl 60 mg Capsule,Extended Release 12 Hr 60 mg PO BID 30 Days Qty: 60 RF: 3 Continued meclizine 25 mg tablet 12.5 mg PO DAILY PRN (Reason: Dizziness) RF: 0 epinephrine 0.3 mg/0.3 mL auto-injector 0.3 mg IM DIRECTED PRN (Reason: Allergic Reaction) Qty: 2 RF: 3 albuterol sulfate 90 mcg/actuation HFA aerosol inhaler 2 puff Inhalation QID PRN (Reason: Shortness Of Breath Or Wheezing) Qty: 18 RF: 5 pravastatin 40 mg tablet 40 mg PO HS Qty: 90 RF: 3 zolpidem 10 mg tablet 5 mg PO HS PRN (Reason: Sleep) Qty: 30 RF: 5 diclofenac sodium 50 mg tablet,delayed release (DR/EC) 50 mg PO DAILY PRN (Reason: Pain) RF: 0 fluticasone furoate 27.5 mcg/actuation spray,suspension 2 sprays INTNAS DAILY PRN (Reason: Congestion) RF: 0 Restasis 0.05 % dropperette 1 drp OPB BID RF: 0 famotidine [Pepcid] 20 mg Tablet 20 mg PO DAILY PRN (Reason: Acid Reflux) RF: 0 azelastine 137 mcg (0.1 %) aerosol,spray 2 spray INTRANASAL DAILY RF: 0 Discontinued diltiazem HCl 60 mg capsule,extended release 12 hr 60 mg PO DAILY@1700 Qty: 30 RF: 6 methylprednisolone [Medrol ([place])] 4 mg tablets,dose pack 4 mg PO .COMPLEX Qty: 21 RF: 0 Discharge Orders: Discharge Order (Routine); Ordered 12/15/20 Ordered By: Steven Gonzalez Admission Data Admit Date/Time: 12/13/20 19:12 Attending Provider: Steven Gonzalez Admit Provider: Bridger Talley Primary Care Provider: Pablo Dumont Other Providers: Bridger Talley ; Leonard Marshall Coding Level of Care Code D/C Day Management >30 mins Diagnoses Paroxysmal SVT (supraventricular tachycardia) I47.1 Dizziness R42 Near syncope R55 Heart palpitations R00.2 HLD (hyperlipidemia) E78.5 Frequent unifocal PVCs I49.3 HTN (hypertension) I10
--- NOTE | 2020-12-15 12:43 | Cardiology Progress Note ---
Date of Service December 15, 2020 Assessment & Plan (1) Heart palpitations: -- Frequent PACs, PVCs 2. 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 Hypertension 4. Bladder cancer 5. Vertigo Had 2 episodes of SVT yesterday. No additional episodes since diltiazem increased to 60 mg twice daily. Blood pressure well controlled on losartan. Discussed SVT ablation with patient and Dr. Mak. Further discussion regarding procedure as an outpatient. Okay with discharge today on diltiazem 60 mg twice daily and current losartan Appreciate hospital medicine care. Admission and Anticipated Discharge Date Admission Date: December 13, 2020 Subjective Feeling better today. Headache improved. Slept better overnight. Telemetry reviewedno additional SVT, or significant ectopy since stress test yesterday Review of Systems Review of Systems: All systems reviewed & are unremarkable except as noted in HPI & below Physical Exam Physical Exam: General: Comfortable, no acute distress HEENT: Sclerae anicteric, mucous membranes moist Lungs: Clear to auscultation bilaterally, no rhonchi or wheezes Cardiac: Regular rate and rhythm, no murmurs. No JVD. Abdomen: Soft, nontender, nondistended, positive bowel sounds. Extremities: Warm, well perfused, no edema. 2+ radial pulses Skin: No rashes or lesions. Neuro: Nonfocal Psych: Alert orient x3, normal affect and mood Results & Data ([facility]) Vital Signs (Past 12 Hours) Vital Signs Temp Pulse Pulse Resp BP BP Pulse Ox 12/15/20 11:55 99.7 F H 68 18 126/70 94 12/15/20 10:59 98.6 F 59 L 19 122/70 95 12/15/20 09:04 61 12/15/20 07:32 98.6 F 59 L 19 122/70 95 12/15/20 04:10 98.8 F 55 L 18 94/50 L 95 PG Care Time/CCT Total # of Minutes Spent Total Time Spent with Patient: Total time spent is greater than 50% in coordination of care (as documented) at patient's floor/unit and/or counseling patient: Coding Level of Care Code 45724 Subseq Hosp Care Lvl 3 Diagnoses Heart palpitations R00.2
== END 2020-12-15 13:15 | disposition home or self-care (01) | DRG 310 ==
LOC: ED 16:03 → 2S 16:03 → SUATTDRO 19:12 → 2S 21:32

== ENCOUNTER 2021-07-17 19:02 | Observation (INO) ==
[2021-07-17] MEDS ORDERED: SODIUM CHLORIDE 0.9% 1000ML 500 ML IV ONE (19:15)
[2021-07-17] MEDS ORDERED: dilTIAZem HCl 5 MG/ML 5 ML VIAL IV STA (19:15)
--- NOTE | 2021-07-17 19:21 | Emergency Department Note ---
Impression & Plan Tachyarrhythmia, Exertional dyspnea, Acute dehydration, Acute hyperglycemia ED Provider Note Name: DILCIA RIOS Age: 81 Sex: F Arrives Via: Ambulance Informant: Patient, Daughter ED Provider: Mir Whitmore MD Chief Complaint: Weakness Impression: As per impressions above Medical Decision Making: Pleasant 81-year-old female with a history of SVT along with GERD, asthma, vertigo, valvular heart disease, prediabetes, hypertension, hyperlipidemia, bladder cancer arrives for evaluation of dyspnea on exertion and severe weakness at home. Patient has no focal neurologic deficits on examination however she is quite tachycardic on my eval with a heart rate of essentially 150 quite steady. As EKG was set up on arrival she broke to a normal sinus rhythm with a heart rate in the 90s. That said she was having frequent PVCs/PACs and look quite dehydrated so fluids were started along with a single dose of Cardizem IV. Labs obtained are remarkable solely for an elevated blood sugar with normal troponin and TSH as well as normal mag and potassium. Following fluids patient states she feels much improved and she looks in no distress. Initially plan was to discharged home but given her dehydration we felt further fluids. She had to urinate and thus getting up to go to the bathroom she immediately became dyspneic and her heart rate jumped again. Monitor was able to grape picker a tachycardia without P waves though once again heart rate slowed prior to EKG being obtained. After discussion with the hospitalist the plan will be to bring her in for further evaluation and work-up. She is not currently anticoagulated though I feel this is unlikely PE given her other symptoms. Patient is comfortable this plan as his daughter and was stable throughout. I will note that I suspect part of the issue is the fact that she has been on prednisone for the last few days which has increased cardiac irritability and thus the return of her tachyarrhythmia. I am not convinced this is SVT given its slightly slower rate than I would have expected. That said it is clearly quite symptomatic and she cannot ambulate without going back into SVT. Her QTC is unremarkable and I suspect that this is not a azithromycin related arrhythmia at this time. Prior Medical Record and Triage/Nursing Notes reviewed by Me Additional history obtained from daughter Differentials:Premature contractions, electrolyte abnormality, cardiac dysrhythmia, thyroid dysfunction, pulmonary embolism, infection, gastrointestinal, as well as other pathologies. Vital Signs: reviewed and remarkable for tachycardia Interventions: Normal saline bolus 500 mL IV x2, Cardizem 10 mg IV Labs:Reviewed and remarkable for elevated blood sugar Imagin view chest x-ray no acute findings no evidence of congestive failure EKG:Per My Interpretation: Indication Palpitations: NSR 72 bpm, qtc 409. No Ectopy. No Ischemia. Compared to EKG 05/30/21, no significant changes. Cardiac/Tele Monitoring: Cardiac Monitoring: An Order was placed for continuous cardiac monitoring. The monitor shows a rate of 70 with a normal sinus rhythm though periodically Tachycardio without P waves at 150 bpm Consults:Dr. Stephens, [facility] hospitalist Plan: Disposition:Hospitalization. Condition: Good History of Present Illness:81-year-old female arrives for evaluation of not feeling well. She notes that a week ago she developed cough sore throat congestion. She was tested for COVID with a negative testing. She was started on a Z-Clinton few days ago with steroids and notes her throat has been feeling much better. This morning she awoke feeling weak and lightheaded. She says she is too tired to get around the house. And exertion and she gets severely short of breath and winded and notes that she gets diffuse chest tightness at those times. She does not have any current chest pain but was having it just prior to calling 911 for evaluation. She feels she has 0 energy. She has had no appeti te all day either. She did try drinking some coconut water without improvement. She has not been taking any new medications. She does have a history of SVT and is on diltiazem for that along with previous attempts at ablations without success. She denies noticing any tachycardia until this afternoon when she noticed her heart rate was going between 60 and 150 periodically. She denies noticing the palpitations other than when she checks her pulse. Patient denies any fevers, chills, syncope. She does note that she feels like she is moderately short of breath and coughing but is actually slightly better in the last week. Patient with no falls, trauma, headache, neck pain, rashes, fevers, chills, nausea, vomiting, leg swelling, bruising, bleeding or other symptoms. She denies any blood thinner use and is not on any aspirin. She denies any history of CAD. ROS: See above HPI for pertinent positives & negatives. A total of 10 systems reviewed and were otherwise negative. Past Medical History:See Below Past Surgical History:See Below Family History:See Below Social History:See Below Home Medications:See Below Allergies:See Below Vitals:Blood Pressure: 172/132, Pulse 150, RR 16, T 36.8C, O2 96% on RA Physical Exam: GENERAL: Patient is tired/dehydrated appearing and in mild distress. EYES: No scleral icterus, unremarkable pupils. ENT: Mucous membranes moist, no nasal congestion. NECK: No masses appreciated, nomeningismus, trachea is midline. RESPIRATORY: No dyspnea. Clear to auscultation and equal bilaterally. No wheeze, no rhonchi. CARDIOVASCULAR: Tachycardic.Possible mild systolic murmur. GASTROINTESTINAL: Abdomen soft, non-tender, no peritonitis.Bowel sounds positive.No masses appreciated. BACK: No midline tenderness, no CVA tenderness EXTREMITIES: Normal motion all extremities, no cyanosis, no edema. NEUROLOGIC: Alert and oriented, no acute motor or sensory deficits, no focal weakness, cranial nerves grossly intact. SKIN: No rash, no jaundice, no diaphoresis. 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, lumbar region with neurogenic claudication Thoracic back pain Surgical History H/O cardiac radiofrequency ablation H/O excision of mass H/O eye surgery (~2012) H/O lumbosacral spine surgery History of anesthesia reaction History of cataract surgery (~2014) History of cholecystectomy (~2011) History of dilatation and curettage (~2015) History of esophagogastroduodenoscopy (EGD) History of foot surgery History of laparoscopy History of oral surgery History of sinus surgery History of tonsillectomy and adenoidectomy History of total hip arthroplasty (~12/2014) History of transurethral destruction of bladder lesion (~09/2018) Hx of colonoscopy S/P epidural steroid injection Family History Father Colorectal cancer Lung cancer Son Environmental allergies Sinusitis Mother Hypertension Heart disease Stroke Aunt Breast cancer maternal aunt Denies family history of Ovarian cancer Bleeding disorder Social History Smoking Status: Never smoker Second Hand Exposure: Yes (during childhood); Hx Alcohol Use: Yes Alcohol type: wine Hx Substance Use: No Preferred Language: Romanian Communication Ability: Effective Visual Impairment: No Limitations Hearing Ability: Normal Sack Cleaner Required: No Beliefs That Will Affect Care: None marital status: / Current Living Situation: Alone current occupational status: retired How many Children do You have: 2 Feels Safe at Home: Yes Assistive Devices: None Allergies Allergies Allergy/AdvReac Type Severity Reaction Status Date / Time pine nut Allergy Intermediate ITCHING,THROAT Verified 07/17/21 19:27 CLOSES amoxicillin [From Augmentin] AdvReac Unknown c.diff Verified 07/17/21 19:27 clavulanic acid AdvReac Unknown c.diff Verified 07/17/21 19:27 [From Augmentin] pollen extracts AdvReac Unknown SNEEZING;ITCHY Verified 07/17/21 19:27 EYES ragweed pollen AdvReac Unknown SNEEZING Verified 07/17/21 19:27 solifenacin AdvReac Unknown CONSTIPATIO Verified 07/17/21 19:27 N trospium AdvReac Unknown increased Verified 07/17/21 19:27 urination baclofen AdvReac FOGGY Uncoded 07/17/21 19:27 SENSATION Home Meds Home Medications Medication Instructions Recorded Confirmed meclizine 25 mg tablet 12.5 mg PO DAILY PRN 05/23/19 07/17/21 cyclosporine 0.05 % eye drops in a 1 drp OPB BID 01/15/20 07/17/21 dropperette (Restasis) famotidine 20 mg tablet (Pepcid) 20 mg PO DAILY PRN 10/05/20 07/17/21 Previous Rx's Medication Instructions Recorded epinephrine 0.3 mg/0.3 mL 0.3 mg IM DIRECTED PRN #2 ea 07/16/20 injection, auto-injector albuterol sulfate 90 mcg/actuation 2 puff INHALATION QID PRN #18 g 08/18/20 aerosol inhaler pravastatin 40 mg tablet 40 mg PO HS #90 tab 10/27/20 diltiazem HCl 120 mg 120 mg PO BID #60 cap 03/01/21 capsule,extended release 12 hr zolpidem 10 mg tablet 5 mg PO HS PRN #30 tab 05/11/21 azithromycin 250 mg tablet 250 mg PO DAILY 6 Days #6 tab 07/12/21 (Zithromax Z-Clinton) methylprednisolone 4 mg tablets in 4 mg PO .COMPLEX #21 ea 07/14/21 a dose pack (Medrol (Clinton)) Results & Data (ED) Vital Signs Vital Signs - 24 hr 07/17/21 19:11 07/17/21 19:15 07/17/21 19:29 Temperature 36.8 C Temperature Source Oral Pulse Rate 120 H 144 H 100 H Pulse Rate from SpO2 Sensor 141 H 88 Respiratory Rate 22 16 15 Respiratory Effort / Characteristics Non-Labored Spontaneous Accessory Muscle Use Respiratory Depth Normal Blood Pressure 122/105 H 138/114 H Blood Pressure Mean 110 122 Pulse Oximetry 98 95 92 Oxygen Delivery Method Room Air Sepsis Recent Fever Within 48 Hours No Sepsis New/Unexplained Change in Mental Status No Sepsis Action Taken by Nursing No Action Required 07/17/21 19:30 07/17/21 20:00 Temperature Temperature Source Pulse Rate 92 H 75 Pulse Rate from SpO2 Sensor 93 H 75 Respiratory Rate 16 16 Respiratory Effort / Characteristics Respiratory Depth Blood Pressure 172/132 H Blood Pressure Mean 145 Pulse Oximetry 95 96 Oxygen Delivery Method Sepsis Recent Fever Within 48 Hours Sepsis New/Unexplained Change in Mental Status Sepsis Action Taken by Nursing Laboratory Data Result diagrams: 07/17/21 18:00 07/17/21 18:00 Lab Results 07/17/21 07/17/21 07/17/21 Range/Units 18:00 18:00 18:00 WBC 11.86 H (4.8-10.8) K/uL RBC 5.13 (4.2-5.4) M/uL Hgb 16.1 H (12.0-16.0) g/dL Hct 46.8 (37-47) % MCV 91.2 (80-100) fL MCH 31.4 (25-34) pg MCHC 34.4 (32-36) g/dL RDW Std Deviation 47.9 H (36.4-46.3) fL RDW Coeff of Monik 14.1 (11.5-14.5) % Plt Count 315 (130-400) K/uL MPV 9.5 (7.4-10.4) fL Immature Gran % (Auto) 0.4 % Neut % (Auto) 84.6 % Lymph % (Auto) 9.9 % [place] % (Auto) 5.0 % Eos % (Auto) 0.0 % Baso % (Auto) 0.1 % Neut # (Auto) 10.03 H (1.4-6.5) K/uL Lymph # (Auto) 1.18 L (1.2-3.4) K/uL [place] # (Auto) 0.59 (0.11-0.59) K/uL Eos # (Auto) 0.00 (0-0.5) K/uL Baso # (Auto) 0.01 (0-0.2) K/uL Immature Gran # (Auto) 0.05 H (0.00-0.02) K/uL PT 9.7 (9.0-12.0) Seconds INR 1.0 (0.9-1.1) Sodium 138 (136-145) mmol/L Potassium 4.0 (3.5-5.1) mmol/L Chloride 104 (98-107) mmol/L Carbon Dioxide 23 (21-32) mmol/L Anion Gap 11.0 (3-11) BUN 21 H (7-18) mg/dl Creatinine 0.97 (0.6-1.2) mg/dl Est Cr Clr Drug Dosing 38.8 ml/min Est GFR ( Amer) 63.0 ml/min Est GFR (Non-Af Amer) 54.4 ml/min BUN/Creatinine Ratio 22.0 H (10-20) Glucose 222 H (70-99) mg/dl Calcium 9.3 (8.5-10.1) mg/dl Magnesium 2.2 (1.8-2.4) mg/dl Total Bilirubin 0.5 (0.2-1) mg/dl Direct Bilirubin 0.1 (0-0.2) mg/dl AST 30 (15-37) U/L ALT 50 (12-78) Alkaline Phosphatase 80 (45-117) U/L Troponin I < 0.015 (0-0.045) ng/ml Total Protein 7.0 (6.4-8.2) gm/dl Albumin 3.2 L (3.4-5.0) gm/dl Procalcitonin (0-0.5) ng/ml TSH 0.975 (0.300-4.500) uIu/ml Urine Color Urine Appearance (Clear) Urine pH (4.5-7.5) Ur Specific [place] (1.000-1.030) Urine Protein (Negative) Urine Glucose (UA) (Negative) Urine Ketones (Negative) Urine Blood (Negative) Urine Nitrite (Negative) Urine Bilirubin (Negative) Urine Urobilinogen (Negative) Ur Leukocyte Esterase (Negative) SARS-CoV-2, RNA, NAAT (NEGATIVE) 07/17/21 07/17/21 07/17/21 Range/Units 18:00 19:10 19:27 WBC (4.8-10.8) K/uL RBC (4.2-5.4) M/uL Hgb (12.0-16.0) g/dL Hct (37-47) % MCV (80-100) fL MCH (25-34) pg MCHC (32-36) g/dL RDW Std Deviation (36.4-46.3) fL RDW Coeff of Monik (11.5-14.5) % Plt Count (130-400) K/uL MPV (7.4-10.4) fL Immature Gran % (Auto) % Neut % (Auto) % Lymph % (Auto) % [place] % (Auto) % Eos % (Auto) % Baso % (Auto) % Neut # (Auto) (1.4-6.5) K/uL Lymph # (Auto) (1.2-3.4) K/uL [place] # (Auto) (0.11-0.59) K/uL Eos # (Auto) (0-0.5) K/uL Baso # (Auto) (0-0.2) K/uL Immature Gran # (Auto) (0.00-0.02) K/uL PT (9.0-12.0) Seconds INR (0.9-1.1) Sodium (136-145) mmol/L Potassium (3.5-5.1) mmol/L Chloride (98-107) mmol/L Carbon Dioxide (21-32) mmol/L Anion Gap (3-11) BUN (7-18) mg/dl Creatinine (0.6-1.2) mg/dl Est Cr Clr Drug Dosing ml/min Est GFR ( Amer) ml/min Est GFR (Non-Af Amer) ml/min BUN/Creatinine Ratio (10-20) Glucose (70-99) mg/dl Calcium (8.5-10.1) mg/dl Magnesium (1.8-2.4) mg/dl Total Bilirubin (0.2-1) mg/dl Direct Bilirubin (0-0.2) mg/dl AST (15-37) U/L ALT (12-78) Alkaline Phosphatase (45-117) U/L Troponin I (0-0.045) ng/ml Total Protein (6.4-8.2) gm/dl Albumin (3.4-5.0) gm/dl Procalcitonin < 0.05 (0-0.5) ng/ml TSH (0.300-4.500) uIu/ml Urine Color Yellow Urine Appearance Clear (Clear) Urine pH 7.5 (4.5-7.5) Ur Specific [place] 1.004 (1.000-1.030) Urine Protein Negative (Negative) Urine Glucose (UA) Negative (Negative) Urine Ketones Negative (Negative) Urine Blood Negative (Negative) Urine Nitrite Negative (Negative) Urine Bilirubin Negative (Negative) Urine Urobilinogen Negative (Negative) Ur Leukocyte Esterase Negative (Negative) SARS-CoV-2, RNA, NAAT NEGATIVE (NEGATIVE) Administered Medications Discontinued Medications Diltiazem HCl (Diltiazem Hcl 5 Mg/Ml 5 Ml Vial) 10 mg IV NOW STA Stop: 07/17/21 19:16 Last Admin: 07/17/21 19:29 Dose: 10 mg Documented by: [id number] Cosigned by: [id number] Sodium Chloride (Nss 1000ml) 500 mls @ 999 mls/hr IV .Q31M ONE Stop: 07/17/21 19:45 Last Infusion: 07/17/21 20:20 Dose: 0 mls/hr Documented by: [id number] Admin: 07/17/21 19:29 Dose: 999 mls/hr Documented by: [id number] Sodium Chloride (Nss) 500 mls @ 999 mls/hr IV .Q31M ONE Stop: 07/17/21 21:03 Last Infusion: 07/17/21 22:04 Dose: 0 mls/hr Documented by: [id number] Admin: 07/17/21 20:36 Dose: 999 mls/hr Documented by: [id number] Imaging Data Radiologist's Impression: Chest X-Ray 07/17/21 19:15 XR chest 1V portable HISTORY: Cough. Shortness of breath. COMPARISON: Chest CTA 05/30/2021. FINDINGS: The cardiac silhouette remains borderline enlarged. No new focal lung consolidations to suggest pneumonia. No evidence for pulmonary edema. No pleural effusions. No pneumothorax. IMPRESSION: No acute process. ACT 112: Negative or not required by law. Electronically signed by: Cayetano Durham M.D. 07/17/2021 7:49 PM Discharge Plan Visit Data Chief Complaint: Cardiac Assessment Stated Complaint: Cardiac Assessment ED Provider: Mir Whitmore Discharge Problem: Tachyarrhythmia, Exertional dyspnea, Acute dehydration, Acute hyperglycemia Forms Stand Alone Forms: [facility] [place] [employer] Prescriptions Prescriptions: No Action meclizine 25 mg tablet 12.5 mg PO DAILY PRN (Reason: Dizziness) RF: 0 epinephrine 0.3 mg/0.3 mL auto-injector 0.3 mg IM DIRECTED PRN (Reason: Allergic Reaction) Qty: 2 RF: 3 zolpidem 10 mg tablet 5 mg PO HS PRN (Reason: Sleep) Qty: 30 RF: 5 azithromycin [Zithromax Z-Clinton] 250 mg tablet 250 mg PO DAILY 6 Days Qty: 6 RF: 0 albuterol sulfate 90 mcg/actuation HFA aerosol inhaler 2 puff Inhalation QID PRN (Reason: Shortness Of Breath Or Wheezing) Qty: 18 RF: 5 pravastatin 40 mg tablet 40 mg PO HS Qty: 90 RF: 3 diltiazem HCl 120 mg capsule,extended release 12 hr 120 mg PO BID Qty: 60 RF: 6 methylprednisolone [Medrol (Clinton)] 4 mg tablets,dose pack 4 mg PO .COMPLEX Qty: 21 RF: 1 Restasis 0.05 % dropperette 1 drp OPB BID RF: 0 famotidine [Pepcid] 20 mg Tablet 20 mg PO DAILY PRN (Reason: Acid Reflux) RF: 0 Referrals Referrals: Pablo Dumont MD [Primary Care Provider] -
[2021-07-17 19:27] LABS: Basophils # (auto) 0.01 K/uL (0-0.2); Basophils % (auto) 0.1 %; Hematocrit (blood only) 46.8 % (37-47); Hemoglobin 16.1 g/dL (12.0-16.0); Immature Granulocytes # (auto) 0.05 K/uL (0.00-0.02); Immature Granulocytes % (auto) 0.4 %; Lymphocytes # (auto) 1.18 K/uL (1.2-3.4); Lymphocytes % (auto) 9.9 %; Mean Corpuscular Hemoglobin 31.4 pg (25-34); Mean Corpuscular Hgb Conc 34.4 g/dL (32-36); Mean Corpuscular Volume 91.2 fL (80-100); Mean Platelet Volume 9.5 fL (7.4-10.4); Monocytes # (auto) 0.59 K/uL (0.11-0.59); Neutrophils # (auto) 10.03 K/uL (1.4-6.5); Neutrophils % (auto) 84.6 %; Platelet Count 315 K/uL (130-400); RDW Coefficient of Variation 14.1 % (11.5-14.5); RDW Standard Deviation 47.9 fL (36.4-46.3); Red Blood Count 5.13 M/uL (4.2-5.4); White Blood Count 11.86 K/uL (4.8-10.8)
[2021-07-17 19:34] LABS: Alanine Aminotransferase 50 (12-78); Albumin Level 3.2 gm/dl (3.4-5.0); Aspartate Aminotransferase 30 U/L (15-37); Bilirubin Direct 0.1 mg/dl (0-0.2); Blood Urea Nitrogen 21 mg/dl (7-18); Calcium 9.3 mg/dl (8.5-10.1); Carbon Dioxide 23 mmol/L (21-32); Chloride 104 mmol/L (98-107); Creatinine Clr Calc Pharmacy 38.8 ml/min; Est GFR (Non-African American) 54.4 ml/min; Glucose 222 mg/dl (70-99); Magnesium 2.2 mg/dl (1.8-2.4); Sodium 138 mmol/L (136-145)
[2021-07-17 19:35] LABS: Appearance Urine Clear (Clear); Bilirubin Urine Negative (Negative); Blood Urine Negative (Negative); Color Urine Yellow; Glucose Urine UA Negative (Negative); Ketones Urine Negative (Negative); Leukocyte Esterase Urine Negative (Negative); Nitrite Urine Negative (Negative); Protein Urine Negative (Negative); Specific Gravity Urine 1.004 (1.000-1.030); Urobilinogen Urine Negative (Negative); pH Urine 7.5 (4.5-7.5)
[2021-07-17 19:36] LABS: Prothrombin Time 9.7 Seconds (9.0-12.0)
[2021-07-17 19:45] LABS: Alkaline Phosphatase 80 U/L (45-117); Bilirubin,Total 0.5 mg/dl (0.2-1); Thyroid Stimulating Hormone 0.975 uIu/ml (0.300-4.500); Troponin I < 0.015 ng/ml (0-0.045)
--- NOTE | 2021-07-17 19:51 | XRay Report ---
XR chest 1V portable HISTORY: Cough. Shortness of breath. COMPARISON: Chest CTA 05/30/2021. FINDINGS: The cardiac silhouette remains borderline enlarged. No new focal lung consolidations to sug gest pneumonia. No evidence for pulmonary edema. No pleural effusions. No pneumothorax. IMPRESSION: No acute process. ACT 112: Negative or not required by law. Electronically signed by: Cayetano Durham M.D. 07/17/2021 7:49 PM
[2021-07-17] MEDS ORDERED: SODIUM CHLORIDE 0.9% 500 ML IV ONE (20:33)
--- NOTE | 2021-07-17 21:36 | History & Physical Report ---
Date of Service July 17, 2021 Assessment & Plan (1) Tachyarrhythmia: Plan: Tachyarrhythmia/history of SVT/junctional tachycardia on EKG this evening/hypertension- The patient will be admitted to telemetry for serial cardiac enzymes, serial EKG's, cardiac rhythm monitoring Continue Cardizem 120 mg p.o. twice daily History of ablation by Dr. Mak Consult cardiology Dr. Walden Cardizem 10 mg IV every 6 hours as needed heart rate greater than 110 (2) Near syncope: Plan: Associated with tachyarrhythmia Status post 2 L normal saline while in ED (3) GERD (gastroesophageal reflux disease): Plan: Famotidine 20 mg p.o. twice daily (4) Asthma: Plan: Hold albuterol HFA due to intermittent tachycardia Hold methylprednisolone and azithromycin (5) Prediabetes: Plan: Glucose 222 upon admission, secondary to methylprednisolone. Placed on Accu-Cheks before meals and at bedtime with NovoLog coverage per scale Check hemoglobin A1c (6) HTN (hypertension): Plan: See above (7) HLD (hyperlipidemia): Plan: Continue pravastatin 40 mg at bedtime History of Present Illness Chief Complaint: The patient presents to the emergency department with complaint of significant weakness, dyspnea on exertion, intermittent pressure in her chest and postural lightheadedness and dizziness Primary Care Provider: Pablo Dumont MD The patient is an 81-year-old female with a past medical history including sarcoma, pes anserine bursitis, myofascial pain, GERD, asthma, lumbar radiculopathy, SVT, vitamin D deficiency, solitary thyroid nodule, polyosteoarthritis, venous insufficiency, valvular heart disease, prediabetes, hypertension, hyperlipidemia, bladder cancer, lumbar spinal stenosis, neurogenic claudication, SNHL bilaterally, cervical spondylosis and radiculopathy. She presents with symptoms as noted above. In the emergency department she was noted to have episodes of paroxysmal tachycardia, which was periodically junctional and periodically supraventricular. Upon having her ambulate to assess possibility of discharge, she became lightheaded, dizzy and presyncopal. Allergies Allergy/AdvReac Type Severity Reaction Status Date / Time pine nut Allergy Intermediate ITCHING,THROAT Verified 07/17/21 19:27 CLOSES amoxicillin [From Augmentin] AdvReac Unknown c.diff Verified 07/17/21 19:27 clavulanic acid AdvReac Unknown c.diff Verified 07/17/21 19:27 [From Augmentin] pollen extracts AdvReac Unknown SNEEZING;ITCHY Verified 07/17/21 19:27 EYES ragweed pollen AdvReac Unknown SNEEZING Verified 07/17/21 19:27 solifenacin AdvReac Unknown CONSTIPATIO Verified 07/17/21 19:27 N trospium AdvReac Unknown increased Verified 07/17/21 19:27 urination baclofen AdvReac FOGGY Verified 07/18/21 00:01 SENSATION Home Medications Medication Instructions Recorded Confirmed Type meclizine 25 mg tablet 12.5 mg PO DAILY PRN 05/23/19 07/17/21 History cyclosporine 0.05 % eye drops in a 1 drp OPB BID 01/15/20 07/17/21 History dropperette (Restasis) epinephrine 0.3 mg/0.3 mL 0.3 mg IM DIRECTED PRN #2 ea 07/16/20 07/17/21 Rx injection, auto-injector albuterol sulfate 90 mcg/actuation 2 puff INHALATION QID PRN #18 g 08/18/20 07/17/21 Rx aerosol inhaler famotidine 20 mg tablet (Pepcid) 20 mg PO DAILY PRN 10/05/20 07/17/21 History pravastatin 40 mg tablet 40 mg PO HS #90 tab 10/27/20 07/17/21 Rx diltiazem HCl 120 mg 120 mg PO BID #60 cap 03/01/21 07/17/21 Rx capsule,extended release 12 hr zolpidem 10 mg tablet 5 mg PO HS PRN #30 tab 05/11/21 07/17/21 Rx azithromycin 250 mg tablet 250 mg PO DAILY 6 Days #6 tab 07/12/21 07/17/21 Rx (Zithromax Z-[place]) methylprednisolone 4 mg tablets in 4 mg PO .COMPLEX #21 ea 07/14/21 07/17/21 Rx a dose pack (Medrol ([place])) Past Med/Surg History Medical History (Updated 07/18/21 @ 00:28 by Santosh Stehpens MD) Angioma Asthma Bladder cancer hx Cervical radiculopathy Right Cervical spondylosis Dizziness vertigo 2 years ago, lightheaded first thing in am and sometimes diltiazem cause it GERD (gastroesophageal reflux disease) GERD (gastroesophageal reflux disease) HLD (hyperlipidemia) HTN (hypertension) Insomnia Lumbar facet joint syndrome Osteopenia after menopause Paroxysmal supraventricular tachycardia F/U DR KRISTI MORENO- WELL CONTROLLED WITH DILTIAZEM Pes anserine bursitis Prediabetes "DIET CONTROLLED" 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 followed up with Rin and was decided not to do another ablation. she will continue to take diltiazem H/O excision of mass excision chest wall mass 30 Mar 2021, [place] H/O eye surgery (~2012) repair of ptosis H/O lumbosacral spine surgery 1994 History of anesthesia reaction SLOW TO WAKE UP History of cataract surgery (~2014) B/L History of cholecystectomy (~2011) History of dilatation and curettage (~2015) 05/25/16= LMA#4 at [facility] History of esophagogastroduodenoscopy (EGD) History of foot surgery 1970's bunionectomy History of laparoscopy over 10 years History of oral surgery History of sinus surgery History of tonsillectomy and adenoidectomy History of total hip arthroplasty (~12/2014) RIGHT History of transurethral destruction of bladder lesion (~09/2018) Hx of colonoscopy S/P epidural steroid injection at [facility] Dr. Nugent, last injection 03/16/2021 Family History Father Colorectal cancer Lung cancer Son Environmental allergies Sinusitis Mother Hypertension Heart disease Stroke Aunt Breast cancer maternal aunt Denies family history of Ovarian cancer Bleeding disorder Social History Smoking Status: Never smoker Second Hand Exposure: Yes (during childhood); Hx Alcohol Use: Yes Alcohol type: wine Hx Substance Use: No Preferred Language: Libyan Communication Ability: Effective Visual Impairment: No Limitations Hearing Ability: Normal Metal Polisher Required: No Beliefs That Will Affect Care: None marital status: / Current Living Situation: Alone current occupational status: retired How many Children do You have: 2 Other Information That Helps Us Care for You: No Feels Safe at Home: Yes Safety Concerns: Feels Safe At This Time Assistive Devices: None Review of Systems Review of Systems: The patient denies lower extremity swelling, sore throat, fevers, chills, sweats, nausea, vomiting, diarrhea , constipation, abdominal pain, pelvic pain, blood in urine or stool, dysuria, urinary frequency or urgency, headache, memory loss, loss of consciousness, rash, abnormal bruising or bleeding, focal weakness, numbness or tingling in arms or legs, back or neck pain, or night sweats. The review of systems is otherwise negative other than for that already noted above, and at least 10 systems have been reviewed. Physical Exam Physical Exam: The patient is awake, alert and oriented 3, well developed and well nourished, normocephalic and atraumatic, lying in bed and in no acute distress. HEENT--PERRL, EOMI, mucous membranes and oropharynx normal. Neck--supple. No JVD. No bruits. Thyroid normal, trachea midline, no adenopathy. Heart--normal S1 and S2. No murmurs, rubs or gallops. Lungs--clear bilaterally, no respiratory distress, no accessory muscle use. Abdomen--normal bowel sounds and soft. Nontender. Nondistended, no hernias or masses, no organomegaly. Extremities--no cyanosis or clubbing. No edema. Dermatologic--normal skin turgor, normal color, no abnormal lymph nodes, no rash. Neurologic--cranial nerves II through XII grossly intact. Rheumatologic--normal range of motion. Psychiatric--normal affect. Results & Data Results & Data ([facility]) Vital Signs (Past 12 Hours) Vital Signs Temp Pulse Resp BP Pulse Ox 07/17/21 20:00 75 16 172/132 H 96 07/17/21 19:30 92 H 16 95 07/17/21 19:29 100 H 15 138/114 H 92 07/17/21 19:15 36.8 C 144 H 16 122/105 H 95 07/17/21 19:11 120 H 22 98 Laboratory Results Laboratory Results WBC 11.86 K/uL (4.8-10.8) H 07/17/21 18:00 RBC 5.13 M/uL (4.2-5.4) 07/17/21 18:00 Hgb 16.1 g/dL (12.0-16.0) H 07/17/21 18:00 Hct 46.8 % (37-47) 07/17/21 18:00 MCV 91.2 fL (80-100) 07/17/21 18:00 MCH 31.4 pg (25-34) 07/17/21 18:00 MCHC 34.4 g/dL (32-36) 07/17/21 18:00 RDW Std Deviation 47.9 fL (36.4-46.3) H 07/17/21 18:00 RDW Coeff of Monik 14.1 % (11.5-14.5) 07/17/21 18:00 Plt Count 315 K/uL (130-400) 07/17/21 18:00 MPV 9.5 fL (7.4-10.4) 07/17/21 18:00 Immature Gran % (Auto) 0.4 % 07/17/21 18:00 Neut % (Auto) 84.6 % 07/17/21 18:00 Lymph % (Auto) 9.9 % 07/17/21 18:00 Andrews % (Auto) 5.0 % 07/17/21 18:00 Eos % (Auto) 0.0 % 07/17/21 18:00 Baso % (Auto) 0.1 % 07/17/21 18:00 Neut # (Auto) 10.03 K/uL (1.4-6.5) H 07/17/21 18:00 Lymph # (Auto) 1.18 K/uL (1.2-3.4) L 07/17/21 18:00 Andrews # (Auto) 0.59 K/uL (0.11-0.59) 07/17/21 18:00 Eos # (Auto) 0.00 K/uL (0-0.5) 07/17/21 18:00 Baso # (Auto) 0.01 K/uL (0-0.2) 07/17/21 18:00 Immature Gran # (Auto) 0.05 K/uL (0.00-0.02) H 07/17/21 18:00 PT 9.7 Seconds (9.0-12.0) 07/17/21 18:00 INR 1.0 (0.9-1.1) 07/17/21 18:00 Sodium 138 mmol/L (136-145) 07/17/21 18:00 Potassium 4.0 mmol/L (3.5-5.1) 07/17/21 18:00 Chloride 104 mmol/L (98-107) 07/17/21 18:00 Carbon Dioxide 23 mmol/L (21-32) 07/17/21 18:00 Anion Gap 11.0 (3-11) 07/17/21 18:00 BUN 21 mg/dl (7-18) H 07/17/21 18:00 Creatinine 0.97 mg/dl (0.6-1.2) 07/17/21 18:00 Est Cr Clr Drug Dosing 38.8 ml/min 07/17/21 18:00 Est GFR ( Amer) 63.0 ml/min 07/17/21 18:00 Est GFR (Non-Af Amer) 54.4 ml/min 07/17/21 18:00 BUN/Creatinine Ratio 22.0 (10-20) H 07/17/21 18:00 Glucose 222 mg/dl (70-99) H 07/17/21 18:00 Calcium 9.3 mg/dl (8.5-10.1) 07/17/21 18:00 Magnesium 2.2 mg/dl (1.8-2.4) 07/17/21 18:00 Total Bilirubin 0.5 mg/dl (0.2-1) 07/17/21 18:00 Direct Bilirubin 0.1 mg/dl (0-0.2) 07/17/21 18:00 AST 30 U/L (15-37) 07/17/21 18:00 ALT 50 (12-78) 07/17/21 18:00 Alkaline Phosphatase 80 U/L (45-117) 07/17/21 18:00 Troponin I < 0.015 ng/ml (0-0.045) 07/17/21 18:00 Total Protein 7.0 gm/dl (6.4-8.2) 07/17/21 18:00 Albumin 3.2 gm/dl (3.4-5.0) L 07/17/21 18:00 Procalcitonin < 0.05 ng/ml (0-0.5) 07/17/21 18:00 TSH 0.975 uIu/ml (0.300-4.500) 07/17/21 18:00 Urine Color Yellow 07/17/21 19:10 Urine Appearance Clear (Clear) 07/17/21 19:10 Urine pH 7.5 (4.5-7.5) 07/17/21 19:10 Ur Specific [place] 1.004 (1.000-1.030) 07/17/21 19:10 Urine Protein Negative (Negative) 07/17/21 19:10 Urine Glucose (UA) Negative (Negative) 07/17/21 19:10 Urine Ketones Negative (Negative) 07/17/21 19:10 Urine Blood Negative (Negative) 07/17/21 19:10 Urine Nitrite Negative (Negative) 07/17/21 19:10 Urine Bilirubin Negative (Negative) 07/17/21 19:10 Urine Urobilinogen Negative (Negative) 07/17/21 19:10 Ur Leukocyte Esterase Negative (Negative) 07/17/21 19:10 SARS-CoV-2, RNA, NAAT NEGATIVE (NEGATIVE) 07/17/21 19:27 Impressions Chest X-Ray 07/17/21 19:15 XR chest 1V portable HISTORY: Cough. Shortness of breath. COMPARISON: Chest CTA 05/30/2021. FINDINGS: The cardiac silhouette remains borderline enlarged. No new focal lung consolidations to suggest pneumonia. No evidence for pulmonary edema. No pleural effusions. No pneumothorax. IMPRESSION: No acute process. ACT 112: Negative or not required by law. Electronically signed by: Cayetano Durham M.D. 07/17/2021 7:49 PM Code Status & VTE Plan Code Status Full code VTE Prophylaxis Plan VTE Prophylaxis will be ordered: Yes PG Care Time/CCT Total # of Minutes Spent Total Time Spent with Patient: Total time spent is greater than 50% in coordination of care (as documented) at patient's floor/unit and/or counseling patient: Coding Level of Care Code INT OBSERVATION CARE 70M LVL 3 Diagnoses Tachyarrhythmia R00.0 GERD (gastroesophageal reflux disease) K21.9 Asthma J45.909 Prediabetes R73.03 HTN (hypertension) I10 HLD (hyperlipidemia) E78.5 Near syncope R55
[2021-07-17] MEDS ORDERED: GLUCOSE 10 TABS/TUBE PO PRN (23:44)
[2021-07-17] MEDS ORDERED: CARBOHYDRATES FOR HYPOGLYCEMIA PO PRN (23:44)
[2021-07-17] MEDS ORDERED: ZOLPIDEM TARTRATE 5 MG TAB PO PRN (23:44)
[2021-07-17] MEDS ORDERED: DEXTROSE 50% 50 ML SYRINGE IV PRN (23:44)
[2021-07-17] MEDS ORDERED: ONDANSETRON INJ 2 MG/ML 2 ML VIAL IV PRN (23:44)
[2021-07-17] MEDS ORDERED: GLUCAGON FOR INJ 1 MG VIAL SQ PRN (23:44)
[2021-07-17] MEDS ORDERED: GLUCOSE 40% GEL 15 GM TUBE PO PRN (23:44)
[2021-07-18] MEDS ORDERED: dilTIAZem HCl 5 MG/ML 5 ML VIAL IV PRN (00:29)
[2021-07-18 06:39] LABS: Basophils # (auto) 0.01 K/uL (0-0.2); Basophils % (auto) 0.1 %; Eosinophils # (auto) 0.01 K/uL (0-0.5); Eosinophils % (auto) 0.1 %; Hematocrit (blood only) 45.6 % (37-47); Hemoglobin 15.2 g/dL (12.0-16.0); Immature Granulocytes # (auto) 0.02 K/uL (0.00-0.02); Immature Granulocytes % (auto) 0.2 %; Lymphocytes # (auto) 2.46 K/uL (1.2-3.4); Lymphocytes % (auto) 26.7 %; Mean Corpuscular Hemoglobin 30.5 pg (25-34); Mean Corpuscular Hgb Conc 33.3 g/dL (32-36); Mean Corpuscular Volume 91.6 fL (80-100); Mean Platelet Volume 9.1 fL (7.4-10.4); Monocytes # (auto) 0.87 K/uL (0.11-0.59); Monocytes % (auto) 9.4 %; Neutrophils # (auto) 5.84 K/uL (1.4-6.5); Neutrophils % (auto) 63.5 %; Platelet Count 299 K/uL (130-400); RDW Coefficient of Variation 14.4 % (11.5-14.5); RDW Standard Deviation 48.8 fL (36.4-46.3); Red Blood Count 4.98 M/uL (4.2-5.4); White Blood Count 9.21 K/uL (4.8-10.8)
[2021-07-18 07:35] LABS: Estimated Average Glucose 134 mg/dl; Hemoglobin A1C 6.3 % (4.5-5.6)
[2021-07-18 07:36] LABS: Alanine Aminotransferase 43 (12-78); Albumin Globulin Ratio 0.8 (0.9-2); Albumin Level 2.8 gm/dl (3.4-5.0); Alkaline Phosphatase 65 U/L (45-117); Aspartate Aminotransferase 22 U/L (15-37); BUN Creatinine Ratio 25.7 (10-20); Bilirubin,Total 0.8 mg/dl (0.2-1); Blood Urea Nitrogen 16 mg/dl (7-18); Calcium 8.9 mg/dl (8.5-10.1); Carbon Dioxide 26 mmol/L (21-32); Chloride 108 mmol/L (98-107); Creatinine Clr Calc Pharmacy 61.8 ml/min; Est GFR (African American) 97.8 ml/min; Est GFR (Non-African American) 84.4 ml/min; Globulin 3.3 gm/dl (2.5-4.0); Glucose 115 mg/dl (70-99); Potassium 3.8 mmol/L (3.5-5.1); Sodium 140 mmol/L (136-145); Total Protein 6.1 gm/dl (6.4-8.2); Troponin I < 0.015 ng/ml (0-0.045)
--- NOTE | 2021-07-18 08:03 | Hospitalist Progress Note ---
Date of Service July 18, 2021 Assessment & Plan (1) Tachyarrhythmia: Plan: 81 year old female PmHx SVT, valvular heart disease, HLD, Sarcoma, bladder cancer, solitary thyroid nodule, venous insufficiency, GERD, asthma admitted for tachyarrhythmia. Tachyarrhythmia: - History of SVT with ablation attempt by Dr. Mak in the past. - Tachycardic to 150's in ED, converted back to normal sinus after 10mg Cardizem and 500cc NSS. - Trop negative x3, EKG w/o evidence of ST changes, TSH negative. - Trigger Uri/?albuterol MDI use - Continue home Cardizem 120mg BID, Cardizem 10mg IV q6H PRN for HR >110. - Cardiology consulted. -Patient wanted more conservative treatment at this time. -Increased morning dose of Cardizem to 300mg QAM. -If ambulatory w/o dyspnea, okay for discharge and follow up outpatient. - Continue to monitor HR and vitals. Dyspnea on exertion: - Recent URI w/ episode of tachycardia in ED. - D-dimer 460, trop negative. - Most likely 2/2 tachycardia. Asthma: - Holding albuterol and methylprednisolone. - Tessalon pearls TID for cough Prediabetes: - Glucose in 90's, A1c 6.3. Continue glucose monitoring. GERD: - Hx of GERD - Famotidine 20mg PO BID. Dispo: Med/Surg Tele DVT: SCD's, heparin SQ Q12 Code status: Full Code (2) Exertional dyspnea: (3) Asthma: (4) GERD (gastroesophageal reflux disease): Admission and Anticipated Discharge Date Admission Date: July 17, 2021 Supervising Physician Co-Signing Physician Notes Resident Physician Supervision Note: I independently interviewed and examined the patient and verified the torres history and physical, reviewed labs and image studies and agree with resident Dr. Castro findings and care plan. Subjective Patient seen at the bedside this morning. Patient stated she is feeling fine at the current time. Has not had any feelings of palpitations since she's been in the hospital. She said she is not currently feeling short of breath but when I saw her she had not gotten up since her first episode of tachycardia in the ED. Patient stated she tries to keep her life very healthy otherwise. She has had a cough since her cold started Christie and said she had yellowish sputum at first then yesterday it was white. Now her sputum production is clear and her coughs a re mostly dry similar to when she had bronchitis in the past. 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 Huerta where she was told the sarcoma was "deep" and they would have to look to [facility] for pathology and treatment if the margins had evidence of further spread. Physical Exam Constitutional: WD/WN, vitals as above Eyes: PERRL, conjunctivae normal, anicteric sclerae Respiratory: normal respiratory effort, lungs clear to auscultation Cardiovascular: RRR, no murmur, no edema Gastrointestinal (Abdomen): normal bowel sounds, soft, nontender, no hepatos plenomegaly Results & Data Results & Data ([facility]) Vital Signs (Past 12 Hours) Vital Signs Temp Pulse Pulse Resp BP BP BP 07/18/21 03:49 36.8 C 54 L 20 152/65 H 07/18/21 02:45 55 L 07/18/21 02:30 36.8 C 66 18 148/84 H 07/18/21 00:00 55 L 19 135/72 07/17/21 23:00 60 17 07/17/21 22:30 60 17 07/17/21 22:19 74 18 150/75 H 07/17/21 22:00 63 16 171/85 H 07/17/21 21:30 67 16 07/17/21 21:00 70 15 155/98 H 07/17/21 20:30 89 18 07/17/21 20:29 134 H 18 144/115 H 07/17/21 20:00 75 16 172/132 H Pulse Ox 07/18/21 03:49 96 07/18/21 02:45 07/18/21 02:30 95 07/18/21 00:00 94 07/17/21 23:00 93 07/17/21 22:30 95 07/17/21 22:19 85 L 07/17/21 22:00 97 07/17/21 21:30 97 07/17/21 21:00 83 L 07/17/21 20:30 07/17/21 20:29 07/17/21 20:00 96 Resident Activity Tracking Resident Involvement: Resident Care Provided Care Provided: Adult Hospital Medicine
--- NOTE | 2021-07-18 08:44 | Electrocardiogram Report ---
Test Reason : Blood Pressure : / mmHG Vent. Rate : 088 BPM Atrial Rate : 088 BPM P-R Int : 198 ms QRS Dur : 078 ms QT Int : 362 ms P-R-T Axes : 066 000 041 degrees QTc Int : 438 ms Probable slow Supraventricular tachycardia (100 bpm) converting to Sinus rhythm mid-tracing Abnormal ECG When compared with ECG of 30-MAY-2021 09:44, Probable Supraventricular tachycardia now present Confirmed by Romeo Hoover ([id number]) on 07/18/2021 8:43:59 AM Referred By: REFERRED SELF Confirmed By:Romeo Hoover
--- NOTE | 2021-07-18 08:57 | Electrocardiogram Report ---
Test Reason : Blood Pressure : / mmHG Vent. Rate : 053 BPM Atrial Rate : 053 BPM P-R Int : 186 ms QRS Dur : 084 ms QT Int : 482 ms P-R-T Axes : 057 015 030 degrees QTc Int : 452 ms Sinus bradycardia Otherwise normal ECG When compared with ECG of 17-JUL-2021 19:16, Vent. rate has decreased BY 35 BPM Probable Supraventricular tachycardia no longer present Confirmed by Romeo Hoover ([id number]) on 07/18/2021 8:57:30 AM Referred By: REFERRED SELF Confirmed By:Romeo Hoover
[2021-07-18] MEDS ORDERED: dilTIAZem ER 120 MG CAPCR PO SCH (09:00)
[2021-07-18] MEDS: INSULIN ASPART PER UNIT SC SCH ×4 (09:07→20:36)
[2021-07-18] MEDS: HEPARIN SOD 5,000 UNIT/0.5 ML VIAL SQ SCH ×2 (10:18→20:35)
[2021-07-18] MEDS: FAMOTIDINE 20 MG TAB PO SCH ×2 (10:19→20:33)
[2021-07-18] MEDS: guaiFENesin 600 MG TABCR PO SCH ×2 (10:19→20:34)
[2021-07-18] MEDS: BENZONATATE 100 MG CAPSULE PO SCH ×3 (10:22→20:36)
[2021-07-18] MEDS: ACETAMINOPHEN 325 MG TAB PO PRN ×2 (10:23→20:37)
--- NOTE | 2021-07-18 10:37 | Cardiology Consultation ---
Date of Consultation July 18, 2021 Assessment & Plan (1) SVT (supraventricular tachycardia): (2) Valvular heart disease: 1. SVT: She has a long history of SVT. Prior EP testing suggest that this was an ectopic atrial tachycardia possibly emanating from the left atrium. In general, the arrhythmia does not cause her much difficulty. She has episodes every few weeks that are well tolerated. She has been to the emergency room on prior occasions for similar symptoms. He has had some element of orthostatic intolerance possibly associated with the SVT previously. we discussed options for treatment. This is certainly not a life-threatening condition. As a result, he can be treated according to her wishes. We did discuss the addition of antiarrhythmic therapy or referral for catheter based treatment. However, she prefers a more conservative approach initially. Therefore, I think a slight increase in her diltiazem dose would be worth trying. It is possible that her current symptoms are exacerbated by her upper respiratory illness and mild dehydration. She seems to be doing much better today. If she is ambulatory without significant tachyarrhythmia, she can certainly be discharged and follow up on an outpatient basis. 2. Valvular heart disease: She has an element of mitral and aortic regurgitation seen on echocardiography in December of this year. Not currently causing symptoms. Not likely to be a significant issue in her lifetime. History of Present Illness Reason for Consultation: SVT, dizziness Requesting Physician: Angelo Attending Physician: Brianda Fatima MD History of Present Illness the patient is an 81-year-old woman with a longstanding history paroxysmal SVT who presented to the emergency room yesterday for weakness. Patient is not been feeling well for a few days. She had symptoms of coughing and upper respiratory congestion. She had some subjective fevers and chills and did undergo outpatient Covid 19 testing. This was negative, and the patient was prescribed prednisone and antibiotics for presumed bronchitis. Yesterday she had worsening weakness. She also had some positional intolerance with dizziness and lightheadedness associated with standing upright and walking. A 1 point she did notice a tachycardia. Based on her symptoms she contacted EMS who transported her to the hospital. EN route she was noted to have a tachycardia. At the time of admission the patient was in a tachycardia. This seemed to respond to oxygen and volume administration by report. Until recently, the patient had been feeling well. She is bothered by tachycardia on occasion. She states that around [place] she did have 1 episode of palpitations. This was fairly brief in duration and not associated with severe symptoms. She perhaps notices the tachycardia every few weeks. She is otherwise tried to stay active. He is currently undergoing an evaluation for sarcoma. This morning she states she is not feeling well. However, her positional symptoms seem to have improved. She was ambulatory to the bathroom this morning without tachycardia or significant dizziness. She continues to have discomfort in her head that she attributes to congestion. She states that her breathing is not quite normal. She notices wheezing. Allergies Allergy/AdvReac Type Severity Reaction Status Date / Time pine nut Allergy Intermediate ITCHING,THROAT Verified 07/17/21 19:27 CLOSES amoxicillin [From Augmentin] AdvReac Unknown c.diff Verified 07/17/21 19:27 clavulanic acid AdvReac Unknown c.diff Verified 07/17/21 19:27 [From Augmentin] pollen extracts AdvReac Unknown SNEEZING;ITCHY Verified 07/17/21 19:27 EYES ragweed pollen AdvReac Unknown SNEEZING Verified 07/17/21 19:27 solifenacin AdvReac Unknown CONSTIPATIO Verified 07/17/21 19:27 N trospium AdvReac Unknown increased Verified 07/17/21 19:27 urination baclofen AdvReac FOGGY Verified 07/18/21 00:01 SENSATION Home Medications Medication Instructions Recorded Confirmed Type meclizine 25 mg tablet 12.5 mg PO DAILY PRN 05/23/19 07/17/21 History cyclosporine 0.05 % eye drops in a 1 drp OPB BID 01/15/20 07/17/21 History dropperette (Restasis) epinephrine 0.3 mg/0.3 mL 0.3 mg IM DIRECTED PRN #2 ea 07/16/20 07/17/21 Rx injection, auto-injector albuterol sulfate 90 mcg/actuation 2 puff INHALATION QID PRN #18 g 08/18/20 07/17/21 Rx aerosol inhaler famotidine 20 mg tablet (Pepcid) 20 mg PO DAILY PRN 10/05/20 07/17/21 History pravastatin 40 mg tablet 40 mg PO HS #90 tab 10/27/20 07/17/21 Rx diltiazem HCl 120 mg 120 mg PO BID #60 cap 03/01/21 07/17/21 Rx capsule,extended release 12 hr zolpidem 10 mg tablet 5 mg PO HS PRN #30 tab 05/11/21 07/17/21 Rx azithromycin 250 mg tablet 250 mg PO DAILY 6 Days #6 tab 07/12/21 07/17/21 Rx (Zithromax Z-[place]) methylprednisolone 4 mg tablets in 4 mg PO .COMPLEX #21 ea 07/14/21 07/17/21 Rx a dose pack (Medrol ([place])) Patient History Medical History (Updated 07/18/21 @ 00:28 by Santosh Stephens MD) Angioma Asthma Bladder cancer hx Cervical radiculopathy Right Cervical spondylosis Dizziness vertigo 2 years ago, lightheaded first thing in am and sometimes diltiazem cause it GERD (gastroesophageal reflux disease) GERD (gastroesophageal reflux disease) HLD (hyperlipidemia) HTN (hypertension) Insomnia Lumbar facet joint syndrome Osteopenia after menopause Paroxysmal supraventricular tachycardia F/U DR KRISTI MORENO- WELL CONTROLLED WITH DILTIAZEM Pes anserine bursitis Prediabetes "DIET CONTROLLED" 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 followed up with [place] and was decided not to do another ablation. she will continue to take diltiazem H/O excision of mass excision chest wall mass 30 Mar 2021, [place] H/O eye surgery (~2012) repair of ptosis H/O lumbosacral spine surgery 1994 History of anesthesia reaction SLOW TO WAKE UP History of cataract surgery (~2014) B/L History of cholecystectomy (~2011) History of dilatation and curettage (~2015) 05/25/16= LMA#4 at [facility] History of esophagogastroduodenoscopy (EGD) History of foot surgery 1970's bunionectomy History of laparoscopy over 10 years History of oral surgery History of sinus surgery History of tonsillectomy and adenoidectomy History of total hip arthroplasty (~12/2014) RIGHT History of transurethral destruction of bladder lesion (~09/2018) Hx of colonoscopy S/P epidural steroid injection at [facility] Dr. Nugent, last injection 03/16/2021 Family History Father Colorectal cancer Lung cancer Son Environmental allergies Sinusitis Mother Hypertension Heart disease Stroke Aunt Breast cancer maternal aunt Denies family history of Ovarian cancer Bleeding disorder Social History Smoking Status: Never smoker Second Hand Exposure: Yes (during childhood); Hx Alcohol Use: Yes Alcohol type: wine Hx Substance Use: No Preferred Language: Sudanese Communication Ability: Effective Visual Impairment: No Limitations Hearing Ability: Normal Application Development Intern Required: No Beliefs That Will Affect Care: None marital status: / Current Living Situation: Alone current occupational status: retired How many Children do You have: 2 Feels Safe at Home: Yes Assistive Devices: None Review of Systems Review of Systems: Per HPI. She has had frequent loose stools and diarrhea recently. Physical Exam Physical Exam: She is alert and oriented x3. Mood affect appear normal. She answered all questions appropriately. HEENT: Sclerae are anicteric. Pupils are equal and reactive to light and accommodation. Extraocular movements were intact. Neuro: Cranial nerves intact Lungs: Normal respiratory effort. Expiratory wheezing and upper respiratory congestion noted on examination. No rales. Cardiac: The rhythm was regular. S1 and S2 were normal. There are no murmurs on examination. The PMI was not markedly displaced on palpation. Abdomen: The abdomen was soft and nontender. Extremities: Patient has bilateral radial pulses that are equal in intensity. There is no evidence cyanosis or clubbing. There was no evidence of significant peripheral edema bilaterally. Skin: There are no rashes noted on examination today. Results & Data ([facility]) Vital Signs (Past 12 Hours) Vital Signs Temp Pulse Pulse Resp BP BP Pulse Ox 07/18/21 08:11 36.6 C 65 17 167/70 H 95 07/18/21 03:49 36.8 C 54 L 20 152/65 H 96 07/18/21 02:45 55 L 07/18/21 02:30 36.8 C 66 18 148/84 H 95 07/18/21 00:00 55 L 19 135/72 94 07/17/21 23:00 60 17 93 07/17/21 22:30 60 17 95 Laboratory Results Abnormal Lab Results 07/17/21 07/17/21 07/17/21 18:00 18:00 18:00 WBC 11.86 H RBC 5.13 Hgb 16.1 H Hct 46.8 MCV 91.2 MCH 31.4 MCHC 34.4 RDW Std Deviation 47.9 H RDW Coeff of Monik 14.1 Plt Count 315 MPV 9.5 Immature Gran % (Auto) 0.4 Neut % (Auto) 84.6 Lymph % (Auto) 9.9 [place] % (Auto) 5.0 Eos % (Auto) 0.0 Baso % (Auto) 0.1 Neut # (Auto) 10.03 H Lymph # (Auto) 1.18 L [place] # (Auto) 0.59 Eos # (Auto) 0.00 Baso # (Auto) 0.01 Immature Gran # (Auto) 0.05 H PT 9.7 INR 1.0 Sodium 138 Potassium 4.0 Chloride 104 Carbon Dioxide 23 Anion Gap 11.0 BUN 21 H Creatinine 0.97 Est Cr Clr Drug Dosing 38.8 Est GFR ( Amer) 63.0 Est GFR (Non-Af Amer) 54.4 BUN/Creatinine Ratio 22.0 H Glucose 222 H POC Glucose Estimat Average Glucose Hemoglobin A1c Calcium 9.3 Magnesium 2.2 Total Bilirubin 0.5 Direct Bilirubin 0.1 AST 30 ALT 50 Alkaline Phosphatase 80 Troponin I < 0.015 Total Protein 7.0 Albumin 3.2 L Globulin Albumin/Globulin Ratio Procalcitonin TSH 0.975 Urine Color Urine Appearance Urine pH Ur Specific Leonard Urine Protein Urine Glucose (UA) Urine Ketones Urine Blood Urine Nitrite Urine Bilirubin Urine Urobilinogen Ur Leukocyte Esterase SARS-CoV-2, RNA, NAAT 07/17/21 07/17/21 07/17/21 18:00 18:00 19:10 WBC RBC Hgb Hct MCV MCH MCHC RDW Std Deviation RDW Coeff of Monik Plt Count MPV Immature Gran % (Auto) Neut % (Auto) Lymph % (Auto) [place] % (Auto) Eos % (Auto) Baso % (Auto) Neut # (Auto) Lymph # (Auto) [place] # (Auto) Eos # (Auto) Baso # (Auto) Immature Gran # (Auto) PT INR Sodium Potassium Chloride Carbon Dioxide Anion Gap BUN Creatinine Est Cr Clr Drug Dosing Est GFR ( Amer) Est GFR (Non-Af Amer) BUN/Creatinine Ratio Glucose POC Glucose Estimat Average Glucose 134 Hemoglobin A1c 6.3 H Calcium Magnesium Total Bilirubin Direct Bilirubin AST ALT Alkaline Phosphatase Troponin I Total Protein Albumin Globulin Albumin/Globulin Ratio Procalcitonin < 0.05 TSH Urine Color Yellow Urine Appearance Clear Urine pH 7.5 Ur Specific Leonard 1.004 Urine Protein Negative Urine Glucose (UA) Negative Urine Ketones Negative Urine Blood Negative Urine Nitrite Negative Urine Bilirubin Negative Urine Urobilinogen Negative Ur Leukocyte Esterase Negative SARS-CoV-2, RNA, NAAT 07/17/21 07/18/21 07/18/21 19:27 06:06 06:06 WBC 9.21 RBC 4.98 Hgb 15.2 Hct 45.6 MCV 91.6 MCH 30.5 MCHC 33.3 RDW Std Deviation 48.8 H RDW Coeff of Monik 14.4 Plt Count 299 MPV 9.1 Immature Gran % (Auto) 0.2 Neut % (Auto) 63.5 Lymph % (Auto) 26.7 [place] % (Auto) 9.4 Eos % (Auto) 0.1 Baso % (Auto) 0.1 Neut # (Auto) 5.84 Lymph # (Auto) 2.46 [place] # (Auto) 0.87 H Eos # (Auto) 0.01 Baso # (Auto) 0.01 Immature Gran # (Auto) 0.02 PT INR Sodium 140 Potassium 3.8 Chloride 108 H Carbon Dioxide 26 Anion Gap 6.0 BUN 16 Creatinine 0.61 D Est Cr Clr Drug Dosing 61.8 Est GFR ( Amer) 97.8 Est GFR (Non-Af Amer) 84.4 BUN/Creatinine Ratio 25.7 H Glucose 115 H POC Glucose Estimat Average Glucose Hemoglobin A1c Calcium 8.9 Magnesium Total Bilirubin 0.8 Direct Bilirubin AST 22 ALT 43 Alkaline Phosphatase 65 Troponin I < 0.015 Total Protein 6.1 L Albumin 2.8 L Globulin 3.3 Albumin/Globulin Ratio 0.8 L Procalcitonin TSH Urine Color Urine Appearance Urine pH Ur Specific Leonard Urine Protein Urine Glucose (UA) Urine Ketones Urine Blood Urine Nitrite Urine Bilirubin Urine Urobilinogen Ur Leukocyte Esterase SARS-CoV-2, RNA, NAAT NEGATIVE 07/18/21 07:30 WBC RBC Hgb Hct MCV MCH MCHC RDW Std Deviation RDW Coeff of Monik Plt Count MPV Immature Gran % (Auto) Neut % (Auto) Lymph % (Auto) [place] % (Auto) Eos % (Auto) Baso % (Auto) Neut # (Auto) Lymph # (Auto) [place] # (Auto) Eos # (Auto) Baso # (Auto) Immature Gran # (Auto) PT INR Sodium Potassium Chloride Carbon Dioxide Anion Gap BUN Creatinine Est Cr Clr Drug Dosing Est GFR ( Amer) Est GFR (Non-Af Amer) BUN/Creatinine Ratio Glucose POC Glucose 92 Estimat Average Glucose Hemoglobin A1c Calcium Magnesium Total Bilirubin Direct Bilirubin AST ALT Alkaline Phosphatase Troponin I Total Protein Albumin Globulin Albumin/Globulin Ratio Procalcitonin TSH Urine Color Urine Appearance Urine pH Ur Specific Leonard Urine Protein Urine Glucose (UA) Urine Ketones Urine Blood Urine Nitrite Urine Bilirubin Urine Urobilinogen Ur Leukocyte Esterase SARS-CoV-2, RNA, NAAT Diagnostic Findings Chest x-ray obtained at the time admission which did not reveal any acute cardiopulmonary process echocardiogram performed 12/14/2020: Normal LV systolic function with ejection fraction 55-60%. Mild LVH. Mild to moderate aortic regurgitation. Mild mitral regurgitation. PG Care Time/CCT Total # of Minutes Spent Total Time Spent with Patient: Total time spent is greater than 50% in coordination of care (as documented) at patient's floor/unit and/or counseling patient: Coding Level of Care Code 07423 Office/OBS Consult Lvl 4 Diagnoses SVT (supraventricular tachycardia) I47.1 Valvular heart disease I38
[2021-07-18 13:00] LABS: D Dimer 460 ug/L FEU (0-500)
[2021-07-18] MEDS ORDERED: PRAVASTATIN SOD 40 MG TAB PO SCH (21:00)
[2021-07-18] MEDS ORDERED: dilTIAZem ER 180 MG CAPCR PO ONE (21:00)
[2021-07-19 06:42] LABS: Basophils # (auto) 0.02 K/uL (0-0.2); Basophils % (auto) 0.3 %; Eosinophils % (auto) 1.6 %; Hematocrit (blood only) 44.5 % (37-47); Hemoglobin 14.9 g/dL (12.0-16.0); Immature Granulocytes # (auto) 0.03 K/uL (0.00-0.02); Immature Granulocytes % (auto) 0.5 %; Lymphocytes # (auto) 3.04 K/uL (1.2-3.4); Lymphocytes % (auto) 47.2 %; Mean Corpuscular Hgb Conc 33.5 g/dL (32-36); Mean Corpuscular Volume 92.7 fL (80-100); Mean Platelet Volume 9.2 fL (7.4-10.4); Monocytes # (auto) 0.77 K/uL (0.11-0.59); Neutrophils # (auto) 2.48 K/uL (1.4-6.5); Neutrophils % (auto) 38.4 %; Platelet Count 295 K/uL (130-400); RDW Coefficient of Variation 14.5 % (11.5-14.5); RDW Standard Deviation 49.5 fL (36.4-46.3); White Blood Count 6.44 K/uL (4.8-10.8)
--- NOTE | 2021-07-19 06:59 | Hospitalist Progress Note ---
Date of Service July 19, 2021 Assessment & Plan (1) Tachyarrhythmia: Plan: 81 year old female PmHx SVT, valvular heart disease, HLD, Sarcoma, bladder cancer, solitary thyroid nodule, venous insufficiency, GERD, asthma admitted for tachyarrhythmia. Tachyarrhythmia: - History of SVT with ablation attempt by Dr. Mak in the past. - Tachycardic to 150's in ED, converted back to normal sinus after 10mg Cardizem and 500cc NSS. - Trop negative x3, EKG w/o evidence of ST changes, TSH negative. - Trigger Uri/?albuterol MDI use - Continue home Cardizem 120mg BID, Cardizem 10mg IV q6H PRN for HR >110. - Cardiology consulted. -Patient wanted more conservative treatment at this time. -Increased morning dose of Cardizem to 300mg QAM. -If ambulatory w/o dyspnea, okay for discharge and follow up outpatient. - Continue to monitor HR and vitals. Dyspnea on exertion: - Recent URI w/ episode of tachycardia in ED. - D-dimer 460, trop negative. - Most likely 2/2 tachycardia. Asthma: - Holding albuterol and methylprednisolone. - Tessalon pearls TID for cough Prediabetes: - Glucose in 90's, A1c 6.3. Continue glucose monitoring. GERD: - Hx of GERD - Famotidine 20mg PO BID. Dispo: Med/Surg Tele DVT: SCD's, heparin SQ Q12 Code status: Full Code (2) Exertional dyspnea: (3) Asthma: (4) GERD (gastroesophageal reflux disease): Admission and Anticipated Discharge Date Admission Date: July 17, 2021 Subjective Patient seen at the bedside this morning. Results & Data Results & Data ([facility]) Vital Signs (Past 12 Hours) Vital Signs Temp Pulse Pulse Resp BP Pulse Ox 07/19/21 03:38 36.8 C 73 16 100/59 L 95 07/18/21 23:57 36.8 C 55 L 18 106/57 L 95 07/18/21 23:00 58 L 07/18/21 19:25 36.8 C 57 L 20 150/80 H 95
[2021-07-19 07:21] LABS: Albumin Level 2.7 gm/dl (3.4-5.0); BUN Creatinine Ratio 24.1 (10-20); Calcium 9.3 mg/dl (8.5-10.1); Creatinine Clr Calc Pharmacy 47.1 ml/min; Est GFR (African American) 79.6 ml/min; Est GFR (Non-African American) 68.7 ml/min; Potassium 3.8 mmol/L (3.5-5.1)
[2021-07-19 07:23] LABS: Albumin Globulin Ratio 0.9 (0.9-2); Bilirubin,Total 0.7 mg/dl (0.2-1); Total Protein 5.7 gm/dl (6.4-8.2)
[2021-07-19] MEDS: BENZONATATE 100 MG CAPSULE PO SCH (07:43)
[2021-07-19] MEDS: FAMOTIDINE 20 MG TAB PO SCH ×2 (07:44→07:59)
[2021-07-19] MEDS: guaiFENesin 600 MG TABCR PO SCH (07:45)
[2021-07-19] MEDS: HEPARIN SOD 5,000 UNIT/0.5 ML VIAL SQ SCH (07:45)
[2021-07-19] MEDS: INSULIN ASPART PER UNIT SC SCH ×2 (07:45→11:29)
[2021-07-19] MEDS ORDERED: dilTIAZem ER 120 MG CAPCR PO SCH (09:00)
[2021-07-19] MEDS ORDERED: dilTIAZem ER 180 MG CAPCR PO SCH (09:00)
--- NOTE | 2021-07-19 09:04 | Electrocardiogram Report ---
Test Reason : Blood Pressure : / mmHG Vent. Rate : 051 BPM Atrial Rate : 051 BPM P-R Int : 194 ms QRS Dur : 072 ms QT Int : 476 ms P-R-T Axes : 056 019 041 degrees QTc Int : 438 ms Poor data quality, interpretation may be adversely affected Sinus bradycardia Otherwise normal ECG When compared with ECG of 18-JUL-2021 06:23, No significant change was found Confirmed by Romeo Hoover ([id number]) on 07/19/2021 9:04:48 AM Referred By: REFERRED SELF Confirmed By:Romeo Hoover
[2021-07-19] MEDS ORDERED: FLUTICASONE FUROATE 200MCG 14 PUFFS/INHALER INH SCH (10:30)
--- NOTE | 2021-07-19 13:25 | Discharge Summary ---
Date of Service July 19, 2021 Admission HPI Per Admitting Provider The patient is an 81-year-old female with a past medical history including sarcoma, pes anserine bursitis, myofascial pain, GERD, asthma, lumbar radiculopathy, SVT, vitamin D deficiency, solitary thyroid nodule, poly osteoarthritis, venous insufficiency, valvular heart disease, prediabetes, hypertension, hyperlipidemia, bladder cancer, lumbar spinal stenosis, neurogenic claudication, SNHL bilaterally, cervical spondylosis and radiculopathy. She presents with symptoms as noted above. In the emergency department she was noted to have episodes of paroxysmal tachycardia, which was periodically junctional and periodically supraventricular. Upon having her ambulate to assess possibility of discharge, she became lightheaded, dizzy and presyncopal. Admission Exam Per Admitting Provider The patient is awake, alert and oriented 3, well developed and well nourished, normocephalic and atraumatic, lying in bed and in no acute distress. HEENT--PERRL, EOMI, mucous membranes and oropharynx normal. Neck--supple. No JVD. No bruits. Thyroid normal, trachea midline, no adenopathy. Heart--normal S1 and S2. No murmurs, rubs or gallops. Lungs--clear bilaterally, no respiratory distress, no accessory muscle use. Abdomen--normal bowel sounds and soft. Nontender. Nondistended, no hernias or masses, no organomegaly. Extremities--no cyanosis or clubbing. No edema. Dermatologic--normal skin turgor, normal color, no abnormal lymph nodes, no rash. Neurologic--cranial nerves II through XII grossly intact. Rheumatologic--normal range of motion. Psychiatric--normal affect. Principal Diagnosis Tachyarrhythmia. Discharge Exam Constitutional WD/WN, vitals as above Eyes PERRL, conjunctivae normal, anicteric sclerae Respiratory normal respiratory effort, lungs clear to auscultation Cardiovascular RRR, no murmur, no edema Gastrointestinal (Abdomen) normal bowel sounds, soft, nontender, no hepatosplenomegaly Discharge Data Allergies Allergy/AdvReac Type Severity Reaction Status Date / Time pine nut Allergy Intermediate ITCHING,THROAT Verified 07/17/21 19:27 CLOSES amoxicillin [From Augmentin] AdvReac Unknown c.diff Verified 01/09/22 19:27 clavulanic acid AdvReac Unknown c.diff Verified 07/17/21 19:27 [From Augmentin] pollen extracts AdvReac Unknown SNEEZING;ITCHY Verified 07/17/21 19:27 EYES ragweed pollen AdvReac Unknown SNEEZING Verified 07/17/21 19:27 solifenacin AdvReac Unknown CONSTIPATIO Verified 07/17/21 19:27 N trospium AdvReac Unknown increased Verified 07/17/21 19:27 urination baclofen AdvReac FOGGY Verified 07/18/21 00:01 SENSATION Consultations 07/17/21 20:34 ED Decision to Admit Stat 07/17/21 23:44 Consult Cardiology Routine Hospital Course (1) Tachyarrhythmia: 81 year old female PmHx SVT, valvular heart disease, HLD, Sarcoma, bladder cancer, solitary thyroid nodule, venous insufficiency, GERD, asthma admitted for tachyarrhythmia. SVT: - History of SVT with ablation attempt by Dr. Mak in the past. - Tachycardic to 150's in ED, converted back to normal sinus after 10mg Cardizem and 500cc NSS. - Trop negative x3, EKG w/o evidence of ST changes, TSH negative. - Unclear trigger. Uri. Used albuterol MDI only once. - Cardiology consulted. -Patient wanted more conservative treatment. -Increased morning dose of Cardizem to 180mg QAM. -No exertional dyspnea or HR >100 24 hours before discharge - Follow up with Cardiology outpatient. Asthma with mild exacerbation: - Received outpatient steroids. - Home on Flovent BID, Hycodan q6h, Tessalon pearls TID for cough Prediabetes: - Glucose in 90's, A1c 6.3. - Outpatient follow up. (2) Exertional dyspnea: (3) Asthma: (4) GERD (gastroesophageal reflux disease): Total Time Total Time Spent Total Time Spent (In Minutes): Please see attending attestation. Discharge Plan Discharge Items Patient Disposition: Home - Self-Care Reason For Visit: NEAR SYNCOPE, PAROXYSMAL TACHYCARDIA Discharge Diagnosis: Tachyarrhythmia Activity: Per Instructions section Non-emergency contact: Primary Care Provider and Varnish Melter Helper Call non-emergency contact if: your symptoms worsen, your pain is worsening and your temperature is above 101 Follow-up/Referrals: Pablo Dumont MD [Primary Care Provider] - 07/25/21 2:45 pm Diet: Regular Addtl Attending Provider Instructions: A discharge summary will be sent to your primary care physician to ensure continuity of care. You came into the hospital for shortness of breath most pronounced when exerting yourself. In the hospital you were found to have an elevated heart rate up to 150's while exerting yourself. The supervisor microwave spoke with you about possible causes and treatment options for the new episode of fast heart rate you experienced given your past cardiac history. You both came to the conclusion that you would manage this conservatively for now and will be increasing your morning dose of Cardizem (diltiazem) from 120mg to 180mg. You will still be taking your evening dose of Cardizem at the same dose, 120mg. After 24 hours of no symptoms of shortness of breath or increased heart rate you were cleared by cardiology to leave and follow up with them outpatient. You developed some mild redness and swelling at the site of the IV insertion before leaving. Please apply hot compresses to the area three times a day to help healing and bring down the swelling. If you find the swelling, redness, or tenderness gets worse or you develop fevers, please contact your primary care physician for further treatment. Follow-up: * You should be seen by your primary physician within the next week. * You should follow up with cardiology outpatient within the next few weeks. Medications: Your medication list has been reviewed and reconciled upon discharge to ensure accuracy and continuity of care. An updated list of all your medications is included with your hospital discharge paperwork. Please review this list closely, and make note of any changes. * Your Cardizem (diltiazem) morning dose was changed from 120mg to 180mg. Your evening dose of Cardizem (diltiazem) was kept the same dose at 120mg. Please ensure you follow up with cardiology to ensure this change is sufficient and let them know of any high heart rates or feeling of palpitations. * You were given a Flovent inhaler to help with your cough. Please take twice a day as needed for your cough and any shortness of breath. * You were given a prescription of cough syrup to help with your cough. Please take as needed every 4 hours. * You were given a prescription of Tessalon pearls to help with your cough, please take this as needed up to 3 times per day. Take your medications as instructed; do not skip a dose of your medicines. Make sure all of your doctors know every medicine you are taking (including [id number] medicines, vitamins, and supplements). let your primary care provider know before taking any new medicines because some of these may interact with your current medications, or may make your symptoms worse. CONTACT YOUR PRIMARY CARE PROVIDER if you experience any of the following: * Fevers or shaking chills * Shortness of breath not relieved by inhalers, fainting * Sudden abdominal distension not relieved by catheterization. * Difficulty following your treatment plan, or difficulty taking medications CALL 911 OR GO TO THE EMERGENCY DEPARTMENT if you experience any of the following: * Sudden, severe abdominal pain or nausea/vomiting * Severe chest pain, or chest pain that radiates (moves) to your jaw or arm * Sudden, severe shortness of breath or difficulty breathing It was was our pleasure taking care of you here at [facility] . Thank you for allowing us to participate in your care. Pending Studies at Discharge: No Stand-Alone Forms: My [facility], Smoking Cessation Medications and DC Order Prescriptions: New diltiazem HCl 60 mg capsule,extended release 12 hr 60 mg PO QAM 30 Days Qty: 30 RF: 0 benzonatate 100 mg capsule 100 mg PO TID PRN (Reason: cough) 7 Days Qty: 20 RF: 0 Flovent HFA 44 mcg/actuation HFA aerosol inhaler 2 inh inhalation BID 10 Days Qty: 10.6 RF: 0 hydrocodone-homatropine [Hycodan] 5-1.5 mg/5 mL (5 mL) syrup 5 ml PO Q6H PRN (Reason: cough) Qty: 200 RF: 0 Continued meclizine 25 mg tablet 12.5 mg PO DAILY PRN (Reason: Dizziness) RF: 0 epinephrine 0.3 mg/0.3 mL auto-injector 0.3 mg IM DIRECTED PRN (Reason: Allergic Reaction) Qty: 2 RF: 3 zolpidem 10 mg tablet 5 mg PO HS PRN (Reason: Sleep) Qty: 30 RF: 5 azithromycin [Zithromax Z-[place]] 250 mg tablet 250 mg PO DAILY 6 Days Qty: 6 RF: 0 albuterol sulfate 90 mcg/actuation HFA aerosol inhaler 2 puff Inhalation QID PRN (Reason: Shortness Of Breath Or Wheezing) Qty: 18 RF: 5 pravastatin 40 mg tablet 40 mg PO HS Qty: 90 RF: 3 diltiazem HCl 120 mg capsule,extended release 12 hr 120 mg PO BID Qty: 60 RF: 6 methylprednisolone [Medrol (Clinton)] 4 mg tablets,dose pack 4 mg PO .COMPLEX Qty: 21 RF: 1 Restasis 0.05 % dropperette 1 drp OPB BID RF: 0 famotidine [Pepcid] 20 mg Tablet 20 mg PO DAILY PRN (Reason: Acid Reflux) RF: 0 Discharge Orders: Discharge Order (Routine); Ordered 07/19/21 Ordered By: Brianda Bey/Other Patient Handouts: Prediabetes Admission Data Admit Date/Time: 07/17/21 21:35 Attending Provider: Brianda Fatima Admit Provider: Santosh Stephens Primary Care Provider: Pablo Dumont Other Providers: Santosh Stephens ; Lionel Mak Other Interventions: Discharge Summary Assessment (RN) Last Done: 07/19/21 12:47 Supervising Physician Co-Signing Physician Notes Resident Physician Supervision Note: I independently interviewed and examined the patient and verified the torres history and physical, reviewed labs and image studies and agree with resident Dr. Castro findings and care plan. Resident Activity Tracking Resident Involvement: Resident Care Provided Care Provided: Adult Hospital Medicine
--- NOTE | 2021-07-19 13:31 | Cardiology Progress Note ---
Date of Service July 19, 2021 Assessment & Plan (1) SVT (supraventricular tachycardia): (2) Valvular heart disease: Plan: 1. SVT: overall doing well. Generally speaking she has relatively infrequent episodes that are well tolerated. I suspect the most recent episodes were somewhat related to her acute illness. Certainly this exacerbated her symptoms. We elected to try a very conservative approach by increasing her diltiazem to 300 milligrams daily. This can be dosed a variety of ways. If she prefers to take 180 milligrams in the morning and 120 milligrams in the evening that is sufficient. Conversely, she could take 300 milligrams daily. In any event, she seems to be feeling better and certainly appears safe for discharge in this regard. 2. Valvular heart disease: She has an element of mitral and aortic regurgitation seen on echocardiography in December of this year. Not currently causing symptoms. Not likely to be a significant issue in her lifetime. Admission and Anticipated Discharge Date Admission Date: July 17, 2021 Subjective this morning the patient claims to be feeling better. She still has some sense of lightheadedness fullness in her head. Some coughing still. She was able ambulate to the bathroom back without significant dizziness or tachycardia. Review of Systems Review of Systems: Per HPI Physical Exam Physical Exam: She is alert and oriented x3. Mood affect appear normal. She answered all questions appropriately. HEENT: Sclerae are anicteric. Pupils are equal and reactive to light and acco mmodation. Extraocular movements were intact. Neuro: Cranial nerves intact Lungs: normal respiratory effort Extremities: Patient has bilateral radial pulses that are equal in intensity. There is no evidence cyanosis or clubbing. There was no evidence of significant peripheral edema bilaterally. Skin: erythema noted around the access site in the right forearm Results & Data ([facility]) Vital Signs (Past 12 Hours) Vital Signs Temp Pulse Pulse Resp BP BP Pulse Ox 07/19/21 12:47 36.9 C 77 20 104/62 135/72 98 07/19/21 11:36 36.9 C 77 20 104/62 98 07/19/21 08:10 36.8 C 73 18 99/61 L 97 07/19/21 08:00 52 L 07/19/21 03:38 36.8 C 73 16 100/59 L 95 Laboratory Results Abnormal Lab Results 07/18/21 07/18/2122 16:21 20:01 05:51 WBC 6.44 RBC 4.80 Hgb 14.9 Hct 44.5 MCV 92.7 MCH 31.0 MCHC 33.5 RDW Std Deviation 49.5 H RDW Coeff of Monik 14.5 Plt Count 295 MPV 9.2 Immature Gran % (Auto) 0.5 Neut % (Auto) 38.4 Lymph % (Auto) 47.2 [place] % (Auto) 12.0 Eos % (Auto) 1.6 Baso % (Auto) 0.3 Neut # (Auto) 2.48 Lymph # (Auto) 3.04 [place] # (Auto) 0.77 H Eos # (Auto) 0.10 Baso # (Auto) 0.02 Immature Gran # (Auto) 0.03 H Sodium Potassium Chloride Carbon Dioxide Anion Gap BUN Creatinine Est Cr Clr Drug Dosing Est GFR ( Amer) Est GFR (Non-Af Amer) BUN/Creatinine Ratio Glucose POC Glucose 93 117 H Calcium Total Bilirubin AST ALT Alkaline Phosphatase Total Protein Albumin Globulin Albumin/Globulin Ratio 07/19/21 07/19/21 07/19/21 05:51 07:37 11:22 WBC RBC Hgb Hct MCV MCH MCHC RDW Std Deviation RDW Coeff of Monik Plt Count MPV Immature Gran % (Auto) Neut % (Auto) Lymph % (Auto) [place] % (Auto) Eos % (Auto) Baso % (Auto) Neut # (Auto) Lymph # (Auto) [place] # (Auto) Eos # (Auto) Baso # (Auto) Immature Gran # (Auto) Sodium 141 Potassium 3.8 Chloride 109 H Carbon Dioxide 27 Anion Gap 5.0 BUN 19 H Creatinine 0.80 Est Cr Clr Drug Dosing 47.1 Est GFR ( Amer) 79.6 Est GFR (Non-Af Amer) 68.7 BUN/Creatinine Ratio 24.1 H Glucose 98 POC Glucose 115 H 92 Calcium 9.3 Total Bilirubin 0.7 AST 15 ALT 39 Alkaline Phosphatase 63 Total Protein 5.7 L Albumin 2.7 L Globulin 3.0 Albumin/Globulin Ratio 0.9 PG Care Time/CCT Total # of Minutes Spent Total Time Spent with Patient: Total time spent is greater than 50% in coordination of care (as documented) at patient's floor/unit and/or counseling patient: Coding Level of Care Code 19916 Subseq Hosp Care Lvl 2 Diagnoses SVT (supraventricular tachycardia) I47.1 Valvular heart disease I38
== END 2021-07-19 13:48 | disposition home or self-care (01) ==
LOC: ED 19:02 → EDINP 19:02 → SUATTDRO 21:35 → EDINP 23:45 → 2S 07-18 02:47

== ENCOUNTER 2024-12-19 08:53 | Observation (INO) ==
--- NOTE | 2024-12-19 09:08 | Emergency Department Note ---
History of Present Illness General Chief complaint: TIA Symptoms Stated complaint: CHEST FLUID,BALANCE,HEAD TINGLING, ABD PAIN Time Seen by Provider: 12/19/24 09:07 History of Present Illness This is an 84-year-old female that presents to the emergency department via private vehicle with complaints of "chest fluid, balance, head tingling, abdominal pain". The patient notes that she has multiple symptoms. She states that for over a year now she has noted some buildup of fluid to the right side of the chest post surgery and notes some fullness/discomfort overlying the right anterior shoulder and right anterior chest since that time. She also notes in the past 1.5 weeks she has felt a "tingling" in her head with associated "[id number]", intermittent blurred vision but notes that is chronic, intermittent upper abdominal pain. She does have associated nausea but no vomiting. No fever. She notes that when she is walking her balance seems to be off and she pulls more to the left for the past 1.5 weeks. No recent trauma or injury. She does take low-dose aspirin. Home Medications Medication Instructions Recorded Confirmed Type albuterol sulfate 90 mcg/actuation 2 puff inhalation QID PRN 10/29/23 12/19/24 Rx aerosol inhaler shortness of breath or wheezing #8.5 grams mecobalamin (vitamin B12) 500 mcg 500 mcg PO DAILY 01/01/24 12/19/24 History chewable tablet pravastatin 40 mg tablet 40 mg PO HS #90 tabs 04/04/24 12/19/24 Rx calcium carbonate (Calcium 500) 500 mg PO DAILY 05/29/24 12/19/24 History meclizine 25 mg tablet 25 mg PO DAILY PRN Dizziness Or 07/17/24 12/19/24 History Vertigo zolpidem 10 mg tablet 5 mg (1/2 x 10 mg) PO HS PRN Sleep 07/30/24 12/19/24 Rx #30 tabs cholecalciferol (vitamin D3) 125 10,000 unit PO DAILY 09/11/24 12/19/24 History mcg (5,000 unit) capsule diltiazem HCl 60 mg 60 mg PO QAM #90 caps 09/11/24 12/19/24 Rx capsule,extended release 12 hr diltiazem HCl 120 mg capsule,24 120 mg PO BID 09/16/24 12/19/24 History hr,extended release alendronate 70 mg tablet 70 mg PO Q7D #12 tabs 09/25/24 12/19/24 Rx vibegron 75 mg tablet (Gemtesa) 75 mg PO DAILY 11/25/24 12/19/24 History aspirin 81 mg tablet 81 mg PO DAILY 11/28/24 12/19/24 History gabapentin 100 mg capsule 100 mg PO HS 11/28/24 12/19/24 History epinephrine 0.3 mg/0.3 mL 0.3 mg (0.3 mL) IM DIRECTED PRN 12/11/24 12/19/24 Rx injection, auto-injector (EpiPen anaphylaxis #2 ea 2-[place]) Allergies Allergy/AdvReac Type Severity Reaction Status Date / Time pine nut Allergy Severe ITCHING,THROAT Verified 12/11/24 11:06 CLOSES bee venom protein (honey bee) Allergy Intermediate Hives Verified 12/11/24 11:06 pollen extracts Allergy Mild SNEEZING;ITCHY Verified 12/11/24 11:06 EYES ragweed pollen Allergy Mild SNEEZING Verified 12/11/24 11:06 methylprednisolone AdvReac Severe SVT, Verified 12/11/24 11:06 [From Medrol] INSOMNIA, HEART RACING amoxicillin [From Augmentin] AdvReac Intermediate c.diff Verified 12/11/24 11:06 clavulanic acid AdvReac Intermediate c.diff Verified 12/11/24 11:06 [From Augmentin] Past Med/Surg History Problem List (Updated 12/19/24 @ 23:53 by Trace Solano PA-C) Abnormal chest CT (Acute) Balance problem (Acute) Pins and needles sensation (Acute) Headache (Acute) Seroma of breast Stroke-like symptoms Cervical spinal stenosis Spinal headache Cervicalgia (Acute) Pelvic pain in female Lumbar spinal stenosis Severe @ L4-L5 Balance disorder Hx of bladder cancer S/p TURBT 09/2018 followed by BCG treatments - last treatment 09/2019 History of breast cancer History of DVT (deep vein thrombosis) Cervicogenic headache Urinary incontinence Frequent urinary tract infections HLD (hyperlipidemia) (Chronic) HTN (hypertension) (Chronic) Asthma (Chronic) Osteoporosis (Chronic) Lumbar radiculopathy (Chronic) Prediabetes (Chronic) "DIET CONTROLLED" Vitamin D deficiency (Chronic) Solitary thyroid nodule (Chronic) Osteopenia after menopause (Chronic) Insomnia (Chronic) Vertigo (Chronic) Sensorineural hearing loss of both ears Pseudogout Venous insufficiency Allergic rhinitis Paroxysmal SVT (supraventricular tachycardia) Valvular heart disease GERD (gastroesophageal reflux disease) [place] (Chronic 03/30/21) Occipital neuralgia of right side Medical History Popliteal cyst Degenerative joint disease, foot, left Carpal tunnel syndrome on both sides 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 Recently diagnosed - reason for procedure Bladder cancer 2018;[facility] treatments 10/2018 through September 2019 Melanoma Abnormal PET of right lung Cancer related pain Fatigue after COVID-19 vaccination Anxiety Breast cancer, right Near syncope Pes anserine bursitis Hx of supraventricular tachycardia Concussion Dizziness REASON FOR MECLIZINE Dysfunction of right eustachian tube Right ear pain Thoracic back pain Asthma HAS NOT USED INHALER RECENLTY Right hip pain BPPV (benign paroxysmal positional vertigo) Palpitations Paroxysmal supraventricular tachycardia F/U DR KRISTI MORENO S/p ablation 01/2021 Sinus arrhythmia H/O allergy to nuts Surgical History History of total right hip replacement History of total replacement of right hip History of excision of mass (11/27/23) Status post right breast lumpectomy (10/17/21) Right Breast Lumpectomy with Localization, [employer]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 followed up with [facility] and was decided not to do another ablation. she will continue to take diltiazem History of anesthesia reaction SLOW TO WAKE UP History of transurethral destruction of bladder lesion (~09/2018) History of esophagogastroduodenoscopy (EGD) H/O eye surgery (~2012) repair of ptosis;Bilateral Hx of colonoscopy History of foot surgery 1970's bunionectomy;left foot History of laparoscopy over 10 years History of oral surgery History of tonsillectomy and adenoidectomy History of cholecystectomy (~2011) History of cataract surgery (~2014) RT/LEFT History of dilatation and curettage (~2015) History of sinus surgery History of total hip arthroplasty (~12/2014) RIGHT H/O lumbosacral spine surgery 1994 Family History Father Lung cancer Colorectal cancer Son Sinusitis Environmental allergies Mother Hypertension Stroke Aunt Breast cancer Brother No problems noted. 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 How many Children do You have: 2 Feels Safe at Home: Yes Childhood Exposure to Second-Hand Smoke: Yes Diet: regular caffeine: No during the past year weight has: remained stable Dental Care, Regularly: Yes Physical Activity Frequency: 1-2 Times per Week Seatbelt Use: always Sunscreen Use: Yes Assistive Devices: Glasses Review of Systems A total of 10 systems reviewed and were otherwise negative Physical Exam Vital Signs Vital Signs - 24 hr 12/19/24 09:00 12/19/24 09:35 12/19/24 11:00 Temperature 36.4 C L Temperature Source Oral Pulse Rate 70 68 Pulse Rate [Left Brachial] 62 Pulse Rhythm Regular Pulse Rhythm [Left Brachial] Regular Respiratory Rate 15 18 Respiratory Effort / Characteristics Non-Labored Non-Labored Spontaneous Respiratory Depth Normal Normal Respiratory Pattern Regular Blood Pressure 145/73 H Blood Pressure [Left Arm] 157/65 H Blood Pressure Mean 97 Blood Pressure Mean [Left Arm] 95 Blood Pressure Position Sitting Blood Pressure Position [Left Arm] Sitting Pulse Oximetry 97 95 95 Oxygen Delivery Method Room Air Room Air Room Air Sepsis Recent Fever Within 48 Hours No Sepsis New/Unexplained Change in Mental Status No Sepsis Action Taken by Nursing No Action Required 12/19/24 12:48 Temperature Temperature Source Pulse Rate 67 Pulse Rate [Left Brachial] Pulse Rhythm Pulse Rhythm [Left Brachial] Respiratory Rate Respiratory Effort / Characteristics Respiratory Depth Respiratory Pattern Blood Pressure Blood Pressure [Left Arm] Blood Pressure Mean Blood Pressure Mean [Left Arm] Blood Pressure Position Blood Pressure Position [Left Arm] Pulse Oximetry Oxygen Delivery Method Sepsis Recent Fever Within 48 Hours Sepsis New/Unexplained Change in Mental Status Sepsis Action Taken by Nursing VITAL SIGNS - Vital signs and nursing notes were reviewed. Stable and afebrile. GENERAL -84-year-old female appearing her stated age who is in no acute distress. Communicates well with provider and answers questions appropriately. SKIN - Without rashes. No meningeal or petechial rash. Mild fullness to the soft tissues of the right anterior shoulder/right lateral anterior chest without crepitus. No overlying erythema. HEAD - NC/AT. EYES - PERRL with EOMI bilaterally. Sclera anicteric. EARS - No deformities of external structures noted on gross examination bilaterally. External auditory canals without discharge or otorrhea. Tympanic membranes pearly andres without retraction or bulging. No fluid or purulent material visualized behind the TM. Handle of malleus, umbo, cone of light, pars tensa/flaccid all easily visualized. NOSE - Midline and without cyanosis. No epistaxis or purulent drainage noted. Septum midline without deviation or septal hematoma noted. MOUTH/OROPHARYNX - Without perioral cyanosis. Buccal mucosa pink and moist and without leukoplakia. Tongue midline with equal elevation of palate bilaterally. No tonsillar hypertrophy, erythema, or exudates noted. Fair dentition noted. No drooling, stridor, trismus, wheezing or tripoding. Normal phonation. NECK - Neck with FROM. No nuchal rigidity. LUNGS - Chest wall symmetric without accessory muscle use, intercostals retractions, or central cyanosis. Mild tenderness throughout the right anterior lateral soft tissues of the chest extending to the right anterior shoulder. Normal vesicular breath sounds CTA B/L. No wheezes, rales, or rhonchi appreciated. CARDIAC - RRR ABDOMEN - Abdominal contour normal without pulsations or visible masses. BS normoactive all four quadrants. No tenderness, palpable masses, hepatosplenomegaly, or ascites noted. EXTREMITIES - No clubbing or peripheral cyanosis. +5/5 strength noted in UE/LE bilaterally. NEUROLOGIC - Cranial nerves II through XII grossly intact. PSYCH -alert, oriented and pleasant on examination. Course Administered Medications Acetaminophen (Acetaminophen 325 Mg Tab) 650 mg PO Q4H PRN PRN Reason: Pain or Fever Stop: 01/18/25 12:58 Last Admin: 12/19/24 16:05 Dose: 650 mg Documented By: EVI Acetaminophen/Butalbital/Caffeine (Butalbital/Acetamin/Caffeine Tab) 1 tab PO Q4H PRN PRN Reason: Headache Stop: 01/18/25 16:31 Last Admin: 12/19/24 21:23 Dose: 1 tab Documented By: KAYLA Diltiazem HCl (Diltiazem Hcl 120 Mg Capcr) 120 mg PO HS [facility] Stop: 01/18/25 20:59 Last Admin: 12/19/24 20:25 Dose: 120 mg Documented By: KAYLA Enoxaparin Sodium (Enoxaparin Inj 40 Mg/0.4 Ml Syr) 40 mg SQ QPM LEN Stop: 01/18/25 20:59 Last Admin: 12/19/24 20:23 Dose: 40 mg Documented By: KAYLA Gabapentin (Gabapentin 100 Mg Cap) 200 mg PO HS [facility] Stop: 01/18/25 20:59 Last Admin: 12/19/24 20:21 Dose: 200 mg Documented By: KAYLA Pravastatin Sodium (Pravastatin Sod 40 Mg Tab) 40 mg PO HS [facility] Stop: 01/18/25 20:59 Last Admin: 12/19/24 20:21 Dose: 40 mg Documented By: KAYLA Discontinued Medications Acetaminophen (Acetaminophen 500 Mg Tab) 500 mg PO NOW STA Stop: 12/19/24 10:57 Last Admin: 12/19/24 11:03 Dose: 500 mg Documented By: OLGA Acetaminophen/Butalbital/Caffeine (Butalbital/Acetamin/Caffeine Tab) 1 tab PO NOW STA Stop: 12/19/24 16:33 Last Admin: 12/19/24 17:06 Dose: 1 tab Documented By: EVI Ioversol (Optiray 320 125ml) 112 ml IV ONCE ONE Stop: 12/19/24 13:53 Last Admin: 12/19/24 13:52 Dose: 112 ml Documented By: GISSELLE Potassium Chloride (Potassium Chloride 10 Meq Tabcr) 10 meq PO NOW STA Stop: 12/19/24 16:37 Last Admin: 12/19/24 17:06 Dose: 10 meq Documented By: EVI Medical Decision Making Laboratory Data 12/19/24 09:52 12/19/24 09:52 Lab Results 12/19/24 12/19/24 Range/Units 09:52 10:25 WBC 6.20 (4.8-10.8) K/ul RBC 4.53 (4.20-5.40) M/uL Hgb 14.4 (12.0-16.0) g/dl Hct 41.6 (37.0-47.0) % MCV 91.8 (80.0-100.0) fL MCH 31.8 (25.0-34.0) pg MCHC 34.6 (32.0-36.0) g/dL RDW Std Deviation 46.7 H (36.4-46.3) fL RDW Coeff of Monik 13.8 (11.5-14.5) % Plt Count 228 (130-400) K/uL MPV 8.9 L (9.4-12.4) fL Immature Gran % (Auto) 0.3 % Neut % (Auto) 73.4 % Lymph % (Auto) 16.0 % [place] % (Auto) 8.7 % Eos % (Auto) 1.0 % Baso % (Auto) 0.6 % Neut # (Auto) 4.55 (1.40-6.50) K/uL Lymph # (Auto) 0.99 L (1.20-3.40) K/uL [place] # (Auto) 0.54 (0.11-0.59) K/uL Eos # (Auto) 0.06 (0.00-0.50) K/uL Baso # (Auto) 0.04 (0.00-0.20) K/uL Immature Gran # (Auto) 0.02 (0.01-0.20) K/uL PT 10.0 (9.0-12.0) Seconds INR 0.9 (0.9-1.1) APTT 24 (21-31) Seconds PTT Ratio 0.9 Sodium 138 (136-145) mmol/L Potassium 3.4 L (3.5-5.1) mmol/L Chloride 106 (98-107) mmol/L Carbon Dioxide 25 (21-32) mmol/L Anion Gap 7 (3-11) BUN 16 (6-23) mg/dl Creatinine 0.63 (0.6-1.2) mg/dl Est Cr Clr Drug Dosing 51.6 ml/min eGFR 86.88 BUN/Creatinine Ratio 25.4 H (10-20) Glucose 103 H (70-99(Fasting)) mg/dl Calcium 8.8 (8.6-10.3) mg/dl Magnesium 1.9 (1.7-2.4) mg/dl Total Bilirubin 1.0 (0.2-1.0) mg/dl AST 18 (13-39) U/L ALT 12 (7-52) U/L Alkaline Phosphatase 44 (34-104) U/L Troponin I High Sens 4.7 (0-14) pg/ml Total Protein 6.0 (6.0-8.3) gm/dl Albumin 3.8 (3.4-5.0) gm/dl Globulin 2.2 L (2.5-4.0) gm/dl Albumin/Globulin Ratio 1.7 (0.9-2) Lipase 16 (11-82) U/L Procalcitonin < 0.02 (0-0.5) ng/ml TSH 1.816 (0.300-4.500) uIu/ml Urine Color Yellow Urine Appearance Clear (Clear) Urine pH 6.0 (4.5-7.5) Ur Specific [place] 1.007 (1.000-1.030) Urine Protein Negative (Negative) Urine Glucose (UA) Negative (Negative) Urine Ketones Negative (Negative) Urine Blood Negative (Negative) Urine Nitrite Negative (Negative) Urine Bilirubin Negative (Negative) Urine Urobilinogen Negative (Negative) Ur Leukocyte Esterase Negative (Negative) Urine Comment Lyme Disease Screen Negative (Negative) Imaging Data Radiologist's Impression: Soft Tissue Ultrasound 12/19/24 10:55 US soft tissue ext ltd HISTORY: 84 years-old Female R anterior shoulder region fullness COMPARISON: Chest CT 12/19/2024 and also January 12, 2024. TECHNIQUE: Multiple axial CT images of the right chest soft tissues were obtained assessing grayscale appearance and color flow FINDINGS: Chronic 6.3 x 7.0 x 5.7 cm fluid collection of the anterior chest wall redemonstrated without color flow or solid mass. IMPRESSION: 7 cm right anterior chest wall collection redemonstrated, mildly decreased in size from January 12, 2024 suggestive of a probable seroma. ACT 112: Negative or not required by law. The above report was generated using voice recognition software. It may contain grammatical, syntax or spelling errors. Electronically signed by: Raffaele Amado M.D. 12/19/2024 12:44 PM XR chest 1V portable CLINICAL HISTORY: dizziness COMPARISON STUDY: 09/19/2024 FINDINGS: There is mild cardiomegaly without pulmonary vascular congestion. Stable hyperexpanded lungs. No effusion, consolidation, or pneumothorax. IMPRESSION: No acute findings. ACT 112: Negative or not required by law. Electronically signed by: Sergio Yip M.D. 12/19/2024 10:[address] OF THE CHEST WITHOUT IV CONTRAST CLINICAL HISTORY: Right sided anterior chest wall/discomfort/fullness COMPARISON STUDY: PET/CT January 10, 2023 and October 10, 2023. Chest CT January 12, 2024. Chest radiograph performed earlier today. TECHNIQUE: Axial images of the chest were obtained without IV contrast. Images were reviewed in the axial, sagittal, and coronal planes. IV contrast was not administered for this examination. Automated exposure control was utilized for the study. A dose lowering technique was utilized adhering to the principles of ALARA. FINDINGS: No enlarged axillary, mediastinal or hilar lymph nodes are present. The heart is mildly enlarged. There is no pericardial effusion. No pneumothorax or pleural effusion is present. Subpleural right apical airspace opacity with mild associated bronchiectasis is new since CT of January 12, 2024. Otherwise, the lungs are clear. A right anterior upper chest wall elliptical fluid collection measures 7.7 x 1.6 cm. This measured 7.7 x 2.[address] of January 12, 2024. There is minimal adjacent stranding. No new fluid collections are present. No soft tissue nodularity is identified on unenhanced CT. No acute right-sided rib fractures are present. There are old, healed fractures of the anterior lateral right fourth and fifth ribs. Biliary ductal dilatation is unchanged and likely related to cholecystectomy. IMPRESSION: 1. Mild decrease in size of a 7.7 x 1.6 cm right anterior upper chest wall fluid collection since CT of January 12, 2024. This is suggestive of a seroma. Minimal adjacent stranding, similar to prior CT. 2. Interval development of subpleural right apical opacity with mild bronchiectasis which is likely treatment related. 3. Old, healed right fourth and fifth rib fractures. No acute right-sided rib fractures. ACT 112: Negative or not required by law. Electronically signed by: Floyd Trejo M.D. 12/19/2024 11:[address] head/brain wo con CLINICAL HISTORY: 84 years-old Female with headache, dizziness. Acute headache TECHNIQUE: Multiple axial CT images of the head were obtained without contrast. A dose lowering technique was utilized adhering to the principles of ALARA. CT DOSE: 854.92 mGy.cm COMPARISON: 10/08/24. FINDINGS: No acute intracranial hemorrhage, midline shift, intracranial mass, hydrocephalus, territorial ischemia or abnormal extra-axial collection. Involutional changes with white matter hypodensities suggestive of chronic microvascular ischemic disease. The calvarium is intact. The paranasal sinuses, mastoid air cells, and middle ear cavities are clear. IMPRESSION: No acute intracranial abnormality. ACT 112: Negative or not required by law. The above report was generated using voice recognition software. It may contain grammatical, syntax or spelling errors. Electronically signed by: Raffaele Amado M.D. 12/19/2024 11:[address] [facility] Narrative Patient was seen and evaluated as above in room A09. Review was performed of triage nursing notes and vital signs. I did review pertinent previous visits and patient history. After obtaining a thorough history and physical examination the above work up was performed. Patient presents to us today with the above-stated complaints. She is clinically well-appearing and nontoxic on examination. NIHSS is 0. GCS is 15. No fevers. No evidence of meningitis or encephalitis clinically. Options of care were discussed with the patient. IV access was established. Labs were drawn. Chest x-ray, chest CT, head CT obtained as well as ultrasound of the right shoulder soft tissue regions. Results as above. There are rather chronic findings noted on the chest CT suggesting the seroma. This does not appear to be of infectious etiology clinically. I reviewed the chest x-ray and there are no acute findings. Ultrasound again redemonstrates the soft tissue collection. CT scan of the head was negative for acute process. Labs reveal no leukocytosis or concerning anemia. Mild hypokalemia 3.4. No emergent metabolic disturbance. Troponin is negative. Procalcitonin undetectable. Lipase normal. TSH reveals euthyroid state. Urinalysis is negative. EKG was obtained and per my interpretation reveals normal sinus rhythm at a rate of 63 bpm. QTc 433. QRS 74. No ST elevation on this rhythm tracing. While here in the ED I did order oral acetaminophen as she did note occipital headache. I reviewed benefit versus risk of this medication with patient. I confirmed she certainly had less than 3000 mg in the past 24 hours. With the patient's symptoms I do believe that further evaluation and management in the inpatient setting is warranted. Case discussed with the hospitalist service. Please refer to further documentation regarding her stay GCS: 15 In the evaluation and treatment of this patient the following differential diagnoses were entertained: CVA, TIA, meningitis, encephalitis, electrolyte disturbance, ACS, among others Impression & Plan Headache, Pins and needles sensation, Balance problem, Abnormal chest CT Discharge Plan Visit Data Chief Complaint: TIA Symptoms Stated Complaint: CHEST FLUID,BALANCE,HEAD TINGLING, ABD PAIN ED Provider: Mir Whitmore ED Midlevel Provider: Trace Solano Discharge Problem: Headache, Pins and needles sensation, Balance problem, Abnormal chest CT Patient Disposition: Admitted As Inpatient Condition: Good Discharge Instructions Interventions: ED Discharge Assessment Last Done: 12/19/24 14:53
[2024-12-19 10:07] LABS: Basophils # (auto) 0.04 K/uL (0.00-0.20); Basophils % (auto) 0.6 %; Eosinophils # (auto) 0.06 K/uL (0.00-0.50); Hematocrit (blood only) 41.6 % (37.0-47.0); Hemoglobin 14.4 g/dl (12.0-16.0); Immature Granulocytes # (auto) 0.02 K/uL (0.01-0.20); Immature Granulocytes % (auto) 0.3 %; Lymphocytes # (auto) 0.99 K/uL (1.20-3.40); Mean Corpuscular Hemoglobin 31.8 pg (25.0-34.0); Mean Corpuscular Hgb Conc 34.6 g/dL (32.0-36.0); Mean Corpuscular Volume 91.8 fL (80.0-100.0); Mean Platelet Volume 8.9 fL (9.4-12.4); Monocytes # (auto) 0.54 K/uL (0.11-0.59); Monocytes % (auto) 8.7 %; Neutrophils # (auto) 4.55 K/uL (1.40-6.50); Neutrophils % (auto) 73.4 %; Platelet Count 228 K/uL (130-400); RDW Coefficient of Variation 13.8 % (11.5-14.5); RDW Standard Deviation 46.7 fL (36.4-46.3); Red Blood Count 4.53 M/uL (4.20-5.40)
--- NOTE | 2024-12-19 10:15 | XRay Report ---
XR chest 1V portable CLINICAL HISTORY: dizziness COMPARISON STUDY: 09/19/2024 FINDINGS: There is mild cardiomegaly without pulmonary vascular congestion. Stable hyperexpanded lung s. No effusion, consolidation, or pneumothorax. IMPRESSION: No acute findings. ACT 112: Negative or not required by law. Electronically signed by: Sergio Yip M.D. 12/19/2024 10:14 AM
[2024-12-19 10:29] LABS: Procalcitonin < 0.02 ng/ml (0-0.5)
[2024-12-19 10:30] LABS: Albumin Globulin Ratio 1.7 (0.9-2); Albumin Level 3.8 gm/dl (3.4-5.0); BUN Creatinine Ratio 25.4 (10-20); Calcium 8.8 mg/dl (8.6-10.3); Creatinine Clr Calc Pharmacy 51.6 ml/min; Globulin 2.2 gm/dl (2.5-4.0); Magnesium 1.9 mg/dl (1.7-2.4); Potassium 3.4 mmol/L (3.5-5.1)
[2024-12-19 10:35] LABS: INR 0.9 (0.9-1.1); Partial Thromboplastin Ratio 0.9; Partial Thromboplastin Time 24 Seconds (21-31); Troponin I High Sensitivity 4.7 pg/ml (0-14)
[2024-12-19 10:37] LABS: Appearance Urine Clear (Clear); Bilirubin Urine Negative (Negative); Blood Urine Negative (Negative); Color Urine Yellow; Glucose Urine UA Negative (Negative); Ketones Urine Negative (Negative); Leukocyte Esterase Urine Negative (Negative); Nitrite Urine Negative (Negative); Protein Urine Negative (Negative); Specific Gravity Urine 1.007 (1.000-1.030); Urobilinogen Urine Negative (Negative)
--- NOTE | 2024-12-19 10:41 | Emergency Department Note ---
ED Visit Note ED Physician Supervisory Note & Attestation: I was consulted by the Advanced Practice Provider, Trace Solano PA-C. I personally made/approved the management plan and take responsibility for the patient management. I performed a substantive portion of the visit. This includes the aspects of: MDM: Headache/Tingling, shoulder swelling in post operative location and epigastric discomfort. Has had extensive previous workups for these along with other various symptoms without clear etiology. Given the worsening symptoms I think at this point hospitalization would be warranted. Mir Whitmore MD
[2024-12-19 10:45] LABS: Thyroid Stimulating Hormone 1.816 uIu/ml (0.300-4.500)
[2024-12-19 10:55] LABS: Lyme Screen Rflx Confirmation Negative (Negative)
[2024-12-19] MEDS: ACETAMINOPHEN 500 MG TAB PO STA (11:03)
--- NOTE | 2024-12-19 11:21 | CT Scan Report ---
CT head/brain wo con CLINICAL HISTORY: 84 years-old Female with headache, dizziness. Acute headache TECHNIQUE: Multiple axial CT images of the head were obtained without contrast. A dose lowering tech nique was utilized adhering to the principles of ALARA. CT DOSE: 854.92 mGy.cm COMPARISON: 10/08/24. FINDINGS: No acute intracranial hemorrhage, midline shift, intracranial mass, hydrocephalus, territorial ischem ia or abnormal extra-axial collection. Involutional changes with white matter hypodensities suggestiv e of chronic microvascular ischemic disease. The calvarium is intact. The paranasal sinuses, mastoid air cells, and middle ear cavities are clear . IMPRESSION: No acute intracranial abnormality. ACT 112: Negative or not required by law. The above report was generated using voice recognition software. It may contain grammatical, syntax o r spelling errors. Electronically signed by: Raffaele Amado M.D. 12/19/2024 11:18 AM
--- NOTE | 2024-12-19 11:27 | CT Scan Report ---
CT OF THE CHEST WITHOUT IV CONTRAST CLINICAL HISTORY: Right sided anterior chest wall/discomfort/fullness COMPARISON STUDY: PET/CT January 10, 2023 and October 10, 2023. Chest CT January 12, 2024. Chest radiograph per formed earlier today. TECHNIQUE: Axial images of the chest were obtained without IV contrast. Images were reviewed in the axial, sagittal, and coronal planes. IV contrast was not administered for this examination. Automat ed exposure control was utilized for the study. A dose lowering technique was utilized adhering to t he principles of ALARA. FINDINGS: No enlarged axillary, mediastinal or hilar lymph nodes are present. The heart is mildly en larged. There is no pericardial effusion. No pneumothorax or pleural effusion is present. Subpleural right apical airspace opacity with mild associated bronchiectasis is new since CT of January 12, 2024. Ot herwise, the lungs are clear. A right anterior upper chest wall elliptical fluid collection measures 7.7 x 1.6 cm. This measured 7.7 x 2.[address] of January 12, 2024. There is minimal adjacent stranding. No new fluid collections are present. No soft tissue nodularity is identified on unenhanced CT. No ac [place] right-sided rib fractures are present. There are old, healed fractures of the anterior lateral ri ght fourth and fifth ribs. Biliary ductal dilatation is unchanged and likely related to cholecystecto my. IMPRESSION: 1. Mild decrease in size of a 7.7 x 1.6 cm right anterior upper chest wall fluid collection since CT of January 12, 2024. This is suggestive of a seroma. Minimal adjacent stranding, similar to prior CT. 2. Interval development of subpleural right apical opacity with mild bronchiectasis which is likely t reatment related. 3. Old, healed right fourth and fifth rib fractures. No acute right-sided rib fractures. ACT 112: Negative or not required by law. Electronically signed by: Floyd Trejo M.D. 12/19/2024 11:26 AM
--- NOTE | 2024-12-19 12:45 | Ultrasound Report ---
US soft tissue ext ltd HISTORY: 84 years-old Female R anterior shoulder region fullness COMPARISON: Chest CT 12/19/2024 and also January 12, 2024. TECHNIQUE: Multiple axial CT images of the right chest soft tissues were obtained assessing grayscale appearance and color flow FINDINGS: Chronic 6.3 x 7.0 x 5.7 cm fluid collection of the anterior chest wall redemonstrated without color f low or solid mass. IMPRESSION: 7 cm right anterior chest wall collection redemonstrated, mildly decreased in size from J angel 2023 suggestive of a probable seroma. ACT 112: Negative or not required by law. The above report was generated using voice recognition software. It may contain grammatical, syntax o r spelling errors. Electronically signed by: Raffaele Amado M.D. 12/19/2024 12:44 PM
--- NOTE | 2024-12-19 12:54 | History & Physical Report ---
Date of Service December 19, 2024 Assessment & Plan (1) Headache: (2) Stroke-like symptoms: (3) Seroma of breast: (4) GERD (gastroesophageal reflux disease): Plan This is a 84-year-old female with past medical history of spinal headaches, occipital neuralgia, SVT who presented to the emergency department on 12/19/2024 with strokelike symptoms. While in the emergency department she was given Tylenol. She had a chest CT that did reveal a mild decrease in size of her right anterior upper chest wall fluid collection since 2023. She had a soft tissue ultrasound of her right anterior shoulder region that revealed a 7 cm right anterior chest wall collection again decreased in size. She also had a head CT without contrast that was negative. #Headache/Stroke like symptoms w/ ~ 1 week of balance & leaning to the left. Also w/ headaches & tenderness to palpation of posterior scalp worse with sitting upright Recently saw PCP on --> @ that time PCP felt symptoms related to occipital neuralgia & increased gabapentin Head CT negative Given balance issues & leaning to the left, rule out stroke Head CTA/Neck CTA pending, check brain MRI. Echo ordered & pending Allow for permissive HTN for 24-48hrs Orthostatic vital signs Continue gabapentin for concern for occipital neuralgia. Meclizine prn for dizziness will need to follow up w/ neurology/pain management outpatient vs inpatient. PT/OT consulted, appreciate recommendations. AM labs including CBC, BMP, A1c, Cholesterol, B12, folate, Vit D #Seroma w/ history of breast cancer & drainage to seroma on right anterior chest wall. Exam revealed mobile fluid collection without erythema. US of right anterior chest region & chest CT both demonstrate 7cm R anterior chest wall collection decreased in size from 01/12/2024. continue to monitor, does not appear infectious Recommend follow up with surgeon she is established with outpatient. #GERD w/ complaints of belching & indigestion. Stopped PPI due to risks associated w/ medications Start Pepcid 40mg once daily in AM. #SVT/HTN - Dilitiazem #HLD - statin #Urinary incontinence - Vibegron DVT prophylaxis: SCD's, Lovenox Code: DNR/DNI Case discussed w/ Dr. Allen at time of admission. History of Present Illness Primary Care Provider: Stephanie Basedow, DO This is a 84-year-old female with past medical history of spinal headaches, occipital neuralgia, SVT who presented to the emergency department on 12/19/2024 with strokelike symptoms. Minnie was seen and examined this afternoon. She tells me that she has been having ongoing symptoms for at least a week now, if not longer. She states that she has been getting headaches and that her head is tender to touch. She states that she has worsened pain when she lies on her pillow. She states that the pain is in the posterior region of her head. She admits to occasional nausea associated with the symptoms. She states that she did have a blood patch procedure done back in September which completely resolved her symptoms but unfortunately they returned. She also states that over the past week she has been noticing issues with her balance and feels that she is leaning to the left side. She also admits to experiencing blurry vision but tells me that she has been diagnosed with macular degeneration disorder. She also complains of right ear pain and was recently at her PCP for this. She states that she has been usi ng Flonase because she was told she had some fluid in her left ear. She also reports that she has had increased indigestion and belching recently. She states that she was previously on omeprazole but had then discontinued this medication due to risks. She also states that she has been having increased pain recently in her arm area of her right seroma. She states that she feels that it has increased in size. She states that yesterday it was swollen. She also states that it is painful to touch. She denies any urinary symptoms including burning, dysuria, frequency. Denies any lower extremity edema. Denies any chest pain or shortness of breath. While in the emergency department she was given Tylenol. She had a chest CT that did reveal a mild decrease in size of her right anterior upper chest wall fluid collection since 2023. She had a soft tissue ultrasound of her right anterior shoulder region that revealed a 7 cm right anterior chest wall collection again decreased in size. She also had a head CT without contrast that was negative. Code discussion to take place with the patient and she does confirm that she has paperwork stating that she is a DNR/DNI. Allergies Allergy/AdvReac Type Severity Reaction Status Date / Time pine nut Allergy Severe ITCHING,THROAT Verified 12/11/24 11:06 CLOSES bee venom protein (honey bee) Allergy Intermediate Hives Verified 12/11/24 11:06 pollen extracts Allergy Mild SNEEZING;ITCHY Verified 12/11/24 11:06 EYES ragweed pollen Allergy Mild SNEEZING Verified 12/11/24 11:06 methylprednisolone AdvReac Severe SVT, Verified 12/11/24 11:06 [From Medrol] INSOMNIA, HEART RACING amoxicillin [From Augmentin] AdvReac Intermediate c.diff Verified 12/11/24 11:06 clavulanic acid AdvReac Intermediate c.diff Verified 12/11/24 11:06 [From Augmentin] Home Medications Medication Instructions Recorded Confirmed Type albuterol sulfate 90 mcg/actuation 2 puff inhalation QID PRN 10/29/23 12/19/24 Rx aerosol inhaler shortness of breath or wheezing #8.5 grams mecobalamin (vitamin B12) 500 mcg 500 mcg PO DAILY 01/01/24 12/19/24 History chewable tablet pravastatin 40 mg tablet 40 mg PO HS #90 tabs 04/04/24 12/19/24 Rx calcium carbonate (Calcium 500) 500 mg PO DAILY 05/29/24 12/19/24 History meclizine 25 mg tablet 25 mg PO DAILY PRN Dizziness Or 07/17/24 12/19/24 History Vertigo zolpidem 10 mg tablet 5 mg (1/2 x 10 mg) PO HS PRN Sleep 07/30/24 12/19/24 Rx #30 tabs cholecalciferol (vitamin D3) 125 10,000 unit PO DAILY 09/11/24 12/19/24 History mcg (5,000 unit) capsule diltiazem HCl 60 mg 60 mg PO QAM #90 caps 09/11/24 12/19/24 Rx capsule,extended release 12 hr diltiazem HCl 120 mg capsule,24 120 mg PO BID 09/16/24 12/19/24 History hr,extended release alendronate 70 mg tablet 70 mg PO Q7D #12 tabs 09/25/24 12/19/24 Rx vibegron 75 mg tablet (Gemtesa) 75 mg PO DAILY 11/25/24 12/19/24 History aspirin 81 mg tablet 81 mg PO DAILY 11/28/24 12/19/24 History gabapentin 100 mg capsule 100 mg PO HS 11/28/24 12/19/24 History epinephrine 0.3 mg/0.3 mL 0.3 mg (0.3 mL) IM DIRECTED PRN 12/11/24 12/19/24 Rx injection, auto-injector (EpiPen anaphylaxis #2 ea 2-[place]) Past Med/Surg History Problem List (Updated 12/19/24 @ 13:27 by Margarita Rowland PA-C) Seroma of breast Stroke-like symptoms Cervical spinal stenosis Spinal headache Cervicalgia (Acute) Pelvic pain in female Lumbar spinal stenosis Severe @ L4-L5 Balance disorder Hx of bladder cancer S/p TURBT 09/2018 followed by BCG treatments - last treatment 09/2019 History of breast cancer History of DVT (deep vein thrombosis) Cervicogenic headache Urinary incontinence Frequent urinary tract infections HLD (hyperlipidemia) (Chronic) HTN (hypertension) (Chronic) Asthma (Chronic) Osteoporosis (Chronic) Lumbar radiculopathy (Chronic) Prediabetes (Chronic) "DIET CONTROLLED" Vitamin D deficiency (Chronic) Solitary thyroid nodule (Chronic) Osteopenia after menopause (Chronic) Insomnia (Chronic) Vertigo (Chronic) Sensorineural hearing loss of both ears Pseudogout Venous insufficiency Allergic rhinitis Paroxysmal SVT (supraventricular tachycardia) Valvular heart disease GERD (gastroesophageal reflux disease) Sar[place] (Chronic 03/30/21) Occipital neuralgia of right side Medical History Popliteal cyst Degenerative joint disease, foot, left Carpal tunnel syndrome on both sides 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 Bladder cancer Melanoma Abnormal PET of right lung Cancer related pain Fatigue after COVID-19 vaccination Anxiety Breast cancer, right Near syncope Pes anserine bursitis Hx of supraventricular tachycardia Concussion Dizziness Dysfunction of right eustachian tube Right ear pain Thoracic back pain Asthma Right hip pain BPPV (benign paroxysmal positional vertigo) Palpitations Paroxysmal supraventricular tachycardia Sinus arrhythmia H/O allergy to nuts Surgical History History of total right hip replacement History of total replacement of right hip History of excision of mass (11/27/23) Status post right breast lumpectomy (10/17/21) H/O excision of mass S/P epidural steroid injection H/O cardiac radiofrequency ablation History of anesthesia reaction History of transurethral destruction of bladder lesion (~09/2018) History of esophagogastroduodenoscopy (EGD) H/O eye surgery (~2012) Hx of colonoscopy History of foot surgery History of laparoscopy History of oral surgery History of tonsillectomy and adenoidectomy History of cholecystectomy (~2011) History of cataract surgery (~2014) History of dilatation and curettage (~2015) History of sinus surgery History of total hip arthroplasty (~12/2014) H/O lumbosacral spine surgery Family History Father Lung cancer Colorectal cancer Son Sinusitis Environmental allergies Mother Hypertension Stroke Aunt Breast cancer Brother No problems noted. Family/Other Breast cancer Other No family history of adverse response to anesthesia Denies family history of Ovarian cancer Bleeding disorder Social History Smoking Status: Never smoker Tobacco Type: Cigarettes Second Hand Exposure: No ( A CHILD); Do You Dip or Chew Tobacco: No; Hx Alcohol Use: Yes Alcohol type: wine Hx Substance Use: No Preferred Language: Divehi Communication Ability: Effective Visual Impairment: Partially Limited Hearing Ability: Normal Day Care Provider Required: No Beliefs That Will Affect Care: None marital status: / Current Living Situation: Alone current occupational status: 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 How many Children do You have: 2 Feels Safe at Home: Yes Childhood Exposure to Second-Hand Smoke: Yes Diet: regular caffeine: No during the past year weight has: remained stable Dental Care, Regularly: Yes Physical Activity Frequency: 1-2 Times per Week Seatbelt Use: always Sunscreen Use: Yes Assistive Devices: Glasses Review of Systems Review of Systems: All systems reviewed & are unremarkable except as noted in HPI & below Physical Exam Physical Exam: General: no acute distress; non-toxic appearing; well-nourished; cooperative HEENT: normocephalic, atraumatic; no scleral icterus; PERRLA w/ EOMs intact; vision and hearing grossly intact; tenderness to touch in posterior scalp region Neck: trachea midline Skin: warm, dry without signs of tenting; no cyanosis; no rashes, bruising, lesions, or erythema noted CV: RRR; S1/S2 normal; no murmurs/rubs/gallops; mobile fluid collection right anterior chest wall. tender to palpation. no erythema or drainage Lungs: no acute respiratory distress; symmetrical chest wall expansion; clear breath sounds across all lung arellano w/o adventitious sounds; no wheezing ABD: Soft, NTP; BS present; no rebound/guarding; no distention MSK: no edema noted in the LEs b/l, nonerythematous Neuro: A&Ox3; normal mood and affect; fluent speech; no focal deficits; sensat ion grossly intact in the LEs b/l Results & Data Results & Data Vital Signs (Past 12 Hours) Vital Signs Temp Pulse Pulse Resp BP BP Pulse Ox 12/19/24 12:48 67 12/19/24 11:00 62 18 157/65 H 95 12/19/24 09:35 68 95 12/19/24 09:00 36.4 C L 70 15 145/73 H 97 O2 Del Method 12/19/24 12:48 12/19/24 11:00 Room Air 12/19/24 09:35 Room Air 12/19/24 09:00 Room Air Laboratory Results CBC, CMP, procal, TSH, Lyme, UA reviewed Diagnostic Findings CT head and chest reviewed Code Status & VTE Plan VTE Prophylaxis Plan VTE Prophylaxis will be ordered: Yes Supervising Physician Co-Signing Physician Notes PA Supervision Note: I personally saw and examined the patient. I verified all torres points and agree with IRVING Adkins with the following exceptions and/or additions: S-Pt here with headache and tingling on top of head much worse with sitting up for the last 10 days. No fevers. Tylenol not helping. Feels almost exactly the same as when she had a spinal headache 3 months brunner that went away with a blood patch. History and ROS reviewed otherwise as above O- Vitals reviewed Gen: [AAOx3, NAD] HEENT: [anicteric sclerae, EOMI, PERRLA] CV: [RRR no mgr nl S1S2, +palpable fluctuence under right axilla, no erythema] Pulm: [CTAB no wcr] Abd: [+BS soft NT ND no masses or hernias] Ext: [no edema] Skin: [no rashes, warm/dry] Neuro: [full strength throughout, CN 2-12 intact A/P-84 yo female here with headache and neck pain, difficulty walking/with balance x 1-2 weeks Suspect spontaneous recurrence of spinal leak again vs occipital neuralgia Check Brain MRI to r/o stroke Consult pain Man for opinion on need for repeat blood patch vs further imaging start fioricet prn headache PG Care Time/CCT Total # of Minutes Spent Total Time Spent with Patient: Total time spent is greater than 50% in coordination of care (as documented) at patient's floor/unit and/or counseling patient: Coding Level of Care Code 76824 INT INP/OBS CARE 3/75MIN Diagnoses Headache R51.9 Headache chronicity pattern: acute headache Headache type: unspecified Intractability: not intractable Stroke-like symptoms R29.90 Seroma of breast N64.89 GERD (gastroesophageal reflux disease) K21.9 (1) Headache Headache chronicity pattern: acute headache Headache type: unspecified Intractability: not intractable Qualified Code(s): R51.9 - Headache, unspecified
--- NOTE | 2024-12-19 13:47 | XCELERA ---
[id number]
[2024-12-19] MEDS: OPTIRAY 320 125ml IV ONE (13:52)
--- NOTE | 2024-12-19 14:10 | CT Scan Report ---
CTA ANGIOGRAPHY OF THE HEAD CLINICAL HISTORY: neuro deficit, acute stroke suspected COMPARISON STUDY: MRI of the brain September 16, 2024. Head CT October 08, 2024. CTA of the head August. Head CT performed earlier today. TECHNIQUE: Helical axial images of the head were obtained following uneventful intravenous administr ation of 112 cc of Optiray. Sagittal and coronal reconstructions were viewed as well as maximal inten sity projections on an independent 3-D workstation. Automated exposure control was utilized for the study. A dose lowering technique was utilized adhering to the principles of ALARA. CT DOSE: 450.7 mGy.cm FINDINGS: No acute intracranial hemorrhage is identified on contrast enhanced exam. Ventricular syste m is unremarkable. Basal cisterns are patent. There are no extra-axial collections. There is extensiv e calcified atherosclerotic plaque within the cavernous carotids which results in moderate stenosis o f these vessels. This is unchanged. The bilateral M1, M2, A1 and A2 segments are patent. Posterior ci rculation is intact. No intracranial vessel occlusion is identified. There is no intracranial aneurys m or dissection. IMPRESSION: No intracranial vessel occlusion. No intracranial aneurysm. ACT 112: Negative or not required by law. Electronically signed by: Floyd Trejo M.D. 12/19/2024 2:08 PM
--- NOTE | 2024-12-19 14:12 | CT Scan Report ---
CT angio neck with con CLINICAL HISTORY: 84 years-old Female with neuro deficit, acute stroke suspected. Acute strokelike symptoms COMPARISON STUDY: CTA head on chest CT of same day, CT cervical spine 01/12/2024 TECHNIQUE: Following the IV administration of 112 cc of Optiray, CT angiogram of the neck was perform ed from the aortic arch to the skull base. Images are reviewed in the axial, sagittal, and coronal pl anes. 3-D MIPS images are created and assessed. IV contrast was administered without complication. Al l measurements were calculated based on NASCET criteria. A dose lowering technique was utilized adhe ring to the principles of ALARA. FINDINGS: Three-vessel morphology of the vascular regard. Patency of the innominate and image subclavian arteri es. There is mild atherosclerosis of the carotid bulbs without high-grade stenosis. There is luminal irregularity of the patent internal carotid arteries, most pronounced in the cervical segments, right greater the left. This may be secondary to atherosclerosis with vasculitis considered less likely. T he vertebral arteries are patent. Linear subpleural right apical opacity favors scarring. Partially imaged right chest wall fluid colle ction. Chest CT dictated separately. Unremarkable soft tissues. No acute fracture. IMPRESSION:Atherosclerosis without aneurysm, high-grade stenosis or arterial occlusion. ACT 112: Negative or not required by law. The above report was generated using voice recognition software. It may contain grammatical, syntax o r spelling errors. Electronically signed by: Raffaele Amado M.D. 12/19/2024 2:11 PM
--- NOTE | 2024-12-19 14:53 | Electrocardiogram Report ---
Test Reason : Blood Pressure : */* mmHG Vent. Rate : 63 BPM Atrial Rate : 63 BPM P-R Int : 190 ms QRS Dur : 74 ms QT Int : 424 ms P-R-T Axes : 50 9 48 degrees QTcB Int : 433 ms Normal sinus rhythm Low voltage QRS Borderline ECG When compared with ECG of 16-Sep-2024 19:23, Premature atrial complexes are no longer Present Confirmed by Lionel Mak ([id number]) on 12/19/2024 2:53:09 PM Referred By: REFERRED SELF Confirmed By: Lionel Mak
[2024-12-19] MEDS: ACETAMINOPHEN 325 MG TAB PO PRN (16:05)
[2024-12-19] MEDS: POTASSIUM CHLORIDE 10 MEQ TABCR PO STA (17:06)
[2024-12-19] MEDS: BUTALBITAL/ACETAMIN/CAFFEINE TAB PO STA (17:06)
[2024-12-19] MEDS: GABAPENTIN 100 MG CAP PO SCH (20:21)
[2024-12-19] MEDS: PRAVASTATIN SOD 40 MG TAB PO SCH (20:21)
[2024-12-19] MEDS: ENOXAPARIN INJ 40 MG/0.4 ML SYR SQ SCH (20:23)
[2024-12-19] MEDS: dilTIAZem HCL 120 MG CAPCR PO SCH (20:25)
[2024-12-19] MEDS: BUTALBITAL/ACETAMIN/CAFFEINE TAB PO PRN (21:23)
[2024-12-19] MEDS: ZOLPIDEM TARTRATE 5 MG TAB PO PRN (23:55)
--- NOTE | 2024-12-19 23:59 | Magnetic Resonance Report ---
MRI of the brain without contrast Technique: Noncontrast multiplanar multisequence MR images of the brain were obtained. Reference is made to prior exam dated 03/21/2019 No acute intracranial hemorrhage. No acute infarcts. Appropriate vascular flow voids present. Very mild T2/FLAIR signal hyperintensity scattered throughout the subcortical and deep white matter consistent with very mild ischemic microangiopathy. Impression: Mild ischemic microangiopathy No infarct or intracranial hemorrhage Electronically signed by Ganesh Lambert 12-19-2024 11:59 PM
[2024-12-20 06:32] LABS: Hematocrit (blood only) 42.2 % (37.0-47.0); Hemoglobin 14.2 g/dl (12.0-16.0); Mean Corpuscular Hemoglobin 31.1 pg (25.0-34.0); Mean Corpuscular Hgb Conc 33.6 g/dL (32.0-36.0); Mean Corpuscular Volume 92.3 fL (80.0-100.0); Mean Platelet Volume 9.1 fL (9.4-12.4); Platelet Count 240 K/uL (130-400); RDW Coefficient of Variation 13.7 % (11.5-14.5); RDW Standard Deviation 46.5 fL (36.4-46.3); Red Blood Count 4.57 M/uL (4.20-5.40); White Blood Count 4.85 K/ul (4.8-10.8)
[2024-12-20 06:49] LABS: BUN Creatinine Ratio 16.2 (10-20); Calcium 8.9 mg/dl (8.6-10.3); Chol HDL Ratio 2.7 (0-5); Potassium 3.8 mmol/L (3.5-5.1)
[2024-12-20 07:16] LABS: Folate (Folic Acid),Ser orPlas > 22.30 ng/ml (>5.38)
[2024-12-20 07:17] LABS: Vitamin B12 806 pg/ml (180-914)
--- NOTE | 2024-12-20 08:00 | Hospitalist Progress Note ---
Date of Service December 20, 2024 Assessment & Plan (1) Headache: (2) Stroke-like symptoms: (3) Seroma of breast: (4) GERD (gastroesophageal reflux disease): Plan This is a 84-year-old female with past medical history of spinal headaches, occipital neuralgia, SVT who presented to the emergency department on 12/19/2024 with strokelike symptoms. While in the emergency department she was given Tylenol. She had a chest CT that did reveal a mild decrease in size of her right anterior upper chest wall fluid collection since 2023. She had a soft tissue ultrasound of her right anterior shoulder region that revealed a 7 cm right anterior chest wall collection again decreased in size. She also had a head CT without contrast that was negative. #Headache/Stroke like symptoms w/ ~ 1 week of balance & leaning to the left. Also w/ headaches & tenderness to palpation of posterior scalp worse with sitting upright Recently saw PCP on --> @ that time PCP felt symptoms related to occipital neuralgia & increased gabapentin Head CT/CTA; Neck CTA & Brain MRI all negative. CBC, BMP stable. hgb A1c 6; TSH WNL Cholesterol panel WNL Vitamin B12 and folate levels WNL Echo - LVEF 60-65% Orthostatic vital signs Gabapentin increased to 200mg HS Pain management consulted Reached out to neurology, discussed w/ Dr. Whitaker -> recommended Medrol dose pack, Toradol,check inflammatory markers, await pain management recommendations & follow up w/ Dr. Rosenberg outpatient. Meclizine prn for dizziness PT/OT consulted, appreciate recommendations. #Seroma w/ history of breast cancer & drainage to seroma on right anterior chest wall. Exam revealed mobile fluid collection without erythema. US of right anterior chest region & chest CT both demonstrate 7cm R anterior chest wall collection decreased in size from 01/12/2024. continue to monitor, does not appear infectious Recommend follow up with surgeon she is established with outpatient. #GERD w/ complaints of belching & indigestion. Stopped PPI due to risks associated w/ medications Start Pepcid 40mg once daily Zofran prn for N/V #SVT/HTN - Diltiazem #HLD - statin #Urinary incontinence - Vibegron DVT prophylaxis: SCD's, Lovenox Code: DNR/DNI Updated son via phone in room 6/14. Admission and Anticipated Discharge Date Admission Date: December 19, 2024 Kimber Hartman was seen and examined this morning. She states she is still experiencing a headache, mostly in the back of her head & the right side of her face. States she feels numbness & tingling on the right side of her face. States her head hurts worse when it is touching the pillow. Also complaining of nausea & right ear pain. Physical Exam Physical Exam: General: no acute distress; non-toxic appearing; well-nourished; cooperative HEENT: normocephalic, atraumatic; no scleral icterus; PERRLA w/ EOMs intact; vision and hearing grossly intact Neck: trachea midline Skin: warm, dry without signs of tenting; no cyanosis; no rashes, bruising, lesions, or erythema noted MSK: no edema noted in the LEs b/l, nonerythematous Neuro: A&Ox3; normal mood and affect; fluent speech; no focal deficits Results & Data Results & Data Vital Signs (Past 12 Hours) Vital Signs Temp Pulse Pulse Resp BP Pulse Ox O2 Del Method 12/20/24 07:59 36.7 C 55 L 18 127/70 97 Room Air 12/20/24 07:22 65 12/20/24 03:30 36.8 C 64 16 105/63 97 Room Air 12/19/24 23:24 64 12/19/24 22:42 36.8 C 59 L 18 116/66 96 Room Air PG Care Time/CCT Total # of Minutes Spent Total Time Spent with Patient: Total time spent is greater than 50% in coordination of care (as documented) at patient's floor/unit and/or counseling patient: Coding Level of Care Code 20821 SUB INP/OBS CARE 3/50MIN Diagnoses Headache R51.9 Headache chronicity pattern: acute headache Headache type: unspecified Intractability: not intractable Stroke-like symptoms R29.90 Seroma of breast N64.89 GERD (gastroesophageal reflux disease) K21.9 (1) Headache Headache chronicity pattern: acute headache Headache type: unspecified Intractability: not intractable Qualified Code(s): R51.9 - Headache, unspeci fied
[2024-12-20 08:39] LABS: Estimated Average Glucose 126 mg/dl
[2024-12-20] MEDS: VIBEGRON 75 MG TAB PO SCH (09:10)
[2024-12-20] MEDS: ASPIRIN 81 MG ECTAB PO SCH (09:10)
[2024-12-20] MEDS: MECLIZINE 12.5 MG TAB PO PRN (09:10)
[2024-12-20] MEDS: FAMOTIDINE 40 MG TABLET PO SCH (09:10)
[2024-12-20] MEDS: dilTIAZem HCL 180 MG CAPCR PO SCH (09:49)
[2024-12-20] MEDS ORDERED: ONDANSETRON 4 MG OD TAB PO PRN (10:05)
[2024-12-20] MEDS ORDERED: methylPREDNISolone 4 MG TAB, 6 DAY TAPER PO SCH (11:00)
[2024-12-20] MEDS: methylPREDNISolone 4 MG TAB PO SCH ×2 (11:50→12:48)
[2024-12-20] MEDS: KETOROLAC TROMETHAMINE 15 MG/ML VIAL IV PRN (11:50)
[2024-12-20] MEDS: ALUMINUM/MAGNESIUM SUSP 30 ML UDC PO PRN (22:36)
[2024-12-21] MEDS: methylPREDNISolone 4 MG TAB PO SCH ×2 (05:57→19:36)
--- NOTE | 2024-12-21 10:31 | Hospitalist Progress Note ---
Date of Service December 21, 2024 Assessment & Plan (1) Headache: (2) Stroke-like symptoms: (3) Seroma of breast: (4) GERD (gastroesophageal reflux disease): Plan This is a 84-year-old female with past medical history of spinal headaches, occipital neuralgia, SVT who presented to the emergency department on 12/19/2024 with strokelike symptoms. While in the emergency department she was given Tylenol. She had a chest CT that did reveal a mild decrease in size of her right anterior upper chest wall fluid collection since 2023. She had a soft tissue ultrasound of her right anterior shoulder region that revealed a 7 cm right anterior chest wall collection again decreased in size. She also had a head CT without contrast that was negative. #Headache/Stroke like symptoms w/ ~ 1 week of balance & leaning to the left. Also w/ headaches & tenderness to palpation of posterior scalp worse with sitting upright Recently saw PCP on --> @ that time PCP felt symptoms related to occipital neuralgia & increased gabapentin Head CT/CTA; Neck CTA & Brain MRI all negative. CBC, BMP stable. hgb A1c 6; TSH WNL Cholesterol panel WNL; Vitamin B12 and folate levels WNL ESR/CRP negative; Lyme negative Echo - LVEF 60-65% Gabapentin increased to 200mg HS Pain management consulted --> reached out & they will see her in rounds tomorrow, 12/21. Reached out to neurology, discussed w/ Dr. Whitaker -> recommended Medrol dose pack, [place], await pain management recommendations & follow up w/ Dr. Rosenberg outpatient. Meclizine prn for dizziness PT/OT consulted --> home w/ home health #Seroma w/ history of breast cancer & drainage to seroma on right anterior chest wall. Exam revealed mobile fluid collection without erythema. US of right anterior chest region & chest CT both demonstrate 7cm R anterior chest wall collection decreased in size from 01/12/2024. continue to monitor, does not appear infectious Recommend follow up with surgeon she is established with outpatient. #GERD w/ complaints of belching & indigestion. Stopped PPI due to risks associated w/ medications Start Pepcid 40mg once daily Zofran prn for N/V #SVT/HTN - Diltiazem #HLD - statin #Urinary incontinence - Vibegron DVT prophylaxis: SCD's, Lovenox Code: DNR/DNI Admission and Anticipated Discharge Date Admission Date: December 19, 2024 Kimber Hartman was seen and examined this morning. She said that her numbness/tingling in her face has improved but she is still w/ a headache/neck pain. She states she was able to perform ADL's this morning and it seemed easier w/ her symptoms. She is looking forward to her pain management consult tomorrow. Physical Exam Physical Exam: General: no acute distress; non-toxic appearing; well-nourished; cooperative HEENT: normocephalic, atraumatic; no scleral icterus; PERRLA w/ EOMs intact; vision and hearing grossly intact Neck: trachea midline Skin: warm, dry without signs of tenting; no cyanosis; no rashes, bruising, lesions, or erythema noted Lungs: no acute respiratory distress; symmetrical chest wall expansion MSK: no edema noted in the LEs b/l, nonerythematous Neuro: A&Ox3; normal mood and affect; fluent speech; no focal deficits Results & Data Results & Data Vital Signs (Past 12 Hours) Vital Signs Temp Pulse Pulse Resp BP Pulse Ox O2 Del Method 12/21/24 07:37 36.6 C 57 L 18 119/72 97 Room Air 12/21/24 07:22 75 12/21/24 04:13 36.8 C 60 16 138/79 97 Room Air 12/20/24 23:00 37.0 C 71 18 123/73 94 Room Air PG Care Time/CCT Total # of Minutes Spent Total Time Spent with Patient: Total time spent is greater than 50% in coordination of care (as documented) at patient's floor/unit and/or counseling patient: Coding Level of Care Code 90364 SUB INP/OBS CARE 2/35MIN Diagnoses Headache R51.9 Headache chronicity pattern: acute headache Headache type: unspecified Intractability: not intractable Stroke-like symptoms R29.90 Seroma of breast N64.89 GERD (gastroesophageal reflux disease) K21.9 (1) Headache Headache chronicity pattern: acute headache Headache type: unspecified Intractability: not intractable Qualified Code(s): R51.9 - Headache, unspecified
[2024-12-21 22:31] VITALS: RESP 18
[2024-12-22] MEDS: methylPREDNISolone 4 MG TAB PO SCH (06:09)
[2024-12-22 07:59] LABS: Creatinine Clr Calc Pharmacy 39.2 ml/min
[2024-12-22] MEDS ORDERED: ROPIVACAINE 0.5% 5 MG/ML 30 ML VIAL ONE (07:59)
[2024-12-22] MEDS ORDERED: TRIAMCINOLONE ACET 40 MG/ML VIAL ONE (07:59)
--- NOTE | 2024-12-22 09:31 | Pain Management Consultation ---
Date of Consultation December 22, 2024 Assessment & Plan (1) Balance problem: (2) Pins and needles sensation: (3) Headache: (4) Stroke-like symptoms: (5) Cervicalgia: Plan 1. We have discussed trying bilateral greater and lesser occipital nerve blocks today to see if it may alleviate the posterior headache. Risks and benefits were reviewed and she would like to proceed. Please refer to procedure section for further details. 2. In regards to cervicalgia I have ordered a lidocaine patch for neck pain plaints being related to osteoarthritis. She states that the neck pain has been improving over the last several days. Her neck range of motion has improved. 3. Patient is also experiencing temporal headaches which is thought to be related to sinuses. She did see her PCP last week and instructed to use Flonase which did seem to be helping. 4. Patient is not exhibiting symptoms related to a spinal headache. No blood patch is warranted. 5. She is welcome to follow-up in the pain clinic on an outpatient basis. GREATER OCCIPITAL AND LESSER OCCIPITAL NERVE BLOCKS Diagnosis: Occipital Neuralgia Side/peripheral nerves injected: Bilateral Medications Given: 5 mL 0.5% Ropivacaine MPF 1 mL Kenalog 40mg/mL Prior to starting, the diagnosis and the procedure was reviewed with the patient in detail. Possible risks and complications including infection, bleeding, damage to surrounding structures and increased pain were discussed. Alternative therapies were also reviewed. All questions were answered and it was agreed to proceed. Informed consent was obtained. Allergies and medication list was reviewed. The patient was placed in sitting position. Immediately prior to starting the procedure, a time out was conducted with the staff and the patient where the patient was identified, proposed procedure was verified, consent was reviewed and the proper site for the planned procedure was identified. Patient was not given any intravenous sedation and constant verbal contact was maintained throughout the procedure. On examination, no signs of skin breakdown or infection were noted at the injection site. The site was cleansed with alcohol. Sterile technique was used throughout the procedure. After identifying skeletal landmarks, each site was injected with 1.5 mL's. Aspiration was negative. Hemostasis noted. Patient tolerated the procedure uneventfully without complications. History of Present Illness Attending Physician: Deonna Egan MD History of Present Illness Minnie is an 84-year-old female that is well-known to the [facility] pain service for severe lumbar stenosis that has responded well to lumbar epidural steroid injections. The most recent lumbar epidural steroid injection was on 09/04/2024 and weeks later she called into the office with a headache that did not respond to bilateral occipital nerve blocks and cervical trigger point injections so a blood patch was performed which did resolve the headache at that time. She went to the emergency department 3 days ago for dizziness, headache, tingling of the face, and neck pain. She states that her neck pain has significantly improved over the last several days. She was unable to turn her neck from [id number] when the pain was severe and states that this morning there is a mild ache along the right upper cervical region and her range of motion has returned to previous. No radicular symptoms down the arms. She is describing an intermittent headache, mostly along the occipital region bilaterally. The headache is aggravated with laying her head against a hard surface. Headache is not worse with standing. She has been describing sinus pressure and headaches around the ears to which she did see her PCP and was placed on Flonase which has been moderately effective. When she initially came into the emergency department her vision was blurry. She states that the blurred vision has since resolved. Case discussed with Dr. Guevara Allergies Allergy/AdvReac Type Severity Reaction Status Date / Time pine nut Allergy Severe ITCHING,THROAT Verified 12/11/24 11:06 CLOSES bee venom protein (honey bee) Allergy Intermediate Hives Verified 12/11/24 11:06 pollen extracts Allergy Mild SNEEZING;ITCHY Verified 12/11/24 11:06 EYES ragweed pollen Allergy Mild SNEEZING Verified 12/11/24 11:06 methylprednisolone AdvReac Severe SVT, Verified 12/11/24 11:06 [From Medrol] INSOMNIA, HEART RACING amoxicillin [From Augmentin] AdvReac Intermediate c.diff Verified 12/11/24 11:06 clavulanic acid AdvReac Intermediate c.diff Verified 12/11/24 11:06 [From Augmentin] Home Medications Medication Instructions Recorded Confirmed Type albuterol sulfate 90 mcg/actuation 2 puff inhalation QID PRN 10/29/23 12/19/24 Rx aerosol inhaler shortness of breath or wheezing #8.5 grams mecobalamin (vitamin B12) 500 mcg 500 mcg PO DAILY 01/01/24 12/19/24 History chewable tablet pravastatin 40 mg tablet 40 mg PO HS #90 tabs 04/04/24 12/19/24 Rx calcium carbonate (Calcium 500) 500 mg PO DAILY 05/29/24 12/19/24 History meclizine 25 mg tablet 25 mg PO DAILY PRN Dizziness Or 07/17/24 12/19/24 History Vertigo zolpidem 10 mg tablet 5 mg (1/2 x 10 mg) PO HS PRN Sleep 07/30/24 12/19/24 Rx #30 tabs cholecalciferol (vitamin D3) 125 10,000 unit PO DAILY 09/11/24 12/19/24 History mcg (5,000 unit) capsule diltiazem HCl 60 mg 60 mg PO QAM #90 caps 09/11/24 12/19/24 Rx capsule,extended release 12 hr diltiazem HCl 120 mg capsule,24 120 mg PO BID 09/16/24 12/19/24 History hr,extended release alendronate 70 mg tablet 70 mg PO Q7D #12 tabs 09/25/24 12/19/24 Rx vibegron 75 mg tablet (Gemtesa) 75 mg PO DAILY 11/25/24 12/19/24 History aspirin 81 mg tablet 81 mg PO DAILY 11/28/24 12/19/24 History gabapentin 100 mg capsule 100 mg PO HS 11/28/24 12/19/24 History epinephrine 0.3 mg/0.3 mL 0.3 mg (0.3 mL) IM DIRECTED PRN 12/11/24 12/19/24 Rx injection, auto-injector (EpiPen anaphylaxis #2 ea 2-[place]) [id number] 1 tab PO Q4H PRN refractory 12/22/24 Rx 50 mg-325 mg-40 mg tablet headache #12 tabs famotidine 40 mg tablet 40 mg PO QAM #30 tabs 12/22/24 Rx gabapentin 100 mg capsule 200 mg (2 x 100 mg) PO HS #60 caps 12/22/24 Rx prednisone 20 mg tablet 20 mg PO DAILY 3 days #3 tabs 12/22/24 Rx Patient History Medical History Popliteal cyst Degenerative joint disease, foot, left Carpal tunnel syndrome on both sides 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 Recently diagnosed - reason for procedure Bladder cancer 2018;[facility] treatments 10/2018 through September 2019 Melanoma Abnormal PET of right lung Cancer related pain Fatigue after COVID-19 vaccination Anxiety Breast cancer, right Near syncope Pes anserine bursitis Hx of supraventricular tachycardia Concussion Dizziness REASON FOR MECLIZINE Dysfunction of right eustachian tube Right ear pain Thoracic back pain Asthma HAS NOT USED INHALER RECENLTY Right hip pain BPPV (benign paroxysmal positional vertigo) Palpitations Paroxysmal supraventricular tachycardia F/U DR KRISTI MORENO S/p ablation 01/2021 Sinus arrhythmia H/O allergy to nuts Surgical History History of total right hip replacement History of total replacement of right hip History of excision of mass (11/27/23) Status post right breast lumpectomy (10/17/21) Right Breast Lumpectomy with Localization, [employer], Right axillary [place] Node Biopsy(Right) - Sergio Parikh, , FACS 10/17/2021 H/O excision of mass Right Chest Wall Mass Excision 03/30/21 S/P epidural steroid injection H/O cardiac radiofrequency ablation Dr Moreno/Aubree 01/06/2021 had episode of SVT and not successful. followed up with [facility] and was decided not to do another ablation. she will continue to take diltiazem History of anesthesia reaction SLOW TO WAKE UP History of transurethral destruction of bladder lesion (~09/2018) History of esophagogastroduodenoscopy (EGD) H/O eye surgery (~2012) repair of ptosis;Bilateral Hx of colonoscopy History of foot surgery 1970's bunionectomy;left foot History of laparoscopy over 10 years History of oral surgery History of tonsillectomy and adenoidectomy History of cholecystectomy (~2011) History of cataract surgery (~2014) RT/LEFT History of dilatation and curettage (~2015) History of sinus surgery History of total hip arthroplasty (~12/2014) RIGHT H/O lumbosacral spine surgery 1994 Family History Father Lung cancer Colorectal cancer Son Sinusitis Environmental allergies Mother Hypertension Stroke Aunt Breast cancer Brother No problems noted. 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 HEAD/FACE: Normocephalic and atraumatic. Mild tenderness of the bilateral greater and lesser occipital nerves. No tenderness of the regular temporal, supraorbital, supratrochlear nerves. EYES: No drainage or conjunctival injection. ENT: Nose without bleeding or discharge. Oral mucosa moist. NECK: Full ROM without apparent pain. No midline or facet joint tenderness. No myofascial spasm or trigger points noted. RESPIRATORY: Patient with unlabored breathing. No signs of respiratory distress. CHEST/AXILLA: Chest movement symmetrical. No deformities noted. ABDOMEN/GI: No distension BACK: Moves without difficulty SKIN: [place], warm and dry. No rash noted. MS/EXTREMITY: No swelling, no deformities. Moving extremities appropriately. NEURO: Alert and appears oriented. Speech is fluent. Cranial Nerves are grossly intact. PSYCH: Alert, pleasant, affect is calm
[2024-12-22] MEDS: LIDOCAINE 5% 1 PATCH TD STA (10:27)
--- NOTE | 2024-12-22 12:58 | Discharge Summary ---
Discharge Summary Date of Service December 22, 2024 Principal Dx & Hospital Course #1 = Principal Diagnosis (1) Headache: (2) Stroke-like symptoms: (3) Seroma of breast: (4) GERD (gastroesophageal reflux disease): Plan #Headache/Stroke like symptoms This is a 84-year-old female with past medical history of spinal headaches, occipital neuralgia, SVT who presented to the emergency department on 12/19/2024 with strokelike symptoms. While in the emergency department she was given Tylenol. She had a chest CT that did reveal a mild decrease in size of her right anterior upper chest wall fluid collection since 2023. She had a soft tissue ultrasound of her right anterior shoulder region that revealed a 7 cm right anterior chest wall collection again decreased in size. She also had a head CT without contrast that was negative. symptoms of headache and 1 week of balance feeling like she was leaning to the left. PCP felt that the symptoms were related to her occipital neuralgia and increased her gabapentin. Had stroke workup that had a negative head CT/CTA, neck CTA and brain MRI. Her TSH, cholesterol panel, vitamin B12 and folate were unremarkable. ESR/CRP and Lyme were negative. Hemoglobin A1c is stable at 6. Case was discussed with neurology and she was started on a Medrol Dosepak and recommended pain management consultation and outpatient follow-up with Dr. Rosenberg. Seen by pain management who performed to occipital nerve blocks and recommended lidocaine patch. Does not feel that she has a spinal headache and her temporal headaches may related to sinus issues. Outpatient pain management follow-up. I personally walked patient around the unit and was no longer having left lean did feel like her symptoms have improved. She does live alone and was agreeable to home health referral. I asked her to not drive unless her symptoms are 100% improved until she has her follow-up with Dr. Rosenberg this Sunday. Medrol Dosepak was decreased to short course of prednisone on discharge as patient has had SVT requiring hospitalization before from Medrol Dosepak. #Seroma w/ history of breast cancer & drainage to seroma on right anterior chest wall. Exam revealed mobile fluid collection without erythema.US of right anterior chest region & chest CT both demonstrate 7cm R anterior chest wall collection decreased in size from 01/12/2024. Recommend follow up with surgeon she is established with outpatient. #GERD - w/ complaints of belching & indigestion. Stopped PPI due to risks associated w/ medications - Start Pepcid 40mg once daily #SVT/HTN - Diltiazem #HLD - statin #Urinary incontinence - Vibegron dispo: Discharge to home today with home health and neurology follow-up Notes For Next Care Provider Will need pain management follow-up Medication Changes From Visit started on Pepcid Prednisone x 3 days Gabapentin increased Admission HPI Per Admitting Provider This is a 84-year-old female with past medical history of spinal headaches, occipital neuralgia, SVT who presented to the emergency department on 12/19/2024 with strokelike symptoms. Minnie was seen and examined this afternoon. She tells me that she has been having ongoing symptoms for at least a week now, if not longer. She states that she has been getting headaches and that her head is tender to touch. She states that she has worsened pain when she lies on her pillow. She states that the pain is in the posterior region of her head. She admits to occasional nausea associated with the symptoms. She states that she did have a blood patch procedure done back in September which completely resolved her symptoms but unfortunately they returned. She also states that over the past week she has been noticing issues with her balance and feels that she is leaning to the left side. She also admits to experiencing blurry vision but tells me that she has been diagnosed with macular degeneration disorder. She also complains of right ear pain and was recently at her PCP for this. She states that she has been using Flonase because she was told she had some fluid in her left ear. She also reports that she has had increased indigestion and belching recently. She states that she was previously on omeprazole but had then discontinued this medication due to risks. She also states that she has been having increased pain recently in her arm area of her right seroma. She states that she feels that it has increased in size. She states that yesterday it was swollen. She also states that it is painful to touch. She denies any urinary symptoms including burning, dysuria, frequency. Denies any lower extremity edema. Denies any chest pain or shortness of breath. While in the emergency department she was given Tylenol. She had a chest CT that did reveal a mild decrease in size of her right anterior upper chest wall fluid collection since 2023. She had a soft tissue ultrasound of her right anterior shoulder region that revealed a 7 cm right anterior chest wall collection again decreased in size. She also had a head CT without contrast that was negative. Code discussion to take place with the patient and she does confirm that she has paperwork stating that she is a DNR/DNI. Discharge Exam General: NAD, VS as above Resp: normal respiratory effort, lungs clear to auscultation CV: RRR, no murmur, Abd: normal bowel sounds, non tender, no hepatosplenomegaly Extremities: Moves all extremities, no edema Neuro: A&O x3, no gross deficits Skin: intact, no lesions noted Discharge Plan Discharge Items Patient Disposition: Home - Home Health Services Reason For Visit: HEADACHE Discharge Diagnosis: Headache, balance problems Condition on Discharge: Good Activity: Resume your previous activity Lifting: No more than 25 pounds Driving/Machine Use: NO driving until Neuro appointment Weightbearing: Full weightbearing Non-emergency contact: Primary Care Provider, Specialist and Neurologist Call non-emergency contact if: you have any medication questions, your symptoms worsen, your pain is not controlled and your temperature is above 101 Follow-up/Referrals: Roc Rosenberg MD [Physician] - 12/26/24 10:00 am () Mely Cullen PA-C [Physician Rewinder Operator] - (Follow up 3-4 weeks ) Claudia Moffett DO [Primary Care Provider] - 01/01/25 10:00 am () Diet: Heart Healthy Addtl Attending Provider Instructions: Ms. Pike, Alex were hospitalized after having worsening headache with vision changes and balance issues. You had a full stroke workup that did not show any evidence of stroke. Thankfully your symptoms have improved some. A neurologist was contacted about your case and recommended a course of steroids, pain management consultation and outpatient follow up with Dr. Rosenberg. Given your hx of SVT - I have decreased your steroids and will continue on prednisone for 3 more days. You were seen by pain management who preformed two nerve blocks and they did not think your symptoms were from a spinal headache. They also recommended lidocaine patches - these can be purchased over the counter. Continue to take Flonase. Follow up with pain management outpatient. Please keep your appointment with Dr. Rosenberg on Sunday. Would not recommend driving before then unless you feel 100% better and are not having any vision issues. We increased your gabapentin dosage to 200mg each night. I have sent in Fioricet that can be used as needed for headache. This has Tylenol in it, so do NOT take Tylenol at the same time. Meclizine has also been sent in for dizziness - especially if you develop the feeling that the room is spinning Recommend outpatient follow up with your breast surgeon for seroma seen on chest CT - thankfully smaller than previous. Pepcid has been started once daily for indigestion. Activity: You can do normal everyday activities as your body allows. Take rest breaks if you feel tired. Do not overexert. Stop activity if you have pain, shortness of breath or feel dizzy. Follow-up appointments: Make an appointment with your primary care physician within one week of discharge. A copy of this summary will be sent to them. Every time you see your primary care physician, or any other doctor, bring your medication list, and a list of questions. CONTACT YOUR PRIMARY CARE PROVIDER if you experience any of the following: Shortness of breath or difficulty breathing Fevers or chills Feeling tired with normal activity or experiencing dizziness or fainting Difficulty following your treatment plan, or difficulty taking medications CALL 911 OR GO TO THE EMERGENCY DEPARTMENT if you experience any of the following: Severe abdominal pain or nausea/vomiting Severe chest pain, or chest pain that radiates (moves) to your jaw or arm Sudden, severe shortness of breath or difficulty breathing Thank you for allowing us to participate in your care. Pending Studies at Discharge: No Stand-Alone Forms: My [facility], Smoking Cessation Medications and DC Order Prescriptions: New xzxywkkwoh-yshklyhlsbsgx-zrew 50-325-40 mg Tablet 1 tab PO Q4H PRN (Reason: refractory headache) Qty: 12 0RF famotidine 40 mg Tablet 40 mg PO QAM Qty: 30 0RF gabapentin 100 mg Capsule 200 mg PO HS Qty: 60 0RF prednisone 20 mg tablet 20 mg PO DAILY 3 Days Qty: 3 0RF Continued mecobalamin (vitamin B12) 500 mcg tablet,chewable 500 mcg PO DAILY Rx Instructions: Unable to verify OTC meds at this date/time. calcium carbonate [Calcium 500] 500 mg calcium (1,250 mg) tablet,chewable 500 mg PO DAILY Rx Instructions: Unable to verify OTC meds at this date/time. meclizine 25 mg tablet 25 mg PO DAILY PRN (Reason: Dizziness Or Vertigo) cholecalciferol (vitamin D3) 125 mcg (5,000 unit) capsule 10,000 unit PO DAILY Rx Instructions: Unable to verify OTC meds at this date/time. alendronate 70 mg tablet 70 mg PO Q7D Qty: 12 3RF Rx Instructions: MONDAYS zolpidem 10 mg tablet 5 mg PO HS PRN (Reason: Sleep) Qty: 30 2RF aspirin 81 mg tablet 81 mg PO DAILY Rx Instructions: Unable to verify OTC meds at this date/time. pravastatin 40 mg tablet 40 mg PO HS Qty: 90 3RF Rx Instructions: Unable to verify med at this date/time. Gemtesa 75 mg tablet 75 mg PO DAILY Rx Instructions: Unable to verify med at this date/time. epinephrine [EpiPen 2-Clinton] 0.3 mg/0.3 mL auto-injector 0.3 mg IM DIRECTED PRN (Reason: anaphylaxis) Qty: 2 0RF albuterol sulfate 90 mcg/actuation HFA aerosol inhaler 2 puff inhalation QID PRN (Reason: shortness of breath or wheezing) Qty: 8.5 3RF diltiazem HCl 60 mg capsule,extended release 12 hr 60 mg PO QAM Qty: 90 3RF Rx Instructions: TOTAL DOSE 180 MG QAM ONLY--TAKES WITH 120 MG TAB. diltiazem HCl 120 mg capsule,extended release 24hr 120 mg PO BID Rx Instructions: TOTAL DOSE 180 MG QAM--TAKES WITH 60 MG TAB. QPM DOSE 120 MG ONLY. Discontinued gabapentin 100 mg capsule 100 mg PO HS Rx Instructions: Originally written for : 100mg by mouth twice daily Discharge Orders: Discharge Order (Routine); Ordered 12/22/24 Ordered By: Moira Pace Admission Data Admit Date/Time: 12/19/24 12:50 Attending Provider: Deonna Egan Admit Provider: Bev Allen Primary Care Provider: Claudia Moffett Other Providers: Inessa Nugent; Bev Allen; [facility] Stay Data Consultations 12/19/24 12:02 ED Decision to Admit Stat 12/19/24 16:34 Consult Pain Management Routine Diagnostic Imagining Performed Chest X-Ray 12/19/24 09:21 XR chest 1V portable CLINICAL HISTORY: dizziness COMPARISON STUDY: 09/19/2024 FINDINGS: There is mild cardiomegaly without pulmonary vascular congestion. Stable hyperexpanded lungs. No effusion, consolidation, or pneumothorax. IMPRESSION: No acute findings. ACT 112: Negative or not required by law. Electronically signed by: Sergio Yip M.D. 12/19/2024 10:[address] 12/19/24 10:48 CT OF THE CHEST WITHOUT IV CONTRAST CLINICAL HISTORY: Right sided anterior chest wall/discomfort/fullness COMPARISON STUDY: PET/CT January 10, 2023 and October 10, 2023. Chest CT January 12, 2024. Chest radiograph performed earlier today. TECHNIQUE: Axial images of the chest were obtained without IV contrast. Images were reviewed in the axial, sagittal, and coronal planes. IV contrast was not administered for this examination. Automated exposure control was utilized for the study. A dose lowering technique was utilized adhering to the principles of ALARA. FINDINGS: No enlarged axillary, mediastinal or hilar lymph nodes are present. The heart is mildly enlarged. There is no pericardial effusion. No pneumothorax or pleural effusion is present. Subpleural right apical airspace opacity with mild associated bronchiectasis is new since CT of January 12, 2024. Otherwise, the lungs are clear. A right anterior upper chest wall elliptical fluid collection measures 7.7 x 1.6 cm. This measured 7.7 x 2.[address] of January 12, 2024. There is minimal adjacent stranding. No new fluid collections are present. No soft tissue nodularity is identified on unenhanced CT. No acute right-sided rib fractures are present. There are old, healed fractures of the anterior lateral right fourth and fifth ribs. Biliary ductal dilatation is unchanged and likely related to cholecystectomy. IMPRESSION: 1. Mild decrease in size of a 7.7 x 1.6 cm right anterior upper chest wall fluid collection since CT of January 12, 2024. This is suggestive of a seroma. Minimal adjacent stranding, similar to prior CT. 2. Interval development of subpleural right apical opacity with mild bronchiectasis which is likely treatment related. 3. Old, healed right fourth and fifth rib fractures. No acute right-sided rib fractures. ACT 112: Negative or not required by law. Electronically signed by: Floyd Trejo M.D. 12/19/2024 11:[address] 12/19/24 10:48 CT head/brain wo con CLINICAL HISTORY: 84 years-old Female with headache, dizziness. Acute headache TECHNIQUE: Multiple axial CT images of the head were obtained without contrast. A dose lowering technique was utilized adhering to the principles of ALARA. CT DOSE: 854.92 mGy.cm COMPARISON: 10/08/24. FINDINGS: No acute intracranial hemorrhage, midline shift, intracranial mass, hydrocephalus, territorial ischemia or abnormal extra-axial collection. Involutional changes with white matter hypodensities suggestive of chronic microvascular ischemic disease. The calvarium is intact. The paranasal sinuses, mastoid air cells, and middle ear cavities are clear. IMPRESSION: No acute intracranial abnormality. ACT 112: Negative or not required by law. The above report was generated using voice recognition software. It may contain grammatical, syntax or spelling errors. Electronically signed by: Raffaele Amado M.D. 12/19/2024 11:18 AM Soft Tissue Ultrasound 12/19/24 10:55 US soft tissue ext ltd HISTORY: 84 years-old Female R anterior shoulder region fullness COMPARISON: Chest CT 12/19/2024 and also January 12, 2024. TECHNIQUE: Multiple axial CT images of the right chest soft tissues were obtained assessing grayscale appearance and color flow FINDINGS: Chronic 6.3 x 7.0 x 5.7 cm fluid collection of the anterior chest wall redemonstrated without color flow or solid mass. IMPRESSION: 7 cm right anterior chest wall collection redemonstrated, mildly decreased in size from January 12, 2024 suggestive of a probable seroma. ACT 112: Negative or not required by law. The above report was generated using voice recognition software. It may contain grammatical, syntax or spelling errors. Electronically signed by: Raffaele Amado M.D. 12/19/2024 12:44 PM Head CTA 12/19/24 13:06 CTA ANGIOGRAPHY OF THE HEAD CLINICAL HISTORY: neuro deficit, acute stroke suspected COMPARISON STUDY: MRI of the brain September 16, 2024. Head CT October 08, 2024. CTA of the head August 16, 2022. Head CT performed earlier today. TECHNIQUE: Helical axial images of the head were obtained following uneventful intravenous administration of 112 cc of Optiray. Sagittal and coronal reconstructions were viewed as well as maximal intensity projections on an independent 3-D workstation. Automated exposure control was utilized for the study. A dose lowering technique was utilized adhering to the principles of ALARA. CT DOSE: 450.7 mGy.cm FINDINGS: No acute intracranial hemorrhage is identified on contrast enhanced exam. Ventricular system is unremarkable. Basal cisterns are patent. There are no extra-axial collections. There is extensive calcified atherosclerotic plaque within the cavernous carotids which results in moderate stenosis of these vessels. This is unchanged. The bilateral M1, M2, A1 and A2 segments are patent. Posterior circulation is intact. No intracranial vessel occlusion is identified. There is no intracranial aneurysm or dissection. IMPRESSION: No intracranial vessel occlusion. No intracranial aneurysm. ACT 112: Negative or not required by law. Electronically signed by: Floyd Trejo M.D. 12/19/2024 2:08 PM Neck CTA 12/19/24 13:06 CT angio neck with con CLINICAL HISTORY: 84 years-old Female with neuro deficit, acute stroke suspected. Acute strokelike symptoms COMPARISON STUDY: CTA head on chest CT of same day, CT cervical spine 01/12/2024 TECHNIQUE: Following the IV administration of 112 cc of Optiray, CT angiogram of the neck was performed from the aortic arch to the skull base. Images are reviewed in the axial, sagittal, and coronal planes. 3-D MIPS images are created and assessed. IV contrast was administered without complication. All me asurements were calculated based on NASCET criteria. A dose lowering technique was utilized adhering to the principles of ALARA. FINDINGS: Three-vessel morphology of the vascular regard. Patency of the innominate and image subclavian arteries. There is mild atherosclerosis of the carotid bulbs without high-grade stenosis. There is luminal irregularity of the patent internal carotid arteries, most pronounced in the cervical segments, right greater the left. This may be secondary to atherosclerosis with vasculitis considered less likely. The vertebral arteries are patent. Linear subpleural right apical opacity favors scarring. Partially imaged right chest wall fluid collection. Chest CT dictated separately. Unremarkable soft tissues. No acute fracture. IMPRESSION:Atherosclerosis without aneurysm, high-grade stenosis or arterial occlusion. ACT 112: Negative or not required by law. The above report was generated using voice recognition software. It may contain grammatical, syntax or spelling errors. Electronically signed by: Raffaele Amado M.D. 12/19/2024 2:11 PM Brain MRI 12/19/24 14:08 MRI of the brain without contrast Technique: Noncontrast multiplanar multisequence MR images of the brain were obtained. Reference is made to prior exam dated 03/21/2019 No acute intracranial hemorrhage. No acute infarcts. Appropriate vascular flow voids present. Very mild T2/FLAIR signal hyperintensity scattered throughout the subcortical and deep white matter consistent with very mild ischemic microangiopathy. Impression: Mild ischemic microangiopathy No infarct or intracranial hemorrhage Electronically signed by Ganesh Lambert 12-19-2024 11:59 PM Pending Results Patient Have Any Pending Studies at Discharge: No Discharge Instructions Given to Patient (Per Discharging Provider) Ms. Pike, You were hospitalized after having worsening headache with vision changes and balance issues. You had a full stroke workup that did not show any evidence of stroke. Thankfully your symptoms have improved some. A neurologist was contacted about your case and recommended a course of steroids, pain management consultation and outpatient follow up with Dr. Rosenberg. Given your hx of SVT - I have decreased your steroids and will continue on prednisone for 3 more days. You were seen by pain management who preformed two nerve blocks and they did not think your symptoms were from a spinal headache. They also recommended lidocaine patches - these can be purchased over the counter. Continue to take Flonase. Follow up with pain management outpatient. Please keep your appointment with Dr. Rosenberg on Sunday. Would not recommend driving before then unless you feel 100% better and are not having any vision issues. We increased your gabapentin dosage to 200mg each night. I have sent in Fioricet that can be used as needed for headache. This has Tylenol in it, so do NOT take Tylenol at the same time. Meclizine has also been sent in for dizziness - especially if you develop the feeling that the room is spinning Recommend outpatient follow up with your breast surgeon for seroma seen on chest CT - thankfully smaller than previous. Pepcid has been started once daily for indigestion. Activity: You can do normal everyday activities as your body allows. Take rest breaks if you feel tired. Do not overexert. Stop activity if you have pain, shortness of breath or feel dizzy. Follow-up appointments: Make an appointment with your primary care physician within one week of discharge. A copy of this summary will be sent to them. Every time you see your primary care physician, or any other doctor, bring your medication list, and a list of questions. CONTACT YOUR PRIMARY CARE PROVIDER if you experience any of the following: Shortness of breath or difficulty breathing Fevers or chills Feeling tired with normal activity or experiencing dizziness or fainting Difficulty following your treatment plan, or difficulty taking medications CALL 911 OR GO TO THE EMERGENCY DEPARTMENT if you experience any of the following: Severe abdominal pain or nausea/vomiting Severe chest pain, or chest pain that radiates (moves) to your jaw or arm Sudden, severe shortness of breath or difficulty breathing Thank you for allowing us to participate in your care. Total Time Total Time Spent Total Time Spent (In Minutes): Time spent day of discharge 35 minutes including direct patient care, medication reconciliation, documentation, review of labs and images, and coordination of care. Coding Level of Care Code 98377 INP/OBS DISCH >30 MIN Diagnoses Headache R51.9 Headache chronicity pattern: acute headache Headache type: unspecified Intractability: not intractable Stroke-like symptoms R29.90 Seroma of breast N64.89 GERD (gastroesophageal reflux disease) K21.9
[2024-12-22 15:31] VITALS: BP 117/52; TEMP 98.8; O2SAT 97
[2024-12-22 17:15] VITALS: PULSE 63
[2024-12-23] MEDS ORDERED: methylPREDNISolone 4 MG TAB PO SCH (07:00)
[2024-12-24] MEDS ORDERED: methylPREDNISolone 4 MG TAB PO SCH (07:00)
[2024-12-24 19:07] LABS: 18KDIGG Band NON-REACTIVE; 23KDIGG Band NON-REACTIVE; 23KDIGM Band NON-REACTIVE; 28KDIGG Band NON-REACTIVE; 30KDIGG Band NON-REACTIVE; 39KDIGG Band NON-REACTIVE; 39KDIGM Band NON-REACTIVE; 41KDIGG Band REACTIVE; 41KDIGM Band NON-REACTIVE; 45KDIGG Band NON-REACTIVE; 58KDIGG Band NON-REACTIVE; 66KDIGG Band NON-REACTIVE; 93KDIGG Band NON-REACTIVE; Lyme Antibodies, WB IgG NEGATIVE (NEGATIVE); Lyme Antibodies, WB IgM NEGATIVE (NEGATIVE)
[2024-12-25] MEDS ORDERED: methylPREDNISolone 4 MG TAB PO SCH (07:00)
== END 2024-12-22 17:00 | disposition home health service (06) | DRG 552 ==
LOC: ED 08:53 → INTOOBSV 12:50 → 2W 12:50 → SUATTDRO 12:50 → 2W 14:53